=== PATIENT | female | born 1960 | race Caucasian/White ===

== ENCOUNTER 2021-06-17 14:05 | Emergency (ER) | payer MEDICARE, MEDICAID, SELFPAY ==
--- NOTE | ~2021-06-17 | XR_ITS ---
EXAMINATION: XR CHEST CLINICAL INFORMATION: Difficulty swallowing. Abdominal distention. COMPARISON: Chest x-ray 02/09/2017 TECHNIQUE: 2 views of the chest were obtained. FINDINGS: Central port catheter tip at caval atrial junction. No pneumothorax or pleural effusion. Lungs are normally aerated. Cardiac mediastinal contour are normal. Heart size is normal. No pulmonary vascular congestion. XR/XR chest 2V IMPRESSION: No acute abnormality of chest.
--- NOTE | ~2021-06-17 | CT_ITS ---
EXAMINATION: CT ABDOMEN AND PELVIS WITH CONTRAST CLINICAL INFORMATION: Abdominal distention. COMPARISON: CT abdomen with and without contrast 03/15/2017 TECHNIQUE: Multidetector volumetric images were obtained from the superior aspect of the liver through the pubic symphysis following administration 85 mL of Omnipaque 350 intravenous contrast. Sagittal and coronal reformatted images were obtained on the technologist's workstation. Oral contrast: No This CT examination was performed using dose optimization techniques as appropriate, variously including the following: *Automated exposure control *Adjustment of mA and/or kV according to patient size (this includes techniques or standardized protocols for targeted exams where dose is matched to indication/reason for exam; i.e. extremities or head) *Use of iterative reconstruction technique DLP: 559 mGy-cm FINDINGS: LUNG BASES: There is minimal atelectatic changes in the lingula. The heart size is normal. LIVER, GALLBLADDER, AND BILIARY TREE: The liver is normal in size, shape, and attenuation. No focal hepatic lesion or biliary ductal dilatation is present. The gallbladder is unremarkable with no evidence of radiopaque gallstones, gallbladder wall thickening, or obvious pericholecystic inflammatory changes. The CBD is mildly dilated measuring 1.6 cm in axial image 28/3. No obstructive etiology seen PANCREAS: Unremarkable. SPLEEN: The spleen is normal size with a 4 mm calcification. ADRENAL GLANDS: There is a left adrenal gland mass measuring 2.7 x 2.8 x 2.8 cm and 23 Hounsfield units. The right adrenal gland appears unremarkable. KIDNEYS AND URETERS: The kidneys are normal in size, shape, and attenuation. No hydronephrosis, hydroureter, or calculi seen. No perinephric stranding. BLADDER: Unremarkable. GASTROINTESTINAL TRACT: There is scattered stool and gas seen throughout the colon without any significant distention. The small bowel loops are normal caliber. Appendix is normal caliber. ABDOMINAL WALL: No significant hernia is appreciated. LYMPH NODES: Normal. VASCULAR: Unremarkable. PELVIC VISCERA: There is no free air or free fluid. OSSEOUS STRUCTURES: Unremarkable. CT/CT abdomen pelvis w con IMPRESSION: No acute intra-abdominal process seen. Prominent CBD is slightly increased in size since the last exam 2016. No obstructive etiology seen. No intrahepatic ductal dilatation. Left adrenal low-attenuation mass measuring 2.8 cm, similar in size. There is now enhancement seen in contrast exam compared to -8 Hounsfield units on the previous study 03/16/2017. 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 Fleischner guidelines were followed.
[2021-06-17 14:38] VITALS: BP 165/85; PULSE 96; RESP 18; TEMP 36.8; O2SAT 98; BMI 27.4
[2021-06-17 15:06] LABS: MANUAL DIFF FLAG NO
[2021-06-17 15:08] LABS: Appearance Urine CLEAR; Color Urine YELLOW; Glucose Urine UA NEG (NEG); Leukocyte Esterase Urine NEG (NEG); Nitrite Urine NEG (NEG); PH 5.5 (5.0-8.0); Specific Gravity - Urine 1.015 (1.005-1.025); Urine Blood NEG (NEG); Urine Ketones NEG (NEG); Urine Protein NEG (NEG-TRACE)
[2021-06-17 15:10] LABS: Basophils Percent Auto 0.6 % (0-2); Eosinophils Absolute Auto 0.1 X10*3/uL (0.0-0.4); Eosinophils Percent Auto 0.8 % (0-4); Hematocrit 42.4 % (37.0-47.0); Hemoglobin 13.9 g/dl (12.0-16.0); Imm Gran Abs Auto 0.09 X10*3/uL (0.00-0.03); Imm Gran Pct Auto 1.4 % (0.0-0.4); Lymphocytes Absolute Auto 1.4 X10*3/uL (1.2-4.9); Lymphocytes Percent Auto 21.9 % (20-40); Mean Corpuscular HGB Conc 32.8 g/dl (31.0-35.0); Mean Corpuscular Hemoglobin 34.4 pg (27.0-33.0); Monocytes Absolute Auto 0.4 X10*3/uL (0.1-1.2); Monocytes Percent Auto 6.5 % (2-11); Neutrophils Absolute Auto 4.5 x10*3/uL (2.0-8.3); Neutrophils Percent Auto 68.8 % (45-73); Platelet Count 251 X10*3/uL (160-400); Red Blood Count 4.04 X10*6/uL (4.20-5.50); Red Cell Distribution Width 14.1 % (11.0-16.0); White Blood Count 6.6 X10*3/uL (4.8-10.8)
[2021-06-17 15:23] LABS: Anion Gap 10 (12-20); Blood Urea Nitrogen 13 mg/dL (9-16); Calcium 9.2 mg/dL (8.4-10.2); Carbon Dioxide 34 mmol/L (22-29); Chloride 98 mmol/L (96-108); Creatinine Clr Calc Pharmacy 67.7; Estimated Glomerular Filt Rate > 60; Glucose Random 118 mg/dL (60-115); Lipase 74 U/L (8-78); Potassium 4.2 mmol/L (3.3-5.1); Sodium 138 mmol/L (135-145)
[2021-06-17 15:24] LABS: Alanine Aminotransferase 36 U/L (0-31); Alkaline Phosphatase 96 U/L (39-117); Aspartate Amino Transferase 39 U/L (5-31); Bilirubin Direct 0.2 mg/dL (0.0-0.5); Bilirubin Total 0.3 mg/dL (0.0-1.0); Total Protein 7.2 g/dL (6.5-8.0)
[2021-06-17 15:32] LABS: COVID-19 Test Negative (Negative)
[2021-06-17 16:00] VITALS: BP 172/88; PULSE 991; RESP 18; TEMP 36.8; O2SAT 98
[2021-06-17 18:26] LABS: B Type Natriuretic Peptide 31 pg/mL (<100)
[2021-06-17 18:43] VITALS: BP 144/81; PULSE 95; RESP 14; TEMP 37; O2SAT 94
--- NOTE | 2021-06-17 18:43 | ED_ITS ---
HPI - General Adult General Chief complaint: General Medical Stated complaint: DRY MOUTH Time Seen by Provider: 06/17/21 17:15 Source: patient Mode of arrival: ambulatory History of Present Illness HPI narrative: 60-year-old female with a past medical history of vocal cord polyp breast CA s/p chemo/radiation, presenting to the ED complaining of dry mouth, abdominal distension/discomfort, and nausea x months. Reports associated difficulty swallowing & dysuria. Denies fever, chills, cough, SOB/CP, vomiting/diarrhea, hematuria, inability to swallow Onset (ago): month(s) Related Data Allergies Allergy/AdvReac Type Severity Reaction Status Date / Time No Known Allergies Allergy Verified 06/17/21 14:37 [No Known Allergies*] Review of Systems Verdana 4l Review of Systems: Verdana 4d Verdana 4d Constitutional: No Fever, No Chills, No Fatigue, No Malaise ENT/Mouth: No Ear Pain, No Nasal Congestion, No Hoarseness, No sore throat, No Rhinorrhea, + Swallowing Difficulty, + dry mouth Eyes: No Eye Pain, No Swelling, No Redness, No DischargeDischarge Cardiovascular: No Chest Pain, No SOB, No Palpitations Respiratory: No Cough, No Sputum, No Dyspnea Gastrointestinal: + Nausea, No Vomiting, No Diarrhea, No Constipation, + Abdominal pain Genitourinary: + Dysuria, No Urinary Frequency, No Flank Pain, No Urinary Flow Changes, No Hesitancy Musculoskeletal: No joint pain, No Myalgias, No Joint Swelling Skin: No Skin Lesions, No rash Neuro: No Weakness, No Loss of Consciousness, No Dizziness, No Headache Yes all other systems are reviewed and are negative FORMERLY [facility], [facility]–1983 Past Medical History Attestation statement: The following information was validated with the patient. Medical History Vocal cord polyp Social History Social History Advance Directives: Yes Advance Directives Information Provided: Yes Advance Directives on File: No Physical Exam Verdana 4l Vital Signs: Verdana 4d Verdana 4d Vital Signs: Verdana 4d Verdana 4Bd Last Vital Signs Verdana 4d Steam Meter Reader New 4d Steam Meter Reader New 4d Temp 98.6 F 06/17/21 18:43 Steam Meter Reader New 4d Pulse 95 06/17/21 18:43 Steam Meter Reader New 4d Resp 14 06/17/21 18:43 BP 144/81 H 06/17/21 18:43 Pulse Ox 94 06/17/21 18:43 BMI result Body Mass Index 27.4 Const: General: cooperative, healthy appearing and no acute distress Orientation/consciousness: patient oriented x3 Limitations: no limitations HENMT: Head: Yes normal to inspection Ears: hearing grossly normal bilaterally General nose exam: Normal external nose present Face and sinus: Yes normal facial exam Mouth: Normal oral and palatal mucosa present Throat: Yes posterior oropharynx normal, Yes tonsils normal, Yes uvula midline, No peritonsillar mass, No uvula laterally displaced and No uvular edema Eyes: General: appearance normal, both eyes and all related structures EOM: EOMs intact bilaterally Neck: Neck: Yes normal visual inspection, Yes no lymphadenopathy, Yes no meningeal signs, Yes trachea midline, Yes supple and No anterior neck swelling Resp: Effort & Inspection: normal respiratory effort and no stridor Auscultation: clear to auscultation bilaterally, no rales, no rhonchi and no wheezes Cardio: Rate: regular rate Heart sounds: S1 normal heart sound present and S2 normal heart sound present GI: Inspection: Yes normal to inspection and Yes distended Palpation (GI): Soft to palpation, Firmness to palpation present (GI), Tenderness to palpation present (GI) (Mild diffusely), no guarding, not rigid and No Ascites present Skin: Rashes: no rashes Wounds: no wounds Neuro: General: patient oriented x3 and no meningeal signs Gait exam (Neuro): Normal gait present Extrem: Other: 1+ bilaterally LE pitting edema Course Course Course Narrative: -no leukocytosis. Acute on chronic retention. Mildly elevated AST/ALT. Labs otherwise unremarkable -UA unremarkable. COVID-19 negative XR chest 2V IMPRESSION: No acute abnormality of chest. CT abdomen pelvis w con IMPRESSION: No acute intra-abdominal process seen. ? Prominent CBD is slightly increased in size since the last exam 2016. No obstructive etiology seen. No intrahepatic ductal dilatation. ? Left adrenal low-attenuation mass measuring 2.8 cm, similar in size. There is now enhancement seen in contrast exam compared to -8 Hounsfield units on the previous study 03/16/2017. 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 ? Fleischner guidelines were followed. >> patient is tolerating p.o. in the ED without any difficulty. results discussed with patient including worrisome signs and symptoms and strict return precautions and need close follow-up with GI, Urology, and ENT. Patient verbalized understanding and feels safe for discharge home at this time Medical Decision Making MDM Narrative Medical decision making narrative: 60-year-old female with a past medical history of vocal cord polyp breast CA s/p chemo/radiation, presenting to the ED complaining of dry mouth, abdominal distension/discomfort, and nausea x months. On exam vital signs stable, NAD/nontoxic appearing, physical exam as above. Concern for intra-abdominal process vs ?mass, low concern for ascites vs viral syndrome. No evidence of [employer]. No evidence of airway compromise/intraoral swelling, airway patent, no stridor. Lower concern for diverticulitis/appendicitis Plan: labs, UA, CXR, CT abdomen/pelvis Medical Records Medical records reviewed: Yes I reviewed the patient's medical records. Lab Data Lab results reviewed: Yes I reviewed the patient's lab results. Result diagrams: 06/17/21 14:58 06/17/21 14:58 Labs: Lab Results 06/17/21 06/17/21 06/17/21 Range/Units 14:58 14:58 14:58 WBC 6.6 (4.8-10.8) X10*3/uL RBC 4.04 L (4.20-5.50) X10*6/uL Hgb 13.9 (12.0-16.0) g/dl Hct 42.4 (37.0-47.0) % MCV 105.0 H (80.0-98.0) fL MCH 34.4 H (27.0-33.0) pg MCHC 32.8 (31.0-35.0) g/dl RDW 14.1 (11.0-16.0) % Plt Count 251 (160-400) X10*3/uL MPV 9.0 L (9.4-12.3) fL Immature Gran % (Auto) 1.4 H (0.0-0.4) % Neut % (Auto) 68.8 (45-73) % Lymph % (Auto) 21.9 (20-40) % Custer % (Auto) 6.5 (2-11) % Eos % (Auto) 0.8 (0-4) % Baso % (Auto) 0.6 (0-2) % Lymph # (Auto) 1.4 (1.2-4.9) X10*3/uL Custer # (Auto) 0.4 (0.1-1.2) X10*3/uL Eos # (Auto) 0.1 (0.0-0.4) X10*3/uL Baso # (Auto) 0.0 (0.0-0.2) X10*3/uL Abs Immat Gran (auto) 0.09 H (0.00-0.03) X10*3/uL Absolute Neuts (auto) 4.5 (2.0-8.3) x10*3/uL Absolute Nucleated RBC 0.000 (0.0-0.012) X10*3/uL Nucleated RBC % (auto) 0.0 (0.0-0.2) /100WBC Sodium 138 (135-145) mmol/L Potassium 4.2 (3.3-5.1) mmol/L Chloride 98 (96-108) mmol/L Carbon Dioxide 34 H (22-29) mmol/L Anion Gap 10 L (12-20) BUN 13 (9-16) mg/dL Creatinine 0.82 (0.5-1.4) mg/dL Estim Creat Clear Calc 67.7 Estimated GFR > 60 Random Glucose 118 H (60-115) mg/dL Calcium 9.2 (8.4-10.2) mg/dL Magnesium (1.6-2.6) mg/dL Total Bilirubin (0.0-1.0) mg/dL Direct Bilirubin (0.0-0.5) mg/dL AST (5-31) U/L ALT (0-31) U/L Alkaline Phosphatase (39-117) U/L B-Natriuretic Peptide (<100) pg/mL Total Protein (6.5-8.0) g/dL Albumin (3.5-5.0) g/dL Lipase 74 (8-78) U/L Urine Color YELLOW Urine Appearance CLEAR Urine pH 5.5 (5.0-8.0) Ur Specific [place] 1.015 (1.005-1.025) Urine Protein NEG (NEG-TRACE) MG/DL Urine Glucose (UA) NEG (NEG) MG/DL Urine Ketones NEG (NEG) MG/DL Urine Blood NEG (NEG) Urine Nitrite NEG (NEG) Ur Leukocyte Esterase NEG (NEG) COVID-19 (FELIX) (Negative) COVID-19 Clin Com 06/17/21 06/17/21 06/17/21 Range/Units 14:58 14:58 14:59 WBC (4.8-10.8) X10*3/uL RBC (4.20-5.50) X10*6/uL Hgb (12.0-16.0) g/dl Hct (37.0-47.0) % MCV (80.0-98.0) fL MCH (27.0-33.0) pg MCHC (31.0-35.0) g/dl RDW (11.0-16.0) % Plt Count (160-400) X10*3/uL MPV (9.4-12.3) fL Immature Gran % (Auto) (0.0-0.4) % Neut % (Auto) (45-73) % Lymph % (Auto) (20-40) % Custer % (Auto) (2-11) % Eos % (Auto) (0-4) % Baso % (Auto) (0-2) % Lymph # (Auto) (1.2-4.9) X10*3/uL Custer # (Auto) (0.1-1.2) X10*3/uL Eos # (Auto) (0.0-0.4) X10*3/uL Baso # (Auto) (0.0-0.2) X10*3/uL Abs Immat Gran (auto) (0.00-0.03) X10*3/uL Absolute Neuts (auto) (2.0-8.3) x10*3/uL Absolute Nucleated RBC (0.0-0.012) X10*3/uL Nucleated RBC % (auto) (0.0-0.2) /100WBC Sodium (135-145) mmol/L Potassium (3.3-5.1) mmol/L Chloride (96-108) mmol/L Carbon Dioxide (22-29) mmol/L Anion Gap (12-20) BUN (9-16) mg/dL Creatinine (0.5-1.4) mg/dL Estim Creat Clear Calc Estimated GFR Random Glucose (60-115) mg/dL Calcium (8.4-10.2) mg/dL Magnesium 2.0 (1.6-2.6) mg/dL Total Bilirubin 0.3 (0.0-1.0) mg/dL Direct Bilirubin 0.2 (0.0-0.5) mg/dL AST 39 H (5-31) U/L ALT 36 H (0-31) U/L Alkaline Phosphatase 96 (39-117) U/L B-Natriuretic Peptide 31 (<100) pg/mL Total Protein 7.2 (6.5-8.0) g/dL Albumin 4.0 (3.5-5.0) g/dL Lipase (8-78) U/L Urine Color Urine Appearance Urine pH (5.0-8.0) Ur Specific [place] (1.005-1.025) Urine Protein (NEG-TRACE) MG/DL Urine Glucose (UA) (NEG) MG/DL Urine Ketones (NEG) MG/DL Urine Blood (NEG) Urine Nitrite (NEG) Ur Leukocyte Esterase (NEG) COVID-19 (FELIX) Negative (Negative) COVID-19 Clin Com See Note Discharge Plan Discharge Clinical Impression: Mass of adrenal gland, Dry mouth, Abdominal bloating Patient Disposition: Home, Self-Care Instructions: Abdominal Pain (ED), Dry Mouth (ED), Adrenal Gland Biopsy (DC) Additional Instructions: Your CT scan shows a mass in her left adrenal gland as well as a prominent common bile duct. You need to follow-up with GI and Urology You also need to follow-up with ENT you for your dry mouth as well as her dentist. If her symptoms persist or worsen, your abdominal pain becomes unbearable, you are unable to eat or drink, have difficulty or inability to swallow, or developed fever please return to the emergency department Referrals: Ace Nieto MD [Physician] - 2 days Farrukh Acosta MD [Physician] - 2 days Sinan Valdez [Physician] - 2 days
--- NOTE | 2021-06-17 19:41 | PC.NURSE ---
IV inserted in PT right AC in order to receive IV contrast dye for CT scan.
[2021-06-17] MEDS: iohexoL 350 MG/ML 100 ML INFUS..BTL IV (19:57)
[2021-06-17 22:00] VITALS: BP 158/83; PULSE 78; RESP 18; O2SAT 95
[2021-06-17] MEDS: Heparin Sodium,Porcine Flush 50 UNITS, 0.9 % Sodium Chloride Flush 5 ML IVFLUSH (22:05)
== END 2021-06-17 22:16 | disposition home or self-care (01) ==
PROVIDERS: Physician Assistant; Emergency Provider Internal Medicine; PCP Internal Medicine
DX: R68.2 Dry mouth, unspecified (principal); D44.12 Neoplasm of uncertain behavior of left adrenal gland; R14.0 Abdominal distension (gaseous); Z20.822 Contact with and (suspected) exposure to COVID-19; R11.0 Nausea; R60.0 Localized edema; R33.9 Retention of urine, unspecified; Z85.3 Personal history of malignant neoplasm of breast; D35.02 Benign neoplasm of left adrenal gland
CPT/HCPCS: 36415; 71046; 74177; 80048; 80076; 81003; 83690; 83735; 83880; 85025; 87635; 99284; J1642; Q9967

== ENCOUNTER 2021-07-29 11:30 | Emergency (ER) | payer MEDICARE, MEDICAID, SELFPAY ==
--- NOTE | 2021-07-29 | ECG_ITS ---
Test Reason : sob Blood Pressure : / mmHG Vent. Rate : 089 BPM Atrial Rate : 089 BPM P-R Int : 152 ms QRS Dur : 094 ms QT Int : 388 ms P-R-T Axes : 064 -05 031 degrees QTc Int : 472 ms Normal sinus rhythm Normal ECG No previous ECGs available Referred By: Mao Ghotra Electronically Signed By:YOEL CARRION
--- NOTE | ~2021-07-29 | XR_ITS ---
EXAMINATION: XR CHEST CLINICAL INFORMATION: Diffuse rhonchi COMPARISON: Previous chest x-ray June 2021 TECHNIQUE: 2 views of the chest were obtained. FINDINGS: The cardiac and mediastinal contours are stable. The lungs are clear. There is no pleural effusion or pneumothorax. There is a right subclavian port with tip projecting over the SVC. There are mild degenerative changes of the spine. XR/XR chest 2V IMPRESSION: No evidence for acute disease in the chest.
[2021-07-29 11:32] VITALS: BP 159/109; PULSE 95; RESP 18; TEMP 36.3; O2SAT 94; BMI 28.3
--- NOTE | 2021-07-29 12:28 | ED_ITS ---
HPI - SOB/Dyspnea General Chief Complaint: Dyspnea Stated Complaint: COPD Time Seen by Provider: 07/29/21 12:28 Source: patient Mode of arrival: ambulatory Limitations: no limitations History of Present Illness HPI Narrative: Patient with shortness of breath for the past week. she recently had dental surgery and since then she has had wheezing. In addition she has had some stress but now with increased SOB with exertion. Patient is normally on an albuterol. She is not on a daily inhailer. She has had epigastric pain. patient has been vaccinated and boostered. MD elicited complaint: shortness of breath Pertinent past history: COPD Onset (ago): week(s) Context: anxiety and other (surgery) Timing: intermittent Severity: mild Exacerbating factors: exertion Known history of: COPD Associated symptoms: denies other symptoms Related Data Previous Rx's Medication Instructions Recorded albuterol sulfate 90 mcg/actuation 2 puff INHALATION QID PRN #8.5 g 07/29/21 aerosol inhaler tiotropium bromide 18 mcg capsule 1 cap INHALATION DAILY #1 inh 07/29/21 with inhalation device (Spiriva with HandiHaler) Allergies Allergy/AdvReac Type Severity Reaction Status Date / Time No Known Allergies Allergy Verified 06/17/21 14:37 [No Known Allergies*] Review of Systems Constitutional: Comments: Weight gain and leg swelling Eyes: Eyes: Reports no additional eye complaints ENT: Denies dizziness Cardiovascular: Cardiovascular: Reports no additional cardiovascular complaints Respiratory: Respiratory: Reports as per HPI Gastrointestinal: Gastrointestinal: Reports no additional gastrointestinal complaints Genitourinary: Genitourinary: Reports no additional female genitourinary complaints Musculoskeletal: Musculoskeletal: Reports no additional musculoskeletal complaints Integumentary/Breasts: Skin/Breast: Denies rash Neurologic: Reports system reviewed and no additional complaints, except as documented, Denies dizziness and Denies Sensory deficit (Neuro) Psychiatric: Psychiatric: Denies anxiety [facility] Past Medical History Medical History Vocal cord polyp Social History Social History Advance Directives: No Advance Directives Information Provided: No Patient : No Physical Exam Vital Signs: Vital Signs: Last Vital Signs Temp 97.3 F 07/29/21 11:32 Pulse 74 07/29/21 13:48 Resp 16 07/29/21 13:48 BP 137/84 07/29/21 13:48 Pulse Ox 88 L 07/29/21 13:53 BMI result Body Mass Index 28.3 Const: Nutritional Appearance: average body habitus Orientation/consciousness: oriented to person and patient oriented x3 Limitations: no limitations HENMT: Head: Yes normal to inspection Ears: external ears normal General nose exam: Normal external nose present Mouth: Normal oral and palatal mucosa present and oropharynx normal Throat: Yes posterior oropharynx normal Eyes: General: appearance normal, both eyes and all related structures Neck: Other: supple Neck: Yes normal visual inspection Chest: Other: supraclavicular swelling with respiratory variation Chest palpation & inspection: normal inspection of the chest Resp: Other: diffuse expiratory wheezing most in the lower lobes Cardio: Jugular venous distension: no JVD Rate: regular rate Rhythm: regular rhythm Heart sounds: S1 normal heart sound present and S2 normal heart sound present GI: Inspection: Yes normal to inspection Palpation (GI): Soft to palpation, nontender and No hepatosplenomegaly present Auscultation: normal bowel sounds : General: Yes no CVA tenderness Back/Spine/Pelvis: Back: no CVA tenderness Skin: General skin exam: no rashes or lesions noted Neuro: General: oriented to person and patient oriented x3 Cranial nerves: Yes CN's II-XII intact bilaterally Motor exam (neuro): 5/5 motor strength present throughout Sensory Exam: No Sensory deficit (Neuro) Extrem: General: Yes normal to inspection Psych: Appearance: grossly normal Course Reevaluation(s) Reevaluation #1: Patient lungs are clear, no rhonchi. O2 sat 94% Time: 15:02 MDM - SOB/Dyspnea Lab Data Result diagrams: 07/29/21 12:31 07/29/21 12:31 Labs: Lab Results 07/29/21 07/29/21 07/29/21 Range/Units 12:31 12:31 12:31 WBC 9.1 (4.8-10.8) X10*3/uL RBC 3.91 L (4.20-5.50) X10*6/uL Hgb 13.6 (12.0-16.0) g/dl Hct 42.8 (37.0-47.0) % MCV 109.5 H (80.0-98.0) fL MCH 34.8 H (27.0-33.0) pg MCHC 31.8 (31.0-35.0) g/dl RDW 13.3 (11.0-16.0) % Plt Count 178 D (160-400) X10*3/uL MPV 9.0 L (9.4-12.3) fL Immature Gran % (Auto) 1.0 H (0.0-0.4) % Neut % (Auto) 79.4 H (45-73) % Lymph % (Auto) 11.3 L (20-40) % Fleming % (Auto) 6.6 (2-11) % Eos % (Auto) 1.3 (0-4) % Baso % (Auto) 0.4 (0-2) % Lymph # (Auto) 1.0 L (1.2-4.9) X10*3/uL Fleming # (Auto) 0.6 (0.1-1.2) X10*3/uL Eos # (Auto) 0.1 (0.0-0.4) X10*3/uL Baso # (Auto) 0.0 (0.0-0.2) X10*3/uL Abs Immat Gran (auto) 0.09 H (0.00-0.03) X10*3/uL Absolute Neuts (auto) 7.2 (2.0-8.3) x10*3/uL Absolute Nucleated RBC 0.000 (0.0-0.012) X10*3/uL Nucleated RBC % (auto) 0.0 (0.0-0.2) /100WBC Sodium 139 (135-145) mmol/L Potassium 4.1 (3.3-5.1) mmol/L Chloride 98 (96-108) mmol/L Carbon Dioxide 31 H (22-29) mmol/L Anion Gap 14 (12-20) BUN 11 (9-16) mg/dL Creatinine 0.75 (0.5-1.4) mg/dL Estim Creat Clear Calc 75.1 Estimated GFR > 60 Random Glucose 151 H (60-115) mg/dL Calcium 9.9 D (8.4-10.2) mg/dL Total Bilirubin 0.4 (0.0-1.0) mg/dL AST 21 D (5-31) U/L ALT 22 (0-31) U/L Alkaline Phosphatase 78 (39-117) U/L Troponin I High Sens < 3.5 (<3.5-17.0) ng/L B-Natriuretic Peptide 28 (<100) pg/mL Total Protein 6.9 (6.5-8.0) g/dL Albumin 4.2 (3.5-5.0) g/dL TSH 0.79 (0.32-4.0) uIU/mL COVID-19 (FELIX) (Negative) COVID-19 Clin Com 07/29/21 Range/Units 12:31 WBC (4.8-10.8) X10*3/uL RBC (4.20-5.50) X10*6/uL Hgb (12.0-16.0) g/dl Hct (37.0-47.0) % MCV (80.0-98.0) fL MCH (27.0-33.0) pg MCHC (31.0-35.0) g/dl RDW (11.0-16.0) % Plt Count (160-400) X10*3/uL MPV (9.4-12.3) fL Immature Gran % (Auto) (0.0-0.4) % Neut % (Auto) (45-73) % Lymph % (Auto) (20-40) % Fleming % (Auto) (2-11) % Eos % (Auto) (0-4) % Baso % (Auto) (0-2) % Lymph # (Auto) (1.2-4.9) X10*3/uL Fleming # (Auto) (0.1-1.2) X10*3/uL Eos # (Auto) (0.0-0.4) X10*3/uL Baso # (Auto) (0.0-0.2) X10*3/uL Abs Immat Gran (auto) (0.00-0.03) X10*3/uL Absolute Neuts (auto) (2.0-8.3) x10*3/uL Absolute Nucleated RBC (0.0-0.012) X10*3/uL Nucleated RBC % (auto) (0.0-0.2) /100WBC Sodium (135-145) mmol/L Potassium (3.3-5.1) mmol/L Chloride (96-108) mmol/L Carbon Dioxide (22-29) mmol/L Anion Gap (12-20) BUN (9-16) mg/dL Creatinine (0.5-1.4) mg/dL Estim Creat Clear Calc Estimated GFR Random Glucose (60-115) mg/dL Calcium (8.4-10.2) mg/dL Total Bilirubin (0.0-1.0) mg/dL AST (5-31) U/L ALT (0-31) U/L Alkaline Phosphatase (39-117) U/L Troponin I High Sens (<3.5-17.0) ng/L B-Natriuretic Peptide (<100) pg/mL Total Protein (6.5-8.0) g/dL Albumin (3.5-5.0) g/dL TSH (0.32-4.0) uIU/mL COVID-19 (FELIX) Negative (Negative) COVID-19 Clin Com See Note Imaging Data Chest x-ray: Radiologist's impression: IMPRESSION: No evidence for acute disease in the chest. Discharge Plan Discharge Clinical Impression: COPD (chronic obstructive pulmonary disease) Patient Disposition: Home, Self-Care Instructions: COPD (Chronic Obstructive Pulmonary Disease) (DC) Prescriptions: New albuterol sulfate 90 mcg/actuation HFA aerosol inhaler 2 puff inhalation QID PRN (Reason: shortness of breath or wheezing) Qty: 8.5 0RF Spiriva with HandiHaler 18 mcg capsule, w/inhalation device 1 cap inhalation DAILY Qty: 1 0RF Rx Instructions: puncture 1 cap using device; one dose = 2 inhalations Referrals: Melissa Mejia MD [Primary Care Provider] - 5 days
[2021-07-29 12:35] LABS: MANUAL DIFF FLAG NO
[2021-07-29 12:36] LABS: Basophils Percent Auto 0.4 % (0-2); Eosinophils Absolute Auto 0.1 X10*3/uL (0.0-0.4); Eosinophils Percent Auto 1.3 % (0-4); Hematocrit 42.8 % (37.0-47.0); Hemoglobin 13.6 g/dl (12.0-16.0); Imm Gran Abs Auto 0.09 X10*3/uL (0.00-0.03); Lymphocytes Percent Auto 11.3 % (20-40); Mean Corpuscular HGB Conc 31.8 g/dl (31.0-35.0); Mean Corpuscular Hemoglobin 34.8 pg (27.0-33.0); Mean Corpuscular Volume 109.5 fL (80.0-98.0); Monocytes Absolute Auto 0.6 X10*3/uL (0.1-1.2); Monocytes Percent Auto 6.6 % (2-11); Neutrophils Absolute Auto 7.2 x10*3/uL (2.0-8.3); Neutrophils Percent Auto 79.4 % (45-73); Platelet Count 178 X10*3/uL (160-400); Red Blood Count 3.91 X10*6/uL (4.20-5.50); Red Cell Distribution Width 13.3 % (11.0-16.0); White Blood Count 9.1 X10*3/uL (4.8-10.8)
[2021-07-29 12:52] LABS: Alanine Aminotransferase 22 U/L (0-31); Albumin Level 4.2 g/dL (3.5-5.0); Alkaline Phosphatase 78 U/L (39-117); Anion Gap 14 (12-20); Aspartate Amino Transferase 21 U/L (5-31); Bilirubin Total 0.4 mg/dL (0.0-1.0); Blood Urea Nitrogen 11 mg/dL (9-16); Calcium 9.9 mg/dL (8.4-10.2); Carbon Dioxide 31 mmol/L (22-29); Chloride 98 mmol/L (96-108); Creatinine Clr Calc Pharmacy 75.1; Estimated Glomerular Filt Rate > 60; Glucose Random 151 mg/dL (60-115); Potassium 4.1 mmol/L (3.3-5.1); Sodium 139 mmol/L (135-145); Total Protein 6.9 g/dL (6.5-8.0)
[2021-07-29 12:56] LABS: IDNOW Serial# 16C4AD1C
[2021-07-29 12:57] LABS: COVID-19 Test Negative (Negative)
[2021-07-29 12:58] LABS: B Type Natriuretic Peptide 28 pg/mL (<100); Troponin-I High Sensitivity < 3.5 ng/L (<3.5-17.0)
[2021-07-29 13:23] LABS: Thyroid Stimulating Hormone 0.79 uIU/mL (0.32-4.0)
[2021-07-29 13:48] VITALS: BP 137/84; PULSE 74; RESP 16
[2021-07-29 13:53] VITALS: O2SAT 88
[2021-07-29] MEDS: Albuterol Sulfate 90 MCG 8 GM INHALER 4 PUFF INHALE (14:45)
--- NOTE | 2021-07-29 15:02 | PC.NURSE ---
pt requested to have tylenol at this time as she reports having mouth surgery the other day and experiencing pain at this time. she also asked for her 1200 mg TID Gabapentin and reported that she had both medications on her at this time and if she could just take her own medication. t/w educated her on not taking her own medicaitons, that staff would give them from the hosptial if the provider wanted them ordered. Respiratory informed t/w that they walked into the room and pt was taking meds out of a bottle stating dont worry its just Tylenol! . MD Ghotra made aware
[2021-07-29 15:05] VITALS: BP 134/80; PULSE 85; RESP 16; O2SAT 94
== END 2021-07-29 15:26 | disposition home or self-care (01) ==
PROVIDERS: Emergency Provider Emergency Medicine; PCP Internal Medicine
DX: J44.9 Chronic obstructive pulmonary disease, unspecified (principal); R06.02 Shortness of breath; Z20.822 Contact with and (suspected) exposure to COVID-19
CPT/HCPCS: 71046; 80053; 83880; 84443; 84484; 85025; 87635; 93005; 99284

== ENCOUNTER 2021-08-21 17:45 | Inpatient (IN) | payer MEDICARE, MEDICAID, SELFPAY ==
--- NOTE | ~2021-08-21 | XR_ITS ---
EXAMINATION: XR CHEST CLINICAL INFORMATION: Dyspnea. COMPARISON: Chest radiograph dated from 07/29/2021. TECHNIQUE: PA view of the chest was obtained. FINDINGS: Stable cardiomediastinal silhouette and similar positioning of a right subclavian port terminating at the level of the cavoatrial junction. Tiny radiopacities superior to the left ventricular shadow are stable. No focal airspace opacities, pleural effusions or pneumothorax. No acute osseous abnormalities. XR/XR chest 1V IMPRESSION: No acute cardiopulmonary findings.
--- NOTE | 2021-08-21 18:36 | ECG_ITS ---
Test Reason : SOB Blood Pressure : / mmHG Vent. Rate : 081 BPM Atrial Rate : 081 BPM P-R Int : 158 ms QRS Dur : 096 ms QT Int : 404 ms P-R-T Axes : 069 004 032 degrees QTc Int : 469 ms Normal sinus rhythm Normal ECG When compared with ECG of 29-JUL-2021 12:14, No significant change was found Referred By: Generic ED Physician Electronically Signed By:RITA ARZATE MD
[2021-08-21 18:38] VITALS: BP 180/89; PULSE 89; RESP 22; TEMP 36.6; O2SAT 90; BMI 28.9
[2021-08-21 18:51] LABS: MANUAL DIFF FLAG NO
[2021-08-21 18:52] LABS: Basophils Percent Auto 0.5 % (0-2); Eosinophils Absolute Auto 0.1 X10*3/uL (0.0-0.4); Eosinophils Percent Auto 2.9 % (0-4); Hematocrit 43.5 % (37.0-47.0); Hemoglobin 13.8 g/dl (12.0-16.0); Imm Gran Abs Auto 0.02 X10*3/uL (0.00-0.03); Imm Gran Pct Auto 0.5 % (0.0-0.4); Lymphocytes Absolute Auto 1.2 X10*3/uL (1.2-4.9); Lymphocytes Percent Auto 27.8 % (20-40); Mean Corpuscular HGB Conc 31.7 g/dl (31.0-35.0); Mean Corpuscular Hemoglobin 34.2 pg (27.0-33.0); Mean Corpuscular Volume 107.7 fL (80.0-98.0); Monocytes Absolute Auto 0.6 X10*3/uL (0.1-1.2); Monocytes Percent Auto 13.3 % (2-11); Neutrophils Absolute Auto 2.3 x10*3/uL (2.0-8.3); Platelet Count 173 X10*3/uL (160-400); Red Blood Count 4.04 X10*6/uL (4.20-5.50); Red Cell Distribution Width 13.1 % (11.0-16.0); White Blood Count 4.1 X10*3/uL (4.8-10.8)
[2021-08-21 18:58] LABS: COVID-19 Test Positive (Negative)
[2021-08-21 19:04] LABS: Anion Gap 14 (12-20); Blood Urea Nitrogen 9 mg/dL (9-16); Calcium 9.7 mg/dL (8.4-10.2); Carbon Dioxide 35 mmol/L (22-29); Chloride 98 mmol/L (96-108); Creatinine Clr Calc Pharmacy 76.9; Estimated Glomerular Filt Rate > 60; Glucose Random 102 mg/dL (60-115); Potassium 3.9 mmol/L (3.3-5.1); Sodium 143 mmol/L (135-145)
[2021-08-21 19:17] LABS: B Type Natriuretic Peptide 20 pg/mL (<100)
[2021-08-21 19:47] VITALS: BP 145/63; PULSE 70; RESP 13; TEMP 36.6; O2SAT 95
[2021-08-21 20:00] VITALS: BP 173/89; PULSE 79; RESP 12; O2SAT 94
--- NOTE | 2021-08-21 20:12 | ED_ITS ---
HPI - SOB/Dyspnea General Chief Complaint: Dyspnea Stated Complaint: sob copd Time Seen by Provider: 08/21/21 20:12 Source: patient Mode of arrival: ambulatory Limitations: no limitations History of Present Illness HPI Narrative: Patient already vaccinated against COVID including a booster dose complaining of increased cough and shortness of breath for last 3 days was saturating 90% at room air her sister came from [place] and she was also sick patient tested negative for COVID at home patient denies any fever coughing a lot with shortness of breath patient was saturating 90% at room air on arrival she is not on oxygen at home Related Data Home Medications Medication Instructions Recorded Confirmed celecoxib 200 mg capsule 1 cap PO DAILY 08/21/21 08/21/21 cholecalciferol (vitamin D3) 125 1 tab PO DAILY 08/21/21 08/21/21 mcg (5,000 unit) tablet (Vitamin D3) gabapentin 600 mg tablet 2 tab PO TID 08/21/21 08/21/21 methadone 10 mg/mL oral concentrate 130 mg PO DAILY 08/21/21 omeprazole 20 mg capsule,delayed 1 cap PO DAILY 08/21/21 08/21/21 release Previous Rx's Medication Instructions Recorded albuterol sulfate 90 mcg/actuation 2 puff INHALATION QID PRN #8.5 g 07/29/21 aerosol inhaler tiotropium bromide 18 mcg capsule 1 cap INHALATION DAILY #1 inh 07/29/21 with inhalation device (Spiriva with HandiHaler) Allergies Allergy/AdvReac Type Severity Reaction Status Date / Time No Known Allergies Allergy Verified 06/17/21 14:37 [No Known Allergies*] Review of Systems Review of Systems: Yes all other systems are reviewed and are negative [facility] Past Medical History Medical History Breast cancer COPD (chronic obstructive pulmonary disease) Vocal cord polyp Social History Social History Alcohol intake: never Patient Tobacco Use Status: Current everyday Tobacco user Use of substances other than those prescribed or required for medical reasons: No Substance Use Frequency: Occasionally Advance Directives: No service: No Current occupational status: disabled Physical Exam Vital Signs: Vital Signs: Last Vital Signs Temp 97.8 F 08/21/21 19:47 Pulse 107 H 08/21/21 23:33 Resp 15 08/21/21 23:33 BP 127/68 08/21/21 23:33 Pulse Ox 94 08/21/21 23:33 BMI result Body Mass Index 28.9 Appearance: Alert. Oriented X3. Mild distress coughing frequently Eyes: PERRLA, No Nystagmus ENT: Pharynx normal. Oral Mucosa moist Neck: Normal inspection. Neck supple. CVS: Normal heart rate and rhythm. Pulses normal. Respiratory: Frequent dry cough prolonged expiration, Equal air entry bilateral, no wheezing/rales/rhonchi Abdomen: Soft and nontender. Bowel sounds are present, no mass palpable, no CVA tenderness Skin: Skin warm and dry. Normal skin color. Normal skin turgor. Extremities: No lower extremity edema. No calf tenderness Neuro: Oriented X 3. No motor deficit. MDM - SOB/Dyspnea MDM Narrative Medical decision making narrative: Patient COVID 19 infection with hypoxia on arrival 90% at room air does not have any oxygen at home wheezing coughing a lot will admit patient for COVID-19 hypoxia patient was given Decadron in the ER along with nebulizing treatment Lab Data Attestation: I reviewed the patient's lab results. Result diagrams: 08/21/21 18:45 08/21/21 18:45 Labs: Lab Results 08/21/21 08/21/21 08/21/21 Range/Units 18:45 18:45 18:45 WBC 4.1 L (4.8-10.8) X10*3/uL RBC 4.04 L (4.20-5.50) X10*6/uL Hgb 13.8 (12.0-16.0) g/dl Hct 43.5 (37.0-47.0) % MCV 107.7 H (80.0-98.0) fL MCH 34.2 H (27.0-33.0) pg MCHC 31.7 (31.0-35.0) g/dl RDW 13.1 (11.0-16.0) % Plt Count 173 (160-400) X10*3/uL MPV 9.0 L (9.4-12.3) fL Immature Gran % (Auto) 0.5 H (0.0-0.4) % Neut % (Auto) 55.0 (45-73) % Lymph % (Auto) 27.8 (20-40) % [place] % (Auto) 13.3 H (2-11) % Eos % (Auto) 2.9 (0-4) % Baso % (Auto) 0.5 (0-2) % Lymph # (Auto) 1.2 (1.2-4.9) X10*3/uL [place] # (Auto) 0.6 (0.1-1.2) X10*3/uL Eos # (Auto) 0.1 (0.0-0.4) X10*3/uL Baso # (Auto) 0.0 (0.0-0.2) X10*3/uL Abs Immat Gran (auto) 0.02 (0.00-0.03) X10*3/uL Absolute Neuts (auto) 2.3 (2.0-8.3) x10*3/uL Absolute Nucleated RBC 0.000 (0.0-0.012) X10*3/uL Nucleated RBC % (auto) 0.0 (0.0-0.2) /100WBC Sodium 143 (135-145) mmol/L Potassium 3.9 (3.3-5.1) mmol/L Chloride 98 (96-108) mmol/L Carbon Dioxide 35 H (22-29) mmol/L Anion Gap 14 (12-20) BUN 9 (9-16) mg/dL Creatinine 0.74 (0.5-1.4) mg/dL Estim Creat Clear Calc 76.9 Estimated GFR > 60 Random Glucose 102 (60-115) mg/dL Calcium 9.7 (8.4-10.2) mg/dL Troponin I High Sens 4.0 (<3.5-17.0) ng/L B-Natriuretic Peptide 20 (<100) pg/mL Urine Color Urine Appearance Urine pH (5.0-8.0) Ur Specific [place] (1.005-1.025) Urine Protein (NEG-TRACE) MG/DL Urine Glucose (UA) (NEG) MG/DL Urine Ketones (NEG) MG/DL Urine Blood (NEG) Urine Nitrite (NEG) Ur Leukocyte Esterase (NEG) COVID-19 (FELIX) (Negative) COVID-19 Clin Com 08/21/21 08/21/21 Range/Units 18:45 21:10 WBC (4.8-10.8) X10*3/uL RBC (4.20-5.50) X10*6/uL Hgb (12.0-16.0) g/dl Hct (37.0-47.0) % MCV (80.0-98.0) fL MCH (27.0-33.0) pg MCHC (31.0-35.0) g/dl RDW (11.0-16.0) % Plt Count (160-400) X10*3/uL MPV (9.4-12.3) fL Immature Gran % (Auto) (0.0-0.4) % Neut % (Auto) (45-73) % Lymph % (Auto) (20-40) % [place] % (Auto) (2-11) % Eos % (Auto) (0-4) % Baso % (Auto) (0-2) % Lymph # (Auto) (1.2-4.9) X10*3/uL [place] # (Auto) (0.1-1.2) X10*3/uL Eos # (Auto) (0.0-0.4) X10*3/uL Baso # (Auto) (0.0-0.2) X10*3/uL Abs Immat Gran (auto) (0.00-0.03) X10*3/uL Absolute Neuts (auto) (2.0-8.3) x10*3/uL Absolute Nucleated RBC (0.0-0.012) X10*3/uL Nucleated RBC % (auto) (0.0-0.2) /100WBC Sodium (135-145) mmol/L Potassium (3.3-5.1) mmol/L Chloride (96-108) mmol/L Carbon Dioxide (22-29) mmol/L Anion Gap (12-20) BUN (9-16) mg/dL Creatinine (0.5-1.4) mg/dL Estim Creat Clear Calc Estimated GFR Random Glucose (60-115) mg/dL Calcium (8.4-10.2) mg/dL Troponin I High Sens (<3.5-17.0) ng/L B-Natriuretic Peptide (<100) pg/mL Urine Color YELLOW Urine Appearance CLEAR Urine pH 6.5 (5.0-8.0) Ur Specific [place] 1.010 (1.005-1.025) Urine Protein NEG (NEG-TRACE) MG/DL Urine Glucose (UA) NEG (NEG) MG/DL Urine Ketones NEG (NEG) MG/DL Urine Blood NEG (NEG) Urine Nitrite NEG (NEG) Ur Leukocyte Esterase NEG (NEG) COVID-19 (FELIX) Positive A (Negative) COVID-19 Clin Com See Note Discharge Plan Discharge Clinical Impression: Acute hypoxemic respiratory failure due to COVID-19 Patient Disposition: Admitted As Inpatient
[2021-08-21] MEDS: dexAMETHasone sod phosphate 10 MG/ML VIAL IVPUSH (21:15)
[2021-08-21] MEDS: Albuterol/Iprat 2.5/0.5MG 3 ML AMPUL.NEB INHALE (21:16)
[2021-08-21] MEDS: Albuterol Sulfate (0.083%) 2.5 MG/3 ML VIAL.NEB 5 MG INHALE (21:16)
[2021-08-21 21:17] VITALS: PULSE 76; RESP 18; O2SAT 94
[2021-08-21 21:19] LABS: Appearance Urine CLEAR; Color Urine YELLOW; Glucose Urine UA NEG (NEG); Leukocyte Esterase Urine NEG (NEG); Nitrite Urine NEG (NEG); PH 6.5 (5.0-8.0); Urine Blood NEG (NEG); Urine Ketones NEG (NEG); Urine Protein NEG (NEG-TRACE)
--- NOTE | 2021-08-21 21:57 | PM.IMHP ---
History of Present Illness Date of Service: 08/21/21 Chief Complaint: SOB 60-year-old female with past medical history of COPD, breast cancer, cervical cancer, neuropathy, IBS who presents to the hospital with complaints of shortness of breath, cough, congestion, headache, nausea, chills that started yesterday. Patient reports that her sister tested positive yesterday and she has been with her sister throughout the week. She was tested for COVID at [facility] in the morning but had not had with the results yet, she decided to come to the ED as her symptoms of shortness of breath and calm worsened. She reports no chest pain, no abdominal pain, reports that she is vaccinated x3, in is usually very compliant with mask wearing. she denies having any urinary symptoms and no lower extremity edema. Reports chronic IBS with diarrhea. all other review of systems negative On arrival to the ED patient was found to haveO2 of 90% at rest, with tachypnea of 22, Labs are significant for WBC count 4 point wound, otherwise unremarkable. COVID-19 positive, chest x-ray negative for any pneumonia patient will be admitted for management of COPD exacerbation in the setting of COVID-19 infection Review of Systems Review of Systems: Yes all other systems are reviewed and are negative [facility] Medical History (Updated 08/22/21 @ 05:34 by Doc Kruse MD) Breast cancer Cervical cancer COPD (chronic obstructive pulmonary disease) IBS (irritable bowel syndrome) Vocal cord polyp Family History (Updated 08/22/21 @ 05:35 by Doc Kruse MD) Father Diabetes Mother CAD (coronary artery disease) CHF (congestive heart failure) Sister Breast cancer Surgical History (Updated 08/22/21 @ 05:34 by Doc Kruse MD) H/O total hysterectomy History of hemorrhoidectomy Social History (Updated 08/22/21 @ 05:35 by Doc Kruse MD) Alcohol intake: never Patient Tobacco Use Status: Former Tobacco user Use of substances other than those prescribed or required for medical reasons: No Substance Use Frequency: Occasionally Advance Directives: No service: No Current occupational status: disabled Meds Allergies Allergy/AdvReac Type Severity Reaction Status Date / Time No Known Allergies Allergy Verified 06/17/21 14:37 [No Known Allergies*] Active Medications: Current Medications Acetaminophen (Acetaminophen 325 Mg Tablet) 650 mg PO Q6H PRN PRN Reason: Pain, Mild (Pain Scale 1-3) Albuterol/Ipratropium (Albuterol/Iprat 2.5/0.5mg 3 Ml Ampul.Neb) 3 ml INHALE RQ4H PRN PRN Reason: Shortness of Breath/Wheezing Albuterol/Ipratropium (Albuterol/Iprat 2.5/0.5mg 3 Ml Ampul.Neb) 3 ml INHALE RQ4H WHILE AWAKE [facility] Dexamethasone Sodium Phosphate (Dexamethasone Sod Phosphate 4 Mg/Ml Vial) 6 mg IVPUSH DAILY [facility] Docusate Sodium (Docusate Sodium 100 Mg Capsule) 100 mg PO DAILY PRN PRN Reason: Constipation Enoxaparin Sodium (Enoxaparin Sodium 40 Mg/0.4 Ml Syringe) 40 mg SUBCUT Q24H [facility] Ondansetron HCl (Ondansetron Hcl 4 Mg/2 Ml Vial) 4 mg IVPUSH Q8H PRN PRN Reason: Nausea and Vomiting Sodium Chloride (0.9 % Sodium Chloride Flush 3 Ml Syringe) 3 ml IVFLUSH QSHIFT [facility] Home Medications Medication Instructions Recorded Confirmed Last Taken Type celecoxib 200 mg capsule 1 cap PO DAILY 08/21/21 08/21/21 08/21/21 History cholecalciferol (vitamin D3) 125 1 tab PO DAILY 08/21/21 08/21/21 08/21/21 History mcg (5,000 unit) tablet (Vitamin D3) gabapentin 600 mg tablet 2 tab PO TID 08/21/21 08/21/21 08/21/21 History methadone 10 mg/mL oral concentrate 130 mg PO DAILY 08/21/21 08/21/21 History omeprazole 20 mg capsule,delayed 1 cap PO DAILY 08/21/21 08/21/21 08/21/21 History release Physical Exam Vital Signs and Narrative: Vital Signs: Last Vital Signs Temp 97.8 F 08/21/21 19:47 Pulse 76 08/21/21 21:17 Resp 18 08/21/21 21:17 BP 173/89 H 08/21/21 20:00 Pulse Ox 94 08/21/21 20:00 BMI result Body Mass Index 28.9 Const: General: cooperative and no acute distress Orientation/consciousness: patient oriented x3 Eyes: General: appearance normal, both eyes and all related structures Pupils: Equal, round and reactive pupils present Resp: Other: decreased breath sound bilaterally Effort & Inspection: normal respiratory effort Cardio: Rate: regular rate Rhythm: regular rhythm GI: Palpation (GI): Soft to palpation Auscultation: normal bowel sounds Skin: General skin exam: no rashes or lesions noted Neuro: General: patient oriented x3 Cranial nerves: Yes Equal, round and reactive pupils present Cognition (Neuro): normal cognition Extrem: General: Yes normal to inspection and Yes no pedal edema Results Labs CBC and Chem 7: 08/21/21 18:45 08/21/21 18:45 Labs: Laboratory Results - last 24 hr 08/21/21 08/21/21 08/21/21 18:45 18:45 18:45 MCV 107.7 H MCH 34.2 H MCHC 31.7 RDW 13.1 Plt Count 173 MPV 9.0 L Immature Gran % (Auto) 0.5 H Neut % (Auto) 55.0 Lymph % (Auto) 27.8 [place] % (Auto) 13.3 H Eos % (Auto) 2.9 Baso % (Auto) 0.5 Lymph # (Auto) 1.2 [place] # (Auto) 0.6 Eos # (Auto) 0.1 Baso # (Auto) 0.0 Abs Immat Gran (auto) 0.02 Absolute Neuts (auto) 2.3 Absolute Nucleated RBC 0.000 Nucleated RBC % (auto) 0.0 Anion Gap 14 Estim Creat Clear Calc 76.9 Estimated GFR > 60 Random Glucose 102 Calcium 9.7 Troponin I High Sens 4.0 B-Natriuretic Peptide 20 Urine Color Urine Appearance Urine pH Ur Specific [place] Urine Protein Urine Glucose (UA) Urine Ketones Urine Blood Urine Nitrite Ur Leukocyte Esterase COVID-19 (FELIX) COVID-19 Clin Com 08/21/21 08/21/21 18:45 21:10 MCV MCH MCHC RDW Plt Count MPV Immature Gran % (Auto) Neut % (Auto) Lymph % (Auto) [place] % (Auto) Eos % (Auto) Baso % (Auto) Lymph # (Auto) [place] # (Auto) Eos # (Auto) Baso # (Auto) Abs Immat Gran (auto) Absolute Neuts (auto) Absolute Nucleated RBC Nucleated RBC % (auto) Anion Gap Estim Creat Clear Calc Estimated GFR Random Glucose Calcium Troponin I High Sens B-Natriuretic Peptide Urine Color YELLOW Urine Appearance CLEAR Urine pH 6.5 Ur Specific [place] 1.010 Urine Protein NEG Urine Glucose (UA) NEG Urine Ketones NEG Urine Blood NEG Urine Nitrite NEG Ur Leukocyte Esterase NEG COVID-19 (FELIX) Positive A COVID-19 Clin Com See Note Imaging Radiologist's Impressions: Impressions Chest X-Ray 08/21/21 19:04 IMPRESSION: No acute cardiopulmonary findings. Assessment and Plan (1) COPD exacerbation: Status: Acute (2) Acute hypoxemic respiratory failure due to COVID-19: Status: Acute Plan 60-year-old female with past medical history of COPD presents to the hospital with complaints of shortness of breath, cough, sputum production found to be COVID-19 positive # COPD exacerbation secondary to COVID-19 infection - no evidence of pneumonia on chest x-ray - patient vaccinated x3 - will treat with Solu-Medrol, DuoNeb p.r.n. as well as scheduled - follow respiratory status - O2 as required # history of opioid use disorder - on methadone - continue DVT prophylaxis: Lovenox given O2 requirement patient will require a medical admission for management of COPD as she will do very poorly in outpatient setting given infection with COVID-19 Quality Stroke Does the patient have a stroke diagnosis?: No VTE Prior VTE?: No VTE Risk Level:: Medical - moderate - high VTE Device Contraindication: Treatment Not Indicated VTE Drug Contraindication: N/A - Med Ordered
--- NOTE | 2021-08-21 22:08 | PHA.MEDREC ---
Pharmacy Consult ? Medication Reconciliation Pharmacy has completed the medication reconciliation. Patient is on methadone from [facility]: [phone]
--- NOTE | 2021-08-21 23:27 | MHC.CM.PN ---
IMM 08/21. PCP Dr. Mejia. Requested new HCP. Reviewed and completed. Copies given. Uploaded into [facility] and [facility]. HCP Jaylan Luna ([phone]).Vax/boosted Moderna. +COVID. Uses cane/walker. No home oxygen. Hx COPD. No services. D/C plan: Home without services. Pt will arrange transportation home.
[2021-08-21 23:33] VITALS: BP 127/68; PULSE 107; RESP 15; O2SAT 94
[2021-08-22] VITALS (10 sets, daily range): BP systolic 125–135; BP diastolic 59–71; PULSE 81–105; RESP 12–20; TEMP 36.4–36.9; O2SAT 93–97
[2021-08-22] MEDS: guaiFEN/Codeine SF 200/20/10ML 10 ML LIQUID PO (00:51)
[2021-08-22] MEDS: Acetaminophen 325 MG TABLET 650 MG PO ×2 (00:52→23:10)
--- NOTE | 2021-08-22 08:05 | HO.PM.IMPN ---
Subjective Subjective Date of Service: 08/22/21 Interval History: copd , covid Review of Systems Still short of breath with talking and minimal exertion, has cough. Denies any chest pain abdominal pain or nausea vomiting or fever or chills or diarrhea. Physical Exam Vital Signs: Vital Signs: Last Vital Signs Temp 98.1 F 08/22/21 07:53 Pulse 88 08/22/21 07:53 Resp 12 08/22/21 07:53 BP 125/59 L 08/22/21 07:53 Pulse Ox 96 08/22/21 07:53 BMI result Body Mass Index 28.9 Appearance: Alert.? Oriented X3.?sob.? Eyes: Pupils equal, round and reactive to light.? Sclera nonicteric.? ENT: Pharynx normal.? Moist mucous membranes. cvs: rrr, [id number] , no murmur res: Diminished breath sound, has wheezing bilaterally. abd: no rebound or guarding ,nt, bs present. ext pulses present , no cyanosis. neuro: axo3 , nonfocal. Objective Data Active Medications Acetaminophen (Acetaminophen 325 Mg Tablet) 650 mg PO Q6H PRN PRN Reason: Pain, Mild (Pain Scale 1-3) Last Admin: 08/22/21 00:52 Dose: 650 mg Documented by: PRAFUL Albuterol/Ipratropium (Albuterol/Iprat 2.5/0.5mg 3 Ml Ampul.Neb) 3 ml INHALE RQ4H PRN PRN Reason: Shortness of Breath/Wheezing Albuterol/Ipratropium (Albuterol/Iprat 2.5/0.5mg 3 Ml Ampul.Neb) 3 ml INHALE RQ4H WHILE AWAKE [facility] Celecoxib (Celecoxib 200 Mg Capsule) 200 mg PO DAILY [facility] Dexamethasone Sodium Phosphate (Dexamethasone Sod Phosphate 4 Mg/Ml Vial) 6 mg IVPUSH DAILY [facility] Docusate Sodium (Docusate Sodium 100 Mg Capsule) 100 mg PO DAILY PRN PRN Reason: Constipation Enoxaparin Sodium (Enoxaparin Sodium 40 Mg/0.4 Ml Syringe) 40 mg SUBCUT Q24H [facility] Last Admin: 08/22/21 00:40 Dose: Not Given Documented by: SHERICE Non-Admin Reason: Patient Refused Fluticasone Propionate (Fluticasone Propionate Nasal 16 Gm [place]) 1 spray NOSTRIL-B DAILY [facility] Gabapentin (Gabapentin 600 Mg Tablet) 1,200 mg PO TID [facility] Omeprazole (Omeprazole 20 Mg Capsule.Dr) 20 mg PO DAILY [facility] Ondansetron HCl (Ondansetron Hcl 4 Mg/2 Ml Vial) 4 mg IVPUSH Q8H PRN PRN Reason: Nausea and Vomiting Sodium Chloride (0.9 % Sodium Chloride Flush 3 Ml Syringe) 3 ml IVFLUSH QSHIFT [facility] Last Admin: 08/22/21 00:40 Dose: Not Given Documented by: SHERICE Non-Admin Reason: IV Running Tiotropium [place] (Tiotropium [place] 18 Mcg Cap.W.Dev) 1 puff INHALE DAILY [facility] Vitamin D (Cholecalciferol (Vitamin D3) 25 Mcg Tablet) 125 mcg PO DAILY [facility] Labs CBC & Chem 7: 08/22/21 09:45 08/22/21 09:45 Labs: Laboratory Results - last 24 hr 08/21/21 08/21/21 08/21/21 18:45 18:45 18:45 MCV 107.7 H MCH 34.2 H MCHC 31.7 RDW 13.1 Plt Count 173 MPV 9.0 L Immature Gran % (Auto) 0.5 H Neut % (Auto) 55.0 Lymph % (Auto) 27.8 [place] % (Auto) 13.3 H Eos % (Auto) 2.9 Baso % (Auto) 0.5 Lymph # (Auto) 1.2 [place] # (Auto) 0.6 Eos # (Auto) 0.1 Baso # (Auto) 0.0 Abs Immat Gran (auto) 0.02 Absolute Neuts (auto) 2.3 Absolute Nucleated RBC 0.000 Nucleated RBC % (auto) 0.0 Anion Gap 14 Estim Creat Clear Calc 76.9 Estimated GFR > 60 Random Glucose 102 Calcium 9.7 Troponin I High Sens 4.0 B-Natriuretic Peptide 20 Urine Color Urine Appearance Urine pH Ur Specific [place] Urine Protein Urine Glucose (UA) Urine Ketones Urine Blood Urine Nitrite Ur Leukocyte Esterase COVID-19 (FELIX) COVID-19 Clin Com 08/21/21 08/21/21 18:45 21:10 MCV MCH MCHC RDW Plt Count MPV Immature Gran % (Auto) Neut % (Auto) Lymph % (Auto) [place] % (Auto) Eos % (Auto) Baso % (Auto) Lymph # (Auto) [place] # (Auto) Eos # (Auto) Baso # (Auto) Abs Immat Gran (auto) Absolute Neuts (auto) Absolute Nucleated RBC Nucleated RBC % (auto) Anion Gap Estim Creat Clear Calc Estimated GFR Random Glucose Calcium Troponin I High Sens B-Natriuretic Peptide Urine Color YELLOW Urine Appearance CLEAR Urine pH 6.5 Ur Specific [place] 1.010 Urine Protein NEG Urine Glucose (UA) NEG Urine Ketones NEG Urine Blood NEG Urine Nitrite NEG Ur Leukocyte Esterase NEG COVID-19 (FELIX) Positive A COVID-19 Clin Com See Note Assessment and Plan (1) COPD exacerbation: Status: Acute (2) Acute hypoxemic respiratory failure due to COVID-19: Status: Acute Plan 60-year-old female with past medical history of COPD presents to the hospital with complaints of shortness of breath, cough, sputum production found to be COVID-19 positive 1. COPD exacerbation secondary to COVID-19 infection -? no evidence of pneumonia on chest x-ray -? patient vaccinated x3 -? will treat with Solu-Medrol, DuoNeb p.r.n. as well as scheduled -? follow respiratory status -? O2 as required 2.history of opioid use disorder -? on methadone -? continue ?DVT prophylaxis: Lovenox Need for inpatient: COPD exacerbation Quality Stroke Does the patient have a stroke diagnosis?: No VTE Prior VTE?: No VTE Risk Level:: Medical - moderate - high VTE Device Contraindication: Treatment Not Indicated VTE Drug Contraindication: N/A - Med Ordered
[2021-08-22] MEDS: Albuterol/Iprat 2.5/0.5MG 3 ML AMPUL.NEB INHALE ×4 (08:11→20:30)
[2021-08-22] MEDS: Omeprazole 20 MG CAPSULE.DR PO (09:10)
[2021-08-22] MEDS: Cholecalciferol (Vitamin D3) 25 MCG TABLET 125 MCG PO (09:10)
[2021-08-22] MEDS: dexAMETHasone sod phosphate 4 MG/ML VIAL 6 MG IVPUSH (09:11)
[2021-08-22] MEDS: Gabapentin 600 MG TABLET 1200 MG PO ×3 (09:11→23:00)
[2021-08-22] MEDS: 0.9 % Sodium Chloride Flush 3 ML SYRINGE IVFLUSH ×3 (09:12→23:01)
[2021-08-22 09:50] LABS: MANUAL DIFF FLAG NO
[2021-08-22 09:53] LABS: Hematocrit 39.7 % (37.0-47.0); Hemoglobin 12.6 g/dl (12.0-16.0); Imm Gran Abs Auto 0.01 X10*3/uL (0.00-0.03); Imm Gran Pct Auto 0.2 % (0.0-0.4); Lymphocytes Absolute Auto 0.3 X10*3/uL (1.2-4.9); Lymphocytes Percent Auto 6.8 % (20-40); Mean Corpuscular HGB Conc 31.7 g/dl (31.0-35.0); Mean Corpuscular Hemoglobin 33.7 pg (27.0-33.0); Mean Corpuscular Volume 106.1 fL (80.0-98.0); Mean Platelet Volume 9.1 fL (9.4-12.3); Monocytes Absolute Auto 0.2 X10*3/uL (0.1-1.2); Monocytes Percent Auto 3.3 % (2-11); Neutrophils Absolute Auto 4.1 x10*3/uL (2.0-8.3); Neutrophils Percent Auto 89.7 % (45-73); Platelet Count 173 X10*3/uL (160-400); Red Blood Count 3.74 X10*6/uL (4.20-5.50); White Blood Count 4.6 X10*3/uL (4.8-10.8)
[2021-08-22] MEDS: Celecoxib 200 MG CAPSULE PO (09:54)
[2021-08-22] MEDS: Fluticasone Propionate Nasal 16 GM SPRAY 1 SPRAY NOSTRIL-B (09:54)
[2021-08-22 10:25] LABS: Anion Gap 14 (12-20); Blood Urea Nitrogen 9 mg/dL (9-16); Calcium 9.2 mg/dL (8.4-10.2); Carbon Dioxide 30 mmol/L (22-29); Chloride 99 mmol/L (96-108); Creatinine Clr Calc Pharmacy 88.9; Estimated Glomerular Filt Rate > 60; Glucose Random 175 mg/dL (60-115); Potassium 4.2 mmol/L (3.3-5.1); Sodium 139 mmol/L (135-145)
--- NOTE | 2021-08-22 11:18 | MHC.CM.PN ---
PER MD ROUNDS, PT EXPECTED TO REMAIN INPATIENT ONE TO TWO MORE DAYS DC PLAN REMAINS HOME VIA FAMILY TRANSPORT
[2021-08-22] MEDS: methADONE HCl 20 MG/2 ML ORAL.CONC 130 MG PO (12:23)
--- NOTE | 2021-08-22 12:41 | PC.NURSE ---
RN TO RN GIVEN TO BRENT VIEIRA AWARE OF PLAN OF CARE FOR TRANSFER ROOM 475.
[2021-08-22] MEDS: Docusate Sodium 100 MG CAPSULE PO (23:00)
[2021-08-22] MEDS: Enoxaparin Sodium 40 MG/0.4 ML SYRINGE SUBCUT (23:00)
[2021-08-22] MEDS: polyethylene glycoL 3350 17 GM POWD.PACK PO (23:01)
[2021-08-23] VITALS: BP 139/71; PULSE 101; RESP 16; TEMP 36.4; O2SAT 94
[2021-08-23 04:00] VITALS: BP 122/59; PULSE 89; RESP 15; TEMP 36.2; O2SAT 96
[2021-08-23 08:00] VITALS: BP 130/69; PULSE 74; RESP 20; TEMP 36.7; O2SAT 97
[2021-08-23] MEDS: Cholecalciferol (Vitamin D3) 25 MCG TABLET 125 MCG PO (09:03)
[2021-08-23] MEDS: Omeprazole 20 MG CAPSULE.DR PO (09:03)
[2021-08-23] MEDS: Gabapentin 600 MG TABLET 1200 MG PO ×2 (09:03→14:45)
[2021-08-23] MEDS: Celecoxib 200 MG CAPSULE PO (09:03)
[2021-08-23] MEDS: dexAMETHasone sod phosphate 4 MG/ML VIAL 6 MG IVPUSH (09:04)
[2021-08-23] MEDS: polyethylene glycoL 3350 17 GM POWD.PACK PO (09:04)
[2021-08-23] MEDS: methADONE HCl 20 MG/2 ML ORAL.CONC 130 MG PO (09:05)
[2021-08-23] MEDS: 0.9 % Sodium Chloride Flush 3 ML SYRINGE IVFLUSH (09:11)
[2021-08-23] MEDS: Albuterol/Iprat 2.5/0.5MG 3 ML AMPUL.NEB INHALE (11:12)
--- NOTE | 2021-08-23 11:21 | PM.DS ---
DS: Providers Provider Date of Service: 08/23/21 Date of admission: 08/21/21 21:48 Primary care physician: Melissa Mejia MD DS: Diagnosis Discharge Diagnosis (1) COPD exacerbation: Status: Acute (2) Acute hypoxemic respiratory failure due to COVID-19: Status: Acute DS: Summary Hospital Course Hospital Course: 60-year-old female with past medical history of COPD, breast cancer, cervical cancer, neuropathy, IBS who presents to the hospital with complaints of shortness of breath, cough, congestion, headache, nausea, chills that started yesterday.? Patient reports that her sister tested positive yesterday and she has been with her sister throughout the week.? She? was tested for COVID at [facility] in the morning but had not had with the results yet, she decided to come to the ED as her symptoms of shortness of breath and calm worsened.? She reports no chest pain, no abdominal pain, reports that she is vaccinated x3, in is usually very compliant with mask wearing. ? she denies having any urinary symptoms and no lower extremity edema.? Reports chronic IBS with diarrhea. all other review of systems negative On arrival to the ED? patient was found to? haveO2 of 90%? at rest, with tachypnea of 22, Labs are significant for WBC count 4 point wound, otherwise unremarkable.? COVID-19 positive, chest x-ray negative for any pneumonia ?patient will be admitted for management of COPD exacerbation in the setting of COVID-19 infection. Hospital course: Patient came with COPD exacerbation possibly secondary to COVID: Started on nebs, steroids seems to be improved, oxygen demand also improving. Home oxygen evaluation done upon discharge . Patient will be going home with p.o. steroids and evaluated by respiratory from oxygen-patient qualified for home oxygen and going home with oxygen. Above management discussed with the patient in detail length she understand and in agreement with the above plan, time spent 50 minutes and 50% time spent on counseling. Significant findings: As above. Procedures performed: None. Treatment and response: As above. Complications: None. Time Spent with Patient Time attestation: Total time spent providing and/or coordinating discharge services: Discharge coordination time: Greater than 30 minutes Quality: Safe Use of Opioids Does Pt have an Active Cancer Diagnosis on the Problem List?: No Quality: Stroke Does the patient have a stroke diagnosis?: No Physical Exam Vital Signs: Vital Signs: Last Vital Signs Temp 98.0 F 08/23/21 08:00 Pulse 74 08/23/21 08:00 Resp 20 08/23/21 08:00 BP 130/69 08/23/21 08:00 Pulse Ox 97 08/23/21 08:00 BMI result Body Mass Index 28.9 Appearance: Alert.? Oriented X3.?sob.? Eyes: Pupils equal, round and reactive to light.? Sclera nonicteric.? ENT: Pharynx normal.? Moist mucous membranes. cvs: rrr, [id number] , no murmur res:? air enrty improved ,no rhonchii or wheezing abd: no rebound or guarding ,nt, bs present. ext pulses present , no cyanosis. neuro: axo3 , nonfocal. DS: Data Additional Comments Additional comments: 08/21/21 08/21/21 08/21/21 ? 18:45 18:45 18:45 MCV ?107.7 H ? ? MCH ?34.2 H ? ? MCHC ?31.7 ? ? RDW ?13.1 ? ? Plt Count ?173 ? ? MPV ?9.0 L ? ? Immature Gran % (Auto) ?0.5 H ? ? Neut % (Auto) ?55.0 ? ? Lymph % (Auto) ?27.8 ? ? Garrett % (Auto) ?13.3 H ? ? Eos % (Auto) ?2.9 ? ? Baso % (Auto) ?0.5 ? ? Lymph # (Auto) ?1.2 ? ? Garrett # (Auto) ?0.6 ? ? Eos # (Auto) ?0.1 ? ? Baso # (Auto) ?0.0 ? ? Abs Immat Gran (auto) ?0.02 ? ? Absolute Neuts (auto) ?2.3 ? ? Absolute Nucleated RBC ?0.000 ? ? Nucleated RBC % (auto) ?0.0 ? ? Anion Gap ? ?14 ? Estim Creat Clear Calc ? ?76.9 ? Estimated GFR ? ?> 60 ? Random Glucose ? ?102 ? Calcium ? ?9.7 ? Troponin I High Sens ? ? ?4.0 B-Natriuretic Peptide ? ? ?20 Urine Color ? ? ? Urine Appearance ? ? ? Urine pH ? ? ? Ur Specific [place] ? ? ? Urine Protein ? ? ? Urine Glucose (UA) ? ? ? Urine Ketones ? ? ? Urine Blood ? ? ? Urine Nitrite ? ? ? Ur Leukocyte Esterase ? ? ? COVID-19 (FELIX) ? ? ? COVID-19 Clin Com ? 08/21/21 08/21/21 ? 18:45 21:10 MCV ? ? MCH ? ? MCHC ? ? RDW ? ? Plt Count ? ? MPV ? ? Immature Gran % (Auto) ? ? Neut % (Auto) ? ? Lymph % (Auto) ? ? Garrett % (Auto) ? ? Eos % (Auto) ? ? Baso % (Auto) ? ? Lymph # (Auto) ? ? Garrett # (Auto) ? ? Eos # (Auto) ? ? Baso # (Auto) ? ? Abs Immat Gran (auto) ? ? Absolute Neuts (auto) ? ? Absolute Nucleated RBC ? ? Nucleated RBC % (auto) ? ? Anion Gap ? ? Estim Creat Clear Calc ? ? Estimated GFR ? ? Random Glucose ? ? Calcium ? ? Troponin I High Sens ? ? B-Natriuretic Peptide ? ? Urine Color ? ?YELLOW Urine Appearance ? ?CLEAR Urine pH ? ?6.5 Ur Specific [place] ? ?1.010 Urine Protein ? ?NEG Urine Glucose (UA) ? ?NEG Urine Ketones ? ?NEG Urine Blood ? ?NEG Urine Nitrite ? ?NEG Ur Leukocyte Esterase ? ?NEG COVID-19 (FELIX) ?Positive A ? COVID-19 Clin Com ?See Note ? Discharge Plan Discharge Patient Disposition: Home, Self-Care Discharge Diagnosis: COPD exacerbation sec to [facility]. Referrals: Melissa Mejia MD [Primary Care Provider] - 1 Week Discharge Medications: New dexamethasone 6 mg tablet 6 mg PO DAILY Qty: 7 0RF Continued celecoxib 200 mg capsule 1 cap PO DAILY 0RF gabapentin 600 mg tablet 2 tab PO TID 0RF omeprazole 20 mg capsule,delayed release(DR/EC) 1 cap PO DAILY 0RF cholecalciferol (vitamin D3) [Vitamin D3] 125 mcg (5,000 unit) tablet 1 tab PO DAILY 0RF methadone 10 mg/mL Concentrate 130 mg PO DAILY 0RF albuterol sulfate 90 mcg/actuation HFA aerosol inhaler 2 puff inhalation QID PRN (Reason: shortness of breath or wheezing) Qty: 8.5 0RF Spiriva with HandiHaler 18 mcg capsule, w/inhalation device 1 cap inhalation DAILY Qty: 1 0RF Rx Instructions: puncture 1 cap using device; one dose = 2 inhalations Discharge Orders: Discharge Order (Routine); Ordered 08/23/21 Ordered By: Donna Hung Diet: advance to usual diet Activity on Discharge: As tolerated Stand Alone Forms: Patient Portal Discharge page Care Plan Goals: Patient came with COPD exacerbation possibly secondary to COVID: Started on nebs, steroids seems to be improved, oxygen demand also improving. Home oxygen evaluation done upon discharge . Patient will be going home with p.o. steroids and oxygen if qualifies Health Concerns: As above. Plan of Treatment: As above. Assessment: As above.
[2021-08-23 11:46] VITALS: BP 130/71; PULSE 84; RESP 20; TEMP 36.2; O2SAT 90
--- NOTE | 2021-08-23 11:47 | MHC.CM.PN ---
Addendum entered by Rocio Mccarthy 08/23/21 12:08: The patient has arranged for transportation home. Original Note: IMM 08/23/21 FEMALE 60 DX COVID She is discharged home today. She qualifies for home oxygen. Respiratory has set her up with [facility] to provide O2. A last dose letter was given to the nurse to complete. Patient requires last dose letter for her Methadone @ [facility] [phone]. Hapco was called VM was left.
[2021-08-23 13:08] VITALS: PULSE 102; PULSE 92; PULSE 97; PULSE 98; O2SAT 82; O2SAT 89; O2SAT 90; O2SAT 94
[2021-08-23] MEDS: Fluticasone Propionate Nasal 16 GM SPRAY 1 SPRAY NOSTRIL-B (13:40)
[2021-08-23] MEDS: Acetaminophen 325 MG TABLET 650 MG PO (13:47)
[2021-08-23] MEDS: Heparin Sodium,Porcine Flush 50 UNITS, 0.9 % Sodium Chloride Flush 5 ML IVFLUSH (14:45)
== END 2021-08-23 17:53 | disposition home or self-care (01) | DRG 177 ==
LOC: HO.ED 21:24 → HO.EDOVER 22:07 → HO.IMC 08-22 12:31
PROVIDERS: Admitting Provider Internal Medicine; Emergency Provider Internal Medicine; PCP Internal Medicine; Visit Provider Internal Medicine
DX: U07.1 COVID-19 (principal); J96.01 Acute respiratory failure with hypoxia; J44.1 Chronic obstructive pulmonary disease with (acute) exacerbation; F11.20 Opioid dependence, uncomplicated; G62.9 Polyneuropathy, unspecified; K58.0 Irritable bowel syndrome with diarrhea; Z85.3 Personal history of malignant neoplasm of breast; Z85.41 Personal history of malignant neoplasm of cervix uteri; Z87.891 Personal history of nicotine dependence; Z79.899 Other long term (current) drug therapy
CPT/HCPCS: 36415; 71045; 80048; 81003; 83880; 84484; 85025; 87635; 93005; 94640; 96374; 99285; J1100; J1642; J1650

== ENCOUNTER 2022-04-02 | Outpatient (REF) | payer MEDICARE, MEDICAID, SELFPAY ==
--- NOTE | ~2022-04-02 | XR_ITS ---
EXAMINATION: KNEE X-RAY CLINICAL INFORMATION: Pain COMPARISON: Previous x-ray from 2019 TECHNIQUE: Standing AP view of both knees and lateral right view of the right knee FINDINGS: Right: Bone alignment is normal.. No fracture or dislocation. Joint space narrowing at the medial femoral tibial and patellofemoral joints with small osteophytes. Small joint effusion. Standing AP view of the left knee demonstrate increased sclerosis the distal metaphysis probably representing a enchondroma or bone infarct. XR/XR knee RT 2V IMPRESSION: Right knee: Arthritis at the medial femoral tibial and patellofemoral joints and small joint effusion.
--- NOTE | ~2022-04-02 | XR_ITS ---
EXAMINATION: KNEE X-RAY CLINICAL INFORMATION: Pain COMPARISON: Previous x-ray from 2019 TECHNIQUE: Standing AP view of both knees and lateral right view of the right knee FINDINGS: Right: Bone alignment is normal.. No fracture or dislocation. Joint space narrowing at the medial femoral tibial and patellofemoral joints with small osteophytes. Small joint effusion. Standing AP view of the left knee demonstrate increased sclerosis the distal metaphysis probably representing a enchondroma or bone infarct. XR/XR knee standing BI IMPRESSION: Right knee: Arthritis at the medial femoral tibial and patellofemoral joints and small joint effusion.
== END 2022-04-02 00:01 ==
LOC: HO.HOSX
PROVIDERS: Visit Provider Physician Assistant
DX: M17.11 Unilateral primary osteoarthritis, right knee (principal)
CPT/HCPCS: 73560; 73565; 99202

== ENCOUNTER → 2022-05-21 09:01 | Outpatient (BNVA) | payer MEDICARE, MEDICAID, SELFPAY | PROVIDERS: PCP Family Medicine; Visit Provider Dietitian, Registered | DX: E66.3 Overweight (principal); Z68.29 Body mass index [BMI] 29.0-29.9, adult; Z71.3 Dietary counseling and surveillance | CPT/HCPCS: 97802 ==

== ENCOUNTER → 2022-06-30 11:51 | Outpatient (BNVA) | payer MEDICARE, MEDICAID, SELFPAY | PROVIDERS: PCP Family Medicine; Visit Provider Orthopaedic Surgery | DX: Z13.89 Encounter for screening for other disorder (principal) ==

== ENCOUNTER 2022-07-28 08:00 | Outpatient (RCR) | payer MEDICARE, MEDICAID, SELFPAY ==
--- NOTE | 2022-07-15 09:02 | MHC.PT.EP ---
[facility] [place] Office [place] Office [place] Office [address] Srini Fong [address] [phone] F: [phone] F: [phone] F: [phone] F: [phone] Physical Therapy Plan of Care Date of Evaluation: Date of Surgery: 08/04/22 Diagnosis: unilateral primary OA. R knee PREHAB TKA 08/04/21 Assessment: 61 y/o female referred to PT with R knee OA, prehab for R TKA 08/04/22. She has had R knee pain for 2 years after a fall and has now opted to have elective TKA 08/04/22 following failed conservative management. Before this fall, she enjoyed hiking, walking, and was able to perform cmo/ADL's. She lives in a 2-story home with her with bathroom on first floor. She has a hospital bed on first floor and a cane. Currently she has pain and difficulty with walking, stairs, cmo, dressing and sleeping. Educated pt on prehab goals, what to expect following surgery, and practiced ambulating with cane and RW. Recommend PT 1x/week for 2 weeks to learn exercises and prepare for surgery to optimize outcomes and functional mobilty Frequency and Duration: The patient will be seen 1x/week for 2 weeks Short Term Goals: Compliant with HEP Civil Structural Engineer Goals: Demonstrate post-op exercising without cues Will be able to use an AD without cueing to be able to use following surgery Ascend/descend stairs with rail in step to pattern with proper sequencing Treatment Plan: Modalities to reduce pain, spasms and effusion. Manual therapy to restore motion and function. Therapeutic exercise to improve strength and flexibility. Neuromuscular re-education for posture and balance. Therapeutic activities to return to functional activities of daily living. Electronically signed by: Liz Bailey PT Please sign and return to therapist. Thank you for your referral.
--- NOTE | 2022-08-19 11:25 | MHC.PT.DC ---
[facility] [place] Office [place] Office [place] Office [address] Srini Fong [address] [phone] F: [phone] F: [phone] F: [phone] F: [phone] Physical Therapy Discharge Report Diagnosis: unilateral primary OA. R knee PREHAB TKA 08/04/21 Date of Surgery: 08/04/22 Date of Evaluation: 07/15/22 Date of Discharge: 08/19/22 Treatments to Date: 3 Cancellations to Date: 0 No Shows to Date: 0 Discharge Status: Improved Function Independent with HEP Discharge Summary: She demonstrates strong quad set and good sequencing with cane. She is d/c from prehab PT and surgery scheduled for 08/04/22. Electronically signed by: Liz Bailey PT Please sign and return to therapist. Thank you for your referral.
== END 2022-08-19 11:26 | disposition home or self-care (01) ==
LOC: HO.PT 08:00
PROVIDERS: PCP Family Medicine; Visit Provider Orthopaedic Surgery
DX: M17.11 Unilateral primary osteoarthritis, right knee (principal)
CPT/HCPCS: 97110; 97116; 97161

== ENCOUNTER → 2022-07-30 09:41 | Outpatient (BNVA) | payer MEDICARE, MEDICAID, SELFPAY | PROVIDERS: PCP Family Medicine; Visit Provider Physician Assistant | DX: M17.11 Unilateral primary osteoarthritis, right knee (principal) | CPT/HCPCS: 99212 ==

== ENCOUNTER → 2022-08-04 05:56 | Day surgery (SDC) | payer MEDICARE, MEDICAID, SELFPAY ==
[2022-07-21 12:16] VITALS: BP 126/77; PULSE 74; RESP 20; O2SAT 96; BMI 28.5
--- NOTE | 2022-07-21 12:48 | P.CONAN_ITS ---
HPI - Anesthesia Eval Consult details Narrative: Cx'd DOS for +Cocaine 61yo F for Right Knee Replacement Total Cardiac cleared PCP cleared. Chronic hepatomegaly, abdominal distention with nml LFTs. Methadone daily Severe peripheral neuropathy in feet post chemo PMFSH Active Problems Active Problems: All Active Problems (Updated 07/21/22 @ 12:12 by Kae Barahona RN) Acute hypoxemic respiratory failure due to COVID-19 (Acute) COPD exacerbation (Acute) Osteoarthritis of right knee (Acute) Overweight (BMI 25.0-29.9) (Acute) Past Medical History Medical History Anxiety Arthritis Breast cancer Cervical cancer COPD (chronic obstructive pulmonary disease) DDD (degenerative disc disease), lumbar Dysphagia History of ascites IBS (irritable bowel syndrome) Methadone maintenance therapy patient Opioid use disorder Peripheral neuropathy Pulmonary nodules Vocal cord polyp Family History Family History Father Diabetes Mother CAD (coronary artery disease) CHF (congestive heart failure) Sister Breast cancer Family history of problems with anesthesia: No Surgical History Surgical History H/O total hysterectomy History of hemorrhoidectomy History of lumpectomy of left breast Hx of laparoscopy History of Problems with Anesthesia: No Social History Social History Household Members: Family Housing: House Are you a primary health care sanitary technician to a significant other at home: No Do you presently have visiting nurse or other home services: No Alcohol intake: never Patient Tobacco Use Status: Former Tobacco user Quit Date: 2018 Tobacco use type: Cigarette Years Smoked: 40 Second Hand Smoke Exposure: Yes () Use of substances other than those prescribed or required for medical reasons: No Have you been hit, kicked, punched, or otherwise hurt by someone within the past year? If so, by whom?: No Are you DNR?: No Advance Directives: No Advance Directives Information Provided: Yes () Advance Directives on File: No Recently lost weight without trying: No Eating poorly because of decreased appetite: No Nutrition Risks: No Nutritional Risk Patient : No : No service: No Current occupational status: disabled Narrative Narrative: No recent illness No CP. TOMAS at baseline related to EKG Meds Allergies Allergy/AdvReac Type Severity Reaction Status Date / Time No Known Allergies Allergy Verified 07/30/22 09:57 [No Known Allergies*] Home Medications Medication Instructions Recorded Confirmed Last Taken Type celecoxib 200 mg capsule 1 cap PO DAILY 08/21/21 07/20/22 08/21/21 History cholecalciferol (vitamin D3) 125 1 tab PO DAILY 08/21/21 08/01/22 08/21/21 History mcg (5,000 unit) tablet (Vitamin D3) gabapentin 600 mg tablet 2 tab PO TID 08/21/21 08/01/22 08/04/22 05:30 History methadone 10 mg/mL oral concentrate 130 mg PO DAILY 08/21/21 08/01/22 08/04/22 05:30 History omeprazole 20 mg capsule,delayed 1 cap PO DAILY 08/21/21 08/01/22 08/04/22 05:30 History release cyanocobalamin (vitamin B-12) 500 500 mcg PO DAILY 07/21/22 08/01/22 Unknown Hi story mcg tablet (Vitamin B-12) fluticasone fur. 100 mcg-umeclid 1 puff inhalation DAILY 07/21/22 08/01/22 08/04/22 05:30 History 62.5 mcg-vilant 25 mcg inhalat.powder (Trelegy Ellipta) linaclotide 145 mcg capsule 1 cap PO QAM 07/21/22 08/01/22 Unknown History (Linzess) multivitamin with minerals 1 tab PO DAILY 07/21/22 08/01/22 Unknown History polyethylene glycol 3350 17 17 g PO DAILY 07/21/22 08/01/22 Unknown History gram/dose oral powder (Gavilax) psyllium husk (aspartame) 3.4 gram 1 packet PO DAILY 07/21/22 08/01/22 Unknown History oral powder packet (Metamucil Fiber Singles) Exam Exam Date and Time: July 21, 2022 1248 Height,Weight and Vital Signs: Height 5 ft 3 in Weight 73.028 kg Last Vital Signs Pulse 74 07/21/22 12:16 Resp 20 07/21/22 12:16 BP 126/77 07/21/22 12:16 Pulse Ox 96 07/21/22 12:16 O2 Del Method 07/21/22 12:16 Pertinent Lab Results Pertinent Lab Results: Labs from outside facility 07/21/22 CBC WNL BMP WNL Laboratory Last Values Nasal Screen MRSA (PCR) NEGATIVE (Negative) 07/21/22 Unknown Nasal S. aureus Screen NEGATIVE (Negative) 07/21/22 Unknown Nasal MRSA/S.aureus Interp SEE NOTE 07/21/22 Unknown Blood Type O Positive 07/21/22 13:35 Antibody Screen NEGATIVE 07/21/22 13:35 Airway Mallampati Class: I TM Dist: >3cm Neck ROM: Full Denture: Upper and Lower (Doesnt wear) Assessment and Plan Assessment Anesthesia Assessment: Anesthesia Plan Discussed and PAT Visit Final Anesthetic Review Family History of Problems with Anesthesia: No History of Problems with Anesthesia: No
[2022-07-21 16:24] LABS: MRSA Nasal PCR NEGATIVE (Negative); SA Nasal PCR NEGATIVE (Negative)
[2022-08-04 06:34] LABS: COVID-19 Test Negative (Negative); IDNOW Serial# 6674DD1D
[2022-08-04 06:39] LABS: Amphetamine Screen Urine Not Detected (Not Detect); Barbiturates, Urine Not Detected (Not Detect); Benzodiazepines Screen Urine Not Detected (Not Detect); Cannabinoid Screen Urine Not Detected (Not Detect); Cocaine Screen Urine POSITIVE (Not Detect); Fentanyl, urine Not Detected (Not Detect); Opiate Screen Urine Not Detected (Not Detect); Phencyclidine Screen Urine Not Detected (Not Detect)
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
[2022-08-04 06:53] LABS: Hemoglobin 13.4 g/dl (12.0-16.0)
[2022-08-04 06:58] VITALS: BP 109/63; PULSE 72; RESP 16; TEMP 36.2; O2SAT 85
[2022-08-04 07:02] VITALS: O2SAT 95
--- NOTE | 2022-08-04 07:41 | PC.NURSE ---
md kang by bedside cancelling patient due to positive of cocaine
--- NOTE | 2022-08-04 07:46 | PC.NURSE ---
patient calling for her own ride home. no iv was ever started.
== END ==
PROVIDERS: Nurse Practitioner; Physician Assistant; PCP Family Medicine; Visit Provider Orthopaedic Surgery
DX: M25.561 Pain in right knee (principal); M17.11 Unilateral primary osteoarthritis, right knee; F11.90 Opioid use, unspecified, uncomplicated; Z86.16 Personal history of COVID-19; J44.9 Chronic obstructive pulmonary disease, unspecified; R91.8 Other nonspecific abnormal finding of lung field; Z85.3 Personal history of malignant neoplasm of breast; Z85.41 Personal history of malignant neoplasm of cervix uteri; Z99.89 Dependence on other enabling machines and devices; Z79.899 Other long term (current) drug therapy; Z87.891 Personal history of nicotine dependence
CPT/HCPCS: 36415; 80307; 85014; 85018; 86850; 86900; 86901; 87635; 87640; 87641; J0690

== ENCOUNTER → 2022-10-23 10:29 | Outpatient (BNVA) | payer MEDICARE, MEDICAID, SELFPAY | PROVIDERS: PCP Family Medicine; Visit Provider Orthopaedic Surgery | DX: M17.0 Bilateral primary osteoarthritis of knee (principal) | CPT/HCPCS: 20610; 99212 ==

== ENCOUNTER 2023-01-28 12:54 | Outpatient (AMB) | payer MEDICARE, MEDICAID, SELFPAY ==
--- NOTE | 2023-01-28 13:01 | A.OFFVIS_ITS ---
Intake Vital Signs 01/28/23 13:06 Height 5 ft 3 in Weight 165 lb BMI 29.2 Intake Visit Reasons: Preop-RT TKA 02/02/23 NE Intake Note: Do a 62 year old female who presents today for a preoperative right TKA on 02/02/23 NE. Pain management agreement reviewed and signed. Allergies No Known Allergies [No Known Allergies*] Allergy (Verified 01/28/23 13:06) HPI HPI Comments History of Present Illness Details Ms Luna presents to the office today for preop visit. She is scheduled for right total knee arthroplasty with Dr. Chacon. She continues to have ongoing pain and difficulty with ambulation in the right knee, which is affecting her quality of life; therefore, she has elected to move forward with surgery. [facility] Medical History (Updated 01/28/23 @ 13:11 by Aidan Barrios PA-C) Osteoarthritis of right knee DDD (degenerative disc disease), lumbar Anxiety Dysphagia Pulmonary nodules History of ascites Peripheral neuropathy Opioid use disorder Methadone maintenance therapy patient Arthritis IBS (irritable bowel syndrome) Cervical cancer Breast cancer COPD (chronic obstructive pulmonary disease) Vocal cord polyp Surgical History History of vocal cord polypectomy Hx of colonoscopy History of lumpectomy of left breast Hx of laparoscopy History of hemorrhoidectomy H/O total hysterectomy Family History Father Diabetes Mother CAD (coronary artery disease) CHF (congestive heart failure) Sister Breast cancer Social History Household Members: Family Housing: House Are you a primary care services manager to a significant other at home: No Do you presently have visiting nurse or other home services: No Alcohol intake: never Patient Tobacco Use Status: Current someday Tobacco user Tobacco use type: Cigarette Years Smoked: 50 Second Hand Smoke Exposure: Yes service: No Current occupational status: disabled Review of Systems Const All systems reviewed & are unremarkable except as noted in HPI and below Physical Exam Vital Signs: BMI result Body Mass Index 29.2 Const General: cooperative and no acute distress Orientation/consciousness: patient oriented x3 Neck Neck: Yes normal visual inspection and Yes no lymphadenopathy Resp Effort & Inspection: normal respiratory effort and able to speak in complete sentences Cardio Peripheral pulses: Peripheral pulses 2+ throughout GI Inspection: Yes normal to inspection Palpation (GI): Soft to palpation Skin General skin exam: no rashes or lesions noted Neuro General: patient oriented x3 Extrem Other: Right knee: Normal to inspection. No open wound or abrasion. ROM is 0-90 degrees. Calf supple, nontender. NVI. Assessment & Plan Assessment & Plan (1) Osteoarthritis of right knee: Code(s): M17.11 - Unilateral primary osteoarthritis, right knee Qualifiers: Osteoarthritis type: primary Qualified Code(s): M17.11 - Unilateral primary osteoarthritis, right knee Plan: I discussed in detail the procedure and what to expect pre and post operatively. We discussed the risks, benefits and alternatives to the surgery as well as the rehabilitation course. The risks; which include, but are not limited to infection, bleeding, nerve injury, ongoing pain, swelling, and stiffness, perioperative risk of injury to bones and soft tissues, and blood clots. I?ve answered all questions and with their understanding they have consented to move forward with Right total knee arthroplasty with Dr. Chacon Methadone 160mg daily Patient Instructions: Scribed for Aidan Barrios PA-C, by Drake Murray medical scientific officer, on 01/28/2023 at 12:45 PM EST. I, Aidan Barrios PA-C, have personally reviewed and agree with the information entered by the scribe. Coding Level of Care Code Est Pt Level 3 (54850) Diagnoses Primary osteoarthritis of right knee M17.11 Osteoarthritis type: primary
[2023-01-28 13:06] VITALS: BMI 29.2
== END 2023-01-28 14:17 | disposition home or self-care (01) ==
PROVIDERS: PCP Family Medicine; Visit Provider Physician Assistant
DX: M17.11 Unilateral primary osteoarthritis, right knee (principal)
CPT/HCPCS: 99024

== ENCOUNTER → 2023-01-28 12:54 | Outpatient (BNVA) | payer MEDICARE, MEDICAID, SELFPAY | PROVIDERS: PCP Family Medicine; Visit Provider Physician Assistant ==

== ENCOUNTER 2023-02-02 07:32 | Day surgery (SDC) | payer MEDICARE, MEDICAID, SELFPAY ==
[2023-01-19 12:20] VITALS: BP 125/66; PULSE 73; RESP 16; O2SAT 93; BMI 30.1
--- NOTE | 2023-01-19 12:59 | HO.ANESPROP2 ---
Documented by User: Genia Price NP 02/01/23 12:59 HPI - Anesthesia Eval Consult details Narrative: 62yo F for Right Knee Replacement Total, 02/02/23 Cardiology cleared Pulmo cleared (6 minute walk test with desats, but pt declined home O2) No recent illness No CP. Chronic TOMAS. Likely BAM based on family witness. Vocal cord polyp. Removed 2-3 years ago. Hx OUD. Methadone daily PMFSH Active Problems Active Problems: All Active Problems (Updated 10/23/22 @ 10:49 by Kenny Garcia) Acute hypoxemic respiratory failure due to COVID-19 (Acute) COPD exacerbation (Acute) Osteoarthritis of right knee (Acute) Overweight (BMI 25.0-29.9) (Acute) Osteoarthritis of left knee (Acute) Past Medical History Medical History Osteoarthritis of right knee DDD (degenerative disc disease), lumbar Anxiety Dysphagia Pulmonary nodules History of ascites Peripheral neuropathy Opioid use disorder Methadone maintenance therapy patient Arthritis IBS (irritable bowel syndrome) Cervical cancer Breast cancer COPD (chronic obstructive pulmonary disease) Vocal cord polyp Family History Family History Father Diabetes Mother CAD (coronary artery disease) CHF (congestive heart failure) Sister Breast cancer Family history of problems with anesthesia: No Surgical History Surgical History History of vocal cord polypectomy Hx of colonoscopy History of lumpectomy of left breast Hx of laparoscopy History of hemorrhoidectomy H/O total hysterectomy History of Problems with Anesthesia: No Social History Social History Household Members: Family Housing: House Are you a primary managed care director to a significant other at home: No Do you presently have visiting nurse or other home services: No Alcohol intake: never Patient Tobacco Use Status: Current someday Tobacco user Tobacco use type: Cigarette Years Smoked: 50 Second Hand Smoke Exposure: Yes Have you been hit, kicked, punched, or otherwise hurt by someone within the past year? If so, by whom?: No Spiritual Healthcare Practices: none Yazdanism Healthcare Practices: none Cultural Healthcare Practices: none Are you DNR?: No Advance Directives: No Advance Directives Information Provided: Yes Advance Directives on File: No Recently lost weight without trying: No Nutrition Risks: Dental problems Patient : No : No service: No Current occupational status: disabled Meds Allergies Allergy/AdvReac Type Severity Reaction Status Date / Time No Known Allergies Allergy Verified 02/02/23 07:53 [No Known Allergies*] Home Medications Medication Instructions Recorded Confirmed Last Taken Type cholecalciferol (vitamin D3) 125 1 tab PO DAILY 08/21/21 02/02/23 01/28/23 History mcg (5,000 unit) tablet (Vitamin D3) gabapentin 600 mg tablet 2 tab PO TID 08/21/21 02/02/23 02/02/23 History methadone 10 mg/mL oral concentrate 106 mg PO DAILY 08/21/21 02/02/23 02/02/23 History cyanocobalamin (vitamin B-12) 500 500 mcg PO DAILY 07/21/22 02/02/23 01/28/23 History mcg tablet (Vitamin B-12) fluticasone fur. 100 mcg-umeclid 1 puff inhalation DAILY 07/21/22 02/02/23 02/02/23 History 62.5 mcg-vilant 25 mcg inhalat.powder (Trelegy Ellipta) linaclotide 145 mcg capsule 1 cap PO QAM 07/21/22 02/02/23 01/31/23 History (Linzess) multivitamin with minerals 1 tab PO DAILY 07/21/22 02/02/23 01/28/23 History duloxetine 30 mg capsule,delayed 30 mg PO BID 01/19/23 02/02/23 02/01/23 History release (Cymbalta) pantoprazole 20 mg tablet,delayed 20 mg PO BID 01/28/23 02/02/23 02/02/23 History release Exam Exam Date and Time: January 19, 2023 125 Height,Weight and Vital Signs: Height 5 ft 3 in Weight 77.111 kg Last Vital Signs Pulse 73 01/19/23 12:20 Resp 16 01/19/23 12:20 BP 125/66 01/19/23 12:20 Pulse Ox 93 01/19/23 12:20 O2 Del Method Room Air 01/19/23 12:20 Pertinent Lab Results Pertinent Lab Results: CBC and BMP wnl from PCP Narrative Narrative: Per PCP EKG 12/2022 SR, new flat/depressed T waves in leads III and AVF Per cardiology 12/2022 Nml EKG Hx abnormal ECHO with subsequent nml Airway Mallampati Class: I TM Dist: >3cm Neck ROM: Full Denture: Upper and Lower (Doesnt wear) Assessment and Plan Assessment Anesthesia Assessment: Anesthesia Plan Discussed, Smoking Cess. Discussed and PAT Visit Final Anesthetic Review Family History of Problems with Anesthesia: No History of Problems with Anesthesia: No Documented by User: Natalee Moses MD 02/02/23 08:11 PMFSH Past Medical History Medical History Osteoarthritis of right knee DDD (degenerative disc disease), lumbar Anxiety Dysphagia Pulmonary nodules History of ascites Peripheral neuropathy Opioid use disorder Methadone maintenance therapy patient Arthritis IBS (irritable bowel syndrome) Cervical cancer Breast cancer COPD (chronic obstructive pulmonary disease) Vocal cord polyp Family History Family History Father Diabetes Mother CAD (coronary artery disease) CHF (congestive heart failure) Sister Breast cancer Surgical History Surgical History History of vocal cord polypectomy Hx of colonoscopy History of lumpectomy of left breast Hx of laparoscopy History of hemorrhoidectomy H/O total hysterectomy Social History Social History Household Members: Family Housing: House Are you a primary managed care director to a significant other at home: No Do you presently have visiting nurse or other home services: No Alcohol intake: never Patient Tobacco Use Status: Current someday Tobacco user Tobacco use type: Cigarette Years Smoked: 50 Second Hand Smoke Exposure: Yes Have you been hit, kicked, punched, or otherwise hurt by someone within the past year? If so, by whom?: No Spiritual Healthcare Practices: none Yazdanism Healthcare Practices: none Cultural Healthcare Practices: none Are you DNR?: No Advance Directives: No Advance Directives Information Provided: Yes Advance Directives on File: No Recently lost weight without trying: No Nutrition Risks: Dental problems Patient : No : No service: No Current occupational status: disabled Meds Allergies Allergy/AdvReac Type Severity Reaction Status Date / Time No Known Allergies Allergy Verified 02/02/23 07:53 [No Known Allergies*] Home Medications Medication Instructions Recorded Confirmed Last Taken Type cholecalciferol (vitamin D3) 125 1 tab PO DAILY 08/21/21 02/02/23 01/28/23 History mcg (5,000 unit) tablet (Vitamin D3) gabapentin 600 mg tablet 2 tab PO TID 08/21/21 02/02/23 02/02/23 History methadone 10 mg/mL oral concentrate 106 mg PO DAILY 08/21/21 02/02/23 02/02/23 History cyanocobalamin (vitamin B-12) 500 500 mcg PO DAILY 07/21/22 02/02/23 01/28/23 History mcg tablet (Vitamin B-12) fluticasone fur. 100 mcg-umeclid 1 puff inhalation DAILY 07/21/22 02/02/23 02/02/23 History 62.5 mcg-vilant 25 mcg inhalat.powder (Trelegy Ellipta) linaclotide 145 mcg capsule 1 cap PO QAM 07/21/22 02/02/23 01/31/23 History (Linzess) multivitamin with minerals 1 tab PO DAILY 07/21/22 02/02/23 01/28/23 History duloxetine 30 mg capsule,delayed 30 mg PO BID 01/19/23 02/02/23 02/01/23 History release (Cymbalta) pantoprazole 20 mg tablet,delayed 20 mg PO BID 01/28/23 02/02/23 02/02/23 History release Exam Airway Heart: rrr Lungs: cta Assessment and Plan Assessment Anesthesia Assessment: Chart Reviewed Final Anesthetic Review NPO: Yes ASA Class: III Final Preanesthetic Review: No Changes in Pt Med Stat, Meds/Allgs Chart Reviewed, Consent Obtained/Reviewed and Anes Risks/Benef Reviewed Patient Risk: Intermediate Procedure Risk: Intermediate Anesthetic Plan Anesthetic Plan: Spinal and Regional Block Disposition: Standard PACU
[2023-01-19 14:47] LABS: MRSA Nasal PCR NEGATIVE (Negative); SA Nasal PCR NEGATIVE (Negative)
--- NOTE | 2023-01-19 18:55 | HE.PHANOTE ---
re: methadone verification received methadone verification form on 01/19/23. pt was given take home doses of 106 mg each to take from 01/16/23 through 01/21/23.
[2023-02-02] VITALS (21 sets, daily range): BP systolic 85–144; BP diastolic 41–72; PULSE 65–124; RESP 16–17; TEMP 36.2–37.1; O2SAT 91–98; BMI 29.3
--- NOTE | ~2023-02-02 | XR_ITS ---
EXAMINATION: XR KNEE, RIGHT CLINICAL INFORMATION: Right TKA COMPARISON: None available. TECHNIQUE: 2 views of the right knee. FINDINGS: Lateral right knee prosthesis with prosthetic components in size satisfactory alignment. There are postsurgical changes with sherry along the anterior skin and gas within adjacent soft tissues and suprapatellar bursa. XR/XR knee RT 2V IMPRESSION: Lateral right knee prosthesis with prosthetic components in satisfactory alignment. There are postsurgical changes as described above.
--- NOTE | 2023-02-02 08:16 | PC.NURSE ---
Patient in preop, states her oxygen is usually 88-90% at home . When asked if she uses oxygen she stated only once at home . Currently SaO2 95% on room air at rest. SaO2 drops to around 88% with minimal activity. Anesthesia made aware. Per patient, this is her usual. Lung sounds clear throughout.
[2023-02-02 08:24] LABS: Hematocrit 45.3 % (37.0-47.0); Hemoglobin 14.7 g/dl (12.0-16.0)
[2023-02-02] MEDS: Lactated Ringers 1,000 ML 100 ML IVCONT ×2 (08:34→15:05)
[2023-02-02] MEDS: Albuterol Sulfate (0.083%) 2.5 MG/3 ML VIAL.NEB INHALE (08:39)
--- NOTE | 2023-02-02 09:27 | MHC.SHP ---
Pre-Procedural Eval Section A Date of Service: 02/02/23 The patient is an INPATIENT: No Changes since office visit: No Cold of Flu in the past 2 weeks, No New Medical Problems, No Changes in Medication and No Patient answered all questions The History & Physical has been completed within 30 days and I have reviewed it.: Yes Section B Chief Complaint: Unilateral primary osteoarthritis, right knee Allergies: Allergies Allergy/AdvReac Type Severity Reaction Status Date / Time No Known Allergies Allergy Verified 02/02/23 07:53 [No Known Allergies*] Plan I have reviewed the history and physical and performed a pertinent physical examination on my patient. No changes have occurred unless specified. Time Spent With Patient Time: Total time managing care of this patient today ____ minutes.
--- NOTE | 2023-02-02 12:00 | PHA.MEDREC ---
Pharmacy Consult ? Medication Reconciliation Pharmacy has completed the medication reconciliation. Reviewed med rec done by nursing
--- NOTE | 2023-02-02 13:23 | PHA.MEDREC ---
Pharmacy Consult ? Medication Reconciliation MED LIST AQUISITION COMPLETED BY RN, REVIEWED BY PHARMACY. WILL NEED METHADONE FORM KATHY
[2023-02-02] MEDS: Acetaminophen 1,000 MG/100 ML PIGGYBACK 400 MG IV ×2 (15:39→22:13)
[2023-02-02] MEDS: Gabapentin 600 MG TABLET 1200 MG PO ×2 (15:40→20:45)
[2023-02-02] MEDS: Omeprazole 20 MG CAPSULE.DR PO (15:40)
[2023-02-02] MEDS: ceFAZolin Sodium/Dextrose,Iso 2 GM/50 ML PIGGYBACK IV (16:18)
[2023-02-02] MEDS: HYDROmorphone HCl 0.5 MG/0.5 ML SYRINGE IV (16:19)
[2023-02-02] MEDS: oxyCODONE HCl Immed Release 5 MG TABLET 10 MG PO ×2 (16:47→20:45)
--- NOTE | 2023-02-02 18:43 | HO.PM.IMCN ---
History of Present Illness Data of Consult Service Date: 02/02/23 Requesting physician: Reece Chacon Primary Care Provider: Stacy Yen MD HPI 62-year-old female status post right TKA are; consult in for medical management postoperatively Review of Systems Review of Systems: Denies chest pain Denies shortness of breath Denies nausea vomiting diarrhea Complains of pain right knee PMFSH Medical History (Updated 02/02/23 @ 18:45 by Breezy Connell DO) Osteoarthritis of right knee DDD (degenerative disc disease), lumbar Anxiety Dysphagia Pulmonary nodules History of ascites Peripheral neuropathy Opioid use disorder Methadone maintenance therapy patient Arthritis IBS (irritable bowel syndrome) Cervical cancer Breast cancer COPD (chronic obstructive pulmonary disease) Vocal cord polyp Family History Father Diabetes Mother CAD (coronary artery disease) CHF (congestive heart failure) Sister Breast cancer Surgical History History of vocal cord polypectomy Hx of colonoscopy History of lumpectomy of left breast Hx of laparoscopy History of hemorrhoidectomy H/O total hysterectomy Social History Household Members: Spouse Housing: House Are you a primary career development facilitator to a significant other at home: No Do you presently have visiting nurse or other home services: No Alcohol intake: never Patient Tobacco Use Status: Former Tobacco user Tobacco use type: Cigarette Years Smoked: 50 Second Hand Smoke Exposure: Yes service: No Current occupational status: disabled Meds Allergies Allergy/AdvReac Type Severity Reaction Status Date / Time No Known Allergies Allergy Verified 02/02/23 07:53 [No Known Allergies*] Active Medications: Current Medications Albuterol Sulfate (Albuterol Sulfate 90 Mcg 8 Gm Inhaler) 2 puff INHALE QID PRN PRN Reason: shortness of breath or wheezing Celecoxib (Celecoxib 200 Mg Capsule) 200 mg PO BID ABHI Duloxetine HCl (Duloxetine Hcl 30 Mg Capsule.Dr) 30 mg PO BID ABHI Enoxaparin Sodium (Enoxaparin Sodium 40 Mg/0.4 Ml Syringe) 40 mg SUBCUT Q24H ABHI Fluticasone/Umeclidinium/Vilanterol (Fluticasone/Umeclidinium/Vilanterol 100/62.5/25 Blst.W.Dev) 1 puff INHALE RDAILY [facility] Gabapentin (Gabapentin 600 Mg Tablet) 1,200 mg PO TID [facility] Last Admin: 02/02/23 15:40 Dose: 1,200 mg Hydromorphone HCl (Hydromorphone Hcl 0.5 Mg/0.5 Ml Syringe) 0.5 mg IV Q4H PRN; Protocol PRN Reason: Pain, Severe (Pain Scale 7-10) Last Admin: 02/02/23 16:19 Dose: 0.5 mg Lactated Ringer's (Lr) 1,000 mls @ 100 mls/hr IVCONT .Q10H [facility] Stop: 02/03/23 11:34 Last Admin: 02/02/23 15:05 Dose: 100 mls/hr Acetaminophen (Ofirmev) 1,000 mg in 100 mls @ 400 mls/hr IV Q6H [facility] Stop: 02/03/23 10:14 Methadone HCl (Methadone Hcl 20 Mg/2 Ml Oral.Conc) 106 mg PO DAILY [facility] Non-Formulary Medication (Linaclotide [Linzess]) 1 cap PO DAILY [facility] Omeprazole (Omeprazole 20 Mg Capsule.Dr) 20 mg PO BID@0630,1630 [facility] Last Admin: 02/02/23 15:40 Dose: 20 mg Ondansetron HCl (Ondansetron Hcl 4 Mg/2 Ml Vial) 4 mg IVPUSH Q8H PRN PRN Reason: Nausea and Vomiting Oxycodone HCl (Oxycodone Hcl Immed Release 5 Mg Tablet) 10 mg PO Q4H PRN PRN Reason: Pain, Moderate(Pain Scale 4-6) Last Admin: 02/02/23 16:47 Dose: 10 mg Oxycodone HCl (Oxycodone Hcl Er 10 Mg Tab.Er.12h) 10 mg PO BID [facility] Senna (Sennosides 8.6 Mg Tablet) 17.2 mg PO BEDTIME PRN PRN Reason: Constipation Sodium Chloride (0.9 % Sodium Chloride Flush 3 Ml Syringe) 3 ml IVFLUSH QSHIFT [facility] Last Admin: 02/02/23 16:18 Dose: Not Given Home Medications Medication Instructions Recorded Confirmed Last Taken Type cholecalciferol (vitamin D3) 125 1 tab PO DAILY 08/21/21 02/02/23 01/28/23 History mcg (5,000 unit) tablet (Vitamin D3) gabapentin 600 mg tablet 2 tab PO TID 08/21/21 02/02/23 02/02/23 History methadone 10 mg/mL oral concentrate 106 mg PO DAILY 08/21/21 08/01/22 02/02/23 History cyanocobalamin (vitamin B-12) 500 500 mcg PO DAILY 07/21/22 02/02/23 01/28/23 History mcg tablet (Vitamin B-12) fluticasone fur. 100 mcg-umeclid 1 puff inhalation DAILY 07/21/22 02/02/23 02/02/23 History 62.5 mcg-vilant 25 mcg inhalat.powder (Trelegy Ellipta) linaclotide 145 mcg capsule 1 cap PO QAM 07/21/22 02/02/23 01/31/23 History (Linzess) multivitamin with minerals 1 tab PO DAILY 07/21/22 02/02/23 01/28/23 History duloxetine 30 mg capsule,delayed 30 mg PO BID 01/19/23 02/02/23 02/01/23 History release (Cymbalta) pantoprazole 20 mg tablet,delayed 20 mg PO BID 01/28/23 02/02/23 02/02/23 History release furosemide 40 mg tablet 40 mg PO DAILY 02/02/23 02/02/23 Unknown History Physical Exam Vital Signs and Narrative: Vital Signs: Last Vital Signs Temp 98.8 F 02/02/23 15:11 Pulse 81 02/02/23 15:11 Resp 16 02/02/23 15:11 BP 142/67 H 02/02/23 15:11 Pulse Ox 94 02/02/23 17:54 O2 Del Method Room Air 02/02/23 15:11 O2 Flow Rate 3 02/02/23 17:54 BMI result Body Mass Index 29.3 Const: Other: Awake alert uncomfortable in bed no acute issues Resp: Other: Clear to auscultation bilaterally no rales rhonchi or wheezes Cardio: Other: No S4; positive S1-S2; no S3 murmurs rubs or gallops GI: Other: Soft nontender nondistended normoactive bowel sounds Extrem: Other: No edema bilaterally. Right knee dressing consisting base wrap clean dry and intact Results Labs 02/02/23 08:16 Imaging Radiologist's Impressions: Impressions Knee X-Ray 02/02/23 13:25 IMPRESSION: Lateral right knee prosthesis with prosthetic components in satisfactory alignment. There are postsurgical changes as described above. Assessment and Plan (1) Osteoarthritis of right knee: Qualifiers: Osteoarthritis type: primary Qualified Code(s): M17.11 - Unilateral primary osteoarthritis, right knee Status: Acute (2) Opioid use disorder: Status: Acute Plan 62-year-old female status post right total knee replacement seen in consultation for medical management. Review of the charge patient did have some desaturation during surgery however has tolerated Dilaudid and oxycodone without respiratory issues. She does recount a history of methadone use; states she takes 106 mg per day and took it this morning 1. S/P right total knee replacement -as per Ortho -will increase Dilaudid to 1 mg and continue other pain management 2. COPD -on trilogy at home will order hospital equivalent -titrate O2 as indicated 3. GERD -continue PPI Will follow Time Spent With Patient Time: Total time managing care of this patient today ____ minutes.
[2023-02-02] MEDS: HYDROmorphone HCl 1 MG/ML SYRINGE IVPUSH (19:46)
[2023-02-02] MEDS: 0.9 % Sodium Chloride Flush 3 ML SYRINGE IVFLUSH (19:47)
[2023-02-02] MEDS: oxyCODONE HCl ER 10 MG TAB.ER.12H PO (20:45)
[2023-02-02] MEDS: DULoxetine HCl 30 MG CAPSULE.DR PO (20:45)
[2023-02-02] MEDS: Celecoxib 200 MG CAPSULE PO (20:52)
[2023-02-03] VITALS (7 sets, daily range): BP systolic 142–158; BP diastolic 70–90; PULSE 66–96; RESP 17–18; TEMP 35.5–36.3; O2SAT 91–95
[2023-02-03] MEDS: Lactated Ringers 1,000 ML 100 ML IVCONT ×2 (01:23→11:41)
[2023-02-03] MEDS: Morphine Sulfate 4 MG/ML CARTRIDGE 5 MG IVPUSH (01:35)
[2023-02-03] MEDS: Acetaminophen 1,000 MG/100 ML PIGGYBACK 400 MG IV ×2 (03:37→11:16)
[2023-02-03] MEDS: HYDROmorphone HCl 1 MG/ML SYRINGE IVPUSH ×3 (04:25→16:49)
[2023-02-03] MEDS: Omeprazole 20 MG CAPSULE.DR PO ×2 (05:23→16:49)
[2023-02-03 06:29] LABS: MANUAL DIFF FLAG NO
[2023-02-03 06:33] LABS: Basophils Percent Auto 0.2 % (0-2); Hemoglobin 13.1 g/dl (12.0-16.0); Imm Gran Abs Auto 0.08 X10*3/uL (0.00-0.03); Imm Gran Pct Auto 0.6 % (0.0-0.4); Lymphocytes Absolute Auto 0.8 X10*3/uL (1.2-4.9); Lymphocytes Percent Auto 6.1 % (20-40); Mean Corpuscular Hemoglobin 32.5 pg (27.0-33.0); Mean Corpuscular Volume 101.7 fL (80.0-98.0); Mean Platelet Volume 9.4 fL (9.4-12.3); Monocytes Percent Auto 7.4 % (2-11); Neutrophils Percent Auto 85.7 % (45-73); Platelet Count 177 X10*3/uL (160-400); Red Blood Count 4.03 X10*6/uL (4.20-5.50); Red Cell Distribution Width 13.4 % (11.0-16.0); White Blood Count 12.8 X10*3/uL (4.8-10.8)
[2023-02-03 06:51] LABS: Anion Gap 13 (12-20); Blood Urea Nitrogen 11 mg/dL (9-16); Calcium 9.4 mg/dL (8.4-10.2); Carbon Dioxide 32 mmol/L (22-29); Chloride 101 mmol/L (96-108); Creatinine Clr Calc Pharmacy 76.5; Estimated Glomerular Filt Rate > 60; Glucose Fasting 137 mg/dL (60-99); Potassium 4.1 mmol/L (3.3-5.1); Sodium 142 mmol/L (135-145)
--- NOTE | 2023-02-03 07:41 | PM.PNORT ---
Subjective Subjective Date of Service: 02/03/23 Principal diagnosis: s/p right TKA Interval history: Complains of pain No overnight events AFVSS Physical Exam Vital Signs: Vital Signs: Last Vital Signs Temp 96 F L 02/03/23 07:05 Pulse 69 02/03/23 07:05 Resp 18 02/03/23 07:05 BP 152/90 H 02/03/23 07:05 Pulse Ox 95 02/03/23 07:05 O2 Del Method Nasal Cannula 02/03/23 07:05 O2 Flow Rate 3 02/03/23 07:05 BMI result Body Mass Index 29.3 Extrem: Other: Dressing c/d/i Firing ehl/ta/gc SILT Procedures Date of Service Date of Service: 02/03/23 Progress Note: A&P Assessment and plan (1) Osteoarthritis of right knee: Status: Acute (2) Status post right knee replacement: Status: Acute Time Spent With Patient Time: Total time managing care of this patient today ____ minutes. Quality Stroke Does the patient have a stroke diagnosis?: No VTE Prior VTE?: No VTE Risk Level:: Surgical - high VTE Device Contraindication: N/A - Device Ordered VTE Drug Contraindication: N/A - Med Ordered
[2023-02-03] MEDS: Fluticasone/Umeclidinium/Vilanterol 100/62.5/25 BLST.W.DEV 1 PUFF INHALE (07:58)
[2023-02-03] MEDS: DULoxetine HCl 30 MG CAPSULE.DR PO ×2 (08:32→21:17)
[2023-02-03] MEDS: Gabapentin 600 MG TABLET 1200 MG PO ×3 (08:32→21:16)
[2023-02-03] MEDS: Celecoxib 200 MG CAPSULE PO ×2 (08:32→21:17)
[2023-02-03] MEDS: oxyCODONE HCl ER 10 MG TAB.ER.12H PO ×2 (08:32→21:17)
[2023-02-03] MEDS: 0.9 % Sodium Chloride Flush 3 ML SYRINGE IVFLUSH ×2 (08:34→21:17)
[2023-02-03] MEDS: oxyCODONE HCl Immed Release 5 MG TABLET 10 MG PO ×3 (10:14→21:16)
--- NOTE | 2023-02-03 10:48 | HO.POSTANES ---
Post Anesthesia Evaluation Post Anesthesia Evaluation Date of Service: 02/03/23 Vital Signs: Vital Signs Temp Pulse Resp BP Pulse Ox O2 Del Method O2 Flow Rate 02/03/23 10:18 96 94 02/03/23 07:58 70 18 02/03/23 07:05 96 F L 69 18 152/90 H 95 Nasal Cannula 3 02/03/23 04:00 97.3 F 66 18 157/70 H 92 Nasal Cannula 3 Anesthesia: Spinal and Nerve Block Mental Status: Awake Pain Control: Satisfactory (complaining of pain) Nausea/Vomiting: None Hydration: Adequate Anesthesia-Related Issues: No Anes. Related Issues
--- NOTE | 2023-02-03 11:13 | HE.PHANOTE ---
RE METHADONE PT GETS 106MG TAKE HOME BOTTLES FROM [facility]. LAST DOSED 02/01 KATHY
[2023-02-03] MEDS: Enoxaparin Sodium 40 MG/0.4 ML SYRINGE SUBCUT (11:18)
[2023-02-03] MEDS: methADONE HCl 20 MG/2 ML ORAL.CONC 106 MG PO (11:31)
--- NOTE | 2023-02-03 12:25 | MHC.CM.PN ---
pt lives with has own ride home had no previous servcies will be goig home with dc
--- NOTE | 2023-02-03 15:02 | HO.PM.IMPN ---
Subjective Subjective Date of Service: 02/03/23 Interval History: Pain control appears adequate. No acute issues overnight Review of Systems Denies chest pain Denies shortness of breath Denies nausea vomiting diarrhea Complains of pain right knee Physical Exam Vital Signs: Vital Signs: Last Vital Signs Temp 96 F L 02/03/23 07:05 Pulse 96 02/03/23 10:18 Resp 18 02/03/23 07:58 BP 152/90 H 02/03/23 07:05 Pulse Ox 94 02/03/23 10:18 O2 Del Method Nasal Cannula 02/03/23 07:05 O2 Flow Rate 3 02/03/23 07:05 BMI result Body Mass Index 29.3 Const: Other: Awake alert uncomfortable in bed no acute issues Resp: Other: Clear to auscultation bilaterally no rales rhonchi or wheezes Cardio: Other: No S4; positive S1-S2; no S3 murmurs rubs or gallops GI: Other: Soft nontender nondistended normoactive bowel sounds Extrem: Other: No edema bilaterally. Right knee dressing consisting base wrap clean dry and intact Objective Data Active Medications Albuterol Sulfate (Albuterol Sulfate 90 Mcg 8 Gm Inhaler) 2 puff INHALE QID PRN PRN Reason: shortness of breath or wheezing Celecoxib (Celecoxib 200 Mg Capsule) 200 mg PO BID [facility] Last Admin: 02/03/23 08:32 Dose: 200 mg Documented By: LILLIE Duloxetine HCl (Duloxetine Hcl 30 Mg Capsule.Dr) 30 mg PO BID [facility] Last Admin: 02/03/23 08:32 Dose: 30 mg Documented By: LILLIE Enoxaparin Sodium (Enoxaparin Sodium 40 Mg/0.4 Ml Syringe) 40 mg SUBCUT Q24H [facility] Last Admin: 02/03/23 11:18 Dose: 40 mg Documented By: LILLIE Fluticasone/Umeclidinium/Vilanterol (Fluticasone/Umeclidinium/Vilanterol 100/62.5/25 Blst.W.Dev) 1 puff INHALE RDAILY [facility] Last Admin: 02/03/23 07:58 Dose: 1 puff Documented By: LOWELL Gabapentin (Gabapentin 600 Mg Tablet) 1,200 mg PO TID [facility] Last Admin: 02/03/23 14:27 Dose: 1,200 mg Documented By: TJ Hydromorphone HCl (Hydromorphone Hcl 1 Mg/Ml Syringe) 1 mg IVPUSH Q4H PRN; Protocol PRN Reason: Pain, Severe (Pain Scale 7-10) Last Admin: 02/03/23 08:33 Dose: 1 mg Documented By: LILLIE Methadone HCl (Methadone Hcl 20 Mg/2 Ml Oral.Conc) 106 mg PO DAILY [facility] Last Admin: 02/03/23 11:31 Dose: 106 mg Documented By: LILLIE Non-Formulary Medication (Linaclotide [Linzess]) 1 cap PO DAILY [facility] Omeprazole (Omeprazole 20 Mg Capsule.Dr) 20 mg PO BID@0630,1630 [facility] Last Admin: 02/03/23 05:23 Dose: 20 mg Documented By: LARISSA Ondansetron HCl (Ondansetron Hcl 4 Mg/2 Ml Vial) 4 mg IVPUSH Q8H PRN PRN Reason: Nausea and Vomiting Oxycodone HCl (Oxycodone Hcl Immed Release 5 Mg Tablet) 10 mg PO Q4H PRN PRN Reason: Pain, Moderate(Pain Scale 4-6) Last Admin: 02/03/23 14:27 Dose: 10 mg Documented By: TJ Oxycodone HCl (Oxycodone Hcl Er 10 Mg Tab.Er.12h) 10 mg PO BID [facility] Last Admin: 02/03/23 08:32 Dose: 10 mg Documented By: LILLIE Senna (Sennosides 8.6 Mg Tablet) 17.2 mg PO BEDTIME PRN PRN Reason: Constipation Sodium Chloride (0.9 % Sodium Chloride Flush 3 Ml Syringe) 3 ml IVFLUSH QSHIFT [facility] Last Admin: 02/03/23 14:28 Dose: Not Given Documented By: TJ Non-Admin Reason: IV Running Labs 02/03/23 06:00 02/03/23 06:00 Labs: Laboratory Results - last 24 hr 02/03/23 06:00 MCV 101.7 H MCH 32.5 MCHC 32.0 RDW 13.4 Plt Count 177 MPV 9.4 Immature Gran % (Auto) 0.6 H Neut % (Auto) 85.7 H Lymph % (Auto) 6.1 L Grimes % (Auto) 7.4 Eos % (Auto) 0.0 Baso % (Auto) 0.2 Lymph # (Auto) 0.8 L Grimes # (Auto) 1.0 Eos # (Auto) 0.0 Baso # (Auto) 0.0 Abs Immat Gran (auto) 0.08 H Absolute Neuts (auto) 11.0 H Absolute Nucleated RBC 0.000 Nucleated RBC % (auto) 0.0 Anion Gap 13 Estim Creat Clear Calc 76.5 Estimated GFR > 60 Fasting Glucose 137 H Calcium 9.4 Assessment and Plan (1) Status post right knee replacement: Status: Acute (2) COPD (chronic obstructive pulmonary disease): Status: Acute Plan 62-year-old female status post right total knee replacement seen in consultation for medical management. Review of the charge patient did have some desaturation during surgery however has tolerated Dilaudid and oxycodone without respiratory issues. She does recount a history of methadone use; states she takes 106 mg per day and took it this morning 1. S/P right total knee replacement -as per Ortho -pain control adequate 2. COPD -on trilogy at home will order hospital equivalent -titrate O2 as indicated 3. GERD -continue PPI Will follow Time Spent With Patient Time: Total time managing care of this patient today ____ minutes. Quality Stroke Does the patient have a stroke diagnosis?: No VTE Prior VTE?: No VTE Risk Level:: Surgical - high VTE Device Contraindication: N/A - Device Ordered VTE Drug Contraindication: N/A - Med Ordered
[2023-02-04] VITALS (9 sets, daily range): BP systolic 119–142; BP diastolic 62–83; PULSE 78–110; RESP 16–29; TEMP 36.1–36.6; O2SAT 86–95
[2023-02-04] MEDS: HYDROmorphone HCl 1 MG/ML SYRINGE IVPUSH ×4 (00:28→22:57)
[2023-02-04] MEDS: oxyCODONE HCl Immed Release 5 MG TABLET 10 MG PO ×3 (06:24→21:25)
[2023-02-04] MEDS: Omeprazole 20 MG CAPSULE.DR PO ×2 (06:24→17:01)
[2023-02-04 06:30] LABS: MANUAL DIFF FLAG NO
[2023-02-04 06:36] LABS: Basophils Percent Auto 0.3 % (0-2); Eosinophils Absolute Auto 0.1 X10*3/uL (0.0-0.4); Eosinophils Percent Auto 0.7 % (0-4); Hemoglobin 13.4 g/dl (12.0-16.0); Imm Gran Abs Auto 0.05 X10*3/uL (0.00-0.03); Imm Gran Pct Auto 0.5 % (0.0-0.4); Lymphocytes Absolute Auto 0.8 X10*3/uL (1.2-4.9); Lymphocytes Percent Auto 8.8 % (20-40); Mean Corpuscular HGB Conc 31.9 g/dl (31.0-35.0); Mean Corpuscular Hemoglobin 32.3 pg (27.0-33.0); Mean Corpuscular Volume 101.2 fL (80.0-98.0); Mean Platelet Volume 9.3 fL (9.4-12.3); Monocytes Absolute Auto 0.6 X10*3/uL (0.1-1.2); Monocytes Percent Auto 6.5 % (2-11); Neutrophils Percent Auto 83.2 % (45-73); Platelet Count 178 X10*3/uL (160-400); Red Blood Count 4.15 X10*6/uL (4.20-5.50); Red Cell Distribution Width 13.9 % (11.0-16.0); White Blood Count 9.6 X10*3/uL (4.8-10.8)
[2023-02-04 06:54] LABS: Anion Gap 13 (12-20); Blood Urea Nitrogen 6 mg/dL (9-16); Calcium 9.7 mg/dL (8.4-10.2); Carbon Dioxide 32 mmol/L (22-29); Chloride 97 mmol/L (96-108); Creatinine Clr Calc Pharmacy 82.1; Estimated Glomerular Filt Rate > 60; Glucose Fasting 99 mg/dL (60-99); Sodium 138 mmol/L (135-145)
[2023-02-04] MEDS: Fluticasone/Umeclidinium/Vilanterol 100/62.5/25 BLST.W.DEV 1 PUFF INHALE (07:45)
[2023-02-04] MEDS: methADONE HCl 20 MG/2 ML ORAL.CONC 106 MG PO (08:20)
[2023-02-04] MEDS: oxyCODONE HCl ER 10 MG TAB.ER.12H PO ×2 (08:20→21:26)
[2023-02-04] MEDS: Gabapentin 600 MG TABLET 1200 MG PO ×3 (08:20→21:26)
[2023-02-04] MEDS: Celecoxib 200 MG CAPSULE PO ×2 (08:20→21:26)
[2023-02-04] MEDS: 0.9 % Sodium Chloride Flush 3 ML SYRINGE IVFLUSH ×3 (08:22→23:47)
[2023-02-04] MEDS: Enoxaparin Sodium 40 MG/0.4 ML SYRINGE SUBCUT (08:27)
[2023-02-04] MEDS: DULoxetine HCl 30 MG CAPSULE.DR PO ×2 (08:27→21:25)
--- NOTE | 2023-02-04 09:43 | P.PNOP_ITS ---
Subjective Subjective Date of Service: 02/04/23 Principal diagnosis: s/p right TKA Interval history: POD 2 s/p RT TKA Complains of pain No overnight events Physical Exam Vital Signs: Vital Signs: Last Vital Signs Temp 97.9 F 02/04/23 07:29 Pulse 90 02/04/23 07:48 Resp 20 02/04/23 07:48 BP 142/71 H 02/04/23 07:29 Pulse Ox 95 02/04/23 07:29 O2 Del Method Nasal Cannula 02/04/23 07:29 O2 Flow Rate 3 02/04/23 07:29 BMI result Body Mass Index 29.3 Extrem: Other: Dressing c/d/i Firing ehl/ta/gc SILT Procedures Date of Service Date of Service: 02/04/23 Progress Note: A&P Assessment and plan (1) Osteoarthritis of right knee: Status: Acute (2) Status post right knee replacement: Status: Acute Plan * Continue pain mgmnt * Lovenox for dvt ppx PT for RT TKA * Dispo planning-Pending PT eval, pain mgmnt Time Spent With Patient Time: Total time managing care of this patient today ____ minutes. Quality Stroke Does the patient have a stroke diagnosis?: No VTE Prior VTE?: No VTE Risk Level:: Surgical - high VTE Device Contraindication: N/A - Device Ordered VTE Drug Contraindication: N/A - Med Ordered
--- NOTE | 2023-02-04 13:06 | P.PNIM_ITS ---
Subjective Subjective Date of Service: 02/04/23 Interval History: No acute medical issues. Pain control adequate Review of Systems Denies chest pain Denies shortness of breath Denies nausea vomiting diarrhea Complains of pain right knee Physical Exam 2 Vital Signs: Vital Signs: Last Vital Signs Temp 97.9 F 02/04/23 07:29 Pulse 110 H 02/04/23 11:36 Resp 20 02/04/23 07:48 BP 142/71 H 02/04/23 07:29 Pulse Ox 86 L 02/04/23 11:36 O2 Del Method Nasal Cannula 02/04/23 07:29 O2 Flow Rate 3 02/04/23 07:29 BMI result Body Mass Index 29.3 Const: Other: Awake alert uncomfortable in bed no acute issues Resp: Other: Clear to auscultation bilaterally no rales rhonchi or wheezes Cardio: Other: No S4; positive S1-S2; no S3 murmurs rubs or gallops GI: Other: Soft nontender nondistended normoactive bowel sounds Extrem: Other: No edema bilaterally. Right knee dressing consisting base wrap clean dry and intact Objective Data Active Medications Albuterol Sulfate (Albuterol Sulfate 90 Mcg 8 Gm Inhaler) 2 puff INHALE QID PRN PRN Reason: shortness of breath or wheezing Celecoxib (Celecoxib 200 Mg Capsule) 200 mg PO BID [facility] Last Admin: 02/04/23 08:20 Dose: 200 mg Documented By: LILLIE Duloxetine HCl (Duloxetine Hcl 30 Mg Capsule.Dr) 30 mg PO BID [facility] Last Admin: 02/04/23 08:27 Dose: 30 mg Documented By: LILLIE Enoxaparin Sodium (Enoxaparin Sodium 40 Mg/0.4 Ml Syringe) 40 mg SUBCUT Q24H [facility] Last Admin: 02/04/23 08:27 Dose: 40 mg Documented By: LILLIE Fluticasone/Umeclidinium/Vilanterol (Fluticasone/Umeclidinium/Vilanterol 100/62.5/25 Blst.W.Dev) 1 puff INHALE RDAILY [facility] Last Admin: 02/04/23 07:45 Dose: 1 puff Documented By: KIM Gabapentin (Gabapentin 600 Mg Tablet) 1,200 mg PO TID [facility] Last Admin: 02/04/23 08:20 Dose: 1,200 mg Documented By: LILLIE Hydromorphone HCl (Hydromorphone Hcl 1 Mg/Ml Syringe) 1 mg IVPUSH Q4H PRN; Protocol PRN Reason: Pain, Severe (Pain Scale 7-10) Last Admin: 02/04/23 00:28 Dose: 1 mg Documented By: LARISSA Promethazine HCl 12.5 mg/ (Sodium Chloride) 50.5 mls @ 202 mls/hr IV Q4H PRN PRN Reason: Nausea Methadone HCl (Methadone Hcl 20 Mg/2 Ml Oral.Conc) 106 mg PO DAILY [facility] Last Admin: 02/04/23 08:20 Dose: 106 mg Documented By: LILLIE Non-Formulary Medication (Linaclotide [Linzess]) 1 cap PO DAILY [facility] Omeprazole (Omeprazole 20 Mg Capsule.Dr) 20 mg PO BID@0630,1630 [facility] Last Admin: 02/04/23 06:24 Dose: 20 mg Documented By: LARISSA Ondansetron HCl (Ondansetron Hcl 4 Mg/2 Ml Vial) 4 mg IVPUSH Q8H PRN PRN Reason: Nausea and Vomiting Oxycodone HCl (Oxycodone Hcl Immed Release 5 Mg Tablet) 10 mg PO Q4H PRN PRN Reason: Pain, Moderate(Pain Scale 4-6) Last Admin: 02/04/23 06:24 Dose: 10 mg Documented By: LARISSA Oxycodone HCl (Oxycodone Hcl Er 10 Mg Tab.Er.12h) 10 mg PO BID [facility] Last Admin: 02/04/23 08:20 Dose: 10 mg Documented By: LILLIE Senna (Sennosides 8.6 Mg Tablet) 17.2 mg PO BEDTIME PRN PRN Reason: Constipation Sodium Chloride (0.9 % Sodium Chloride Flush 3 Ml Syringe) 3 ml IVFLUSH QSHIFT [facility] Last Admin: 02/04/23 08:22 Dose: 3 ml Documented By: LILLIE Labs 02/04/23 06:09 02/04/23 06:09 Labs: Laboratory Results - last 24 hr 02/04/23 06:09 MCV 101.2 H MCH 32.3 MCHC 31.9 RDW 13.9 Plt Count 178 MPV 9.3 L Immature Gran % (Auto) 0.5 H Neut % (Auto) 83.2 H Lymph % (Auto) 8.8 L [place] % (Auto) 6.5 Eos % (Auto) 0.7 Baso % (Auto) 0.3 Lymph # (Auto) 0.8 L [place] # (Auto) 0.6 Eos # (Auto) 0.1 Baso # (Auto) 0.0 Abs Immat Gran (auto) 0.05 H Absolute Neuts (auto) 8.0 Absolute Nucleated RBC 0.000 Nucleated RBC % (auto) 0.0 Anion Gap 13 Estim Creat Clear Calc 82.1 Estimated GFR > 60 Fasting Glucose 99 Calcium 9.7 Assessment and Plan (1) Status post right knee replacement: Status: Acute Plan 62-year-old female status post right total knee replacement seen in consultation for medical management. Review of the charge patient did have some desaturation during surgery however has tolerated Dilaudid and oxycodone without respiratory issues. She does recount a history of methadone use; states she takes 106 mg per day and took it this morning 1. S/P right total knee replacement -as per Ortho -pain control adequate 2. COPD -on trilogy at home will order hospital equivalent -titrate O2 as indicated 3. GERD -continue PPI No active medical issues. Will sign off at this time. Please call if any issues arise Time Spent With Patient Time: Total time managing care of this patient today ____ minutes. Quality Stroke Does the patient have a stroke diagnosis?: No VTE Prior VTE?: No VTE Risk Level:: Surgical - high VTE Device Contraindication: N/A - Device Ordered VTE Drug Contraindication: N/A - Med Ordered
[2023-02-05] VITALS (8 sets, daily range): BP systolic 125–141; BP diastolic 63–84; PULSE 84–111; RESP 18–22; TEMP 36.3–36.6; O2SAT 83–93
[2023-02-05] MEDS: oxyCODONE HCl Immed Release 5 MG TABLET 10 MG PO ×3 (01:10→15:47)
[2023-02-05] MEDS: HYDROmorphone HCl 1 MG/ML SYRINGE IVPUSH ×5 (04:10→22:15)
[2023-02-05] MEDS: Omeprazole 20 MG CAPSULE.DR PO ×2 (05:42→15:47)
[2023-02-05 07:40] LABS: MANUAL DIFF FLAG NO
[2023-02-05 07:42] LABS: Basophils Percent Auto 0.3 % (0-2); Eosinophils Absolute Auto 0.1 X10*3/uL (0.0-0.4); Eosinophils Percent Auto 1.5 % (0-4); Hematocrit 37.7 % (37.0-47.0); Hemoglobin 12.3 g/dl (12.0-16.0); Imm Gran Abs Auto 0.07 X10*3/uL (0.00-0.03); Imm Gran Pct Auto 0.8 % (0.0-0.4); Lymphocytes Absolute Auto 0.6 X10*3/uL (1.2-4.9); Lymphocytes Percent Auto 6.8 % (20-40); Mean Corpuscular HGB Conc 32.6 g/dl (31.0-35.0); Mean Corpuscular Volume 101.1 fL (80.0-98.0); Mean Platelet Volume 9.5 fL (9.4-12.3); Monocytes Absolute Auto 0.6 X10*3/uL (0.1-1.2); Monocytes Percent Auto 6.7 % (2-11); Neutrophils Absolute Auto 7.3 x10*3/uL (2.0-8.3); Neutrophils Percent Auto 83.9 % (45-73); Platelet Count 156 X10*3/uL (160-400); Red Blood Count 3.73 X10*6/uL (4.20-5.50); Red Cell Distribution Width 13.9 % (11.0-16.0); White Blood Count 8.7 X10*3/uL (4.8-10.8)
[2023-02-05] MEDS: Fluticasone/Umeclidinium/Vilanterol 100/62.5/25 BLST.W.DEV 1 PUFF INHALE (07:46)
[2023-02-05 07:56] LABS: Anion Gap 12 (12-20); Blood Urea Nitrogen 10 mg/dL (9-16); Calcium 9.2 mg/dL (8.4-10.2); Carbon Dioxide 33 mmol/L (22-29); Chloride 97 mmol/L (96-108); Creatinine Clr Calc Pharmacy 82.1; Estimated Glomerular Filt Rate > 60; Glucose Fasting 106 mg/dL (60-99); Potassium 3.5 mmol/L (3.3-5.1); Sodium 138 mmol/L (135-145)
[2023-02-05] MEDS: Gabapentin 600 MG TABLET 1200 MG PO ×3 (08:34→22:06)
[2023-02-05] MEDS: 0.9 % Sodium Chloride Flush 3 ML SYRINGE IVFLUSH ×3 (08:35→22:07)
[2023-02-05] MEDS: DULoxetine HCl 30 MG CAPSULE.DR PO ×2 (08:35→22:06)
[2023-02-05] MEDS: methADONE HCl 20 MG/2 ML ORAL.CONC 106 MG PO (08:35)
[2023-02-05] MEDS: Celecoxib 200 MG CAPSULE PO ×2 (08:35→22:06)
[2023-02-05] MEDS: oxyCODONE HCl ER 10 MG TAB.ER.12H PO ×2 (08:35→22:06)
[2023-02-05] MEDS: Enoxaparin Sodium 40 MG/0.4 ML SYRINGE SUBCUT (08:35)
--- NOTE | 2023-02-05 12:45 | MHC.CM.PN ---
PT alicia recommends [facility]. [facility] because the patient takes [facility]adone. Met with patient for discharge planning. She was notified of pt recommendation is STR. The Methadone guest dose process was explained. The BRAYN was given to the patient. She was not comfortable signing the form without her spouse. [facility] has offered a bed. Guest dosing will be set up Wednesday. Patient will transport via BLS.
[2023-02-06] MEDS: oxyCODONE HCl Immed Release 5 MG TABLET 10 MG PO ×5 (00:25→23:33)
[2023-02-06 03:00] VITALS: BP 132/66; PULSE 80; RESP 16; TEMP 36.5; O2SAT 93
[2023-02-06] MEDS: HYDROmorphone HCl 1 MG/ML SYRINGE IVPUSH ×2 (03:12→22:06)
[2023-02-06] MEDS: Omeprazole 20 MG CAPSULE.DR PO ×2 (05:51→15:56)
[2023-02-06 07:28] VITALS: BP 137/63; PULSE 85; RESP 18; TEMP 36.4; O2SAT 92
[2023-02-06] MEDS: Fluticasone/Umeclidinium/Vilanterol 100/62.5/25 BLST.W.DEV 1 PUFF INHALE (07:45)
[2023-02-06] MEDS: Gabapentin 600 MG TABLET 1200 MG PO ×3 (08:57→22:09)
[2023-02-06] MEDS: DULoxetine HCl 30 MG CAPSULE.DR PO ×2 (08:58→22:09)
[2023-02-06] MEDS: Celecoxib 200 MG CAPSULE PO ×2 (08:58→22:09)
[2023-02-06] MEDS: oxyCODONE HCl ER 10 MG TAB.ER.12H PO ×2 (08:58→22:09)
[2023-02-06] MEDS: Enoxaparin Sodium 40 MG/0.4 ML SYRINGE SUBCUT (08:59)
[2023-02-06] MEDS: methADONE HCl 20 MG/2 ML ORAL.CONC 106 MG PO (09:00)
[2023-02-06] MEDS: 0.9 % Sodium Chloride Flush 3 ML SYRINGE IVFLUSH ×3 (09:07→22:09)
[2023-02-06] MEDS: Sennosides 8.6 MG TABLET 17.2 MG PO (09:11)
[2023-02-06 14:52] VITALS: BP 137/63; PULSE 85; O2SAT 92
[2023-02-06 15:17] VITALS: BP 140/67; PULSE 80; RESP 16; TEMP 35.9; O2SAT 95
[2023-02-06 19:17] VITALS: BP 120/66; PULSE 85; RESP 18; TEMP 36.7; O2SAT 92
[2023-02-06] MEDS: Albuterol Sulfate 90 MCG 8 GM INHALER 2 PUFF INHALE (23:41)
[2023-02-07 02:56] VITALS: BP 128/59; PULSE 76; RESP 14; TEMP 36.1; O2SAT 94
[2023-02-07] MEDS: HYDROmorphone HCl 1 MG/ML SYRINGE IVPUSH ×3 (04:45→23:27)
[2023-02-07] MEDS: Omeprazole 20 MG CAPSULE.DR PO ×2 (04:45→15:35)
[2023-02-07] MEDS: DULoxetine HCl 30 MG CAPSULE.DR PO ×2 (07:22→19:32)
[2023-02-07] MEDS: Gabapentin 600 MG TABLET 1200 MG PO ×3 (07:22→19:32)
[2023-02-07] MEDS: oxyCODONE HCl ER 10 MG TAB.ER.12H PO ×2 (07:22→19:32)
[2023-02-07] MEDS: Celecoxib 200 MG CAPSULE PO ×2 (07:22→19:32)
[2023-02-07] MEDS: methADONE HCl 20 MG/2 ML ORAL.CONC 106 MG PO (07:23)
[2023-02-07] MEDS: 0.9 % Sodium Chloride Flush 3 ML SYRINGE IVFLUSH ×3 (07:26→23:27)
[2023-02-07] MEDS: oxyCODONE HCl Immed Release 5 MG TABLET 10 MG PO ×3 (07:30→19:32)
[2023-02-07 07:40] VITALS: BP 125/64; PULSE 86; RESP 18; TEMP 36.5; O2SAT 94
[2023-02-07] MEDS: Fluticasone/Umeclidinium/Vilanterol 100/62.5/25 BLST.W.DEV 1 PUFF INHALE (07:54)
[2023-02-07 07:55] VITALS: PULSE 74; RESP 18; O2SAT 93
[2023-02-07] MEDS: Enoxaparin Sodium 40 MG/0.4 ML SYRINGE SUBCUT (09:32)
[2023-02-07] MEDS: Sennosides 8.6 MG TABLET 17.2 MG PO ×2 (09:49→23:27)
[2023-02-07 15:33] VITALS: BP 143/67; PULSE 87; RESP 18; TEMP 36; O2SAT 93
[2023-02-07 19:20] VITALS: BP 120/65; PULSE 78; RESP 16; TEMP 36.3; O2SAT 98
[2023-02-08] VITALS (7 sets, daily range): BP systolic 115–127; BP diastolic 58–70; PULSE 75–92; RESP 16–20; TEMP 35.8–36.3; O2SAT 84–94
[2023-02-08] MEDS: 0.9 % Sodium Chloride Flush 3 ML SYRINGE IVFLUSH ×3 (06:13→23:40)
[2023-02-08] MEDS: Omeprazole 20 MG CAPSULE.DR PO ×2 (06:13→14:54)
[2023-02-08] MEDS: HYDROmorphone HCl 1 MG/ML SYRINGE IVPUSH (06:13)
--- NOTE | 2023-02-08 07:29 | P.PNOP_ITS ---
Subjective Subjective Date of Service: 02/08/23 Principal diagnosis: s/p right TKA Interval history: POD6 s/p RTKA. Patient is resting in bed comfortably No overnight events Pain is managed No additional complaints Physical Exam Vital Signs: Vital Signs: Last Vital Signs Temp 96.5 F L 02/08/23 03:54 Pulse 78 02/08/23 03:54 Resp 18 02/08/23 03:54 BP 127/70 02/08/23 03:54 Pulse Ox 91 L 02/08/23 03:54 O2 Del Method Nasal Cannula 02/08/23 03:54 O2 Flow Rate 2 02/08/23 03:54 BMI result Body Mass Index 29.3 Extrem: Other: Dressing c/d/i Able to flexion 45 degrees full extension Engaging quad Able to dorsi/plantar flex NVI Procedures Date of Service Date of Service: 02/08/23 Progress Note: A&P Assessment and plan (1) Status post right knee replacement: Status: Acute (2) COPD (chronic obstructive pulmonary disease): Status: Acute (3) Overweight (BMI 25.0-29.9): Status: Acute (4) Osteoarthritis of right knee: Status: Inactive Plan * Continue pain mgmnt * Lovenox for dvt ppx PT for RT TKA * Dispo planning- Rehab placement Time Spent With Patient Time: Total time managing care of this patient today ____ minutes. Quality Stroke Does the patient have a stroke diagnosis?: No VTE Prior VTE?: No VTE Risk Level:: Surgical - high VTE Device Contraindication: N/A - Device Ordered VTE Drug Contraindication: N/A - Med Ordered
[2023-02-08] MEDS: Fluticasone/Umeclidinium/Vilanterol 100/62.5/25 BLST.W.DEV 1 PUFF INHALE (07:57)
[2023-02-08] MEDS: Gabapentin 600 MG TABLET 1200 MG PO ×3 (08:14→18:45)
[2023-02-08] MEDS: Celecoxib 200 MG CAPSULE PO ×2 (08:14→18:44)
[2023-02-08] MEDS: DULoxetine HCl 30 MG CAPSULE.DR PO ×2 (08:14→18:45)
[2023-02-08] MEDS: oxyCODONE HCl ER 10 MG TAB.ER.12H PO ×2 (08:14→18:44)
[2023-02-08] MEDS: methADONE HCl 20 MG/2 ML ORAL.CONC 106 MG PO (08:15)
--- NOTE | 2023-02-08 08:50 | PM.OP ---
Brief Operative Note Date of Service: 02/02/23 Pre-op diagnosis: Right knee OA Post-op diagnosis: same Procedure: Right TKA Implants: [employer] Triathalon press fir cruciate retaining Surgeon: Reece Chacon MD Anesthesia: regional and spinal Was an Garment Manufacturing Supervisor used for this Procedure?: Yes Garment Manufacturing Supervisor: Aidan Barrios Estimated blood loss (mL): 10 Tourniquet time (min): 49 IV fluids (mL): 1,000 Pathology: other Condition: stable Disposition: PACU
--- NOTE | 2023-02-08 11:06 | PM.DS ---
DS: Providers Provider Date of Service: 02/08/23 <Aidan Barrios PA-C - Last Filed: 02/08/23 12:38> Primary care physician: Stacy Yen MD <Maddie Vera PA-C - Last Filed: 02/08/23 11:14> Consults: 02/02/23 14:41 Consult to Hospitalist Routine Comment: Consulting Provider: Hospitalist Reason For Exam: BAM/COPD/ desat intraop into 70's <Maddie Vera PA-C - Last Filed: 02/08/23 11:14> DS: Diagnosis Discharge Diagnosis (1) Status post right knee replacement: Status: Acute <Maddie Vera PA-C - Last Filed: 02/08/23 11:14> (2) COPD (chronic obstructive pulmonary disease): Status: Acute <Maddie Vera PA-C - Last Filed: 02/08/23 11:14> (3) Overweight (BMI 25.0-29.9): Status: Acute <Maddie Vera PA-C - Last Filed: 02/08/23 11:14> (4) Osteoarthritis of right knee: Status: Inactive <Maddie Vera PA-C - Last Filed: 02/08/23 11:14> DS: Summary Hospital Course Hospital Course: The patient underwent a successful right total knee arthroplasty, they were transferred to PACU and then to the floor to recover. During their stay, their vitals were stable, afebrile at 97.0. Labs were unremarkable, H/H 12.3/37.7. POD 1 they were started on Lovenox for DVT ppx, they also received Physical Therapy services twice a day. Patient was desaturating intra and post operatively. Therefore, a respiaratory consult was placed for home O2. Patient has been placed on 2L via nasal canula and has been unable to wean prior to discharge. Prior to discharge, their dressing was changed, incision clean dry and intact, new Aquacel dressing applied and the plan was to be discharged home with VNA services. <Maddie Vera PA-C - Last Filed: 02/08/23 11:14> Time Spent with Patient Time attestation: Total time managing care of this patient today ____ minutes. <Maddie Vera PA-C - Last Filed: 02/08/23 11:14> Discharge coordination time: Less than 30 minutes <Aidan Barrios PA-C - Last Filed: 02/08/23 12:38> Quality: Safe Use of Opioids Does Pt have an Active Cancer Diagnosis on the Problem List?: No <Aidan Barrios PA-C - Last Filed: 02/08/23 12:38> Quality: Stroke Does the patient have a stroke diagnosis?: No <Aidan Barrios PA-C - Last Filed: 02/08/23 12:38> Physical Exam Vital Signs: Vital Signs: Last Vital Signs Temp 97.0 F 02/08/23 08:00 Pulse 85 02/08/23 08:28 Resp 18 02/08/23 08:00 BP 119/58 L 02/08/23 08:00 Pulse Ox 94 02/08/23 08:28 O2 Del Method Nasal Cannula 02/08/23 08:28 O2 Flow Rate 2 02/08/23 08:28 BMI result Body Mass Index 29.3 <Maddie Vera PA-C - Last Filed: 02/08/23 11:14> Extrem: Other: Dressing c/d/i Able to flexion 45 degrees full extension Engaging quad Able to dorsi/plantar flex NVI <Maddie Vera PA-C - Last Filed: 02/08/23 11:14> DS: Data Data Completed and Pending Completed studies during hospitalization [Text1]: Pending at discharge 02/02/23 11:02 Surgical [PTH] Routine <Maddie Vera PA-C - Last Filed: 02/08/23 11:14> Discharge Plan Discharge Patient Disposition: Home, Self-Care <Maddie Vera PA-C - Last Filed: 02/08/23 11:14> Referrals: Aidan Barrios PA-C [Physician Director Of Materials] - 02/18/23 12:30 pm <Maddie Vera PA-C - Last Filed: 02/08/23 11:14> Discharge Medications: New celecoxib 200 mg Capsule 200 mg PO BID 30 Days Qty: 60 0RF enoxaparin 40 mg/0.4 mL Syringe 40 mg subcut Q24H 42 Days Qty: 16.8 0RF sennosides [Senna Lax] 8.6 mg Tablet 17.2 mg PO BEDTIME PRN (Reason: Constipation) 30 Days Qty: 60 0RF Continued (DME) walker Misc See Rx Instructions .MEDSUPPLY Qty: 1 0RF Rx Instructions: Folding Front wheeled walker diclofenac sodium 50 mg tablet,delayed release (DR/EC) 50 mg PO BID Qty: 60 0RF gabapentin 600 mg tablet 2 tab PO TID cholecalciferol (vitamin D3) [Vitamin D3] 125 mcg (5,000 unit) tablet 1 tab PO DAILY methadone 10 mg/mL Concentrate 106 mg PO DAILY Linzess 145 mcg capsule 1 cap PO QAM Trelegy Ellipta 100-62.5-25 mcg blister with device 1 puff INHALATION DAILY multivitamin with minerals Tablet 1 tab PO DAILY cyanocobalamin (vitamin B-12) [Vitamin B-12] 500 mcg Tablet 500 mcg PO DAILY albuterol sulfate 90 mcg/actuation HFA aerosol inhaler 2 puff inhalation QID PRN (Reason: shortness of breath or wheezing) Qty: 8.5 0RF duloxetine [Cymbalta] 30 mg Capsule,Delayed Release(Dr/Ec) 30 mg PO BID furosemide 40 mg tablet 40 mg PO DAILY (DME) Raised toilet seat See Rx Instructions .ROUTE .MEDSUPPLY Qty: 1 0RF Rx Instructions: As directed pantoprazole 20 mg tablet,delayed release (DR/EC) 20 mg PO BID <Maddie Vera PA-C - Last Filed: 02/08/23 11:14> Diet: Advance to usual diet <Maddie Vera PA-C - Last Filed: 02/08/23 11:14> Advance to usual diet <Aidan Barrios PA-C - Last Filed: 02/08/23 12:38> Activity on Discharge: Use cane or walker <Maddie Vera PA-C - Last Filed: 02/08/23 11:14> Use cane or walker <Aidan Barrios PA-C - Last Filed: 02/08/23 12:38> Activity Restrictions/Additional Instructions: Physical Therapy for ROM 0-120, quad strength, gait training. Use walker for ambulation Limit stair climbing, No shower, No tub bath, No driving Continue anticoagulant Lovenox x 6 weeks Keep Aquacel dressing clean, dry and intact. Follow up with orthopedics in 2 weeks <Maddie Vera PA-C - Last Filed: 02/08/23 11:14>
[2023-02-08] MEDS: oxyCODONE HCl Immed Release 5 MG TABLET 10 MG PO ×4 (11:07→23:48)
[2023-02-08] MEDS: Enoxaparin Sodium 40 MG/0.4 ML SYRINGE SUBCUT (11:07)
--- NOTE | 2023-02-08 11:14 | W.MHC.F2F ---
Service Date Service Date: 02/08/23 Encounter Date of encounter: 02/08/23 Reasons for Services Signs and symptoms assessed: Pt. is considered homebound due to recent surgery. Unable to drive, poor balance, poor gait mechanics. S/p RTKA. Reason for correction: postoperative assessment and/or care (O2 monitoring) Reason for physical therapy: home safety and mobility, therapeutic exercises, restore joint function, gait/transfer training, assess need for DME and ADL training Homebound: Leaving the home is medically contraindicated at this time without the asist of a device and/or another person due th the listed conditions above and below. Reason homebound: unsteady gait / fall risk, leg weakness, pain with ambulation, pain with transfers, poor balance / fall risk and unable to drive Certification: Based on the above findings, I certify that this patient is confined to the home and needs intermittent correction care, physical therapy and/or speech therapy, or continues to need occupational therapy. The patient is under my care, and I have initiated the establishment of the plan of care. The patient will be followed by a physician who will periodically review the plan of care. Time Spent With Patient Time: Total time managing care of this patient today ____ minutes.
--- NOTE | 2023-02-08 16:07 | MHC.CM.PN ---
EMR reviewed. PT eval and RT O2 eval completed today. Per MD patient to dc tomorrow. Plan to return home and resume VNA services for PT and nursing. [facility] has been updated. to transport home. CM will continue to follow.
[2023-02-09 04:00] VITALS: BP 125/63; PULSE 88; RESP 20; TEMP 37.1; O2SAT 94
[2023-02-09] MEDS: Omeprazole 20 MG CAPSULE.DR PO (05:53)
[2023-02-09] MEDS: oxyCODONE HCl Immed Release 5 MG TABLET 10 MG PO (05:57)
[2023-02-09 07:34] VITALS: BP 123/58; PULSE 75; RESP 20; TEMP 36.1; O2SAT 93
[2023-02-09] MEDS: Fluticasone/Umeclidinium/Vilanterol 100/62.5/25 BLST.W.DEV 1 PUFF INHALE (07:57)
[2023-02-09 07:59] VITALS: PULSE 71; RESP 18; O2SAT 94
[2023-02-09] MEDS: Celecoxib 200 MG CAPSULE PO (08:01)
[2023-02-09] MEDS: DULoxetine HCl 30 MG CAPSULE.DR PO (08:01)
[2023-02-09] MEDS: oxyCODONE HCl ER 10 MG TAB.ER.12H PO (08:01)
[2023-02-09] MEDS: methADONE HCl 20 MG/2 ML ORAL.CONC 106 MG PO (08:02)
[2023-02-09] MEDS: Gabapentin 600 MG TABLET 1200 MG PO (08:02)
[2023-02-09] MEDS: 0.9 % Sodium Chloride Flush 3 ML SYRINGE IVFLUSH (08:03)
[2023-02-09] MEDS: Enoxaparin Sodium 40 MG/0.4 ML SYRINGE SUBCUT (10:44)
--- NOTE | 2023-02-09 11:14 | MHC.CM.PN ---
DP: IMM DELIVERED. PT HAS BEEN MEDICALLY CLEARED FOR DISCHARGE HOME WITH NEW [facility] FOR NURSING AND PT SERVICES. RN AWARE. [facility] WILL TRANSPORT HOME. [facility] NOTIFIED OF TODAY'S DC.
--- NOTE | 2023-02-11 11:19 | W.PM.OPN ---
Operative Note Operative Note Date of Service: 02/02/23 Narrative: Date of Service: 02/02/23 Pre-op diagnosis: Right knee OA Post-op diagnosis: same Procedure: Right TKA Implants: [place] Triathalon press fir cruciate retaining Surgeon: Reece Chacon MD Anesthesia: regional and spinal Was an Avionics Repair Technician used for this Procedure?: Yes Avionics Repair Technician: Aidan Barrios Estimated blood loss (mL): 10 Tourniquet time (min): 49 IV fluids (mL): 1,000 Pathology: other Condition: stable Disposition: PACU Procedure in detail: The patient was brought to the operating room and prepped and draped in standard sterile fashion. A time-out was called to identify proper site proper procedure proper surgeon and IV antibiotics were administered. 1 g of IV tranexamic acid was administered. I began by making a midline incision to the retinaculum and performed a medial parapatellar arthrotomy. The patella was translated laterally and the knee was flexed up. There was tricompartmental eburnation . I performed a small medial peel and resected the infrapatellar fat pad. Howard's line was then used to drill my intramedullary femoral guide and my distal femur cut of ___ mm was made in 5 degrees of valgus while protecting the soft tissues. I then measured a # 3 femur and placed my cutting guide and made my anterior posterior and chamfer cuts protecting the soft tissues at all times. Once I was satisfied with my cuts I turned my attention to the tibia. I removed the meniscus medially and laterally and , using an external cutting guide, in line with the tibial crest and the third ray, I made my distal tibial cut in 3 deg slope of while protecting the PCL the posterior soft tissues at all times. An extension block was used to confirm appropriate amount of bony resection. I then sized a #3 tibia and once I was satisfied that there was complete tibial coverage I placed my trial and with the trial femur in place took the knee through range of motion. I was satisfied with the extension and flexion as well as the stability and balance at 0, 30 and 90 degrees. I then turned my attention to the patella where I removed 1 cm from the undersurface of the patella and then trialed a 29a patellar button. Again the knee was taken through range of motion I was satisfied with the tracking. I then returned to the femur and drilled my femoral lug holes and prepared the tibia. A femoral bone plug was placed and the knee was irrigated copiously. I then press fit the patella, tibia and femur in standard fashion. I trialed different inserts until I selected a #9mm insert. The final insert was placed and a 3 minutes iodine soak with local TXA was performed. A Werewolf cautery wand was used to maintain hemostasis over the capsule and meniscal beds, the gutters and peripatellar soft tissues. The knee was then closed with a running Quill suture, a 3 0 Vicryl and sherry on the skin. Patient was then placed in sterile dressing and brought to recovery room in stable condition there were no known complications.
== END 2023-02-09 12:32 | disposition home health service (06) ==
LOC: HO.SSS 07:33 → HO.S3 13:33
PROVIDERS: Physician Assistant; PCP Family Medicine; Visit Provider Orthopaedic Surgery
PROC: (CPT 27447; principal; 2023-02-02 09:40)
DX: M17.11 Unilateral primary osteoarthritis, right knee (principal); M25.561 Pain in right knee; M17.12 Unilateral primary osteoarthritis, left knee; F11.90 Opioid use, unspecified, uncomplicated; J44.9 Chronic obstructive pulmonary disease, unspecified; R91.8 Other nonspecific abnormal finding of lung field; G62.9 Polyneuropathy, unspecified; E66.3 Overweight; K21.9 Gastro-esophageal reflux disease without esophagitis; F41.1 Generalized anxiety disorder; J38.1 Polyp of vocal cord and larynx; Z85.3 Personal history of malignant neoplasm of breast; Z85.41 Personal history of malignant neoplasm of cervix uteri; Z92.21 Personal history of antineoplastic chemotherapy; Z79.51 Long term (current) use of inhaled steroids; Z79.899 Other long term (current) drug therapy; Z99.89 Dependence on other enabling machines and devices; Z87.891 Personal history of nicotine dependence
CPT/HCPCS: 27447; 36415; 73560; 80048; 85014; 85018; 85025; 86850; 86900; 86901; 87640; 87641; 88305; 88311; 94640; 97110; 97116; 97162; 97530; C1776; J0131; J0690; J1100; J1170; J1650; J2250; J2270; J2795

== ENCOUNTER → 2023-02-02 07:32 | Outpatient (BNV) | payer MEDICARE, MEDICAID, SELFPAY | PROVIDERS: PCP Family Medicine; Visit Provider Orthopaedic Surgery | DX: M17.11 Unilateral primary osteoarthritis, right knee (principal); Z47.1 Aftercare following joint replacement surgery; Z96.651 Presence of right artificial knee joint | CPT/HCPCS: 27447; 99024; 99231 ==

== ENCOUNTER → 2023-02-02 07:32 | Outpatient (BNV) | payer MEDICARE, MEDICAID, SELFPAY | PROVIDERS: PCP Family Medicine; Visit Provider Hospitalist | DX: Z96.651 Presence of right artificial knee joint (principal) | CPT/HCPCS: 99223; 99233 ==

== ENCOUNTER 2023-02-18 12:36 | Outpatient (AMB) | payer MEDICARE, MEDICAID, SELFPAY ==
--- NOTE | 2023-02-18 12:44 | MHC.OFFVIS ---
Intake Intake Visit Reasons: PO-RT TKA 02/02/23 NE Intake Note: Do a 62 year old female who presents today for a post operative right TKA, DOS 02/02/23. Patient reports constant pain, with a pain level 6-7 out of 10. Concerns of swelling in knee and foot. She is requesting a refill on oxycodone 10 mg. Allergies No Known Allergies [No Known Allergies*] Allergy (Verified 02/18/23 12:46) HPI PO-RT TKA 02/02/23 NE HPI Details 62-year-old female who returns to the office today for post-op right TKA, 02/02/[address] Chacon. She states she has constant pain and rates the pain as 6 on the scale of 0-10. She also c/o swelling and stiffness in her knee which makes her unable to sleep at night. She is requesting to have a refill on oxycodone 10 mg. She is doing well otherwise and has no other concerns. [facility] Medical History (Updated 02/17/23 @ 00:01 by Cristina Nelson) Osteoarthritis of right knee DDD (degenerative disc disease), lumbar Anxiety Dysphagia Pulmonary nodules History of ascites Peripheral neuropathy Opioid use disorder Methadone maintenance therapy patient Arthritis IBS (irritable bowel syndrome) Cervical cancer Breast cancer COPD (chronic obstructive pulmonary disease) Vocal cord polyp Surgical History History of vocal cord polypectomy Hx of colonoscopy History of lumpectomy of left breast Hx of laparoscopy History of hemorrhoidectomy H/O total hysterectomy Family History Father Diabetes Mother CAD (coronary artery disease) CHF (congestive heart failure) Sister Breast cancer Social History Household Members: Spouse Housing: House Are you a primary career development manager to a significant other at home: No Do you presently have visiting nurse or other home services: No Alcohol intake: never Patient Tobacco Use Status: Former Tobacco user Tobacco use type: Cigarette Years Smoked: 50 Second Hand Smoke Exposure: Yes service: No Current occupational status: disabled Review of Systems Const All systems reviewed & are unremarkable except as noted in HPI and below Physical Exam Extrem Other: Right knee: Incision clean, dry and intact. no erythema swelling along the knee. ROM is 0-95 degrees. Calf supple, nontender. NVI. Assessment & Plan Assessment & Plan (1) Status post right knee replacement: Code(s): Z96.651 - Presence of right artificial knee joint Plan Betsy removed, steri strips applied. She will begin to transition to Outpatient PT to continue working on Gait training, ROM and quad strength. No driving for another 4 weeks. She will require ppx abx for dental procedures. She will f/u in 4 weeks, sooner if needed. Medications: Changed From oxycodone Partial Fill upon patient request. 10 mg PO Q4H 7 days PRN 42 tabs 0RF Pain, Moderate(Pain Scale 4-6) To oxycodone Partial Fill upon patient request. 10 mg PO Q4-6H PRN 42 tabs 0RF Pain, Moderate(Pain Scale 4-6) 7 days Patient Instructions: Scribed for Aidan Barrios PA-C, by Drake Murray medical esthetician, on 02/18/2023 at 12:30 PM EST. I, Aidan Barrios PA-C, have personally reviewed and agree with the information entered by the scribe. Coding Level of Care Code Global (52766) Diagnoses Status post right knee replacement Z96.651
== END 2023-02-18 13:26 | disposition home or self-care (01) ==
PROVIDERS: PCP Family Medicine; Visit Provider Physician Assistant
DX: Z96.651 Presence of right artificial knee joint (principal)
CPT/HCPCS: 99024

== ENCOUNTER → 2023-02-18 12:36 | Outpatient (BNVA) | payer MEDICARE, MEDICAID, SELFPAY | PROVIDERS: PCP Family Medicine; Visit Provider Physician Assistant ==

== ENCOUNTER 2023-03-18 14:33 | Outpatient (AMB) | payer MEDICARE, MEDICAID, SELFPAY ==
--- NOTE | 2023-03-18 14:36 | A.OFFVIS_ITS ---
Intake Intake Visit Reasons: PO-RT TKA 02/02/23 NE Intake Note: Do a 62 year old female presents today for a post operative right TKA, 02/02/23 NE. Patient reports feeling numbness and tingling at the lateral aspect of knee that travels down her leg. States her pain is tolerable. She continues to work with PT. Allergies No Known Allergies [No Known Allergies*] Allergy (Verified 03/18/23 14:36) HPI PO-RT TKA 02/02/23 NE HPI Details 62-year-old female who returns to the [facility] today for post-op right TKA, 02/02/[address] Chacon. She continues to have pain, numbness and tingling at the lateral aspect of her knee which radiates down to her leg. She states her pain is tolerable. She is working with physical therapy as instructed. [facility] Medical History (Updated 02/17/23 @ 00:01 by Cristina Nelson) Osteoarthritis of right knee DDD (degenerative disc disease), lumbar Anxiety Dysphagia Pulmonary nodules History of ascites Peripheral neuropathy Opioid use disorder Methadone maintenance therapy patient Arthritis IBS (irritable bowel syndrome) Cervical cancer Breast cancer COPD (chronic obstructive pulmonary disease) Vocal cord polyp Surgical History History of vocal cord polypectomy Hx of colonoscopy History of lumpectomy of left breast Hx of laparoscopy History of hemorrhoidectomy H/O total hysterectomy Family History Father Diabetes Mother CAD (coronary artery disease) CHF (congestive heart failure) Sister Breast cancer Social History Household Members: Spouse Housing: House Are you a primary caregiver services home to a significant other at home: No Do you presently have visiting nurse or other home services: No Alcohol intake: never Patient Tobacco Use Status: Former Tobacco user Tobacco use type: Cigarette Years Smoked: 50 Second Hand Smoke Exposure: Yes service: No Current occupational status: disabled Review of Systems Const All systems reviewed & are unremarkable except as noted in HPI and below Physical Exam Extrem Other: Right knee: Incision well healed. no erythema or swelling along the knee. ROM is 0-95 degrees. Calf supple, nontender. NVI. Assessment & Plan Assessment & Plan (1) Status post right knee replacement: Code(s): Z96.651 - Presence of right artificial knee joint Plan She is going to continue working with therapy to maintain her ROM and improve her quad strength. She will increase activity as tolerated. She will see us back in [address] Chacon. sooner if needed. Patient Instructions: Scribed for Aidan Barrios PA-C, by Drake Murray medical office secretary, on 03/18/2023 at 2:15 PM EST. I, Aidan Barrios PA-C, have personally reviewed and agree with the information entered by the scribe. Coding Level of Care Code Global (81598) Diagnoses Status post right knee replacement Z96.651
== END 2023-03-18 14:55 | disposition home or self-care (01) ==
PROVIDERS: PCP Family Medicine; Visit Provider Physician Assistant
DX: Z96.651 Presence of right artificial knee joint (principal)
CPT/HCPCS: 99024

== ENCOUNTER → 2023-03-18 14:33 | Outpatient (BNVA) | payer MEDICARE, MEDICAID, SELFPAY | PROVIDERS: PCP Family Medicine; Visit Provider Physician Assistant ==

== ENCOUNTER 2023-04-06 13:00 | Outpatient (RCR) | payer MEDICARE, MEDICAID, SELFPAY ==
--- NOTE | 2023-02-24 13:59 | MHC.PT.EP ---
[facility] [place] Office [place] [facility] [place] Office [address] Srini Fong [address] [phone] F: [phone] F: [phone] F: [phone] F: [phone] Physical Therapy Plan of Care Date of Evaluation: 02/24/23 Date of Surgery: 02/02/2023 Diagnosis: R TKA Assessment: Patient is a 62 year old female presenting to PT s/p R TKA on 02/02/2023. She presents today with impairments in pain, ROM, strength, gait mechanics. Pt's current occupation is none, with baseline physical activities including ambulating, ADLs, stair negotiation. Pt expresses custodial goal of returning to PLOF, and is motivated to work towards this in PT. Clinical presentation today is most consistent with signs and sx associated with s/p R TKA 02/02/2023 and pt will benefit from skilled PT 2 week x 4 weeks to address the following problems and impairments noted upon evaluation: ambulating, ADLs, stair negotiation. These problems limit the patient with the following functional activities: ambulating, stair negotiation, ADLs. The prescribed treatment plan of care is medically necessary. Co-morbidities of hx breast cancer, hx cervical cancer, hx opioid use disorder on methadone, COPD on oxygen, is on blood thinners, osteoporosis were identified and taken into considerations of plan of care. Pt was educated on HEP, role of PT, prognosis, POC, use walker for safety. Frequency and Duration: The patient will be seen 2 x week x 4 weeks Short Term Goals: Pt will demonstrate improved knee ROM to equal B in 2 weeks. Pt will demonstrate improved knee MMT strength by at least 1/3 grade in 2 weeks. Pt will demonstrate hip MMT strength at least 4/5 in 2 weeks. Intermediate Goals: Pt will demonstrate improved LEFI score by 9 points in 4 weeks for improved functional mobility. Pt will demonstrate improved knee MMT strength to 5/5 in 4 weeks for improved ability to negotiate stairs. Pt will demonstrate ability to ambulate with LRD in 4 weeks for improved ability to navigate the community. Treatment Plan: Modalities to reduce pain, spasms and effusion. Manual therapy to restore motion and function. Therapeutic exercise to improve strength and flexibility. Neuromuscular re-education for posture and balance. Therapeutic activities to return to functional activities of daily living. Electronically signed by: Bobbi Nobles PT, DPT, ATC Please sign and return to therapist. Thank you for your referral.
--- NOTE | 2023-05-05 13:48 | MHC.PT.DC ---
[facility] [place] Office [place] Office [place] Office [address] [phone] F: [phone] F: [phone] F: [phone] F: [phone] Physical Therapy Discharge Report Diagnosis: R TKA Date of Surgery: 02/02/2023 Date of Evaluation: 02/24/23 Date of Discharge: 05/05/23 Treatments to Date: 12 Cancellations to Date: 4 No Shows to Date: 0 Discharge Status: Patient Elected to Stop Discharge Summary: Pt has not returned to skilled PT in >30 days and therefore to be d/c at this time. At last visit pt was doing well with ROM and strength but limited due to pain. Electronically signed by: Bobbi Nobles, PT, DPT, ATC Please sign and return to therapist. Thank you for your referral.
== END 2023-05-05 13:48 | disposition home or self-care (01) ==
LOC: HO.PTCHIC 13:00
PROVIDERS: PCP Family Medicine; Visit Provider Physician Assistant
DX: Z96.651 Presence of right artificial knee joint (principal)
CPT/HCPCS: 97110; 97112; 97116; 97140; 97162; 97530

== ENCOUNTER 2023-04-29 10:33 | Outpatient (AMB) | payer MEDICARE, MEDICAID, SELFPAY ==
--- NOTE | 2023-04-29 10:55 | A.OFFVIS_ITS ---
Intake Intake Visit Reasons: PO-RT TKA 02/02/23 NE Intake Note: Do is a 62 year old female who presents today for a post operative appointment s/p right TKA, 02/02/23 NE. Patient reports that she is having continued pain. Pain is worse at night and with gait initiation. She is no longer working with PT and has not been doing exercises as directed. She is having pain of both knees and is requesting xrays. Allergies No Known Allergies [No Known Allergies*] Allergy (Verified 04/29/23 10:55) HPI PO-RT TKA 02/02/23 NE HPI Details Do is a 62 year old woman who presents ~3 months S/P right TKA. She says she is not doing well, continues to have pain in her knee primarily with walking or at night. She says she has finished with PT and has not been doing any at-home exercises. She complains of left knee pain as well as bilateral thumb pain. [facility] Medical History (Updated 05/03/23 @ 07:38 by Reece Chacon MD) Osteoarthritis of right knee DDD (degenerative disc disease), lumbar Anxiety Dysphagia Pulmonary nodules History of ascites Peripheral neuropathy Opioid use disorder Methadone maintenance therapy patient Arthritis IBS (irritable bowel syndrome) Cervical cancer Breast cancer COPD (chronic obstructive pulmonary disease) Vocal cord polyp Surgical History History of vocal cord polypectomy Hx of colonoscopy History of lumpectomy of left breast Hx of laparoscopy History of hemorrhoidectomy H/O total hysterectomy Family History Father Diabetes Mother CAD (coronary artery disease) CHF (congestive heart failure) Sister Breast cancer Social History Household Members: Spouse Housing: House Are you a primary patient care coordinator to a significant other at home: No Do you presently have visiting nurse or other home services: No Alcohol intake: never Comment: aware of trip hazard Patient Tobacco Use Status: Former Tobacco user Tobacco use type: Cigarette Years Smoked: 50 Second Hand Smoke Exposure: Yes service: No Current occupational status: disabled Review of Systems Const All systems reviewed & are unremarkable except as noted in HPI and below Physical Exam Const General: no acute distress, alert and awake Orientation/consciousness: patient oriented x3 HEENT Head: Yes normocephalic and Yes atraumatic Eyes EOM: EOMs intact bilaterally Resp Effort & Inspection: normal respiratory effort and able to speak in complete sentences Cardio Jugular venous distension: no JVD Skin General skin exam: turgor normal Rashes: no rashes Neuro General: patient oriented x3 Extrem Other: right knee with no effusion well healed inc 0-125 ttp bilateral basal thumb joint with + CMC grind Psych Appearance: grossly normal Affect: normal affect Attitude: cooperative Office Procedures Joint Injection/Drain Joint Injection/Drain Details: Injected 1 mL of Decadron and 1 mL 1% lidocaine and 1 mL of 0.25% Marcaine. Site was prepped using aseptic technique. Patient tolerated the procedure well. Primary Site: right thumb Secondary Site: left thumb Approach Used: other (dorsal) Coding - Small Joint - Sternoclavicular Procedure code (CPT) selection complete Results Reviewed Results Reviewed: I personally reviewed relevant radiographs Right total knee arthroplasty in expected post operative position with no hardware complications or evidence of loosening Assessment & Plan Assessment & Plan (1) Status post right knee replacement: Code(s): Z96.651 - Presence of right artificial knee joint Plan: Right knee is doing well although she has some anxiety about it and thinks it is not doing well. She has no swelling and good motion (2) CMC arthritis, thumb, degenerative: Code(s): M18.9 - Osteoarthritis of first carpometacarpal joint, unspecified Plan: I injected both basal thumb joints. Plan Scribed for Reece Chacon MD by Kenny Garcia, medical facilities section director, on 04/29/23 at 11:05 AM, EST. Coding Level of Care Code Global (62415) Diagnoses Status post right knee replacement Z96.651 CMC arthritis, thumb, degenerative M18.9 CPT Codes Coding - - Small joint: - Small Joint ([id number]) Coding - Joint 4: - Sternoclavicular ([id number])
== END 2023-04-29 11:59 | disposition home or self-care (01) ==
PROVIDERS: PCP Family Medicine; Visit Provider Orthopaedic Surgery
DX: M18.0 Bilateral primary osteoarthritis of first carpometacarpal joints (principal); Z96.651 Presence of right artificial knee joint
CPT/HCPCS: 20600; 99024

== ENCOUNTER → 2023-04-29 10:33 | Outpatient (BNVA) | payer MEDICARE, MEDICAID, SELFPAY | PROVIDERS: PCP Family Medicine; Visit Provider Orthopaedic Surgery | DX: M18.0 Bilateral primary osteoarthritis of first carpometacarpal joints (principal); Z96.651 Presence of right artificial knee joint | CPT/HCPCS: 20600; 99212; J0665; J1100 ==

== ENCOUNTER 2023-06-23 10:17 | Outpatient (AMB) | payer OTHER, MEDICAID, SELFPAY ==
--- NOTE | 2023-06-23 10:20 | A.OFFVIS_ITS ---
Intake Intake Visit Reasons: Newprob-B/L hands arthritis, Bumps on both thumbs Intake Note: Do 62 year old female who is right hand dominant, presents today for a new problem visit for bilateral hands arthritis S/P basal joint injection with Dr. Chacon on 04/29/23, also was given braces. States injections did not help. States her left is worse, she has pain with pinching, gripping and chopping motion. At times pain radiates to her arm.Hx of neuropathy. Allergies No Known Allergies [No Known Allergies*] Allergy (Verified 06/23/23 10:32) HPI Newprob-B/L hands arthritis, Bumps on both thumbs HPI Details Do is a 62 year old right hand dominant woman who presents with complaints of multiple pain generators. She was seen by Dr. Chacon on 04/29/23 for her right TKA, and received bilateral basal joint injections & comfort cool braces. She says she found no relief from these injections. She complains of pain in her bilateral hands, wrists, and arms, along with what she calls lumps but may be swelling that occurs at the base of her thumbs. She says these masses swell with use of her hands, but these shrink over time She complains of pain at the base of her thumbs, worse with pinching, gripping, and chopping activities. She says her pain is worse in her left thumb, and at times radiates into her forearms. She has a hx of neuropathy affecting her hands & feet. She says she has weakness in her hands and is unable to perform basic activities at times. She says she struggles to open the sliding back door to let her dog out at times. She reports pain in her back, along with weakness. She says she had a NCS done at [facility] sometime in March or April,. She says she was told the machine wasn't working right and she did not trust the results of the test because of this. She takes Oxycodone and Methadone daily, along with Gabapentin. [facility] Medical History (Updated 06/23/23 @ 11:01 by Kenny Garcia) Osteoarthritis of right knee DDD (degenerative disc disease), lumbar Anxiety Dysphagia Pulmonary nodules History of ascites Peripheral neuropathy Opioid use disorder Methadone maintenance therapy patient Arthritis IBS (irritable bowel syndrome) Cervical cancer Breast cancer COPD (chronic obstructive pulmonary disease) Vocal cord polyp Surgical History History of vocal cord polypectomy Hx of colonoscopy History of lumpectomy of left breast Hx of laparoscopy History of hemorrhoidectomy H/O total hysterectomy Family History Father Diabetes Mother CAD (coronary artery disease) CHF (congestive heart failure) Sister Breast cancer Social History Household Members: Spouse Housing: House Are you a primary care transitions nurse to a significant other at home: No Do you presently have visiting nurse or other home services: No Alcohol intake: never Comment: aware of trip hazard Patient Tobacco Use Status: Former Tobacco user Tobacco use type: Cigarette Years Smoked: 50 Second Hand Smoke Exposure: Yes service: No Current occupational status: disabled Review of Systems Const All systems reviewed & are unremarkable except as noted in HPI and below Physical Exam Const General: cooperative, healthy appearing and no acute distress Orientation/consciousness: patient oriented x3 HEENT Head: Yes normocephalic and Yes atraumatic Eyes EOM: EOMs intact bilaterally Resp Effort & Inspection: normal respiratory effort and able to speak in complete sentences Cardio Jugular venous distension: no JVD Skin General skin exam: turgor normal Rashes: no rashes Neuro General: patient oriented x3 Extrem Other: Evaluation of Bilateral Upper Extremity: The patient is alert, oriented, and in no acute distress Rather animated today. Neuro: Median, Ulnar, Radial nerves motor and sensory grossly intact. Vascular: Cap refill brisk General: Generalized osteoarthritis in all of her D IP joints and also affecting some of the PIP joints bilaterally. She can make a good fist and extend all her digits No locking or catching Positive shoulder signs bilaterally. Evaluating the left side she has a positive CMC grind and some tenderness about the basal joint of the thumb. No 1st dorsal compartment tenderness. No tenderness over the left thumb A1 madeleine. Interestingly, she does have 2 or 3 small cyst-like mass is on the volar central aspect of the left wrist. They do not appear to move with finger range of motion. Skin: No lacerations or abrasions. General: No swelling or Ecchymosis. No Erythema or evidence of infection. Radiographs: 3 views of the left hand, with attention to the thumb, were taken and viewed by me today in clinic. They show no fractures or dislocations. She has some early arthritic changes in multiple DIP joints, some basal joint OA with joint space narrowing, subchondral sclerosis, and early osteophyte formation. MCP joints appear to be relatively spared. 3 views of the right hand, with attention to the thumb, were taken and viewed by me today in clinic. They show no fractures or dislocations. She has some arthritic changes primarily in the DIP joints, as well as some basal joint OA with joint space narrowing, subchondral sclerosis, and early osteophyte formati on. MCP joints appear to be relatively spared. Psych Appearance: grossly normal Affect: normal affect Attitude: cooperative Assessment & Plan Assessment & Plan (1) CMC arthritis, thumb, degenerative: Code(s): M18.9 - Osteoarthritis of first carpometacarpal joint, unspecified (2) Osteoarthritis of hands, bilateral: Code(s): M19.041 - Primary osteoarthritis, right hand; M19.042 - Primary osteoarthritis, left hand (3) Bilateral hand numbness: Code(s): R20.0 - Anesthesia of skin Plan Assessment & Plan: 1. Left basal joint arthritis, S/P injection Done by Dr. Chacon on 04/29/23 This is her chief complaint today 2. Right basal joint arthritis, S/P injection Done by Dr. Chacon on 04/29/23 3. Generalized arthritis in multiple DIP & PIP joints Able to make a good fist and extend digits I educated her about these conditions I discussed operative and non-operative treatment options I discussed activity modification, she should limit or avoid any heavy or repetitive pinching or gripping activities I discussed the importance of maintaining her ROM with at-home exercises I explained that we can repeat any basal joint injections no sooner than August 2023 She would like to follow up with me sometime in August for her basal joint arthritis, and possible repeat injections depending on how she is feeling. 4. Bilateral hand numbness With volar wrist pain at night Patient reports a Hx of long-standing neuropathy in both upper & lower extremities Patient reports having a NCS done at [facility] sometime in ~03/2023. We do not have a copy of the report, and the patients reports being told there was a problem with the machine during her test and she does not believe the report. She was told her study was negative for any carpal tunnel syndrome bilaterally If continues to be symptomatic, consider repeat NCS after 6 months, no sooner than August 2023 Scribed for Brianda Adame MD by Kenny Garcia, medical secretary, on 06/23/23 at 11:05 AM, EST. Orders: Orders XR hand RT min 3V Today M79.641 - Pain in right hand XR hand LT min 3V Today M79.642 - Pain in left hand Coding Level of Care Code Est Pt Level 4 (99850) Diagnoses CMC arthritis, thumb, degenerative M18.9 Osteoarthritis of hands, bilateral M19.041; M19.042 Bilateral hand numbness R20.0
== END 2023-06-23 11:15 | disposition home or self-care (01) ==
PROVIDERS: PCP Family Medicine; Visit Provider Orthopaedic Surgery
DX: M18.0 Bilateral primary osteoarthritis of first carpometacarpal joints (principal); M19.041 Primary osteoarthritis, right hand; M19.042 Primary osteoarthritis, left hand; R20.0 Anesthesia of skin
CPT/HCPCS: 99213

== ENCOUNTER 2023-06-23 10:17 | Outpatient (REF) | payer OTHER, MEDICAID, SELFPAY ==
--- NOTE | ~2023-06-23 | XR_ITS ---
EXAMINATION: XR HAND, RIGHT CLINICAL INFORMATION: Pain. COMPARISON: Right wrist radiographs dated 07/14/2016. TECHNIQUE: PA, lateral, and oblique views of the right hand. FINDINGS: Bony alignment and mineralization are normal. There is mild osteoarthritic change of the interphalangeal joint of the thumb, the second through fifth distal interphalangeal joints and the fifth proximal interphalangeal joint. There is moderate osteoarthritic change of the first carpometacarpal joint. No fracture or dislocation is seen. The proximal and distal carpal rows are intact. There is no abnormal bone erosion. No focal soft tissue swelling, gas or foreign body is seen. XR/XR hand RT min 3V IMPRESSION: There are multi-focal osteoarthritic changes of the right hand and wrist. No fracture or dislocation is seen. There is no abnormal bone erosion. EXAMINATION: XR HAND, LEFT CLINICAL INFORMATION: Pain. COMPARISON: None available. TECHNIQUE: PA, lateral, and oblique views of the left hand. FINDINGS: Bony alignment and mineralization are normal. There is a neutral ulnar variance. There is mild osteoarthritic change of the interphalangeal joint of thumb and of the second distal interphalangeal joint. There is moderate osteoarthritic change of the first carpometacarpal joint. No fracture or dislocation is seen. The proximal and distal carpal rows are intact. There is no abnormal bone erosion. No focal soft tissue swelling, gas or foreign body is seen. IMPRESSION: There are multi-focal osteoarthritic changes of the left hand and wrist. No fracture or dislocation is seen. There is no abnormal bone erosion.
--- NOTE | ~2023-06-23 | XR_ITS ---
EXAMINATION: XR HAND, RIGHT CLINICAL INFORMATION: Pain. COMPARISON: Right wrist radiographs dated 07/14/2016. TECHNIQUE: PA, lateral, and oblique views of the right hand. FINDINGS: Bony alignment and mineralization are normal. There is mild osteoarthritic change of the interphalangeal joint of the thumb, the second through fifth distal interphalangeal joints and the fifth proximal interphalangeal joint. There is moderate osteoarthritic change of the first carpometacarpal joint. No fracture or dislocation is seen. The proximal and distal carpal rows are intact. There is no abnormal bone erosion. No focal soft tissue swelling, gas or foreign body is seen. XR/XR hand LT min 3V IMPRESSION: There are multi-focal osteoarthritic changes of the right hand and wrist. No fracture or dislocation is seen. There is no abnormal bone erosion. EXAMINATION: XR HAND, LEFT CLINICAL INFORMATION: Pain. COMPARISON: None available. TECHNIQUE: PA, lateral, and oblique views of the left hand. FINDINGS: Bony alignment and mineralization are normal. There is a neutral ulnar variance. There is mild osteoarthritic change of the interphalangeal joint of thumb and of the second distal interphalangeal joint. There is moderate osteoarthritic change of the first carpometacarpal joint. No fracture or dislocation is seen. The proximal and distal carpal rows are intact. There is no abnormal bone erosion. No focal soft tissue swelling, gas or foreign body is seen. IMPRESSION: There are multi-focal osteoarthritic changes of the left hand and wrist. No fracture or dislocation is seen. There is no abnormal bone erosion.
== END 2023-06-23 10:18 | disposition home or self-care (01) ==
LOC: HO.HOSX 10:17
PROVIDERS: PCP Family Medicine; Visit Provider Orthopaedic Surgery
DX: M18.9 Osteoarthritis of first carpometacarpal joint, unspecified (principal); M19.041 Primary osteoarthritis, right hand; M19.042 Primary osteoarthritis, left hand; R20.0 Anesthesia of skin
CPT/HCPCS: 73130; 99212

== ENCOUNTER 2023-08-31 09:30 | Outpatient (AMB) | payer OTHER, MEDICAID, MEDICARE, SELFPAY ==
--- NOTE | 2023-08-31 09:37 | MHC.OFFVIS ---
Intake Intake Visit Reasons: OV - Bilateral Basal Joint Injections Intake Note: Do 62 yr old female presents today for her follow up visit for her bilateral hand Basal Joint Injections done with Dr Chacon on 06/30/22. States injections helped and would like to repeat today. Allergies No Known Allergies [No Known Allergies*] Allergy (Verified 08/31/23 09:38) HPI OV - Bilateral Basal Joint Injections HPI Details Do is a 63 year old right hand dominant woman who returns to discuss her bilateral basal joint injections. She was seen by Dr. Chacon on 04/29/23 for her right TKA, and received bilateral basal joint injections & comfort cool braces. She says these injections were not particularly helpful, but she would like to repeat She complains of pain at the base of her thumbs, worse with pinching, gripping, and chopping activities. She says her pain is worse in her left thumb, and at times radiates into her forearms. She reports finding no relief from her braces. She complains of pain in her bilateral hands, wrists, and arms, along with what she calls lumps but may be swelling that occurs at the base of her thumbs. She says these masses swell with use of her hands, but these shrink over time. she says she used to follow with Rheumatology at [place] for this but says she does not know who her doctor currently is. She has a hx of neuropathy affecting her hands & feet, which she says was from her chemotherapy to treat her breast cancer, which is in remission. She says she has weakness in her hands and is unable to perform basic activities at times. She reports pain in her back, along with weakness. She says she had a NCS done at [facility] sometime in March or April,. She says she was told the machine wasn't working right and she did not trust the results of the test because of this. She takes Oxycodone and Methadone daily, along with Gabapentin [facility] Medical History (Updated 08/31/23 @ 10:23 by Brianda Adame MD) Osteoarthritis of right knee DDD (degenerative disc disease), lumbar Anxiety Dysphagia Pulmonary nodules History of ascites Peripheral neuropathy Opioid use disorder Methadone maintenance therapy patient Arthritis IBS (irritable bowel syndrome) Cervical cancer Breast cancer COPD (chronic obstructive pulmonary disease) Vocal cord polyp Surgical History History of vocal cord polypectomy Hx of colonoscopy History of lumpectomy of left breast Hx of laparoscopy History of hemorrhoidectomy H/O total hysterectomy Family History Father Diabetes Mother CAD (coronary artery disease) CHF (congestive heart failure) Sister Breast cancer Social History Household Members: Spouse Housing: House Are you a primary adult care provider to a significant other at home: No Do you presently have visiting nurse or other home services: No Alcohol intake: never Comment: aware of trip hazard Patient Tobacco Use Status: Former Tobacco user Tobacco use type: Cigarette Years Smoked: 50 Second Hand Smoke Exposure: Yes service: No Current occupational status: disabled Physical Exam Extrem Other: Evaluation of Bilateral Upper Extremity: The patient is alert, oriented, and in no acute distress Neuro: Median, Ulnar, Radial nerves motor and sensory grossly intact. Vascular: Cap refill brisk General: Generalized osteoarthritis in all of her DIP joints and also affecting some of the PIP joints bilaterally. She can make a good fist and extend all her digits No locking or catching Positive shoulder signs bilaterally. Positive CMC grinds bilaterally Tenderness about the basal joint of the thumbs. No 1st dorsal compartment tenderness. No tenderness over the left thumb A1 madeleine. Interestingly, she does have 2 or 3 small cyst-like mass is on the volar central aspect of the left wrist. They do not appear to move with finger range of motion. Skin: No lacerations or abrasions. General: No swelling or Ecchymosis. No Erythema or evidence of infection. Radiographs: 3 views of the left hand, with attention to the thumb from 06/23/23 were reviewed by me today in clinic. They show no fractures or dislocations. She has some early arthritic changes in multiple DIP joints, some basal joint OA with joint space narrowing, subchondral sclerosis, and early osteophyte formation. MCP joints appear to be relatively spared. 3 views of the right hand, with attention to the thumb from 06/23/23 were reviewed by me today in clinic. They show no fractures or dislocations. She has some arthritic changes primarily in the DIP joints, as well as some basal joint OA with joint space narrowing, subchondral sclerosis, and early osteophyte formation. MCP joints appear to be relatively spared. Office Procedures Fracture Care Details: No fracture, injection x 2 Fracture Billing Code: Fracture Billing Code Assessment & Plan Assessment & Plan (1) CMC arthritis, thumb, degenerative: Comment: Bilateral Code(s): M18.9 - Osteoarthritis of first carpometacarpal joint, unspecified (2) Osteoarthritis of hands, bilateral: Code(s): M19.041 - Primary osteoarthritis, right hand; M19.042 - Primary osteoarthritis, left hand (3) Bilateral hand numbness: Code(s): R20.0 - Anesthesia of skin (4) Generalized joint pain: Code(s): M25.50 - Pain in unspecified joint Plan Assessment & Plan: 1. Left basal joint arthritis, S/P injection Date of injections: 08/31/23, 04/29/23 (N.E) 2. Right basal joint arthritis, S/P injection Date if injections: 08/31/23 04/29/23 (N.E) 3. Generalized arthritis in multiple DIP & PIP joints Able to make a good fist and extend digits 4. Generalized joint pain Throughout her entire body I educated her about these conditions I discussed activity modification, she should limit or avoid any heavy or repetitive pinching or gripping activities I discussed the importance of maintaining her ROM with at-home exercises She should continue to wear her Comfort Cool braces with daily activity, and remove then when at rest. I also referred her to Rheumatology for assessment due to her complaints of generalized joint pain Injection #1 : The risks and benefits of a steroid injection including but not limited to risk of damage to blood vessels, nerve, tendon, infection, skin bleaching, persistent or worsening pain, and failure to improve symptoms were discussed with the patient and they wish to proceed with the steroid injection. Once consent was obtained the skin over the dorsum of the Right basal joint was sterilely prepped. The joint was then injected with a combination of 1 mL of (40 mg/ml} Depo-Medrol and 1% plain Lidocaine. The patient appears to have tolerated the procedure well and with no complications. She had good early relief before leaving clinic today. She knows that they may not have another steroid injection into this joint for least 4 months. Injection #2 : The risks and benefits of a steroid injection including but not limited to risk of damage to blood vessels, nerve, tendon, infection, skin bleaching, persistent or worsening pain, and failure to improve symptoms were discussed with the patient and they wish to proceed with the steroid injection. Once consent was obtained the skin over the dorsum of the Left basal joint was sterilely prepped. The joint was then injected with a combination of 1 mL of (40 mg/ml} Depo-Medrol and 1% plain Lidocaine. The patient appears to have tolerated the procedure well and with no complications. She had good early relief before leaving clinic today. She knows that they may not have another steroid injection into this joint for least 4 months. She can follow up prn 5. Bilateral hand numbness With volar wrist pain at night Patient reports a Hx of long-standing neuropathy in both upper & lower extremities Patient reports having a NCS done at [facility] sometime in ~03/2023. We do not have a copy of the report, and the patients reports being told there was a problem with the machine during her test and she does not believe the report. She was told her study was negative for any carpal tunnel syndrome bilaterally If continues to be symptomatic, consider repeat NCS after 6 months, no sooner than August 2023 She did not report any problems with numbness in her hands today. Scribed for Brianda Adame MD by Kenny Garcia, medical aides teacher, on 08/31/23 at 10:05 AM, EST. Orders: Referrals Rheumatology Referral M18.9 - Osteoarthritis of first carpometacarpal joint, unspecified, M19.041 - Primary osteoarthritis, right hand, M19.042 - Primary osteoarthritis, left hand, M25.50 - Pain in unspecified joint Coding Level of Care Code Est Pt Level 3 (26716) Diagnoses CMC arthritis, thumb, degenerative M18.9 Osteoarthritis of hands, bilateral M19.041; M19.042 Bilateral hand numbness R20.0 Generalized joint pain M25.50 CPT Codes Fracture Care - Fracture Billing Code: Fracture Billing Code ([id number])
== END 2023-08-31 10:29 | disposition home or self-care (01) ==
PROVIDERS: PCP Family Medicine; Visit Provider Orthopaedic Surgery
DX: M18.0 Bilateral primary osteoarthritis of first carpometacarpal joints (principal); M19.041 Primary osteoarthritis, right hand; M19.042 Primary osteoarthritis, left hand; R20.0 Anesthesia of skin; M25.50 Pain in unspecified joint
CPT/HCPCS: 20600; 99213

== ENCOUNTER → 2023-08-31 09:30 | Outpatient (BNVA) | payer OTHER, MEDICAID, SELFPAY | PROVIDERS: PCP Family Medicine; Visit Provider Orthopaedic Surgery | DX: M18.0 Bilateral primary osteoarthritis of first carpometacarpal joints (principal); M19.041 Primary osteoarthritis, right hand; M19.042 Primary osteoarthritis, left hand; M25.50 Pain in unspecified joint; R20.0 Anesthesia of skin | CPT/HCPCS: 20600; 99212; J1010; J1020 ==

== ENCOUNTER 2023-09-09 09:51 | Outpatient (REF) | payer OTHER, MEDICAID, SELFPAY ==
--- NOTE | ~2023-09-09 | XR_ITS ---
EXAMINATION: XR KNEE, RIGHT CLINICAL INFORMATION: Pain COMPARISON: 02/02/2023 TECHNIQUE: AP standing view of both knees. Also, lateral and sunrise views of the right knee are obtained. of the right knee. FINDINGS: AP standing view shows normal alignment at the right knee, status post total knee arthroplasty. No osteolysis around the hardware. No periprosthetic fracture. Incidentally noted is nonaggressive chondroid calcification in the distal left femoral metaphysis, consistent with enchondroma. The sunrise and lateral views of the right knee show normal patellofemoral alignment. No knee joint effusion. XR/XR knee RT 3V IMPRESSION: There is intact appearance of the right total knee arthroplasty. Alignment is normal at the patellofemoral and tibiofemoral compartments. No periprosthetic fracture or hardware loosening.
--- NOTE | ~2023-09-09 | XR_ITS ---
EXAMINATION: XR PELVIS CLINICAL INFORMATION: Pain COMPARISON: CT images of the pelvis from 06/17/2021. TECHNIQUE: AP view of the pelvis. FINDINGS: There is facet arthropathy at L4-L5 and L5-S1. No acute abnormalities in the visualized lower lumbar spine. Pelvic bones have normal alignment. No evidence of sacroiliitis. There appears to be minimal degenerative subarticular sclerosis at the right sacroiliac joint. The joint space of each hip is maintained. There is mild osteophyte formation at the right hip. Small clips are seen in the adnexal regions. XR/XR pelvis 1-2V IMPRESSION: * Mild osteoarthritis of the right hip. * No acute abnormality; no evidence of pelvic or proximal femoral fracture.
== END 2023-09-09 09:52 | disposition home or self-care (01) ==
LOC: HO.HOSX 09:51
PROVIDERS: Visit Provider Orthopaedic Surgery
DX: M25.551 Pain in right hip (principal); M25.561 Pain in right knee; Z96.651 Presence of right artificial knee joint
CPT/HCPCS: 72170; 73562; 99212

== ENCOUNTER 2023-09-09 10:33 | Outpatient (AMB) | payer OTHER, SELFPAY ==
--- NOTE | 2023-09-09 10:39 | MHC.OFFVIS ---
Vital Signs 09/09/23 10:48 Height 5 ft 3 in Weight 164 lb BMI 29.0 Intake Visit Reasons: Newprob-right hip/knee pain-DOI Last week Allergies No Known Allergies [No Known Allergies*] Allergy (Verified 08/31/23 09:38) HPI HPI Newprob-right hip/knee pain-DOI Last week: Details: Do is a 63 year old female who presents today for a new problem visit with complaints of right hip and knee pain. Right TKA, 02/02/23 NE Patient reports that she took a fall landing her right knee on cement months ago, since this fall she has had an increased of pain in the right knee. She does admit that she should have been seen after the injury but she had too much going on in her personal life. Her pain is felt on the lateral aspect of the knee and radiates up to the hip. [facility] Medical History (Updated 08/31/23 @ 10:23 by Brianda Adame MD) Osteoarthritis of right knee DDD (degenerative disc disease), lumbar Anxiety Dysphagia Pulmonary nodules History of ascites Peripheral neuropathy Opioid use disorder Methadone maintenance therapy patient Arthritis IBS (irritable bowel syndrome) Cervical cancer Breast cancer COPD (chronic obstructive pulmonary disease) Vocal cord polyp Surgical History History of vocal cord polypectomy Hx of colonoscopy History of lumpectomy of left breast Hx of laparoscopy History of hemorrhoidectomy H/O total hysterectomy Family History Father Diabetes Mother CAD (coronary artery disease) CHF (congestive heart failure) Sister Breast cancer Social History Household Members: Spouse Housing: House Are you a primary direct care counselor to a significant other at home: No Do you presently have visiting nurse or other home services: No Alcohol intake: never Comment: aware of trip hazard Patient Tobacco Use Status: Former Tobacco user Tobacco use type: Cigarette Years Smoked: 50 Second Hand Smoke Exposure: Yes service: No Current occupational status: disabled Physical Exam Vital Signs: BMI result Body Mass Index 29.0 Extrem Other: Right knee inc c/d/i 0-130 deg motion no effusion stable arc of motion nl TKA exam Results Reviewed Results Reviewed: I personally reviewed relevant radiographs. Right total knee arthroplasty in expected post operative position with no hardware complications or evidence of loosening Assessment & Plan Assessment & Plan (1) Status post right knee replacement: Code(s): Z96.651 - Presence of right artificial knee joint Category: Surgical Plan: No obvious injury, derangement or abnormality s/p right TKA. Orders: Orders XR pelvis 1-2V 09/09/23 M25.559 - Pain in unspecified hip XR knee standing BI 09/09/23 M25.569 - Pain in unspecified knee Coding Level of Care Code Est Pt Level 3 (32848) Diagnoses Status post right knee replacement Z96.651
[2023-09-09 10:48] VITALS: BMI 29.0
== END 2023-09-09 11:11 | disposition home or self-care (01) ==
PROVIDERS: PCP Family Medicine; Visit Provider Orthopaedic Surgery
DX: M25.561 Pain in right knee (principal); M25.551 Pain in right hip; Z96.651 Presence of right artificial knee joint
CPT/HCPCS: 99213

== ENCOUNTER 2023-11-03 08:41 | Outpatient (AMB) | payer OTHER, MEDICAID, SELFPAY ==
[2023-11-03 08:43] VITALS: BP 112/68; PULSE 94; O2SAT 92; BMI 28.4
--- NOTE | 2023-11-03 08:43 | A.OFFVIS_ITS ---
Vital Signs 11/03/23 08:43 Height 5 ft 3 in Weight 160 lb 7.944 oz BMI 28.4 BP 112/68 Blood Pressure Location Rt brachial Position Sitting Pulse 94 Pulse Source Pulse Oximeter Pulse Oximetry (%) 92 Oxygen Delivery Method Room Air Intake Visit Reasons: BL hand OA/cm Intake Note: New patient, internally referred, presents to office today for Gene hand OA. Formerly seen by [place] [facility]. Joints affected: pain everywhere Pain began approx: Has tried: Director Business Development Required: No Accompanied by: Self / Same As Patient Allergies No Known Allergies [No Known Allergies*] Allergy (Verified 11/03/23 08:51) HPI Comments Details: Mrs. Luna 63 yoF presents for evaluation of generalized joint pain, more felt in her lower back, She is interested in getting injections and seeing pain management. --stiffness for about 1/2 hours but the more she moves the better she feels; --bilateral thumbs hurt - cortisone injections - Q 4mths - last about 4 mths ago. It does help the pain --left great toe swells very big sometimes and hurt. It is very tender to touch presently --[facility] - told her she was a candidate for lower back injections --claustrophobic in MRI; needed medicating --on methadone program --takes gabapentin, cymbalta, Celebrex, diclofenac --right knee replacement 01/2023; fell about Jun 2023- may need revision; still painful --Uses a cane occasionally; does not use the walker or raised toilet though prescribed. The raised toilet seat is a nuisance for her -- mod to severe neuropathy in feet - gabapentin 600 mg 2 pills t.i.d. --Left Breast Ca 2018 - Chemo - toe nails fell off during therapy --dry mouth for years and was told to take biotin lozenges --saw a counselor camp years ago at [place] after a fall 4 years ago. This was for her right knee - it was very swollen; many tests and Xrays; cortisone injections, draining, prednisone and then was sent to [facility]. Also got HLA injections. --COPD, uses O2 daily; CPAP. Ortho visit: 01/28/2023: Ms Luna presents to the office today for preop visit. She is scheduled for right total knee arthroplasty with Dr. Chacon. She continues to have ongoing pain and difficulty with ambulation in the right knee, which is affecting her quality of life; therefore, she has elected to move forward with surgery. [facility] Medical History (Updated 11/04/23 @ 20:17 by Carie Lujan [facility]) Great toe pain Low back pain radiating down leg Screening examination for infectious disease Osteoarthritis of right knee DDD (degenerative disc disease), lumbar Anxiety Dysphagia Pulmonary nodules History of ascites Peripheral neuropathy Opioid use disorder Methadone maintenance therapy patient Arthritis IBS (irritable bowel syndrome) Cervical cancer Breast cancer COPD (chronic obstructive pulmonary disease) Vocal cord polyp Surgical History History of vocal cord polypectomy Hx of colonoscopy History of lumpectomy of left breast Hx of laparoscopy History of hemorrhoidectomy H/O total hysterectomy Family History Father Diabetes Mother CAD (coronary artery disease) CHF (congestive heart failure) Sister Breast cancer Social History (Updated 11/03/23 @ 08:52 by FRANCIA Nelson) Household Members: Spouse Housing: House Are you a primary patient care representative to a significant other at home: No Do you presently have visiting nurse or other home services: No Alcohol intake: current Alcohol intake frequency: 0-2 drinks per day Comment: aware of trip hazard Patient Tobacco Use Status: Former Tobacco user Tobacco use type: Cigarette Years Smoked: 50 Second Hand Smoke Exposure: Yes service: No Current occupational status: disabled Review of Systems Const All systems reviewed & are unremarkable except as noted in HPI and below Physical Exam Vital Signs: Last Vital Signs Pulse 94 11/03/23 08:43 BP 112/68 11/03/23 08:43 Pulse Ox 92 11/03/23 08:43 Oxygen Delivery Method Room Air 11/03/23 08:43 BMI result Body Mass Index 28.4 APPEARANCE: Patient in no acute distress EYES no redness, normal EARS:? External ear normal. NOSE/SINUS:? Airflow through both nares, no nasal discharge, no bleeding THROAT:? Oral mucosa moist, no ulcerations NECK:? No thyromegaly or masses, no adenopathy, trachea midline. HEART:? Regular rhythm, S1-S2 heard, no murmurs, rubs or gallops. LUNG:? Clear to percussion and auscultation EXTREMITIES:? No edema, no calf tenderness, normal peripheral pulses. NEURO:? Oriented and alert x3.? No focal weakness.? Reflexes symmetric.? Gait normal. SKIN:? There are no skin lesions evident. No objective signs of Raynaud's phenomenon. JOINT EXAM: Cervical Spine:.? Full range of motion without pain; no tenderness. Thoracic Spine:.? No scoliosis.? No tenderness on palpation. Lumbar Spine:.? Alignment normal.? Full range of motion without pain, mild tenderness.to paraspinal muscle Chest Wall:.? No tenderness, swelling, increased warmth or erythema. Hands:.? Normal pain-free range of motion without tenderness, swelling, increased warmth or erythema. Able to make a full fist and has a good regulatory affairs manager strength. Wrists:.? Normal pain-free range of motion without tenderness, swelling, increased warmth or erythema. Elbows:. Normal pain-free range of motion without tenderness, swelling, increased warmth or erythema. Shoulders:.?? Full range of motion without pain. No tenderness, weakness, swelling, increased warmth or erythema. Hips:.? Full range of motion without pain. Hip bursa:.? No tenderness. Knees:.?? Left Normal range of motion with tenderness but no swelling, increased warmth or erythema.? There is no effusion or crepitation; Right decreased ROM with tenderness and pain and trace swelling but no increased warmth or erythema Ankles:.? Normal pain-free range of motion without tenderness, swelling, increased warmth or erythema. Feet:.? Normal pain-free range of motion with moderate to severe tenderness at left great toe medial, swelling, mild increased warmth and erythema. Tender points:? No tenderness to digital palpation at the occiput, trapezius, second rib, lateral epicondyle, knees, greater trochanter and gluteal area b ilaterally. ? Results Reviewed Results Reviewed: EXAMINATION: XR HAND, RIGHT CLINICAL INFORMATION: Pain. COMPARISON: Right wrist radiographs dated 07/14/2016. TECHNIQUE: PA, lateral, and oblique views of the right hand. FINDINGS: Bony alignment and mineralization are normal. There is mild osteoarthritic change of the interphalangeal joint of the thumb, the second through fifth distal interphalangeal joints and the fifth proximal interphalangeal joint. There is moderate osteoarthritic change of the first carpometacarpal joint. No fracture or dislocation is seen. The proximal and distal carpal rows are intact. There is no abnormal bone erosion. No focal soft tissue swelling, gas or foreign body is seen. XR/XR hand LT min 3V IMPRESSION: There are multi-focal osteoarthritic changes of the right hand and wrist. No fracture or dislocation is seen. There is no abnormal bone erosion. EXAMINATION: XR HAND, LEFT CLINICAL INFORMATION: Pain. COMPARISON: None available. TECHNIQUE: PA, lateral, and oblique views of the left hand. FINDINGS: Bony alignment and mineralization are normal. There is a neutral ulnar variance. There is mild osteoarthritic change of the interphalangeal joint of thumb and of the second distal interphalangeal joint. There is moderate osteoarthritic change of the first carpometacarpal joint. No fracture or dislocation is seen. The proximal and distal carpal rows are intact. There is no abnormal bone erosion. No focal soft tissue swelling, gas or foreign body is seen. IMPRESSION: There are multi-focal osteoarthritic changes of the left hand and wrist. No fracture or dislocation is seen. There is no abnormal bone erosion. Assessment & Plan Assessment & Plan (1) Osteoarthritis of hands, bilateral: Code(s): M19.041 - Primary osteoarthritis, right hand; M19.042 - Primary osteoarthritis, left hand Category: Medical Qualifiers: Osteoarthritis type: primary Qualified Code(s): M19.041 - Primary osteoarthritis, right hand; M19.042 - Primary osteoarthritis, left hand (2) Generalized joint pain: Code(s): M25.50 - Pain in unspecified joint Category: Medical (3) Low back pain radiating down leg: Code(s): M54.50 - Low back pain, unspecified; M79.606 - Pain in leg, unspecified Category: Medical (4) Great toe pain: Code(s): M79.676 - Pain in unspecified toe(s) Category: Medical Qualifiers: Laterality: unspecified laterality Qualified Code(s): M79.676 - Pain in unspecified toe(s) Plan #OA: The patient has chronic OA to multiple joints, even making it necessary for right knee replacement and left knee under consideration. The description of her chronic toe pain and the symptoms of PE suggest gout to the left great toe medially. However, she disputes that possibility because she says her has gout and his presentation is bright, red, swelling and hers does not get like that. Nonetheless we will do additional workup with labs and x-rays #Low Back pain: Will give referral to pain management. Spent 40 minute reviewing history, evaluating patient and documenting follow up with 8 weeks to review labs and assess if gout present Orders: Orders Erythrocyte Sedimentation Rate 11/03/23 M19.041 - Primary osteoarthritis, right hand, M19.042 - Primary osteoarthritis, left hand, M25.50 - Pain in unspecified joint Comprehensive Met. Panel 11/03/23 M19.041 - Primary osteoarthritis, right hand, M19.042 - Primary osteoarthritis, left hand, M25.50 - Pain in unspecified joint Complete Blood Count Auto Diff 11/03/23 M19.041 - Primary osteoarthritis, right hand, M19.042 - Primary osteoarthritis, left hand, M25.50 - Pain in unspecified joint Complement C3 11/03/23 M19.041 - Primary osteoarthritis, right hand, M19.042 - Primary osteoarthritis, left hand, M25.50 - Pain in unspecified joint Complement C4 11/03/23 M19.041 - Primary osteoarthritis, right hand, M19.042 - Primary osteoarthritis, left hand, M25.50 - Pain in unspecified joint Creatine Kinase Total 11/03/23 M19.041 - Primary osteoarthritis, right hand, M19.042 - Primary osteoarthritis, left hand, M25.50 - Pain in unspecified joint Hepatitis A,B,C Profile 11/03/23 M19.041 - Primary osteoarthritis, right hand, M19.042 - Primary osteoarthritis, left hand, M25.50 - Pain in unspecified joint, Z11.9 - Encounter for screening for infectious and parasitic diseases, unspecified Cyclic Citrullinated Peptide 11/03/23 M19.041 - Primary osteoarthritis, right hand, M19.042 - Primary osteoarthritis, left hand, M25.50 - Pain in unspecified joint Uric Acid 11/03/23 M79.676 - Pain in unspecified toe(s) XR foot LT min 3V 11/03/23 M79.676 - Pain in unspecified toe(s) C Reactive Protein 11/03/23 M19.041 - Primary osteoarthritis, right hand, M19.042 - Primary osteoarthritis, left hand, M25.50 - Pain in unspecified joint Immunoglobulins,IgG IgA IgM 11/03/23 M19.041 - Primary osteoarthritis, right hand, M19.042 - Primary osteoarthritis, left hand, M25.50 - Pain in unspecified joint Immunofixation Pnl, Serum 11/03/23 M19.041 - Primary osteoarthritis, right hand, M19.042 - Primary osteoarthritis, left hand, M25.50 - Pain in unspecified joint Protein Electrophoresis, Serum 11/03/23 M19.041 - Primary osteoarthritis, right hand, M19.042 - Primary osteoarthritis, left hand, M25.50 - Pain in unspecified joint T Spot TB 11/03/23 M19.041 - Primary osteoarthritis, right hand, M19.042 - Primary osteoarthritis, left hand, M25.50 - Pain in unspecified joint, Z11.9 - Encounter for screening for infectious and parasitic diseases, unspecified Rheumatoid Factor 11/03/23 M19.041 - Primary osteoarthritis, right hand, M19.042 - Primary osteoarthritis, left hand, M25.50 - Pain in unspecified joint XR foot RT min 3V 11/03/23 M79.676 - Pain in unspecified toe(s) Referrals Pain Management Referral M54.50 - Low back pain, unspecified, M79.606 - Pain in leg, unspecified Coding Level of Care Code New Pt Level 4 (84373) Diagnoses Primary osteoarthritis of both hands M19.041; M19.042 Osteoarthritis type: primary Generalized joint pain M25.50 Low back pain radiating down leg M54.50; M79.606 Pain of great toe, unspecified laterality M79.676 Laterality: unspecified laterality
== END 2023-11-03 09:37 | disposition home or self-care (01) ==
PROVIDERS: PCP Family Medicine; Visit Provider Nurse Practitioner Family
DX: M19.041 Primary osteoarthritis, right hand (principal); M19.042 Primary osteoarthritis, left hand; M25.50 Pain in unspecified joint; M54.50 Low back pain, unspecified; M79.606 Pain in leg, unspecified; M79.676 Pain in unspecified toe(s)
CPT/HCPCS: 99204

== ENCOUNTER 2023-11-03 08:41 | Outpatient (REF) | payer OTHER, MEDICAID, SELFPAY ==
--- NOTE | ~2023-11-03 | XR_ITS ---
EXAMINATION: X-RAY BILATERAL FEET CLINICAL INFORMATION: Bilateral foot pain, toes. COMPARISON: Right foot of 07/14/2016. TECHNIQUE: 3 views of each foot. FINDINGS: Right foot: Small posterior and plantar calcaneal spurs. Radiopaque marker placed by technologist to indicate the area of concern as indicated by the patient along the medial aspect of the right first metatarsophalangeal joint. Mild degenerative changes in the first metatarsophalangeal joint with mild joint space narrowing and lateral hypertrophic change as well as a faint calcification/ossification along the lateral aspect of the joint space. Left foot: Small posterior and plantar calcaneal spurs. Hypertrophic change with ossicle along the anterosuperior aspect of the talus. Severe degenerative changes in the first metatarsophalangeal joint with joint space narrowing and subchondral sclerosis. Radiopaque marker placed by technologist to indicate the area of concern as indicated by the patient along the medial aspect of the IP joint of the left great toe. Left great toe IP joint preserved. No displaced fracture of the left great toe appreciated. XR/XR foot RT min 3V IMPRESSION: 1. Severe degenerative changes in the left first metatarsophalangeal joint. 2. Mild degenerative changes in the right first metatarsophalangeal joint. 3. Small bilateral calcaneal spurs. 4. Recommend follow up imaging in 10-14 days if fracture is suspected.
--- NOTE | ~2023-11-03 | XR_ITS ---
EXAMINATION: X-RAY BILATERAL FEET CLINICAL INFORMATION: Bilateral foot pain, toes. COMPARISON: Right foot of 07/14/2016. TECHNIQUE: 3 views of each foot. FINDINGS: Right foot: Small posterior and plantar calcaneal spurs. Radiopaque marker placed by technologist to indicate the area of concern as indicated by the patient along the medial aspect of the right first metatarsophalangeal joint. Mild degenerative changes in the first metatarsophalangeal joint with mild joint space narrowing and lateral hypertrophic change as well as a faint calcification/ossification along the lateral aspect of the joint space. Left foot: Small posterior and plantar calcaneal spurs. Hypertrophic change with ossicle along the anterosuperior aspect of the talus. Severe degenerative changes in the first metatarsophalangeal joint with joint space narrowing and subchondral sclerosis. Radiopaque marker placed by technologist to indicate the area of concern as indicated by the patient along the medial aspect of the IP joint of the left great toe. Left great toe IP joint preserved. No displaced fracture of the left great toe appreciated. XR/XR foot LT min 3V IMPRESSION: 1. Severe degenerative changes in the left first metatarsophalangeal joint. 2. Mild degenerative changes in the right first metatarsophalangeal joint. 3. Small bilateral calcaneal spurs. 4. Recommend follow up imaging in 10-14 days if fracture is suspected.
[2023-11-03 10:18] LABS: MANUAL DIFF FLAG NO
[2023-11-03 10:38] LABS: Basophils Percent Auto 0.5 % (0-2); Eosinophils Absolute Auto 0.1 X10*3/uL (0.0-0.4); Eosinophils Percent Auto 1.2 % (0-4); Hemoglobin 13.7 g/dl (12.0-16.0); Imm Gran Abs Auto 0.02 X10*3/uL (0.00-0.03); Imm Gran Pct Auto 0.3 % (0.0-0.4); Lymphocytes Absolute Auto 0.9 X10*3/uL (1.2-4.9); Lymphocytes Percent Auto 15.2 % (20-40); Mean Corpuscular HGB Conc 33.4 g/dl (31.0-35.0); Mean Corpuscular Hemoglobin 34.8 pg (27.0-33.0); Mean Corpuscular Volume 104.1 fL (80.0-98.0); Mean Platelet Volume 9.2 fL (9.4-12.3); Monocytes Absolute Auto 0.4 X10*3/uL (0.1-1.2); Monocytes Percent Auto 6.2 % (2-11); Neutrophils Absolute Auto 4.5 x10*3/uL (2.0-8.3); Neutrophils Percent Auto 76.6 % (45-73); Platelet Count 194 X10*3/uL (160-400); Red Blood Count 3.94 X10*6/uL (4.20-5.50); White Blood Count 5.9 X10*3/uL (4.8-10.8)
[2023-11-03 11:23] LABS: Erythrocyte Sedimentation Rate 12 MM/HR (0-20)
[2023-11-03 12:14] LABS: Alanine Aminotransferase 17 U/L (0-31); Alkaline Phosphatase 103 U/L (39-117); Anion Gap 13 (12-20); Aspartate Amino Transferase 19 U/L (5-31); Bilirubin Total 0.3 mg/dL (0.0-1.0); Blood Urea Nitrogen 4 mg/dL (9-16); C Reactive Protein 1.31 mg/dL (< or = 0.50); Calcium 9.2 mg/dL (8.4-10.2); Carbon Dioxide 33 mmol/L (22-29); Chloride 100 mmol/L (96-108); Estimated Glomerular Filt Rate > 60; Glucose Random 90 mg/dL (60-115); Potassium 3.2 mmol/L (3.3-5.1); Rheumatoid Factor < 13.0 IU/mL (<15.0); Sodium 143 mmol/L (135-145); Uric Acid 9.7 mg/dL (2.4-5.7)
[2023-11-03 12:26] LABS: HBS Num1 0.71 mIU/mL (0-7.99); HBc Num1 0.06 S/CO (0.00-0.79); HBsAGNum1 0.27 S/CO (0.00-0.99); Hepatitis A Antibody IgM 0.11 Index (0-0.79); Hepatitis B Core Antibody Nonreactive (Nonreactive); Hepatitis B Surface Antigen Negative (Negative); ~HepC Num1 0.07 S/CO (0.00-0.79); ~Hepatitis A Antibody IgM Nonreactive (Nonreactive); ~Hepatitis B Surface Antibody NONREACTIVE (Nonreactive); ~Hepatitis C Antibody Nonreactive (Nonreactive)
[2023-11-04 21:53] LABS: Prot Elec - Albumin 3.9 g/dL (3.8-4.8); Prot Elec - Alpha1 0.4 g/dL (0.2-0.3); Prot Elec - Alpha2 0.8 g/dL (0.5-0.9); Prot Elec - Beta 1 0.4 g/dL (0.4-0.6); Prot Elec - Beta 2 0.5 g/dL (0.2-0.5); Prot Elec - Gamma 0.8 g/dL (0.8-1.7); Prot Elec - Total Protein 6.8 g/dL (6.1-8.1)
[2023-11-04 22:18] LABS: Complement C3 151 mg/dL (83-193)
[2023-11-05 14:44] LABS: Cyclic Citrullinated Peptide <16 UNITS
[2023-11-08 21:53] LABS: TS Negative Control Passed; TS Panel A 2; TS Panel B 1; TS Positive Control Passed; TSpotTB Negative (Negative)
[2023-11-08 22:08] LABS: IgA 345 mg/dL (70-320); IgG 740 mg/dL (600-1540); IgM 48 mg/dL (50-300)
== END 2023-11-03 08:42 | disposition home or self-care (01) ==
LOC: HO.XRAY 08:41
PROVIDERS: PCP Family Medicine; Visit Provider Nurse Practitioner Family
DX: M19.041 Primary osteoarthritis, right hand (principal); M19.042 Primary osteoarthritis, left hand; M54.50 Low back pain, unspecified; M79.676 Pain in unspecified toe(s); Z11.9 Encounter for screening for infectious and parasitic diseases, unspecified
CPT/HCPCS: 36415; 73630; 80053; 82550; 82784; 84165; 84550; 85025; 85652; 86140; 86160; 86200; 86334; 86431; 86481; 86704; 86706; 86709; 86803; 87340; 99202

== ENCOUNTER 2023-11-22 13:44 | Outpatient (AMB) | payer OTHER, MEDICAID, SELFPAY ==
--- NOTE | 2023-11-22 13:46 | A.OFFVIS_ITS ---
Vital Signs 11/22/23 13:51 Height 5 ft 3 in Weight 159 lb 2.78 oz BMI 28.2 BP 116/68 Blood Pressure Location Lt brachial Position Sitting Respiration 18 Pulse 87 Pulse Source Pulse Oximeter Pulse Oximetry (%) 98 Oxygen Delivery Method Room Air Intake Visit Reasons: Labs and Genralized Pain Intake Note: Patient presents for labs and generalized pain. Allergies No Known Allergies [No Known Allergies*] Allergy (Verified 11/22/23 13:51) Medication List - Last Reconciled 11/22/23 by Cynthia Cool MD albuterol sulfate 90 mcg/actuation 2 puffs inhalation QID PRN celecoxib 200 mg PO DAILY cholecalciferol (vitamin D3) (Vitamin D3) 1 tab PO DAILY diclofenac sodium 50 mg PO BID duloxetine (Cymbalta) 30 mg PO BID [id number]-[id number] 100-62.5-25 mcg (Trelegy Ellipta) 1 puff inhalation DAILY furosemide 40 mg PO DAILY gabapentin 2 tabs PO TID methadone 106 mg PO DAILY multivitamin with minerals 1 tab PO DAILY pantoprazole 20 mg PO BID [Raised toilet seat As directed] sennosides (Senna Lax) 17.2 mg (2 x 8.6 mg) PO BEDTIME PRN 30 days walker Folding Front wheeled walker HPI Comments Details: Patient returns for follow-up after completion of her diagnostic workup. She was evaluated by Carie Nettles a few weeks ago for her generalized pain. She stated that she has had diffuse pain for years. She states that she wakes up stiff, the stiffness improved after approximately 1 hour. She has difficulty moving her hands especially at night and in the morning. She also has pain bottom of both her feet. She her grandmother had rheumatoid arthritis. A few years ago patient fell and injured her night knee, she had a large effusion. The effusion showed inflammatory fluid, white BC count 7k but no crystals negative cultures. She was prescribed prednisone for approximately 4 months with overall improvement. She had injections at bilateral 1st [facility] joints by Dr. Adame 08/2023 and they were quite helpful. [facility] Medical History Great toe pain Low back pain radiating down leg Screening examination for infectious disease Osteoarthritis of right knee DDD (degenerative disc disease), lumbar Anxiety Dysphagia Pulmonary nodules History of ascites Peripheral neuropathy Opioid use disorder Methadone maintenance therapy patient Arthritis IBS (irritable bowel syndrome) Cervical cancer Breast cancer COPD (chronic obstructive pulmonary disease) Vocal cord polyp Surgical History History of vocal cord polypectomy Hx of colonoscopy History of lumpectomy of left breast Hx of laparoscopy History of hemorrhoidectomy H/O total hysterectomy Family History Father Diabetes Mother CAD (coronary artery disease) CHF (congestive heart failure) Sister Breast cancer Lupus (systemic lupus erythematosus) Social History Household Members: Spouse Housing: House Are you a primary manager respiratory care to a significant other at home: No Do you presently have visiting nurse or other home services: No Alcohol intake: current Alcohol intake frequency: 0-2 drinks per day Comment: aware of trip hazard Patient Tobacco Use Status: Former Tobacco user Tobacco use type: Cigarette Years Smoked: 50 Second Hand Smoke Exposure: Yes service: No Current occupational status: disabled Review of Systems Musc Reports back pain, Reports myalgias, Reports arthralgias, Reports joint swelling and Reports stiffness Physical Exam Vital Signs: Last Vital Signs Pulse 87 11/22/23 13:51 Resp 18 11/22/23 13:51 BP 116/68 11/22/23 13:51 Pulse Ox 98 11/22/23 13:51 Oxygen Delivery Method Room Air 11/22/23 13:51 BMI result Body Mass Index 28.2 Const General: cooperative, healthy appearing and comfortable Nutritional Appearance: overweight Orientation/consciousness: patient oriented x3 Limitations: no limitations HEENT Head: Yes normocephalic and Yes atraumatic Mouth: moist mucous membranes Resp Effort & Inspection: normal respiratory effort and able to speak in complete sentences Cardio Rate: regular rate Skin General skin exam: no rashes or lesions noted Neuro General: patient oriented x3 Extrem Other: Significant osteoarthritic changes of both hands Bilateral wrist tenderness and pain with flexion-extension. No swelling Bilateral elbow pain with full extension Normal range of motion of both shoulders with some stiffness Right knee warmth Left knee pain with full flexion Mild bilateral dorsal foot swelling Few tender MTPs bilaterally Left big toe bunion, tender and slightly swollen Multiple fibromyalgia tender points Results Reviewed Results Reviewed: EXAMINATION: XR HAND, RIGHT CLINICAL INFORMATION: Pain. COMPARISON: Right wrist radiographs dated 07/14/2016. TECHNIQUE: PA, lateral, and oblique views of the right hand. FINDINGS: Bony alignment and mineralization are normal. There is mild osteoarthritic change of the interphalangeal joint of the thumb, the second through fifth distal interphalangeal joints and the fifth proximal interphalangeal joint. There is moderate osteoarthritic change of the first carpometacarpal joint. No fracture or dislocation is seen. The proximal and distal carpal rows are intact. There is no abnormal bone erosion. No focal soft tissue swelling, gas or foreign body is seen. XR/XR hand LT min 3V IMPRESSION: There are multi-focal osteoarthritic changes of the right hand and wrist. No fracture or dislocation is seen. There is no abnormal bone erosion. EXAMINATION: XR HAND, LEFT CLINICAL INFORMATION: Pain. COMPARISON: None available. TECHNIQUE: PA, lateral, and oblique views of the left hand. FINDINGS: Bony alignment and mineralization are normal. There is a neutral ulnar variance. There is mild osteoarthritic change of the interphalangeal joint of thumb and of the second distal interphalangeal joint. There is moderate osteoarthritic change of the first carpometacarpal joint. No fracture or dislocation is seen. The proximal and distal carpal rows are intact. There is no abnormal bone erosion. No focal soft tissue swelling, gas or foreign body is seen. IMPRESSION: There are multi-focal osteoarthritic changes of the left hand and wrist. No fracture or dislocation is seen. There is no abnormal bone erosion. Assessment & Plan Assessment & Plan (1) Generalized joint pain: Code(s): M25.50 - Pain in unspecified joint Category: Medical Plan: This is a 63-year-old female who presents for evaluation of diffuse pain. Evaluation patient definitely has generalized osteoarthritis affecting multiple sites as well as fibromyalgia however I would like to rule out an inflammatory arthritis. Comprehensive serology is negative with mildly elevated inflammatory markers. Will check a seronegative RA panel. Start on 10 mg daily for 2 weeks then remain on 5 mg daily (2) Osteoarthritis of hands, bilateral: Code(s): M19.041 - Primary osteoarthritis, right hand; M19.042 - Primary osteoarthritis, left hand Category: Medical Qualifiers: Osteoarthritis type: primary Qualified Code(s): M19.041 - Primary osteoarthritis, right hand; M19.042 - Primary osteoarthritis, left hand (3) Fibromyalgia, primary: Code(s): M79.7 - Fibromyalgia Category: Medical Plan: Advised patient to look up mind your fibro podcast videos and we will discuss further next visit Plan I spent 30 minutes reviewing patient's chart, evaluating patient, ordering di agnostic workup, counseling patient and documenting in the chart Orders: Orders Other Ref Test - Misc Today M13.80 - Other specified arthritis, unspecified site Medications: New prednisone Take 2 tabs daily for 2 weeks then remain on 1 tab daily 60 tabs 0RF Coding Level of Care Code Est Pt Level 4 (74343) Diagnoses Generalized joint pain M25.50 Primary osteoarthritis of both hands M19.041; M19.042 Osteoarthritis type: primary Fibromyalgia, primary M79.7
[2023-11-22 13:51] VITALS: BP 116/68; PULSE 87; RESP 18; O2SAT 98; BMI 28.2
== END 2023-11-22 14:22 | disposition home or self-care (01) ==
PROVIDERS: PCP Family Medicine; Visit Provider Student in an Organized Health Care Education/Training Program
DX: M25.50 Pain in unspecified joint (principal); M19.041 Primary osteoarthritis, right hand; M19.042 Primary osteoarthritis, left hand; M79.7 Fibromyalgia
CPT/HCPCS: 99214

== ENCOUNTER → 2023-11-22 13:44 | Outpatient (BNVA) | payer OTHER, MEDICAID, SELFPAY | PROVIDERS: PCP Family Medicine; Visit Provider Student in an Organized Health Care Education/Training Program | DX: M25.50 Pain in unspecified joint (principal); M19.041 Primary osteoarthritis, right hand; M19.042 Primary osteoarthritis, left hand; M79.7 Fibromyalgia | CPT/HCPCS: 99212 ==

== ENCOUNTER 2023-11-24 11:03 | Outpatient (AMB) | payer OTHER, MEDICAID, SELFPAY ==
--- NOTE | 2023-11-24 11:08 | MHC.OFFVIS ---
Vital Signs 11/24/23 11:08 Blood Pressure Location Lt brachial Position Sitting Pulse Source Pulse Oximeter Oxygen Delivery Method Room Air Intake Visit Reasons: Low back pain, unspecified Allergies No Known Allergies [No Known Allergies*] Allergy (Verified 11/24/23 11:10) Medication List - Last Reconciled 11/24/23 by Nadia Hall LPN albuterol sulfate 90 mcg/actuation 2 puffs inhalation QID PRN celecoxib 200 mg PO DAILY cholecalciferol (vitamin D3) (Vitamin D3) 1 tab PO DAILY diclofenac sodium 50 mg PO BID duloxetine (Cymbalta) 30 mg PO BID gpsrikgbbmk-pbrrlqlnl-vannzsjb 100-62.5-25 mcg (Trelegy Ellipta) 1 puff inhalation DAILY furosemide 40 mg PO DAILY gabapentin 2 tabs PO TID methadone 106 mg PO DAILY multivitamin with minerals 1 tab PO DAILY pantoprazole 20 mg PO BID prednisone Take 2 tabs daily for 2 weeks then remain on 1 tab daily [Raised toilet seat As directed] sennosides (Senna Lax) 17.2 mg (2 x 8.6 mg) PO BEDTIME PRN 30 days walker Folding Front wheeled walker HPI Comments Details: Do is a very pleasant 63-year-old female who presents the office today for evaluation management of her chronic lower back pain. Reports she has been suffering with this pain for approximately 5 years. States it started after a fall injury. Midline lumbar back pain without radiation down either lower extremity Denies burning, numbness, tingling, weakness of either lower extremity Pain is worse when moving and in the morning when she gets up. Recently evaluated by Rheumatology, started on prednisone yesterday for rheumatoid arthritis. Formalin a patient of new [facility], she had underwent MRI with plans for injections. States they never called her to schedule injections. She would now like to start the process of having injections done here as she would like to transition her care to [facility] [place] Patient is currently taking Celebrex, duloxetine and gabapentin. She is on methadone maintenance. Despite these medications her pain persists. Pain today is rated as an 8/10. Constant In terms of muscle damage condition is described as throbbing, aching, dull, sore, hurting, tight, squeezing, sharp, stabbing, shooting, stinging Pain is negatively impacting patient's enjoyment of life, general activity, sleeping and recreational activities. Patient denies implantable devices, pacemaker or defibrillator Denies current use of anticoagulants [facility] Medical History Great toe pain Low back pain radiating down leg Screening examination for infectious disease Osteoarthritis of right knee DDD (degenerative disc disease), lumbar Anxiety Dysphagia Pulmonary nodules History of ascites Peripheral neuropathy Opioid use disorder Methadone maintenance therapy patient Arthritis IBS (irritable bowel syndrome) Cervical cancer Breast cancer COPD (chronic obstructive pulmonary disease) Vocal cord polyp Surgical History History of vocal cord polypectomy Hx of colonoscopy History of lumpectomy of left breast Hx of laparoscopy History of hemorrhoidectomy H/O total hysterectomy Family History Father Diabetes Mother CAD (coronary artery disease) CHF (congestive heart failure) Sister Breast cancer Lupus (systemic lupus erythematosus) Social History Household Members: Spouse Housing: House Are you a primary intensive care anaesthetist to a significant other at home: No Do you presently have visiting nurse or other home services: No Alcohol intake: current Alcohol intake frequency: 0-2 drinks per day Comment: aware of trip hazard Patient Tobacco Use Status: Former Tobacco user Tobacco use type: Cigarette Years Smoked: 50 Second Hand Smoke Exposure: Yes service: No Current occupational status: disabled Review of Systems Const All systems reviewed & are unremarkable except as noted in HPI and below Physical Exam Vital Signs: Oxygen Delivery Method Room Air 11/24/23 11:08 General: awake, alert, oriented. Answers questions appropriately. Fully engaged in examination. Skin: warm, dry, intact HEENT: Normocephalic. Hearing intact. Cardiac: External chest normal in appearance. Respiratory: No cough, audible wheezing or stridor. Abdomen: without gross distension. MS: No obvious swelling or deformities. Able to stand on bilateral tiptoes and bilateral heels.? Able to transition from sit to stand unassisted. Ambulates with bilaterally normal heel strike and toe off Tenderness over midline lumbar vertebrae and lumbar paraspinal muscles Facet loading positive bilaterally SLR negative bilaterally Bilateral lower extremity strength 5/5 Negative footdrop, negative clonus Full lumbar range of motion Neurological: Oriented to person, place, time and situation. Thought process intact. No gait abnormalities appreciated. Psychiatric: Appropriate mood and affect. Good judgment and insight. Assessment & Plan Assessment & Plan (1) Lumbar spondylosis: Code(s): M47.816 - Spondylosis without myelopathy or radiculopathy, lumbar region Category: Medical Plan Do is a very pleasant 63-year-old female who presented to the office today for evaluation management of her chronic lower back pain. History, physical exam and provocative testing consistent with lumbar spondylosis X-ray ordered for evaluation Order placed for PT eval and treat Discussed options for treatment including diagnostic interventional testing, epidural steroid injections, peripheral nerve stimulation with Sprint, RFA and more permanent neuromodulation. Patient will follow up after physical therapy, if no improvement we will plan for bilateral diagnostic L3-L4 DR L5 medial branch blocks with local anesthetic. All questions and concerns have been answered and patient agrees with the plan. Follow up after physical therapy, sooner if needed. Orders: Orders XR lumbar spine 4V min Today M47.816 - Spondylosis without myelopathy or radiculopathy, lumbar region PT Evaluation and Treatment Today M47.816 - Spondylosis without myelopathy or radiculopathy, lumbar region Coding Level of Care Code New Pt Level 4 (53517) Diagnoses Lumbar spondylosis M47.816
== END 2023-11-24 11:54 | disposition home or self-care (01) ==
PROVIDERS: PCP Family Medicine; Referring Provider Nurse Practitioner Family; Visit Provider Registered Nurse Emergency
DX: M47.816 Spondylosis without myelopathy or radiculopathy, lumbar region (principal)
CPT/HCPCS: 99203

== ENCOUNTER → 2023-11-24 11:03 | Outpatient (BNVA) | payer OTHER, MEDICAID, SELFPAY | PROVIDERS: PCP Family Medicine; Referring Provider Nurse Practitioner Family; Visit Provider Registered Nurse Emergency | DX: M47.816 Spondylosis without myelopathy or radiculopathy, lumbar region (principal) | CPT/HCPCS: 99202 ==

== ENCOUNTER 2024-03-22 10:02 | Outpatient (AMB) | payer OTHER, MEDICAID, SELFPAY ==
--- NOTE | 2024-03-22 10:05 | MHC.OFFVIS ---
Vital Signs 03/22/24 10:09 Height 5 ft 3 in Weight 155 lb 6.814 oz BMI 27.5 BP 115/62 Blood Pressure Location Rt brachial Position Sitting Pulse 86 Pulse Source Pulse Oximeter Pulse Oximetry (%) 94 Oxygen Delivery Method Room Air Intake Visit Reasons: RA/OA/FMS/lm Intake Note: Patient presents for RA/OA/FMS. Allergies No Known Allergies [No Known Allergies*] Allergy (Verified 03/22/24 10:09) Medication List - Last Reconciled 03/22/24 by Cynthia Cool MD albuterol sulfate 90 mcg/actuation 2 puffs inhalation QID PRN celecoxib 200 mg PO DAILY cholecalciferol (vitamin D3) (Vitamin D3) 1 tab PO DAILY diclofenac sodium 50 mg PO BID duloxetine (Cymbalta) 30 mg PO BID ggllbtaptku-ghpjeqltp-nmjtldad 100-62.5-25 mcg (Trelegy Ellipta) 1 puff inhalation DAILY furosemide 40 mg PO DAILY gabapentin 2 tabs PO TID methadone 106 mg PO DAILY multivitamin with minerals 1 tab PO DAILY pantoprazole 20 mg PO BID prednisone 5 mg PO DAILY [Raised toilet seat As directed] sennosides (Senna Lax) 17.2 mg (2 x 8.6 mg) PO BEDTIME PRN 30 days walker Folding Front wheeled walker HPI Comments Details: 63-year-old female with fibromyalgia and osteoarthritis returns for follow-up. Last visit I had prescribed her prednisone. Patient took it. She states that it did not help much. She continues to have diffuse pain and stiffness. [facility] Medical History Great toe pain Low back pain radiating down leg Screening examination for infectious disease Osteoarthritis of right knee DDD (degenerative disc disease), lumbar Anxiety Dysphagia Pulmonary nodules History of ascites Peripheral neuropathy Opioid use disorder Methadone maintenance therapy patient Arthritis IBS (irritable bowel syndrome) Cervical cancer Breast cancer COPD (chronic obstructive pulmonary disease) Vocal cord polyp Surgical History History of vocal cord polypectomy Hx of colonoscopy History of lumpectomy of left breast Hx of laparoscopy History of hemorrhoidectomy H/O total hysterectomy Family History Father Diabetes Mother CAD (coronary artery disease) CHF (congestive heart failure) Sister Breast cancer Lupus (systemic lupus erythematosus) Social History Household Members: Spouse Housing: House Are you a primary healthcare management consultant to a significant other at home: No Do you presently have visiting nurse or other home services: No Alcohol intake: current Alcohol intake frequency: 0-2 drinks per day Comment: aware of trip hazard Patient Tobacco Use Status: Former Tobacco user Tobacco use type: Cigarette Years Smoked: 50 Second Hand Smoke Exposure: Yes service: No Current occupational status: disabled Review of Systems Musc Reports back pain, Reports myalgias, Reports arthralgias, Reports joint swelling and Reports stiffness Physical Exam Vital Signs: Last Vital Signs Pulse 86 03/22/24 10:09 BP 115/62 03/22/24 10:09 Pulse Ox 94 03/22/24 10:09 Oxygen Delivery Method Room Air 03/22/24 10:09 BMI result Body Mass Index 27.5 Const General: cooperative, healthy appearing and comfortable Nutritional Appearance: overweight Orientation/consciousness: patient oriented x3 Limitations: no limitations HEENT Head: Yes normocephalic and Yes atraumatic Resp Effort & Inspection: normal respiratory effort and able to speak in complete sentences Cardio Rate: regular rate Skin General skin exam: no rashes or lesions noted Neuro General: patient oriented x3 Extrem Other: Significant osteoarthritic changes of both hands Bilateral wrist tenderness and pain with flexion-extension. No swelling Bilateral elbow pain with full extension Normal range of motion of both shoulders with some stiffness Multiple fibromyalgia tender points Results Reviewed Results Reviewed: EXAMINATION: XR HAND, RIGHT CLINICAL INFORMATION: Pain. COMPARISON: Right wrist radiographs dated 07/14/2016. TECHNIQUE: PA, lateral, and oblique views of the right hand. FINDINGS: Bony alignment and mineralization are normal. There is mild osteoarthritic change of the interphalangeal joint of the thumb, the second through fifth distal interphalangeal joints and the fifth proximal interphalangeal joint. There is moderate osteoarthritic change of the first carpometacarpal joint. No fracture or dislocation is seen. The proximal and distal carpal rows are intact. There is no abnormal bone erosion. No focal soft tissue swelling, gas or foreign body is seen. XR/XR hand LT min 3V IMPRESSION: There are multi-focal osteoarthritic changes of the right hand and wrist. No fracture or dislocation is seen. There is no abnormal bone erosion. EXAMINATION: XR HAND, LEFT CLINICAL INFORMATION: Pain. COMPARISON: None available. TECHNIQUE: PA, lateral, and oblique views of the left hand. FINDINGS: Bony alignment and mineralization are normal. There is a neutral ulnar variance. There is mild osteoarthritic change of the interphalangeal joint of thumb and of the second distal interphalangeal joint. There is moderate osteoarthritic change of the first carpometacarpal joint. No fracture or dislocation is seen. The proximal and distal carpal rows are intact. There is no abnormal bone erosion. No focal soft tissue swelling, gas or foreign body is seen. IMPRESSION: There are multi-focal osteoarthritic changes of the left hand and wrist. No fracture or dislocation is seen. There is no abnormal bone erosion. Assessment & Plan Assessment & Plan (1) Generalized joint pain: Code(s): M25.50 - Pain in unspecified joint Category: Medical Plan: 63-year-old female with generalized osteoarthritis and fibromyalgia who presents for follow-up. Ask patient and I prescribed her some prednisone. It did not provide any relief. At this time there is no evidence of an autoimmune rheumatic disease. (2) Osteoarthritis of hands, bilateral: Code(s): M19.041 - Primary osteoarthritis, right hand; M19.042 - Primary osteoarthritis, left hand Category: Medical Qualifiers: Osteoarthritis type: primary Qualified Code(s): M19.041 - Primary osteoarthritis, right hand; M19.042 - Primary osteoarthritis, left hand Plan: Advised patient to go back to Dr. Adame, consider another injection at the base of the thumbs (3) Fibromyalgia, primary: Code(s): M79.7 - Fibromyalgia Category: Medical Plan: I had a long discussion with patient today regarding fibromyalgia and its management Discussed management of fibromyalgia with patient. Is a noninflammatory, non-autoimmune central afferent processing disorder leading to a diffuse pain syndrome. I suggested that patient try to address her underlying psychiatric issues, anxiety/depression. She follows up regularly with her psychotherapist. I suggested evaluation by a psychiatrist. Patient is supposed to sleep with oxygen at night but she is unable to tolerate it. Try to follow sleep hygiene practices. atient would benefit from increased physical activity, either through formal physical therapy or by joining a gym. Advised patient that she should start activity slowly and increase as tolerated. Consider low-impact exercises such as light weights swimming, aqua therapy stretching, yoga. Gabapentin has helped her symptoms. She is not sure whether she is taking duloxetine. Follow-up with PCP (4) Lumbar spondylosis: Code(s): M47.816 - Spondylosis without myelopathy or radiculopathy, lumbar region Category: Medical Plan: Return to pain management Plan I spent 30 minutes reviewing patient's chart, evaluating patient, counseling patient and documenting in the chart Medications: Discontinued prednisone Discontinued Reason: Doctor's Order 5 mg PO DAILY 30 tabs 0RF Coding Level of Care Code Est Pt Level 4 (02909) Diagnoses Generalized joint pain M25.50 Primary osteoarthritis of both hands M19.041; M19.042 Osteoarthritis type: primary Fibromyalgia, primary M79.7 Lumbar spondylosis M47.816
[2024-03-22 10:09] VITALS: BP 115/62; PULSE 86; O2SAT 94; BMI 27.5
== END 2024-03-22 10:42 | disposition home or self-care (01) ==
LOC: HO.RHE 10:02
PROVIDERS: Visit Provider Student in an Organized Health Care Education/Training Program
DX: M25.50 Pain in unspecified joint (principal); M19.041 Primary osteoarthritis, right hand; M19.042 Primary osteoarthritis, left hand; M79.7 Fibromyalgia; M47.816 Spondylosis without myelopathy or radiculopathy, lumbar region
CPT/HCPCS: 99214

== ENCOUNTER → 2024-03-22 10:02 | Outpatient (BNVA) | payer OTHER, MEDICAID, SELFPAY | PROVIDERS: Visit Provider Student in an Organized Health Care Education/Training Program | DX: M79.7 Fibromyalgia (principal); M19.041 Primary osteoarthritis, right hand; M19.042 Primary osteoarthritis, left hand; M47.816 Spondylosis without myelopathy or radiculopathy, lumbar region; M25.50 Pain in unspecified joint | CPT/HCPCS: 99212 ==

== ENCOUNTER 2024-07-19 09:04 | Inpatient (IN) | payer OTHER, SELFPAY ==
--- NOTE | ~2024-07-19 | CT_ITS ---
EXAMINATION: CT ABDOMEN AND PELVIS WITH CONTRAST CLINICAL INFORMATION: Upper abdominal pain. COMPARISON: June 17, 2021. TECHNIQUE: Multidetector volumetric images were obtained from the superior aspect of the liver through the pubic symphysis following administration 85 mL of Omnipaque 350 intravenous contrast. Sagittal and coronal reformatted images were obtained on the technologist's workstation. Oral contrast: No This CT examination was performed using dose optimization techniques as appropriate, variously including the following: *Automated exposure control *Adjustment of mA and/or kV according to patient size (this includes techniques or standardized protocols for targeted exams where dose is matched to indication/reason for exam; i.e. extremities or head) *Use of iterative reconstruction technique. DLP: 502 mGy centimeter. FINDINGS: LUNG BASES: Patchy groundglass in the periphery of the lung bases. LIVER, GALLBLADDER, AND BILIARY TREE: Liver measures 22 cm with decreased enhancement pattern. No focal lesion. Portal veins, hepatic veins and intrahepatic portion of the IVC are patent. No pericholecystic fluid collection or gallbladder wall thickening. The common bile duct measures 15 mm in maximal diameter with an abrupt cut off at the region of the sphincter of Oddi. PANCREAS: There is peripancreatic edema pattern without fluid collection. There is normal enhancement pattern of the parenchyma. No main pancreatic ductal dilatation. Splenic artery is patent without contour irregularity. Splenic vein is patent.. SPLEEN: 10 cm. No focal lesion. Contact calcification. ADRENAL GLANDS: There is a 2.6 cm heterogeneous low density enhancing nodular lesion, left adrenal gland. No nodular lesions, right adrenal gland. KIDNEYS AND URETERS: Right kidney: No hydronephrosis. No gross nephrolithiasis. Subcentimeter cyst. No gross renal lesion/mass. Left kidney: No hydronephrosis. No gross renal mass. No gross nephrolithiasis. BLADDER: Fluid-filled. GASTROINTESTINAL TRACT: Gas and fluid-filled prominent proximal small bowel loops. Questionable focal edema in the proximal jejunal loops adjacent to the pancreas. No intestinal obstruction pattern. No pneumoperitoneum. Stool within the large intestine. No pneumatosis intestinalis. Appendix is normal. No peritoneal fluid collection. ABDOMINAL WALL: No gross umbilical hernia. Probable fat-containing inguinal hernias, right greater than left with a small volume. LYMPH NODES: Mild prominent mesenteric. VASCULAR: Calcified plaques in the abdominal aorta wall and iliac arteries without aneurysm or dissection. Splenic vein is patent without intraluminal filling defect. Splenic artery is patent with mild calcified plaque in no contour irregularity. PELVIC VISCERA: I do not see the uterus. OSSEOUS STRUCTURES: Grade 1 anterolisthesis L4-5 on a degenerative basis. Facet joint hypertrophy L4-5 and L5-S1. Degenerative changes in the right coxofemoral joint and both sacroiliac joints. Probable bony island right acetabulum. CT/CT abdomen pelvis w IV con IMPRESSION: Acute pancreatitis without immediate complications. Consider stricture in sphincter of Oddi. Noncalcified calculus versus intrinsic lesion cannot be excluded. Hepatomegaly and steatosis. Discussed with the emergency physician Dr. Calvin Doan at 11:36 AM on July 19, 2024. Fleischner guidelines were followed. Electronically signed by: Patrice Mcdaniels MD 07/19/2024 11:51 AM [facility]
--- NOTE | ~2024-07-19 | MR_ITS ---
EXAMINATION: MR ABDOMEN WITHOUT AND WITH CONTRAST CLINICAL INFORMATION: Acute pancreatitis. Evaluate common bile duct and pancreas. COMPARISON: Correlated to CT dated July 19, 2024. TECHNIQUE: MR abdomen was performed without and with use of 7.0 mL intravenous (Gadavist) without reported immediate complications. Postcontrast images are performed in multiphase dynamic sequences. Imaging was performed in 3 planes. FINDINGS: Limited by patient's motion artifact. Probable atelectasis lung bases. LIVER, GALLBLADDER, AND BILIARY TREE: The common bile duct measures 15 mm in maximum diameter with an abrupt cut off at the junction with the second portion duodenum. No intraluminal signal abnormality or lesion. Mild intrahepatic biliary ductal dilatation. Gallbladder is fluid-filled. No pericholecystic fluid collection or gallbladder wall thickening. Liver measures 21 cm. No focal enhancing lesion. The portal veins, hepatic veins and intrahepatic portion of the IVC are patent. PANCREAS: No focal mass. Reduced volume of the pancreatic parenchyma. Homogeneous enhancement. No main pancreatic ductal dilatation. Main pancreatic duct measures 2 mm. No peripancreatic fluid collections. Splenic vein is patent without intraluminal filling defects. Splenic artery is tortuous and patent without gross irregularity. SPLEEN: 9 cm. No focal lesion. ADRENAL GLANDS: Left adrenal gland: There is a 2.3 cm iso to hypointense T1 and isointense T2 nodular lesion with drop off signal during the in phase out of phase sequences. Right adrenal gland: No nodular lesion.. KIDNEYS AND URETERS: Normal enhancement pattern of the renal parenchyma. No gross hydronephrosis. No gross renal mass. GASTROINTESTINAL TRACT: No intestinal obstruction pattern. No ascites. ABDOMINAL WALL: No gross umbilical hernia. LYMPH NODES: No lymphadenopathy. VASCULAR: No aneurysm or dissection in the abdominal aorta. OSSEOUS STRUCTURES: Multilevel lumbar spondylosis from L1-2 to L5-S1 more conspicuous at L3-4, L4-5 resulting in central spinal canal and bilateral neuroforamina stenosis. There is prominent epidural fat. Small central herniated disc at T8-9 without compression upon neural elements. MR/MR abdomen wo/w con IMPRESSION: Concerning strictures interbody resulting in dilatation of the common bile duct. No peripancreatic fluid collections. No gross splenic vein thrombosis or splenic artery pseudoaneurysm. 2.3 cm lipid rich adenoma, left adrenal gland. Electronically signed by: Patrice Mcdaniels MD 07/20/2024 03:26 PM EST RP
--- NOTE | ~2024-07-19 | US_ITS ---
EXAMINATION: US ABDOMEN LIMITED CLINICAL INFORMATION: Pancreatitis.. COMPARISON: None available. TECHNIQUE: Real-time imaging of the right upper quadrant abdominal viscera. FINDINGS: PANCREAS: Visualized portions are unremarkable. Pancreatic duct is minimally prominent measuring 0.3 cm. LIVER: The liver is mildly enlarged in size. If lobe measures 13.9 cm in the right lobe measures 21.5 cm.. The liver contour is normal. Parenchymal echogenicity is slightly increased.. No focal hepatic lesion. There is no intrahepatic biliary duct dilatation seen. GALLBLADDER: The gallbladder is physiologically distended without evidence of stones, sludge, polyps, wall thickening or pericholecystic fluid. COMMON BILE DUCT: Normal in caliber measuring 1.60 cm in diameter. RIGHT KIDNEY: No hydronephrosis. No renal calculi or focal parenchymal lesions. The kidney measures 12.2 cm in maximum dimension. FREE FLUID: None. US/US abdomen limited IMPRESSION: Hepatomegaly with mild increased hepatic echotexture but no focal lesion seen. Gallbladder, right kidney and visualized pancreas is grossly unremarkable. Electronically signed by: Vinicio Payan MD 07/20/2024 11:07 AM [facility]
[2024-07-19 09:19] VITALS: BP 147/92; BP 152/94; PULSE 104; PULSE 113; RESP 20; TEMP 36.6; O2SAT 96; BMI 29.1
[2024-07-19 09:22] VITALS: BP 152/94; PULSE 104; RESP 20; TEMP 36.6; O2SAT 96
--- NOTE | 2024-07-19 10:21 | ED.CHESTPAIN ---
HPI - Chest Pain General Chief Complaint: Chest Pain Stated Complaint: CP,DISTENDED ABD X1Y PER EMS Time Seen by Provider: 07/19/24 09:42 Source: patient Limitations: no limitations History of Present Illness HPI narrative: This is a 63 years old female presented to the emergency department complaining of abdominal pain and chest pain. The pain is localized in the epigastric area ongoing since last night no radiation. Patient has as history of COPD, she is on methadone, she has a history of arthritis MD complaint: chest pain Onset (ago): day(s) (1) Timing of current episode: constant Onset: during rest Pain location: epigastric Pain radiation: none Severity: moderate Quality: aching Relieving factors: nothing Risk Factors Thoracic aortic dissection risk factors: none Related Data On Oral Contraceptives: No Home Medications ?Medication ?Instructions ?Recorded ?Confirmed cholecalciferol (vitamin D3) 125 1 tab PO DAILY 08/21/21 11/24/23 mcg (5,000 unit) tablet (Vitamin D3) gabapentin 600 mg tablet 2 tab PO TID 08/21/21 11/24/23 fluticasone fur. 100 mcg-umeclid 1 puff inhalation DAILY 07/21/22 11/24/23 62.5 mcg-vilant 25 mcg inhalat.powder (Trelegy Ellipta) multivitamin with minerals 1 tab PO DAILY 07/21/22 11/24/23 duloxetine 30 mg capsule,delayed 30 mg PO BID 01/19/23 11/24/23 release (Cymbalta) pantoprazole 20 mg tablet,delayed 20 mg PO BID 01/28/23 11/24/23 release furosemide 40 mg tablet 40 mg PO DAILY 02/02/23 11/24/23 celecoxib 200 mg capsule 200 mg PO DAILY 11/03/23 11/24/23 methadone 10 mg/mL oral concentrate 106 mg PO DAILY 03/22/24 03/22/24 Previous Rx's ?Medication ?Instructions ?Recorded albuterol sulfate 90 mcg/actuation 2 puff inhalation QID PRN 07/29/21 aerosol inhaler shortness of breath or wheezing #8.5 grams walker #1 ea 07/20/22 Raised toilet seat #1 ea 07/30/22 sennosides 8.6 mg tablet (Senna 17.2 mg (2 x 8.6 mg) PO BEDTIME 02/08/23 Lax) PRN Constipation 30 days #60 tabs diclofenac sodium 50 mg 50 mg PO BID #60 tabs 06/20/24 tablet,delayed release Allergies Allergy/AdvReac Type Severity Reaction Status Date / Time No Known Allergies Allergy Verified 07/19/24 09:21 [No Known Allergies*] Review of Systems Constitutional: Constitutional: Reports no additional constitutional complaints Cardiovascular: Cardiovascular: Reports no additional cardiovascular complaints Respiratory: Respiratory: Reports no additional respiratory complaints Musculoskeletal: Musculoskeletal: Reports no additional musculoskeletal complaints [facility], [facility] Past Medical History Medical History Great toe pain Low back pain radiating down leg Screening examination for infectious disease Osteoarthritis of right knee DDD (degenerative disc disease), lumbar Anxiety Dysphagia Pulmonary nodules History of ascites Peripheral neuropathy Opioid use disorder Methadone maintenance therapy patient Arthritis IBS (irritable bowel syndrome) Cervical cancer Breast cancer COPD (chronic obstructive pulmonary disease) Vocal cord polyp Surgical History History of vocal cord polypectomy Hx of colonoscopy History of lumpectomy of left breast Hx of laparoscopy History of hemorrhoidectomy H/O total hysterectomy Family History Family History Father Diabetes Mother CAD (coronary artery disease) CHF (congestive heart failure) Sister Breast cancer Lupus (systemic lupus erythematosus) Social History Social History Household Members: Spouse Housing: House Are you a primary care professionals to a significant other at home: No Do you presently have visiting nurse or other home services: No Alcohol intake: current Alcohol intake frequency: a few times a week Comment: aware of trip hazard Patient Tobacco Use Status: Former Tobacco user Tobacco use type: Cigarette Years Smoked: 50 Smoked in Last 30 Days: No Second Hand Smoke Exposure: Yes Use of substances other than those prescribed or required for medical reasons: No Advance Directives: No Advance Directives Information Provided: Yes Do you have a plan to hurt others: No Plan Patient : No service: No Current occupational status: disabled Physical Exam Vital Signs: Vital Signs: Last Vital Signs Temp 98.6 F 07/19/24 11:06 Pulse 104 H 07/19/24 11:06 Resp 14 07/19/24 11:06 BP 152/80 H 07/19/24 11:06 Pulse Ox 95 07/19/24 11:06 O2 Del Method Nasal Cannula 07/19/24 11:06 O2 Flow Rate 2 07/19/24 11:06 BMI result Body Mass Index 29.1 Moderate distress Const: General: cooperative Nutritional Appearance: average body habitus Orientation/consciousness: patient oriented x3 Limitations: no limitations HEENT: Head: Yes normal to inspection Face and sinus: Yes normal facial exam Neck: Neck: Yes normal visual inspection Chest: Chest palpation & inspection: normal inspection of the chest Resp: Effort & Inspection: normal respiratory effort Auscultation: clear to auscultation bilaterally Cardio: Jugular venous distension: no JVD Rate: regular rate Rhythm: regular rhythm GI: Other: Tenderness in the epigastric area Palpation (GI): Soft to palpation Skin: General skin exam: no rashes or lesions noted Neuro: General: patient oriented x3 Course Reevaluation(s) Reevaluation #1: Clinical picture consistent with acute pancreatitis positive CT for acute pancreatitis, elevated lipase is as well. The etiology of the pancreatitis most likely alcoholic pancreatitis patient drinks daily. Also p elevated high sensitive troponin the EKG does not show any current of injury or acute abnormality. Anticipate admission Time: 12:59 Reevaluation #2: I spoke with certified appliance service technician Dr. Mata about the elevated high sensitive troponin. He will consult Time: 15:07 Reevaluation #3: Patient was accepted by Dr. Hung hospitalist Time: 15:11 Medications Administered Discontinued Medications Generic Name Dose Route Start Last Admin Trade Name Freq PRN Reason Stop Dose Admin Sodium Chloride 1,000 mls @ 999 mls/hr 07/19/24 10:30 07/19/24 11:50 Ns IVCONT 07/19/24 11:30 Infused .Q1H1M ABHI Infusion Sodium Chloride 1,000 mls @ 999 mls/hr 07/19/24 13:00 07/19/24 14:40 Ns IVCONT 07/19/24 14:00 Infused .Q1H1M ABHI Infusion Iohexol 100 ml 07/19/24 10:50 07/19/24 10:51 Iohexol 350 Mg/Ml 100 Ml Infus..Btl IV 07/19/24 10:51 85 ml ONCE ONE Administration Lorazepam 1 mg 07/19/24 10:19 07/19/24 10:27 Lorazepam 2 Mg/Ml Vial IVPUSH 07/19/24 10:20 1 mg ONCE ONE Administration Morphine Sulfate 4 mg 07/19/24 10:19 07/19/24 10:27 Morphine Sulfate 4 Mg/Ml Cartridge IVPUSH 07/19/24 10:20 4 mg ONCE ONE Administration Protocol Ondansetron HCl 4 mg 07/19/24 13:21 07/19/24 13:37 Ondansetron Hcl 4 Mg/2 Ml Vial IVPUSH 07/19/24 13:22 4 mg ONCE ONE Administration Medical Decision Making Medical Decision Making [facility] Narrative: Patient presented with the epigastric pain and lower chest pain we will obtain EKG labs Differential Diagnosis Differential Diagnoses: The differential diagnosis associated with the presentation includes Acute coronary syndrome/pancreatitis/peptic ulcer disease Lab Data 07/19/24 11:16 07/19/24 11:16 Labs: Lab Results 07/19/24 07/19/24 Range/Units 11:16 14:20 WBC 13.8 H (4.8-10.8) X10*3/uL RBC 3.66 L (4.20-5.50) X10*6/uL Hgb 13.5 (12.0-16.0) g/dl Hct 38.9 (37.0-47.0) % MCV 106.3 H (80.0-98.0) fL MCH 36.9 H (27.0-33.0) pg MCHC 34.7 (31.0-35.0) g/dl RDW 14.8 (11.0-16.0) % Plt Count 214 (160-400) X10*3/uL MPV 8.5 L (9.4-12.3) fL Immature Gran % (Auto) 0.4 (0.0-0.4) % Neut % (Auto) 89.9 H (45-73) % Lymph % (Auto) 5.1 L (20-40) % [place] % (Auto) 3.6 (2-11) % Eos % (Auto) 0.7 (0-4) % Baso % (Auto) 0.3 (0-2) % Lymph # (Auto) 0.7 L (1.2-4.9) X10*3/uL [place] # (Auto) 0.5 (0.1-1.2) X10*3/uL Eos # (Auto) 0.1 (0.0-0.4) X10*3/uL Baso # (Auto) 0.0 (0.0-0.2) X10*3/uL Abs Immat Gran (auto) 0.06 H (0.00-0.03) X10*3/uL Absolute Neuts (auto) 12.4 H (2.0-8.3) x10*3/uL Absolute Nucleated RBC 0.000 (0.0-0.012) X10*3/uL Nucleated RBC % (auto) 0.0 (0.0-0.2) /100WBC Sodium 138 (135-145) mmol/L Potassium 3.1 L (3.3-5.1) mmol/L Chloride 100 (96-108) mmol/L Carbon Dioxide 31 H (22-29) mmol/L Anion Gap 10 L (12-20) BUN 8 L (9-16) mg/dL Creatinine 0.59 (0.5-1.4) mg/dL Estim Creat Clear Calc 93.0 Estimated GFR > 60 Random Glucose 139 H (60-115) mg/dL Calcium 7.7 L D (8.4-10.2) mg/dL Magnesium 1.9 (1.6-2.6) mg/dL Total Bilirubin 1.1 H (0.0-1.0) mg/dL AST 80 H (5-31) U/L ALT 54 H (0-31) U/L Alkaline Phosphatase 106 (39-117) U/L Troponin I High Sens 278.5 H* 492.5 H* D (<3.5-17.0) ng/L Total Protein 5.7 L (6.5-8.0) g/dL Albumin 3.0 L (3.5-5.0) g/dL Lipase 220 H (8-78) U/L Independent Interpretation I performed an independent interpretation of an: EKG (Electrocardiogram repeated shows a sinus tachycardia rate [address]-T changes) Radiology Impression Discussion of test interpretation with radiology: I have reviewed the radiologist's reading. Prescription Management I considered prescription management with: Pain Medication Chronic Conditions Substance abuse Discharge Plan Discharge Clinical Impression: Pancreatitis, Elevated troponin Patient Disposition: Admitted As Inpatient Print Language: Frisian
[2024-07-19] MEDS: LORazepam 2 MG/ML VIAL 1 MG IVPUSH (10:27)
[2024-07-19] MEDS: Morphine Sulfate 4 MG/ML CARTRIDGE IVPUSH ×2 (10:27→20:05)
[2024-07-19] MEDS: 0.9 % Sodium Chloride 1,000 ML 999 ML IVCONT ×2 (10:36→13:18)
[2024-07-19] MEDS: iohexoL 350 MG/ML 100 ML INFUS..BTL IV (10:51)
[2024-07-19 11:06] VITALS: BP 152/80; PULSE 104; RESP 14; TEMP 37; O2SAT 95
[2024-07-19 11:24] LABS: MANUAL DIFF FLAG NO
[2024-07-19 11:25] LABS: Basophils Percent Auto 0.3 % (0-2); Eosinophils Absolute Auto 0.1 X10*3/uL (0.0-0.4); Eosinophils Percent Auto 0.7 % (0-4); Hematocrit 38.9 % (37.0-47.0); Hemoglobin 13.5 g/dl (12.0-16.0); Imm Gran Abs Auto 0.06 X10*3/uL (0.00-0.03); Imm Gran Pct Auto 0.4 % (0.0-0.4); Lymphocytes Absolute Auto 0.7 X10*3/uL (1.2-4.9); Lymphocytes Percent Auto 5.1 % (20-40); Mean Corpuscular HGB Conc 34.7 g/dl (31.0-35.0); Mean Corpuscular Hemoglobin 36.9 pg (27.0-33.0); Mean Corpuscular Volume 106.3 fL (80.0-98.0); Mean Platelet Volume 8.5 fL (9.4-12.3); Monocytes Absolute Auto 0.5 X10*3/uL (0.1-1.2); Monocytes Percent Auto 3.6 % (2-11); Neutrophils Absolute Auto 12.4 x10*3/uL (2.0-8.3); Neutrophils Percent Auto 89.9 % (45-73); Platelet Count 214 X10*3/uL (160-400); Red Blood Count 3.66 X10*6/uL (4.20-5.50); Red Cell Distribution Width 14.8 % (11.0-16.0); White Blood Count 13.8 X10*3/uL (4.8-10.8)
[2024-07-19 11:41] LABS: Alanine Aminotransferase 54 U/L (0-31); Alkaline Phosphatase 106 U/L (39-117); Anion Gap 10 (12-20); Aspartate Amino Transferase 80 U/L (5-31); Bilirubin Total 1.1 mg/dL (0.0-1.0); Blood Urea Nitrogen 8 mg/dL (9-16); Calcium 7.7 mg/dL (8.4-10.2); Carbon Dioxide 31 mmol/L (22-29); Chloride 100 mmol/L (96-108); Estimated Glomerular Filt Rate > 60; Glucose Random 139 mg/dL (60-115); Lipase 220 U/L (8-78); Magnesium 1.9 mg/dL (1.6-2.6); Potassium 3.1 mmol/L (3.3-5.1); Sodium 138 mmol/L (135-145); Total Protein 5.7 g/dL (6.5-8.0)
--- OUTSIDE RECORDS SUMMARY | 2024-07-19 11:46 | XMS_ITS | Clinical Summary ---
Author Organization [facility] Address [address] [place] [address] Care Team Providers Care Administrative Appeals Tribunal Member Name Role Phone Stacy Yen MD Primary Care Pr ovider Allergies No known active allergies Medications Medication Sig Dispensed Refills Start Date End Date Status senna (SENOKOT) 8.6 MG tablet Take 1 tablet by mouth daily. 0 Active acetaminophen (TYLENOL) 325 MG tablet Take 2 tablets (650 mg total) by mouth every 6 (six) hours as needed for pain. 0 Active polyethylene glycol (MIRALAX) packet Take 17 g by mouth daily. 0 Active albuterol (2.5 MG/3ML) 0.083% NEBU 3 mL, albuterol (5 MG/ML) 0.5% NEBU 0.5 mL Inhale into the lungs. 0 Active Cholecalciferol (VITAMIN D3) 50 MCG (2000 UT) capsule Take 400 Units by mouth daily. 0 Active ibuprofen (ADVIL,MOTRIN) 600 MG tablet Take 1 tablet (600 mg total) by mouth every 6 (six) hours as needed for pain. 0 Active celecoxib (CeleBREX) 200 MG capsule Take 1 capsule (200 mg total) by mouth daily. 0 Active linaCLOtide (LINZESS PO) Take by mouth. 0 Active furosemide (LASIX) 40 MG tablet TAKE 1 TABLET BY MOUTH EVERY DAY NEEDED FOR 90 DAYS 90 tablet 1 10/26/2023 Active semaglutide-weight management (Wegovy) 2.4 MG/0.75ML SOAJ subcutaneous auto-injector Inject under the skin. 0 Active gabapentin (NEURONTIN) 600 MG tablet Take 2 tablets (1,200 mg total) by mouth 3 (three) times a day. 180 tablet 5 11/17/2023 Active Active Problems Problem Noted Date Diagnosed Date Malignant neoplasm of upper- inner quadrant of left breast in female, estrogen receptor negative 09/30/2018 Social History Tobacco Use Types Packs/Day Years Used Date Smoking Tobacco: Never Assessed Sex and Gender Information Value Date Recorded Sex Assigned at Not on file Gender Identity Not on file Sexual Orientation Not on file Job Start Date Occupation Industry Not on file Not on file Not on file Last Filed Vital Signs Vital Sign Reading Time Taken Comments Blood Pressure 120/63 10/27/2023 11:59 AM EDT Pulse 89 10/27/2023 11:59 AM EDT Temperature 36.3 ??C (97.4 ??F) 10/27/2023 11:59 AM E DT Respiratory Rate 20 02/22/2019 11:34 AM EDT Oxygen Saturation 97% 10/27/2023 11:59 AM EDT Inhaled Oxygen Concentration - - Weight 71.2 kg (157 lb) 10/27/2023 11:59 AM EDT Height 157.5 cm (5' 2 ) 11/02/2022 9:34 AM EDT Body Mass Index 28.72 11/02/2022 9:34 AM EDT Plan of Treatment Health Maintenance Due Date Last Done Comments Hepatitis C Screening 1959 Depression Screening 1971 BMI Counseling 08/28/1977 Preventative Health Evaluation 08/28/1977 Shingrix-Zoster Vaccine (1 of 2) 08/28/1978 Cervical Cancer Screening (Pap Smear) 08/28/1980 Colon Cancer Screening (Colonoscopy) 08/28/2004 Breast Cancer Screening (Mammogram) 08/28/2009 DTap / Tdap / Td (2 - Td or Tdap) 01/26/2017 01/26/2007 Pneumococcal Vaccine (2 of 2 - PCV) 11/09/2019 11/08/2018 Pneumococcal Vaccine (2 of 2 - PCV) 11/09/2019 11/08/2018 COVID-19 Vaccine (2 - Pfizer risk series) 02/23/2022 02/02/2022 Influenza Vaccine (#1) 2024 3, 03/08/2018, 02/08/2017, Additional history exists RSV Adult > 60+ Yrs or (1 - 1-dose 75+ series) 08/28/2034 Hepatitis B Vaccines Aged Out No long er eligible based on patient's age to complete this topic RSV Ped < 20 months Aged Out No longe r eligible based on patient's age to complete this topic Care Teams Administrative Appeals Tribunal Member Relationship Specialty Start Date End Date Stacy Yen MD [address] [place] [address] PCP - General 11/02/22
--- OUTSIDE RECORDS SUMMARY | 2024-07-19 11:46 | XMS_ITS | Data Portability ---
Author Organization [facility] [address] Address [address] [place] [address] Care Team Providers Care Acupressure Therapist Name Role Phone [facility] Care Provider Assessment No assessment recorded. Plan of Treatment Reminders Order Date Submit Date Provider Last Modified By Organization Details Last Modified Time Details Appointments None recorded. Lab None recorded. Referral None recorded. Procedures None recorded. Surgeries None recorded. Imaging None recorded. Medication Orders doxycycline hyclate 100 mg capsule 2022 023 [id number], [address] [place] [address], [address], 11:35:14 Patient TargetsNo targets recorded. Patient Instructions Encounter Date Encounter Id Patient Instructions Last Modified By Organization Details Last Modified Time 09/14/2022 [id number] tick bite: care instructions [email or web address] Not available 09/14/2022 11:35:11 Reason for Referral None Reported. Problems Name Problem SNOMED Code Status Onset Date Resolution Date Notes Provider Name and Address Organization Details Recorded Time Neuropathy 274586122 Active 2022 KALPANA samayoa, [place] - [facility] 3 10:59:36 Gastroesophage al reflux disease 480307333 Active 2022 KALPANA ROSS null, PA - [facility] 3 11:01:20 Chronic obstructive pulmonary disease 77851089 Active 2022 KALPANA ROSS null, PA - [facility] 3 11:01:27 Osteoarthritis 577250239 Active 2022 KALPANA samayoa, PA - [facility] 3 11:01:37 Malignant tumor of breast 826742825 Active 2022 KALPANA VANDANA samayoa PA - [facility] 3 11:05:19 Problem Notes None recorded. Procedures Surgical History Date Name Laterality Status Provider Name and Address Organization Details Recorded Time 023 Foreign Body Removal completed Reggie De Souza MD [address] [place], [place] [address], [address], [place] - [facility] 09/14/2022 11:36:15 cervical biopsy completed KALPANA VANDANA PA - [facility] 09/14/2022 11:04:45 endoscopy completed KALPANA VANDANA PA - [facility] 09/14/2022 11:04:52 lumpectomy of breast completed KALPANA VANDANA PA - [facility] 09/14/2022 11:05:04 hemorrhoidectomy completed KALPANA VANDANA PA - [facility] 09/14/2022 11:05:30 Imaging Results None recorded. Procedure Notes None recorded. Medical Equipment None Reported. Allergies No known drug allergies Medications Name Sig Start Date Stop Date Status Note LastModified by Organization Details LastModified Time doxycycline hyclate 100 mg capsule Take 2 capsules every day by oral route for 1 day. 2022 active Not Available Not Available Not Avai lable omeprazole 20 mg capsule,delaye d release Take 1 capsule every day by oral route. active Not Available Not Available No t Available Vitamin C active Not Available Not Aneta ilable Not Available Vitamin D3 active Not Available Not Av ailable Not Available Metamucil active Not Available Not Aneta ilable Not Available gabapentin 1200 mg TID active Not Available Not Available No t Available Miralax active Not Available Not Avail able Not Available multivitamin active Not Available Not Available Not Available Linzess active Not Available Not Avail able Not Available Vitals Date Recorded Body height Body mass index (BMI) Body weight Respiratory rate Body temperature Oxygen saturation Oxygen saturation in Arterial blood by Pulse oximetry Heart rate Systolic blood pressure Diastolic blood pressure Provider Name and Address Organization Details Last Updated DateTime 3 160.02 cm 10.6 kg/m2 24530.5 4 g 16 /min 97 [degF] 95 % 95 % 80 /min 149 mm[Hg] 76 mm[Hg] KALPANA ROSS PA - [facility] 11:07:23 Social History Question Answer Notes LastModified by Organizat ion Details LastModified Time Tobacco Smoking Status Former Smoker KALPANA samayoa PA - [facility] 09/14/2022 11:04:05 What Is Your Level Of Alcohol Consumption? Occasional [email or web address] Information not available 09/14/2022 Do You Use Any Illicit Or Recreational Drugs? No [email or web address] Information not available 09/14/2022 Have You Recently Traveled Abroad? No [email or web address] Information not available 09/14/2022 Do You Or Have You Ever Used Any Other Forms Of Tobacco Or Nicotine? No [email or web address] Information not available 09/14/2022 Sex: Unknown Functional Status None recorded. Mental Status None recorded. Family History Relationship Description Onset Age of this Age Resolved Age Notes LastModified by Organization Details LastModified Time Unspecified Relation Malignant neoplastic disease [email or web address] Not available 2022 11:02:25 Unspecified Relation Diabetes mellitus [email or web address] Not available 2022 11:02:33 Unspecified Relation Heart disease [email or web address] Not available 2022 11:02:39 Unspecified Relation Hypertensive disorder [email or web address] Not available 2022 11:02:48 Unspecified Relation Lupus [email or web address] [email or web address] Not available 2022 11:02:58 Medical History No medical history recorded. Gynecological HistoryNo gynecological history recorded. Obstetrics History GPAL:G 0 P 0 0 0 0 Past Encounters Encounter ID Performer Location Encounter Start Date Encounter Closed Date Diagnosis/Indication Diagnosis SNOMED-CT Code Diagnosis ICD10 Code Diagnosis Note [id number] [address] [place] [address] 08/18/2016 13:00:28 08/18/2016 15:06:44 [id number] [address] [place] [address] 03/18/2015 16:39:07 03/18/2015 17:54:15 [id number] [address] [place] [address] 07/12/2018 13:33:15 07/12/2018 14:06:55 [id number] [address] [place] [address] 11/17/2015 09:21:39 11/17/2015 11:52:22 [id number] [address] [facility] [place] [address] 05/12/2018 11:35:34 05/12/2018 12:23:00 [id number] Reggie De Souza MD [address] [place] [address] 09/14/2022 10:40:21 09/14/2022 11:39:21 Tick bite 01130856 W57.XXXA Localized eruption of skin 448990669 R21 mild redness at sitewatch for worsening Health Concerns Section Related Observation LastModified by Organization Detai ls LastModified Time None Recorded Concern Status LastModified by Organization Details LastModified Time None Recorded Advance Directives Directive None Recorded Payers Encounter Date Sequence Insurance Name Policy Number Policy Ríos Covered Member ID Ríos Member ID Guarantor Name 11/17/2015 1 [facility] [id number] Jaylan Hotte [id number] Do Hotte 08/18/2016 1 [facility] [id number] Jaylan Hotte [id number] Do Hotte 05/12/2018 1 [facility] [id number] Jaylan Hotte [id number] Do Hotte 07/12/2018 1 [facility] [id number] Jaylan Hotte [id number] Do Hotte 09/14/2022 1 [place] Do P Hotte [id number] Do Hotte 09/14/2022 2 [place] Do Hotte [id number] Do Hotte Notes Date Note Type Note Provider Name and Address Organization Details Recorded Time 09/14/2022 text/html Rash / Skin LesionReported bypatient.Location:[facility] Quality:itchy Duration:days Alleviating Factors:nothing gives relief Associated Symptoms:no fever; no fatigue Reggie De Souza [place] [facility] [place], [address], [place] - [facility] 09/14/2022 11:36:39 OBGyn Episode No OBEpisode recorded.
--- OUTSIDE RECORDS SUMMARY | 2024-07-19 11:46 | XMS_ITS | Encounter Summary ---
Author Organization [facility] Address [address] [place] [address] Care Team Providers Care Meat Grinder Name Role Phone Stacy Yen MD Primary Care Pr ovider Encounter Details Date Type Department Care Team ([facility] st Contact Info) Description 07/04/2024 Telephone Lung Screening Program - [address] [id number] Suma Vázquez [place] Social History Tobacco Use Types Packs/Day Years Used Date Smoking Tobacco: Former Cigarettes 0.3 3.5 1 06/29/2018 - 11/14/2022 Smokeless Tobacco: Never Alcohol Use Standard Drinks/Week Comments Yes 0 (1 standard drink = 0.6 oz pur e alcohol) Housing Instability Answer Date Recorde d Are you worried that in the next 2 months you may not have stable housing? No 05/11/2024 Food Access & Nutrition Answer Date Rec orded Do you have access to a vari ety of food including fruits and vegetables? Yes 05/11/2024 Financial Risk Answer Date Recorded How hard is it for you to pa y for the very basics like food, housing, medical care, and air conditioning / heating? Hard 05/11/2024 Transportation Answer Date Recorded Has the lack of transportati on kept you from meetings, work, or from getting things needed for daily living? No Has the lack of transportati on kept you from medical appointments or from getting medications? No 05/11/2024 Social Isolation Answer Date Recorded How often do you feel lonely or isolated from those around you? Sometimes 05/11/2024 Food Risk Answer Date Recorded Within the past 12 months we worried whether our food would run out before we got money to buy more. Never true 05/11/2024 Within the past 12 months th e food we bought just didn? t last and we didn? t have money to get more. Not on file 05/11/2024 Dependent Care Answer Date Recorded Do you need help finding or paying for care for your loved ones. For example, children's service worker or elderly care for an older adult? No 05/11/2024 Education Answer Date Recorded Do you think completing more education or training, like finishing a GED, going to college, or learning a trade, would be helpful for you? No 05/11/2024 Employment and Income Answer Date Recor ded During the last four weeks, have you been actively looking for work? No 05/11/2024 Living Situation Answer Date Recorded What is your living situation? 1 07/12/2023 Comments No Sex and Gender Information Value Date Recorded Sex Assigned at Not on file Legal Sex Female 7:57 PM EST Gender Identity Not on file Sexual Orientation Not on file documented as of this encounter Progress Notes * Suma Vázquez MA - 07/04/2024 1:06 PM EST Do Luna was contacted by the Lung Cancer Screening Program today to confirm the appointment of their Lung Cancer Screening. The patient is currently scheduled to have their screening on Monday July 22, 2024 at 8 AM, at [facility]. Patient confirmed For all screenings scheduled during the week, the patient will check in at Patient Registration on the first floor of the main hospital. For screenings that take place on the weekend or after 5pm, check-in directly in Radiology. The patient was given the Lung Cancer Screening Program phone number, , to contact if they have any additional questions, concerns or need to reschedule. Patients are encouraged to call our office and reschedule if they are exhibiting any cold-like symptoms, have recently been treated for Pneumonia or Influenza (the flu) or have had another CT of their Chest since their last screening. documented in this encounter Plan of Treatment Upcoming Encounters Date Type Department Care Team (Late st Contact Info) Description 07/22/2024 8:00 AM EST Appointment [facility] CT Scan [address] [place] [phone] 09/11/2024 9:45 AM EDT Office Visit Adult Medicine [facility] [address] [place] [address] Stacy Yen MD [address] [place] [address] 10/02/2024 10:00 AM EDT Office Visit Orthopedic Surgery [facility] [address] [phone] Ashley Hu PA [address] [phone] 10/26/2024 9:45 AM EDT Office Visit [facility] Hematology Oncology [address] [place] [phone] Sunil Mauro MD [address] [place] [phone] 10/30/2024 10:45 AM EDT Office Visit Pulmonolgy - [place] [address] [facility] [address] [place] [phone] Swati Lehman MD [address] [address] documented as of this encounter Visit Diagnoses Not on filedocumented in this encounter Additional Health Concerns Assessment Noted Time PHQ-9 Depression Total Score: 1 05/11/20 24 10:20 AM EST documented as of this encounter Care Teams Meat Grinder Relationship Specialty Start Date End Date Stacy Yen MD [address] [place], [place] PCP - General Internal Medicine 12/17/21 documented as of this encounter
--- OUTSIDE RECORDS SUMMARY | 2024-07-19 11:46 | XMS_ITS | Clinical Summary ---
Author Organization [facility] Address [address] [place] [address] Phone Care Team Providers Care Trademark Attorney Name Role Phone Stacy Yen MD Primary Care Pr ovider Allergies No known active allergies Medications acetaminophen (TYLENOL) 325 mg tablet Take 2 tablets (650 mg total) by mouth every 6 (six) hours as needed for pain. Active UNABLE TO FIND albuterol (2.5 MG/3ML) 0.083% NEBU 3 mL, albuterol (5 MG/ML) 0.5% NEBU 0.5 mL, Inhale into the lungs. Active celecoxib (CeleBREX) 200 mg capsule Take 1 capsule (200 mg total) by mouth daily. Active cholecalciferol (VITAMIN D-3) 50 mcg (2,000 unit) capsule Take 400 Units by mouth daily. Active gabapentin (NEURONTIN) 600 mg tablet TAKE 2 TABLETS BY MOUTH 3 TIMES A DAY 3 Active ibuprofen (ADVIL,MOTRIN) 600 mg tablet Take 1 tablet (600 mg total) by mouth every 6 (six) hours as needed for pain. Active polyethylene glycol (MIRALAX) 17 gram packet Take 17 g by mouth daily. Active senna (SENOKOT) 8.6 mg tablet Take 1 tablet (8.6 mg total) by mouth 1 (one) time each day. Active albuterol HFA (PROAIR HFA ; PROVENTIL HFA ; VENTOLIN HFA) 90 mcg/actuation inhaler Inhale 2 puffs by mouth every 6 (six) hours if needed. 2 Active cyanocobalamin (VITAMIN B-12) 500 mcg tablet Take 1 tablet (500 mcg total) by mouth 1 (one) time each day. Active diclofenac (VOLTAREN) 50 mg EC tablet Take 1 tablet (50 mg total) by mouth 2 (two) times a day. 4 Active Trelegy Ellipta 100-62.5-25 mcg inhaler Inhale 1 puff (100 mcg total) by mouth 1 (one) time each day. 4 Active pantoprazole (PROTONIX) 20 mg EC tablet Take 1 tablet (20 mg total) by mouth 1 (one) time each day before breakfast. Active plecanatide (Trulance) 3 mg tablet Take 1 tablet (3 mg total) by mouth 1 (one) time each day. 4 Active furosemide (LASIX) 40 mg tablet TAKE 1 TABLET BY MOUTH EVERY DAY NEEDED 90 tablet 3 4 Active DULoxetine (CYMBALTA) [address] capsule TAKE 2 CAPSULES BY MOUTH EVERY DAY 180 capsule 1 4 Active tirzepatide, weight loss, (Zepbound) 2.5 mg/0.5 mL injection Inject 0.5 mL (2.5 mg total) under the skin every 7 (seven) days. 6 mL 5 Active Stool Softener 100 mg capsule TAKE 1 CAPSULE BY MOUTH TWICE A DAY NEEDED FOR CONSTIPATION 180 capsule 1 5 Active Active Problems Problem Noted Date Diagnosed Date Diverticulosis 04/04/2024 Dysphagia 04/04/2024 Overview (04/04/2024): Follows with gastroenterology, status post upper endoscopy suspicious for eosinophilic esophagitis Hemorrhoids 04/04/2024 Hypertriglyceridemia 03/08/2024 Gastroesophageal reflux disease without esophagi tis 01/20/2024 Overweight (BMI 25.0-29.9) 01/20/2024 Malignant neoplasm of upper- inner quadrant of left breast in female, estrogen receptor negative 01/13/2024 Alcohol use disorder, mild, in early remission, abuse 06/14/2023 Status post total right knee replacement 023 Hypoxemia 10/16/2022 Overview (04/04/2024): Last Assessment & Plan: Patient has chronic hypoxemia that is not related to her mild COPD I am looking forward to see the results of the cardiac catheterization, and specially the right ventricular pressures and right pulmonary pressures to see if she has pulmonary hypertension. She does have some mild crackles and mild interstitial changes in both bases that could be the result of the radiation therapy that she received 4 years ago We will repeat another pulmonary function test in 6 months and depending on the results of the cardiac catheterization we will decide regarding treatment Pending sleep studies Hepatic steatosis 03/24/2022 Overview (04/04/2024): Seen on MRI lumbar spine on 02/19/2022. See telephone encounter 03/24/2022 for more details. Last Assessment & Plan: Patient has hepatomegaly on CT scan. She is a drinker of every day beers. She should follow-up with gastroenterology for further work-up. The increase in the abdominal girth and the telangiectasia are signs of liver disease and could be contributing to her dyspnea. Abnormal echocardiogram 02/09/2022 Overview (04/04/2024): most recent echo done in February 2022 , obtained by cardiology showed normal regional wall motion. EF 55 to 60%. E-A reversal consistent with mild diastolic relaxation abnormality. Otherwise normal Last Assessment & Plan: The patient has a history of possible abnormal echocardiogram with possible wall motion abnormalities at the apex of the heart though this was not well visualized. Subsequent echocardiogram with Definity was normal. She has no concerning cardiorespiratory symptoms. Dyspnea on exertion 02/09/2022 Overview (04/04/2024): Last Assessment & Plan: Dyspnea is most likely multifactorial and secondary to her mild COPD, deconditioning. Neuropathy of foot 02/03/2022 Sleep apnea 09/10/2021 Overview (04/04/2024): Last Assessment & Plan: The patient has an elevated Odell scale, states that she snores and has daytime somnolence. In base of this I have ordered sleep study. Stage 1 mild COPD by GOLD classification 022 Overview (04/04/2024): Last Assessment & Plan: Continue with Trelegy 1 puff once a day Pulmonary nodules 07/14/2021 Overview (04/04/2024): Last Assessment & Plan: Follow-up with lung cancer screening on June 2022 Primary osteoarthritis of right knee 09/03/2020 Vocal cord nodules 05/09/2019 Overview (04/04/2024): S/p biopsy with ENT Anxiety 03/16/2019 Moderate episode of recurrent major depressive d isorder 03/16/2019 Peripheral neuropathy due to chemotherapy 2018 Vitamin D deficiency 10/14/2018 Invasive ductal carcinoma of breast, female, lef t 09/08/2018 Overview (04/04/2024): Diagnosed 09/2018 on chemo and radiation Lumbar radiculopathy 07/28/2018 History of substance abuse 07/14/2018 Overview (04/04/2024): Developed in addiction to Percocet and is s/p Suboxone treatment. Tobacco use disorder 03/24/2007 Irritable bowel syndrome 02/08/2006 Overview (04/04/2024): normal upper GI endoscopy 02.25.06. Epigastric abdominal pain. Encounters Date Type Department Care Team Description 07/04/2024 Telephone Lung Screening Program - [place] [address] [facility] [address] [place] [phone] Suma Vázquez [place] 06/27/2024 8:45 AM EST - 06/27/2024 11:59 PM EST Hospital Encounter Radiology Department - [address] [phone] Encounter for screening mammogram for breast cancer Discharge Disposition: Home or Self Care 06/06/2024 11:30 AM EST Consult Orthopedic Surgery - [place] [address] [facility] [address] [place] [phone] Ashley Hu PA Primary osteoarthritis of both first carpometacarpal joints (Primary Dx); Pain in both hands; Paresthesia of hand, bilateral 05/18/2024 Telephone Adult Medicine [address] [phone] Stacy Yen MD Med Refill 05/11/2024 11:11 AM EST - 05/11/2024 11:59 PM EST Hospital Encounter [address] [phone] Pain in both hands Discharge Disposition: Home or Self Care 05/11/2024 11:10 AM EST - 05/11/2024 11:59 PM EST Hospital Encounter [address] [phone] Lumbar radiculopathy Discharge Disposition: Home or Self Care 05/11/2024 10:00 AM EST Office Visit Adult Medicine [address] [phone] Isadora Carmona PA Annual physical exam (Primary Dx); Need for tetanus, diphtheria, and acellular pertussis (Tdap) vaccine; Invasive ductal carcinoma of breast, female, left (CMS/HCC); Peripheral neuropathy due to chemotherapy (CMS/HCC); Lumbar radiculopathy; Pain in both hands; Status post total right knee replacement; Dry skin; Stage 1 mild COPD by GOLD classification (CMS/HCC); Vitamin D deficiency; Gastroesophageal reflux disease without esophagitis 05/01/2024 8:30 AM EST Office Visit Pulmonolgy - [place] [address] [facility] [address] [place] [phone] Swati Lehman MD Chronic obstructive pulmonary disease, unspecified COPD type (CMS/HCC) (Primary Dx); Lung nodules; Smoker; Hypertension, unspecified type 04/27/2024 9:30 AM EST Office Visit [facility] Hematology Oncology [address] [place] [phone] Sunil Mauro MD Malignant neoplasm of upper-inner quadrant of left breast in female, estrogen receptor negative (CMS/HCC) (Primary Dx) from Last 3 Months Immunizations Name Administration Dates Next Due COVID-19 ([place]flower/Comirnaty) 12yo and older 05/21/2023 Influenza Quadravalent, MDCK , 0.5ml, preservative free (Flucelvax) 6mo and older 01/26/2023,03/08/2018 Influenza Quadrivalent, 0.5m l, preservative free (Fluarix; FluLaval; Fluzone) ages 6mo and older (Afluria) 3yo and older 01/11/2022 Influenza trivalent, 0.5mL, preservative free (Fluarix; FluLaval; Fluzone) ages 6mo and older (Afluria) 3 years and older 01/06/2024,12/25/2021,01/10/2021,01/14,02/08/2017,02/20/2015,02/24/2008 ,04/10/2006,03/28/2005 Wallflower SARS-CoV-2 COVID-19, mRNA, LNP-S, preservative free 02/02/2022 Pneumococcal polysaccharide 23 valent (Pneumovax 23) 2yo and older 11/08/2018 Td Tetanus diptheria (Tdvax) 7yo and older 05/17/1992 Tdap Tetanus diptheria acell ular pertussis (Boostrix; Adacel) 7yo and older 05/11/2024,01/26/2007 Zoster recombinant (Shingrix ) 19yo and older 04/24/2024,02/21/2024 Surgical History Surgery Date Site/Laterality Comments HYSTERECTOMY 2000 PROCEDURE: HISTORICAL HYSTERECTOMY; COMMENT: BSO, endometriosis- Dr. Brown OTHER SURGICAL HISTORY 08/2003 PROCEDURE: MAMMOGRAM COLONOSCOPY 04/2001 PROCEDURE: MD COLONOSCOPY STOMA DX INCLUDING COLLJ SPEC SPX OTHER SURGICAL HISTORY PROCEDURE: MD LARYNGOSCOPY INDIRECT W/VOCAL CORD INJECTION; COMMENT: Polyp removed on June 23, 2019 ESOPHAGOGASTRODUODENOSCOPY PROCEDURE: MD EGD TRANSORAL BIOPSY SINGLE/MULTIPLE; COMMENT: Performed on July 04, [address] Brenner BREAST BIOPSY PROCEDURE: BX BREAST; PERC NEEDLE CORE W/IMAG GUID; COMMENT: lt.breast bx-breast ca BREAST SURGERY PROCEDURE: MD UNLISTED PROCEDURE BREAST; COMMENT: lt lumpectomy w rad tx & chemo 10/2018 CERVICAL BIOPSY W/ LOOP ELEC TRODE EXCISION 1981 PROCEDURE: HISTORICAL CONE BIOPSY; COMMENT: cervical cancer Medical History Medical History Date Comments Breast cancer ([facility]) DX:Breas t cancer ([facility]) Vitamin D deficiency 10/14/2018 DX:Vitamin D deficiency Dysphagia DX:Dysphagia Choking DX:Choking Difficulty swallowing DX:Difficu lty swallowing Tobacco use DX:Tobacco use Anxiety DX:Anxiety Breast cancer ([facility]) DX:Breas t cancer ([facility]); COMMENT: 09/2018-lt. breast-invasive ductal carcinoma, S/P chemo and radiation tx COPD (chronic obstructive pu lmonary disease) ([facility]) DX:COPD (chronic obstructive pulmonary disease) ([facility]) Abnormal CT of the chest 04/08/2021 DX:Abno rmal CT of the chest; COMMENT: Abnl LDCT of chest 04/01/2021, repeat 3 months, to tumor board. Dry mouth DX:Dry mouth Abdominal bloating DX:Abdominal bloating Change in bowel habits DX:Change in bowel habits Cervical spondylosis without myelopathy DX:Cervical spondylosis without myelopathy Depressive disorder DX:Depressiv e disorder Irritable bowel syndrome DX:Irri table bowel syndrome Diverticulosis DX:Diverticulosi s Hemorrhoids DX:Hemorrhoids Constipation DX:Constipation CHF (congestive heart failure) ([facility]) 02/10/20 DX:CHF (congestive heart failure) ([facility]) History of rectal bleeding 02/08/2006 DX:Oh story of rectal bleeding; COMMENT: negative colonoscopy 12.17.. Terminal ileum normal. No colon cancer screening indicated until 2010. History of tobacco abuse 12/04/2020 DX:Hist ory of tobacco abuse; COMMENT: Apr 2019 Ascites 09/10/2021 DX:Ascites Gastroesophageal reflux dise ase without esophagitis 01/20/2024 DX:Gastroesophageal reflux disease without esophagitis Hypertriglyceridemia 03/08/2024 DX:Hypertri glyceridemia Family History Medical History Relation Name Comments Diabetes Father CAD, CABG, ESRD Arthritis Maternal Grandmother rheumat oid Heart attack Mother Hyperlipidemia Mother Hypertension Mother Breast cancer Other p. aunt Other: DJD Sister 1 two sisters and one brother Breast cancer Sister 2 45 Other: lupus Sister 2 45 Relation Name Status Comments Brother Alive Father Maternal Grandmother Mother Alive Other p. aunt Other Sister 1 Alive Sister 2 45 Alive Social History Tobacco Use Types Packs/Day Years Used Date Smoking Tobacco: Former Cigarettes 0.3 3.5 1 06/29/2018 - 11/14/2022 Smokeless Tobacco: Never Tobacco Cessation:Counseling Given: Not Answered Alcohol Use Standard Drinks/Week Comments Yes 0 [...] care for your loved ones. For example, summer child caregiver or elderly care for an older adult? [...] on file Sexual Orientation Not on file Obstetrics History Para Term AB IAB SAB Ectopic Multiple Livin g Live Births 2 2 2 2 Date Outcome GA Total Labor Labor/2nd/3rd Weight Sex Type Anes PTL Dedra A1 A5 Name Clin Term Term Last Filed Vital Signs Vital Sign Reading Time Taken Comments Blood Pressure 138/62 05/11/2024 10:14 AM EST Pulse 83 05/11/2024 10:14 AM EST Temperature 36.7 ??C (98 ??F) 05/11/2024 10:14 AM EST Respiratory Rate 12 05/11/2024 10:14 AM EST Oxygen Saturation 96% 05/11/2024 10:14 AM EST Inhaled Oxygen Concentration - - Weight 72.6 kg (160 lb) 06/06/2024 11:36 AM EST Height 160 cm (5' 3 ) 06/06/2024 11:36 AM EST Body Mass Index 28.34 06/06/2024 11:36 AM EST Plan of Treatment Upcoming Encounters Date Type Department Care Team (Late st Contact Info) Description 07/22/2024 8:00 AM EST Appointment [facility] CT Scan [address] [place] [phone] 09/11/2024 9:45 AM EDT Office Visit Adult Medicine [facility] [address] [place] [address] Stacy Yen MD [address] [place] [phone] 10/02/2024 10:00 AM EDT Office Visit Orthopedic Surgery - [place] [address] [phone] Ashley Hu PA [address] [phone] 10/26/2024 9:45 AM EDT Office Visit [facility] Hematology Oncology [address] [place] [phone] Sunil Mauro MD [address] [place] [phone] 10/30/2024 10:45 AM EDT Office Visit Pulmonolgy - [place] [address] [facility] [address] [place] [phone] Swati Lehman MD 175 [facility] [address] [place] [address] Health Maintenance Due Date Last Done Comments Hepatitis A Vaccines (1 of 2 - Risk 2-dose series) 08/28/1978 Hepatitis B Vaccines (1 of 3 - Risk 3-dose series) 2019 RSV Immunization Patients 60+ Years Old (1 - Risk 60-74 years 1-dose series) 2019 Pneumococcal Vaccine: 50+ Years (2 of 2 - PCV) 11/09/2019 11/08/2018 Pneumococcal Vaccine: Pediatrics (0 to 5 Years) and At-Risk Patients (6 to 64 Years) (2 of 2 - PCV) 11/09/2019 11/08/2018 HIV Screening 04/23/2022 Medicare Annual Wellness Visit 04/23/2022 COVID-19 Vaccine ( season) 2024 05/21/2023, 02/02/2022, 03/15/2021, Additional history exists Depression Screening 05/11/2025 05/11/2024 Social Influencers of Health Screening 05/11/2025 05/11/2024 Hypertension/CHF/CAD Annual BMP Blood Test 05/25/2025 05/25/2024, 03/07/2024, 09/09/2023 Breast Cancer Screening 06/27/2026 06/27/19, 06/14/2023, 06/03/2022, Additional history exists Cholesterol Screening (Lipid Panel) 03/07/2029 03/07/2024 Colorectal Cancer Screening: Colonoscopy 09/04/2031 09/03/2021 DTaP,Tdap,and Td Vaccines (4 - Td or Tdap) 05/11/2034 05/11/2024, 01/26/2007, 05/17/1992 Hepatitis C Screening Completed 04/30/2022 Influenza Vaccine Completed 01/06/2024, , 01/11/2022, Additional history exists Zoster Vaccines Completed 04/24/2024, 02/21/2024 HIB Vaccines Aged Out No longer eligi ble based on patient's age to complete this topic HPV Vaccines Aged Out No longer eligi ble based on patient's age to complete this topic IPV Vaccines Aged Out No longer eligi ble based on patient's age to complete this topic MMR Vaccines Aged Out No longer eligi ble based on patient's age to complete this topic Meningococcal ACWY Vaccine Aged Out N o longer eligible based on patient's age to complete this topic Meningococcal B Vacine Aged Out No lo nger eligible based on patient's age to complete this topic RSV Immunization Patients Under 20 months Aged Out No longer eligible based on patient's age to complete this topic Varicella Vaccines Aged Out No longer eligible based on patient's age to complete this topic Procedures Procedure Name Priority Date/Time Associated Diagnosis Comments MG MAMMO DIGITAL SCREENING W ÁNGEL BILAT Routine 06/27/2024 9:08 AM EST Encounter for screening mammogram for breast cancer BASIC METABOLIC PANEL Routine 05/25/2024 10:51 AM EST Annual physical exam VITAMIN B12 Routine 05/25/2024 10:51 AM EST Lumbar radiculopathy XR HAND 3+ VIEWS BILAT Routine 05/11/2024 11:32 AM EST Pain in both hands XR LUMBAR SPINE 4+ VIEWS Routine 05/11/2024 11:32 AM EST Lumbar radiculopathy from Last 3 Months Results * MG Mammo Digital Screening w Ángel bilat (06/27/2024 9:08 AM EST) Anatomical Region Laterality Modality Breast Bilateral Mammography 06/27/2024 6:04 PM EST Impressions 06/27/2024 6:10 PM EST BILATERAL BREASTS: Benign, no evidence of malignancy. Normal interval follow-up is recommended in 12 months. BREAST DENSITY: B - There are scattered areas of fibroglandular density. BI-RADS CATEGORY: 2 - BENIGN RECOMMENDATION: Screening bilateral mammogram is recommended in 1 year. Mammo Location: [facility], [address] [place] [address], [id number], . -------- FINAL REPORT -------- Dictated By: Nate Stewart Dictated Date: 06/27/2024 18:04 ET Assigned Physician: Nate Stewart Reviewed and Electronically Signed By: Nate Stewart Signed Date: 06/27/2024 18:10 ET Workstation ID: [id number] Transcribed By: Self Edit Transcribed Date: 06/27/2024 18:04 ET Narrative 06/27/2024 6:10 PM EST STUDY: Bilateral screening mammography with tomosynthesis and CAD History: Personal history of left breast lumpectomy for breast cancer in 2019. TECHNIQUE: Bilateral full-field digital screening mammography is obtained and read in conjunction with computer-aided detection. ??Tomosynthesis as well as 2-D C view imaging were obtained. ?? COMPARISON: Comparison made to multiple prior, most recent June 14, 2023, and most remote August 03, 2016. RIGHT BREAST: No significant masses, suspicious calcifications or other abnormalities are seen. LEFT BREAST: ??Postlumpectomy changes. No significant masses, suspicious calcifications or other abnormalities are seen. Procedure Note Nate Stewart MD - 06/27/2024 STUDY: Bilateral screening mammography with tomosynthesis and CAD History: Personal history of left breast lumpectomy for breast cancer [id number]. TECHNIQUE: Bilateral full-field digital screening mammography is obtainedand read in conjunction with computer-aided detection. Tomosynthesis aswell as 2-D C view imaging were obtained. COMPARISON: Comparison made to multiple prior, most recent May, and most remote August 03, 2016. RIGHT BREAST: No significant masses, suspicious calcifications or otherabnormalities are seen. LEFT BREAST: Postlumpectomy changes. No significant masses, suspiciouscalcifications or other abnormalities are seen. IMPRESSION: BILATERAL BREASTS: Benign, no evidence of malignancy. Normal intervalfollow-up is recommended in 12 months. BREAST DENSITY: B - There are scattered areas of fibroglandular density. BI-RADS CATEGORY: 2 - BENIGN RECOMMENDATION: Screening bilateral mammogram is recommended in 1 year. Mammo Location: [facility], [address] [place] [address], [id number], . -------- FINAL REPORT -------- Dictated By: Nate Stewart Dictated Date: 06/27/2024 18:04 ET Assigned Physician: Nate Stewart Reviewed and Electronically Signed By: Nate Stewart Signed Date: 06/27/2024 18:10 ET Workstation ID: [id number] Transcribed By: Self Edit Transcribed Date: 06/27/2024 18:04 ET Stacy Yen MD IMG BI PROCEDURE S Final Result * Vitamin B12 (05/25/2024 10:51 AM EST) Pathologist [facility] Vitamin B-12 486 250 - 900 pcg/mL LAB CHEMISTRY METHOD 05/25/2024 6:19 PM EST [facility] Blood Venous blood specimen / Unknown Venipuncture / Unknown 05/25/2024 10:51 AM EST 05/25/2024 10:51 AM EST us Isadora JIMENEZ LAB BLOOD ORDERABLES Final Re sult [facility] [address] [place] [address], [place] [phone] * (ABNORMAL) Basic metabolic panel (05/25/2024 10:51 AM EST) Pathologist [facility] Sodium 138 133 - 145 mmol/L LAB CHEMISTRY METHOD 05/25/2024 6:19 PM EST [facility] Potassium 3.5 3.5 - 5.5 mmol/L LAB CHEMISTRY METHOD 05/25/2024 6:19 PM [facility] Chloride 96 96 - 110 mmol/L LAB CHEMISTRY METHOD 05/25/2024 6:19 PM [facility] CO2 36(H) 21 - 32 mmol/L LAB CHEMISTRY METHOD 05/25/2024 6:19 PM [facility] Anion Gap 6 3 - 11 LAB CHEMISTRY METHOD 05/25/2024 6:19 PM [facility] Glucose 96 70 - 100 mg/dL LAB CHEMISTRY METHOD 05/25/2024 6:19 PM [facility] BUN 9 5 - 25 mg/dL LAB CHEMISTRY METHOD 05/25/2024 6:19 PM [facility] Creatinine 0.54 0.50 - 1.10 mg/dL LAB CHEMISTRY METHOD 05/25/2024 6:19 PM [facility] eGFR 103 >=60 mL/min/1. 73m2 LAB CHEMISTRY METHOD 05/25/2024 6:19 PM [facility] Comment:Calculation based on the??Chronic Kidney Disease Epidemiology Collaboration (CKD-EPI) equation refit??without adjustment for race. BUN/Creatinine Ratio 16.7 LAB CHEMISTRY METHOD 05/25/2024 6:19 PM [facility] Calcium 8.9 8.5 - 10.5 mg/dL LAB CHEMISTRY METHOD 05/25/2024 6:19 PM [facility] Blood Venous blood specimen / Unknown Venipuncture / Unknown 05/25/2024 10:51 AM EST 05/25/2024 10:51 AM EST us Isadora JIMENEZ LAB BLOOD ORDERABLES Final Re sult [facility] [address] [place] [address], * XR Hand 3+ Views bilat (05/11/2024 11:32 AM EST) Anatomical Region Laterality Modality Upper Extremities, Hand Bilateral Radiogra [facility] 05/11/2024 1:00 PM EST Narrative 05/11/2024 1:02 PM EST Bilateral hands, 3 views of each. History pain. There are degenerative changes in the DIP joints of multiple digits more prominent on the second and fifth digits on the right and second and third digits on the left. There are mild degenerative changes in the PIP joints bilaterally more prominent on the fifth fingers. There are mild degenerative changes in the first carpometacarpal joint on the right. There is no arm fractures, dislocations or abnormal soft tissue calcifications. CONCLUSIONS: Multisite degenerative changes as detailed. -------- FINAL REPORT -------- Dictated By: Gabby Frias Dictated Date: 05/11/2024 13:00 ET Assigned Physician: Gabby Frias Reviewed and Electronically Signed By: Gabby Frias Signed Date: 05/11/2024 13:02 ET Workstation ID: [id number] Transcribed By: Self Edit Transcribed Date: 05/11/2024 13:00 ET Procedure Note Gabby Frias MD - 05/11/2024 Bilateral hands, 3 views of each. History pain. There are degenerative changes in the DIP joints of multiple digits moreprominent on the second and fifth digits on the right and second and thirddigits on the left. There are mild degenerative changes in the PIP jointsbilaterally more prominent on the fifth fingers. There are milddegenerative changes in the first carpometacarpal joint on the right.There is no arm fractures, dislocations or abnormal soft tissuecalcifications. CONCLUSIONS: Multisite degenerative changes as detailed. -------- FINAL REPORT -------- Dictated By: Gabby Frias Dictated Date: 05/11/2024 13:00 ET Assigned Physician: Gabby Frias Reviewed and Electronically Signed By: Gabby Frias Signed Date: 05/11/2024 13:02 ET Workstation ID: [id number] Transcribed By: Self Edit Transcribed Date: 05/11/2024 13:00 ET us Isadora JIMENEZ IMG XR PROCEDURES Final Resul t * XR Lumbar Spine 4+ Views (05/11/2024 11:32 AM EST) Anatomical Region Laterality Modality Spine, L-spine Radiographic Phuong ging 05/11/2024 1:03 PM EST Narrative 05/11/2024 1:30 PM EST Lumbosacral spine, 4 views. HISTORY: Back pain. Compared with previous examinations, latest from 02/03/2022. There is no evidence of compression deformities. There is mild anterior displacement of L4 over L5 and posterior displacement of L5 over S1. There is facet arthropathy at multiple levels more prominent at L4-5 and L5-S1 levels. There is no visible fractures or dislocations. There is no bony destructive lesions. Visualization of the sacrum is limited due to overlapping intestinal contents. CONCLUSIONS: Degenerative changes as detailed. Slight interval progression since previous examination. -------- FINAL REPORT -------- Dictated By: Gabby Frias Dictated Date: 05/11/2024 13:03 ET Assigned Physician: Gabby Frias Reviewed and Electronically Signed By: Gabby Frias Signed Date: 05/11/2024 13:30 ET Workstation ID: [id number] Transcribed By: Self Edit Transcribed Date: 05/11/2024 13:03 ET Procedure Note Gabby Frias MD - 05/11/2024 Lumbosacral spine, 4 views. HISTORY: Back pain. Compared with previous examinations, latest from 02/03/2022. There is no evidence of compression deformities. There is mild anteriordisplacement of L4 over L5 and posterior displacement of L5 over S1. Thereis facet arthropathy at multiple levels more prominent at L4-5 and L5-Z4htrevd. There is no visible fractures or dislocations. There is no bonydestructive lesions. Visualization of the sacrum is limited due tooverlapping intestinal contents. CONCLUSIONS: Degenerative changes as detailed. Slight interval progressionsince previous examination. -------- FINAL REPORT -------- Dictated By: Gabby Frias Dictated Date: 05/11/2024 13:03 ET Assigned Physician: Gabby Frias Reviewed and Electronically Signed By: Gabby Frias Signed Date: 05/11/2024 13:30 ET Workstation ID: [id number] Transcribed By: Self Edit Transcribed Date: 05/11/2024 13:03 ET Isadora JIMENEZ IMG XR PROCEDURES Final Resul t from Last 3 Months Insurance [employer] MED[employer] Member Subscriber Plan / Payer (Ef fective 2023-Present) Name:Do Luna Kp Relation to Subscriber:Self Name:Do Luna Kp Payer ID:[id number] Group ID:[id number] Type:Not on file Address: [place] [address] [address] [id number] Care Teams Trademark Attorney Relationship Specialty Start Date End Date Stayc Yen MD [address] [place], [place] PCP - General Internal Medicine 12/17/21
--- OUTSIDE RECORDS SUMMARY | 2024-07-19 11:46 | XMS_ITS | Encounter Summary ---
Author Organization [facility] Address [address] [place] [address] Care Team Providers Care Rotoprinter Name Role Phone Stacy Yen MD Primary Care Pr ovider Reason for Visit * Imaging (Routine) - Closed Specialty Diagnoses / Procedures Referred By Charity ruvalcaba Referred To Contact Radiology Diagnoses Encounter for screening mammogram for breast cancer Procedures MG Mammo Digital Screening w Ángel bilat MG Mammo Digital Screening w Ángel bilStacy Raines MD [address] [place] [id number] Phone: tel: fax: [facility] Referral ID Status Reason Start Date Expiration Date Visits Re quested Visits Authorized [id number] Closed 03/02/2024 03/02/2025 1 1 Encounter Details Date Type Department Care Team (Latest Contact Info) Description 06/27/2024 8:45 AM EST - 06/27/2024 11:59 PM EST Hospital Encounter Radiology Department - [address] [address] Encounter for screening mammogram for breast cancer Discharge Disposition: Home or Self Care Social History Tobacco Use Types Packs/Day Years [...] for your loved ones. For example, children's ministry director or elderly care for an older adult? [...] on file documented as of this encounter Medications at Time of Discharge acetaminophen (TYLENOL) 325 mg tablet Take 2 tablets (650 mg total) by mouth every 6 (six) hours as needed for pain. albuterol HFA (PROAIR HFA ; PROVENTIL HFA ; VENTOLIN HFA) 90 mcg/actuation inhaler Inhale 2 puffs by mouth every 6 (six) hours if needed. 07/28/2021 celecoxib (CeleBREX) 200 mg capsule Take 1 capsule (200 mg total) by mouth daily. cholecalciferol (VITAMIN D-3) 50 mcg (2,000 unit) capsule Take 400 Units by mouth daily. cyanocobalamin (VITAMIN B-12) 500 mcg tablet Take 1 tablet (500 mcg total) by mouth 1 (one) time each day. diclofenac (VOLTAREN) 50 mg EC tablet Take 1 tablet (50 mg total) by mouth 2 (two) times a day. 12/16/2023 DULoxetine (CYMBALTA) [address] capsule TAKE 2 CAPSULES BY MOUTH EVERY DAY 180 capsule 1 05/11/2024 furosemide (LASIX) 40 mg tablet TAKE 1 TABLET BY MOUTH EVERY DAY NEEDED 90 tablet 3 04/20/2024 gabapentin (NEURONTIN) 600 mg tablet TAKE 2 TABLETS BY MOUTH 3 TIMES A DAY 04/07/2023 ibuprofen (ADVIL,MOTRIN) 600 mg tablet Take 1 tablet (600 mg total) by mouth every 6 (six) hours as needed for pain. pantoprazole (PROTONIX) 20 mg EC tablet Take 1 tablet (20 mg total) by mouth 1 (one) time each day before breakfast. plecanatide (Trulance) 3 mg tablet Take 1 tablet (3 mg total) by mouth 1 (one) time each day. 01/21/2024 polyethylene glycol (MIRALAX) 17 gram packet Take 17 g by mouth daily. senna (SENOKOT) 8.6 mg tablet Take 1 tablet (8.6 mg total) by mouth 1 (one) time each day. Stool Softener 100 mg capsule TAKE 1 CAPSULE BY MOUTH TWICE A DAY NEEDED FOR CONSTIPATION 180 capsule 1 06/23/2024 tirzepatide, weight loss, (Zepbound) 2.5 mg/0.5 mL injection Inject 0.5 mL (2.5 mg total) under the skin every 7 (seven) days. 6 mL 05/17/2024 Trelegy Ellipta 100-62.5-25 mcg inhaler Inhale 1 puff (100 mcg total) by mouth 1 (one) time each day. 03/20/2024 UNABLE TO FIND albuterol (2.5 MG/3ML) 0.083% NEBU 3 mL, albuterol (5 MG/ML) 0.5% NEBU 0.5 mL, Inhale into the lungs. documented as of this encounter Discharge Disposition Disposition Code Departure Means Destination Home or Self Care documented in this encounter Plan of Treatment Upcoming Encounters Date Type Department Care Team (Late st Contact Info) Description 07/22/2024 8:[address] [facility] CT Scan [address] [place] [phone] 09/11/2024 9:45 AM EDT Office Visit Adult Medicine [facility] [address] [place] [address] Stacy Yen MD [address] [place] [address] 10/02/2024 10:00 AM EDT Office Visit Orthopedic Surgery [facility] [address] [phone] Ashley Hu PA [address] [phone] 10/26/2024 9:45 AM EDT Office Visit [facility] Hematology Oncology [address] [place] [phone] Sunil Mauro MD [address] [place] [phone] 10/30/2024 10:45 AM EDT Office Visit Pulmonolgy [facility] [address] [phone] Swati Lehman MD [address] [phone] documented as of this encounter Procedures Procedure Name Priority Date/Time Associated Diagnosis Comments MG MAMMO DIGITAL SCREENING W ÁNGEL BILAT Routine 06/27/2024 9:08 AM EST Encounter for screening mammogram for breast cancer documented in this encounter Results * MG Mammo Digital Screening w [...] is recommended in 1 year. Mammo Location: [facility], [address] [place] [address], [phone], . -------- FINAL REPORT -------- Dictated By: Nate Stewart Dictated Date: 06/27/2024 18:04 ET Assigned Physician: Nate Stewart Reviewed and Electronically Signed By: Nate Stewart Signed Date: 06/27/2024 18:10 ET Workstation ID: [id number] Transcribed By: Self Edit Transcribed Date: 06/27/2024 [...] of left breast lumpectomy for breast cancer [id number]. TECHNIQUE: Bilateral full-field digital screening mammography is [...] is recommended in 1 year. Mammo Location: [facility], [address] [place] [address], [phone], . -------- FINAL REPORT -------- Dictated By: Nate Stewart Dictated Date: 06/27/2024 18:04 ET Assigned Physician: Nate Stewart Reviewed and Electronically Signed By: Nate Stewart Signed Date: 06/27/2024 18:10 ET Workstation ID: [id number] Transcribed By: Self Edit Transcribed Date: 06/27/2024 18:04 ET us Stacy Yen MD IM BI PROCEDURE S Final Result documented in this encounter Visit Diagnoses Diagnosis Encounter for screening mammogram for breast cancer documented in this encounter Additional Health Concerns Assessment Noted Time PHQ-9 Depression Total Score: 1 05/11/20 24 10:20 AM EST documented as of this encounter Care Teams Rotoprinter Relationship Specialty Start Date End Date Stacy Yen MD [address] [place], [place] PCP - General Internal Medicine 12/17/21 documented as of this encounter
[2024-07-19 11:54] LABS: Troponin-I High Sensitivity 278.5 ng/L (<3.5-17.0)
--- NOTE | 2024-07-19 12:16 | ECG_ITS ---
Test Reason : chest pain Blood Pressure : */* mmHG Vent. Rate : 108 BPM Atrial Rate : 108 BPM P-R Int : 154 ms QRS Dur : 108 ms QT Int : 388 ms P-R-T Axes : 83 -13 80 degrees QTcB Int : 519 ms Sinus tachycardia with occasional Premature ventricular complexes Minimal voltage criteria for LVH, may be normal variant ( Mariano product ) Nonspecific ST and T wave abnormality Abnormal ECG When compared with ECG of 21-Aug-2021 18:33, Premature ventricular complexes are now Present T wave inversion now evident in Lateral leads Referred By: Calvin Doan Electronically Signed By: RITA ARZATE MD
[2024-07-19] MEDS: ondansetron HCL 4 MG/2 ML VIAL IVPUSH ×2 (13:37→18:18)
[2024-07-19 14:51] LABS: Troponin-I High Sensitivity 492.5 ng/L (<3.5-17.0)
--- NOTE | 2024-07-19 14:55 | ECG_ITS ---
Test Reason : ELEVATED TROP Blood Pressure : */* mmHG Vent. Rate : 109 BPM Atrial Rate : 109 BPM P-R Int : 152 ms QRS Dur : 110 ms QT Int : 370 ms P-R-T Axes : 76 -33 87 degrees QTcB Int : 498 ms Sinus tachycardia Left axis deviation Minimal voltage criteria for LVH, may be normal variant ( [place] product ) Abnormal ECG When compared with ECG of 19-Jul-2024 12:42, Premature ventricular complexes are no longer Present Referred By: Calvin Doan Electronically Signed By: RITA ARZATE MD
[2024-07-19 15:33] VITALS: BP 142/78; PULSE 112; RESP 24; TEMP 36.8; O2SAT 91
--- NOTE | 2024-07-19 16:13 | PHA.MEDREC ---
Addendum entered by Fortunato Frances 07/19/24 16:31: reviewed Original Note: Pharmacy Consult ? Medication Reconciliation Pharmacy has completed the medication reconciliation. Spoke with patient and she was in an great amount of pain and just wanted her pain medication but was able to confirm her other medications. Patient confirmed her Methadone and confirmed she is starting to ween off of it and is now taking 102mg daily. She confirmed she took her medications yesterday.
--- NOTE | 2024-07-19 16:30 | P.HPHOSP_ITS ---
History of Present Illness Date of Service: 07/19/24 Attending physician on admission: Donna Hung Chief Complaint: Chest pain Pt is a 63-year-old female with a PMH significant for?COPD on home O2 2L at rest and 4L with exertion, fibromyalgia, osteoarthritis, lumbar disc degenerative disease, GERD, hx of breast cancer, hx of cervical cancer, opioid use disorder on methadone, and anxiety who presents to the ED with?chest and abdominal pain, nausea and vomiting x1 day. Pt reports she was awoken in the middle night with constant sharp, stabbing substernal pain that radiated to her abdomen and back. Denies radiation to neck, jaw, or arm. Has felt feverish and sweaty, though did not take her temperature at home. Chronic SOB and cough at baseline. Pt complaints pain is a 10/10, and the worse pain she has experienced in her life. Pt reports hx of opioid use disorder secondary to buying oxycodone from a neighbor when she was undergoing chemotherapy. Has been clean for 2 years. Pt reports drinks 2-3 Truly hard seltzers daily. No hx of alcohol withdrawal. Denies increased anxiety, tactile/visual/auditory hallucinations. In the ED pt was tachycardic up to 112, tachypneic up to 24, and hypertensive up to 152/94. Labs were significant for leukocytosis of 13.8, potassium 3.1 calcium 7.7, T bili 1.1, AST 80, ALT 54, lipase 220, troponin 278.5 with repeat with delta at 492.5. CT?of abdomen and pelvis found acute pancreatitis without immediate complications. Also found hepatomegaly and steatosis. EKG demonstrated sinus tachycardia of 109 without evidence of significant ischemic changes. Pt was treated with lorazepam, morphine, IVF, and ondansetron. Pt will be admitted to the hospital for treatment and further evaluation of acute pancreatitis. Review of Systems 2 Review of Systems: Negative except for that which is stated in the HPI. [facility] Medical History Great toe pain Low back pain radiating down leg Screening examination for infectious disease Osteoarthritis of right knee DDD (degenerative disc disease), lumbar Anxiety Dysphagia Pulmonary nodules History of ascites Peripheral neuropathy Opioid use disorder Methadone maintenance therapy patient Arthritis IBS (irritable bowel syndrome) Cervical cancer Breast cancer COPD (chronic obstructive pulmonary disease) Vocal cord polyp Family History Father Diabetes Mother CAD (coronary artery disease) CHF (congestive heart failure) Sister Breast cancer Lupus (systemic lupus erythematosus) Surgical History History of vocal cord polypectomy Hx of colonoscopy History of lumpectomy of left breast Hx of laparoscopy History of hemorrhoidectomy H/O total hysterectomy Social History Household Members: Spouse Housing: House Are you a primary morning caregiver to a significant other at home: No Do you presently have visiting nurse or other home services: No Alcohol intake: current Alcohol intake frequency: a few times a week Comment: aware of trip hazard Patient Tobacco Use Status: Former Tobacco user Tobacco use type: Cigarette Years Smoked: 50 Smoked in Last 30 Days: No Second Hand Smoke Exposure: Yes Use of substances other than those prescribed or required for medical reasons: No Advance Directives: No Advance Directives Information Provided: Yes Do you have a plan to hurt others: No Plan Patient : No service: No Current occupational status: disabled Meds Allergies Allergy/AdvReac Type Severity Reaction Status Date / Time No Known Allergies Allergy Verified 07/19/24 09:21 [No Known Allergies*] Home Medications ?Medication ?Instructions ?Recorded ?Confirmed ?Last Taken ?Type cholecalciferol (vitamin D3) 125 1 tab PO DAILY 08/21/21 07/19/24 07/18/24 History mcg (5,000 unit) tablet (Vitamin D3) gabapentin 600 mg tablet 2 tab PO TID 08/21/21 07/19/24 07/18/24 History fluticasone fur. 100 mcg-umeclid 1 puff inhalation DAILY 07/21/22 07/19/24 07/18/24 History 62.5 mcg-vilant 25 mcg inhalat.powder (Trelegy Ellipta) multivitamin with minerals 1 tab PO DAILY 07/21/22 07/19/24 07/18/24 History duloxetine 30 mg capsule,delayed 30 mg PO BID 01/19/23 07/19/24 07/18/24 History release (Cymbalta) pantoprazole 20 mg tablet,delayed 20 mg PO BID@0630,1630 01/28/23 07/19/24 07/18/24 History release furosemide 40 mg tablet 40 mg PO DAILY PRN Swelling 02/02/23 07/19/24 Unknown History methadone 10 mg/mL oral concentrate 106 mg PO DAILY 03/22/24 03/22/24 Unknown History docusate sodium 100 mg capsule 100 mg PO BID PRN Constipation 07/19/24 07/19/24 Unknown History (Stool Softener) Physical Exam 2 Vital Signs and Narrative: Vital Signs: Last Vital Signs Temp 98.2 F 07/19/24 15:33 Pulse 112 H 07/19/24 15:33 Resp 24 H 07/19/24 15:33 BP 142/78 H 07/19/24 15:33 Pulse Ox 91 L 07/19/24 15:33 O2 Del Method Room Air 07/19/24 15:33 O2 Flow Rate 2 07/19/24 11:06 BMI result Body Mass Index 29.1 General: AOx3, looks uncomfortable and in pain, no acute distress Resp: CTA bilaterally CVS: S1, S2, regular rhythm, tachycardic Chest: Central sternum tender to palpation GI: +BS, diffuse abd tenderness, worse in RUQ Skin: Warm, dry Neuro: Cranial nerves II-XII grossly intact bilaterally. Motor grossly intact bilaterally. No upper extremity tremors noted. Extremities: No edema Psych: Appropriate affect Results Labs 07/19/24 11:16 07/19/24 11:16 Labs: Laboratory Results - last 24 hr 07/19/24 11:16 MCV 106.3 H MCH 36.9 H MCHC 34.7 RDW 14.8 Plt Count 214 MPV 8.5 L Immature Gran % (Auto) 0.4 Neut % (Auto) 89.9 H Lymph % (Auto) 5.1 L [place] % (Auto) 3.6 Eos % (Auto) 0.7 Baso % (Auto) 0.3 Lymph # (Auto) 0.7 L [place] # (Auto) 0.5 Eos # (Auto) 0.1 Baso # (Auto) 0.0 Abs Immat Gran (auto) 0.06 H Absolute Neuts (auto) 12.4 H Absolute Nucleated RBC 0.000 Nucleated RBC % (auto) 0.0 Anion Gap 10 L Estim Creat Clear Calc 93.0 Estimated GFR > 60 Random Glucose 139 H Calcium 7.7 L D Magnesium 1.9 Total Bilirubin 1.1 H AST 80 H ALT 54 H Alkaline Phosphatase 106 Total Protein 5.7 L Albumin 3.0 L Lipase 220 H Imaging Radiologist's Impressions: Impressions Abdomen/Pelvis CT 07/19/24 10:47 IMPRESSION: Acute pancreatitis without immediate complications. Consider stricture in sphincter of Oddi. Noncalcified calculus versus intrinsic lesion cannot be excluded. Hepatomegaly and steatosis. Discussed with the emergency physician Dr. Calvin Doan at 11:36 AM on July 19, 2024. Fleischner guidelines were followed. Electronically signed by: Patrice Mcdaniels MD 07/19/2024 11:51 AM [facility] Assessment and Plan (1) Acute pancreatitis: Status: Acute Plan Pt is a 63-year-old female with a PMH significant for?COPD on home O2 2L at rest and 4L with exertion, fibromyalgia, osteoarthritis, lumbar disc degenerative disease, GERD, hx of breast cancer, hx of cervical cancer, opioid use disorder on methadone, and anxiety who presents to the ED with?chest and abdominal pain, nausea and vomiting x1 day. Pt will be admitted to the hospital for treatment and further evaluation of acute pancreatitis. Acute pancreatitis Pt with substernal chest pain radiating to abdomen and back with associated nausea and vomiting since middle of the night CT showing acute pancreatitis, lipase 220 Unclear etiology: CT concerning for stricture in sphincter of Oddi; pt reports drinking 2-3 hard selzters almost daily Bowel rest, analgesics, antiemetics, IVF GI consult Trend lipase Check triglycerides Elevated troponins Initial troponin 278.5 with repeat with delta at 492.5 Pt with atypical and reproducible substernal chest pain, possibly secondary to acute pancreatitis EKG x2 without ischemic changes Will repeat troponin Echocardiogram Monitor on telemetry Cardiology consult if significant further elevation Acute hypokalemia, mild Potassium 3.1 at time of presentation Likely secondary to nausea and vomiting in the setting of reduced p.o. intake Will supplement with potassium chloride 20 mEq p.o. Follow potassium Transaminitis T bili 1.1, AST 80, ALT 54 Likely in the setting acute pancreatitis Treat as above GI consult, Trend labs Alcohol dependence Pt reports drinking 2-3 hard seltzers daily No hx of withdrawal Monitor on CIWA COPD On 2 L home O2 at rest and 4 L with exertion Not in acute exacerbation Continue home inhalers Fibromyalgia Continue gabapentin GERD Continue PPI Opioid use disorder Continue methadone Full Code Attending:?Dr. Hung DVT Prophylaxis: Lovenox Pt will require a hospitalization of at least two nights for treatment of?acute pancreatitis of unclear etiology requiring hospital level care for bowel rest, IV analgesics and antiemetics, as well as specialist consultation with GI for possible further workup. Quality Stroke Does the patient have a stroke diagnosis?: No VTE Prior VTE?: No VTE Risk Level:: Medical - moderate - high VTE Device Contraindication: Treatment Not Indicated VTE Drug Contraindication: N/A - Med Ordered
[2024-07-19 17:01] LABS: Cholesterol 160 mg/dL (<200); HDL Cholesterol 40 mg/dL (>40); LDL Cholesterol Calculated 56 mg/dL (<100); Triglycerides 322 mg/dL (<150)
[2024-07-19] MEDS: Potassium Chloride ER 20 MEQ TAB.ER.PRT PO (18:13)
[2024-07-19] MEDS: Enoxaparin Sodium 40 MG/0.4 ML SYRINGE SUBCUT (18:14)
[2024-07-19] MEDS: HYDROmorphone HCl 0.5 MG/0.5 ML SYRINGE IVPUSH ×2 (18:18→22:14)
[2024-07-19] MEDS: Lactated Ringers 1,000 ML 100 ML IVCONT (18:27)
--- NOTE | 2024-07-19 18:28 | PM.EVENT ---
Event Note Date of Service: 07/19/24 Event Note: GI-Consult received, chart reviewed. Patient will be seen and evaluated tomorrow. In the meantime I have ordered F/U labs for the AM, a RUQ U/S to assess for gallstones, and a MRI/MRCP to assess for any pancreatic mass, choledocholithiasis, etc. Please call if questions in the meantime. Thanks Time Spent With Patient Time: Total time managing care of this patient today ____ minutes.
[2024-07-19 18:45] LABS: Troponin-I High Sensitivity 632.3 ng/L (<3.5-17.0)
[2024-07-19 19:14] VITALS: BP 134/91; PULSE 108; RESP 20; TEMP 36.6; O2SAT 94
[2024-07-19 19:45] LABS: Prothrombin Time 11.5 SEC (10.9-12.4)
[2024-07-19 19:48] LABS: PTT Heparin Drip 29.6 SEC (53-77.9)
[2024-07-19 20:00] VITALS: BP 128/78; PULSE 102; RESP 20; TEMP 36.9; O2SAT 93
[2024-07-19] MEDS: Heparin Sodium,Porcine/1/2NS 25,000 UNIT/250 ML IV.SOLN 8.93 UNIT IVCONT (20:03)
--- NOTE | 2024-07-19 20:22 | PC.NURSE ---
pt transported to [facility] with this RN and Thiago PCT, bedside handover to Sarika RN, dose rate of heparin confirmed at bedside. nad at time of transport.
[2024-07-19] MEDS: Gabapentin 600 MG TABLET 1200 MG PO (21:12)
[2024-07-19] MEDS: DULoxetine HCl 30 MG CAPSULE.DR PO (21:12)
[2024-07-19] MEDS: Diclofenac Sodium Delayed Rel 50 MG TABLET.DR PO (21:12)
[2024-07-19 22:01] VITALS: BMI 27.5
[2024-07-19] MEDS: Melatonin 3 MG TABLET 6 MG PO (22:11)
[2024-07-20] VITALS (7 sets, daily range): BP systolic 96–120; BP diastolic 54–76; PULSE 73–95; RESP 16–20; TEMP 36.3–37.2; O2SAT 94–97
--- NOTE | 2024-07-20 | ECG_ITS ---
Test Reason : CP Blood Pressure : */* mmHG Vent. Rate : 77 BPM Atrial Rate : 77 BPM P-R Int : 150 ms QRS Dur : 108 ms QT Int : 508 ms P-R-T Axes : 43 -43 67 degrees QTcB Int : 574 ms Normal sinus rhythm Left axis deviation Septal infarct , age undetermined Prolonged QT Abnormal ECG When compared with ECG of 19-Jul-2024 15:04, Septal infarct is now Present Nonspecific T wave abnormality has replaced inverted T waves in Lateral leads QT has lengthened Referred By: Donna Hung Electronically Signed By: RITA ARZATE MD
[2024-07-20 02:25] LABS: PTT Heparin Drip 47.5 SEC (53-77.9)
[2024-07-20] MEDS: Lactated Ringers 1,000 ML 100 ML IVCONT ×2 (02:51→16:46)
[2024-07-20] MEDS: Heparin Sodium,Porcine 5,000 UNIT/ML VIAL 3000 UNIT IVPUSH (02:52)
[2024-07-20] MEDS: Morphine Sulfate 4 MG/ML CARTRIDGE IVPUSH ×2 (03:04→09:06)
[2024-07-20] MEDS: Omeprazole 20 MG CAPSULE.DR PO (05:37)
--- NOTE | 2024-07-20 06:36 | HE.PHANOTE ---
RE METHADONE Pharmacy has recieved patients methadone verification form. Patient confirmed to be rieceving 104 mg of methadone on 07/07 with [facility] [phone], patient was given 27 at home bottles to last from 07/07 to 08/04. It is noted patient is tapering, patient took 102 mg on 07/19 and is scheduled to take 100 mg today (07/20) until 07/28.
[2024-07-20 06:37] LABS: Hematocrit 37.3 % (37.0-47.0); Hemoglobin 12.7 g/dl (12.0-16.0); Mean Corpuscular Hemoglobin 36.8 pg (27.0-33.0); Mean Corpuscular Volume 108.1 fL (80.0-98.0); Mean Platelet Volume 8.9 fL (9.4-12.3); Platelet Count 201 X10*3/uL (160-400); Red Blood Count 3.45 X10*6/uL (4.20-5.50); Red Cell Distribution Width 15.1 % (11.0-16.0); White Blood Count 10.7 X10*3/uL (4.8-10.8)
[2024-07-20 06:56] LABS: Alanine Aminotransferase 39 U/L (0-31); Albumin Level 2.8 g/dL (3.5-5.0); Alkaline Phosphatase 94 U/L (39-117); Anion Gap 12 (12-20); Aspartate Amino Transferase 60 U/L (5-31); Bilirubin Direct 0.4 mg/dL (0.0-0.5); Blood Urea Nitrogen 4 mg/dL (9-16); Calcium 7.5 mg/dL (8.4-10.2); Carbon Dioxide 26 mmol/L (22-29); Chloride 103 mmol/L (96-108); Creatinine Clr Calc Pharmacy 97.2; Estimated Glomerular Filt Rate > 60; Glucose Random 134 mg/dL (60-115); Lipase 135 U/L (8-78); Potassium 3.3 mmol/L (3.3-5.1); Sodium 138 mmol/L (135-145); Total Protein 5.5 g/dL (6.5-8.0)
--- NOTE | 2024-07-20 07:00 | CA_ITS ---
Transthoracic Echocardiogram Patient (Last, First, Middle): Do Luna, Gender: Female Date of : 1960 Age: 63 Procedure Date: 07/20/2024 Procedure Type: Transthoracic Echocardiogram Location: [facility] [place] Height: 160.02 cm Weight: 70.31 kg BSA: 1.74 m2 Heart Rate: 80 bpm BP: 116 / 62 mmHg Weigh And Charge Worker: TO Referring MD: Jose Cruz JIMENEZ Television Maintenance Worker: Frank Root MD Symptoms: Elevated troponins Study Quality: Adequate w contrast ECG Rhythm: Sinus Conclusions: - 1. Mildly dilated left ventricle with moderately reduced LV ejection fraction of 35-40% with impaired relaxation filling pattern with underlying regional wall motion abnormality consistent with coronary artery disease 2. Mild mitral regurgitation noted 3. No gross pericardial effusion Findings Procedure Information Contrast agent, definity, is being given per protocol without apparent complications. Left Ventricle Mildly increased left ventricular cavity size. There is normal left ventricular wall thickness. The left ventricular systolic function is moderately decreased. The visually estimated ejection fraction is between 35 40%. Spectral Doppler is indicative of an impaired relaxation filling pattern. E/E prime ratio is between 8 and 15 consistent with indeterminate filling pressures. Wall Motion Rest Echo Findings The inferior wall, inferolateral wall, and mid inferoseptal segment are hypokinetic. The basal inferoseptal segment is akinetic. All other scored wall segments showed normal motion. Right Ventricle Normal right ventricular cavity size and systolic function. Atria The left atrium is mildly dilated. There is lipomatous hypertrophy of the interatrial septum. There is no evidence of interatrial shunt. The right atrium is normal in size. Aortic Valve The aortic valve was not well visualized. There is no aortic valve stenosis. There is no aortic valve regurgitation. Mitral Valve The mitral valve was not well visualized. There is mild mitral valve regurgitation. There is no mitral valve stenosis. Pulmonic Valve The pulmonic valve was not well visualized. Tricuspid Valve Likely normal tricuspid valve structure and function. Tricuspid regurgitation envelope is inadequate for calculation of right ventricular systolic pressure. Normal right atrial pressure. Great Vessels The aorta was not well visualized. The pulmonary artery was not well visualized. Venous The inferior vena cava is normal in size and collapses greater than 50% with inspiration. Pericardium/Pleural There is no evidence of pericardial effusion. Prior Study Comparison No prior study available for comparison. Measurements 2D Linear Measurements IVSd: 0.81 0.6-0.9/0.6-1.0 cm LVIDd: 5.60 3.9-5.3/4.2-5.9 cm LVIDd Index: 3.22 2.4-3.2/2.2-3.1 cm/m2 LVIDs: 4.54 2.0-3.6 cm LVPWd: 0.66 0.7-1.1 cm LV Mass: 185.98 67-162/88-224 g LV Mass Index: 106.89 43-95/49-115 g/m2 LVOT Diam: 2.00 3.0+(-)1.3 cm 2D Systolic Function EF 4C: 38.00 >55% EF 2C: 37.60 >55% EF BiP: 39.70 >55% Mitral Valve MV Pk E: 0.60 MV PK A: 0.69 MV Decel Time: 123.00 E/A: 0.90 E'Lateral: 5.87 E'Medial: 3.92 E/E' Med: 15.20 E/E' Lat: 10.20 PHT: 36.00 MVA PHT: 6.11 Decel [place]: 4.83 Aortic Valve AoV Pk Scott: 1.56 AoV Mn Scott: 1.05 AoV VTI: 0.29 AoV Pk Grad: 10.00 Aov Mn Grad: 5.00 LAUREN Cont.VTI: 2.58 LVOT LVOT Pk Scott: 1.31 LVOT Mn Scott: 0.80 LVOT VTI: 0.24 LVOT Pk Grad: 7.00 LVOT Mn Grad: 3.00 LVOT Diam: 2.00 LVOT Area: 3.14 Diastolic Function MV Pk E: 0.60 MV Pk A: 0.69 E/A: 0.90 E'Medial: 3.92 E/E' Med: 15.20 E' Laterial: 5.87 E/E' Lat: 10.20 Right Ventricle TAPSE (mm): 24.30 TVS' Scott: 16.90 Tricuspid Valve RA Press: 3.00 Great Vessels Aorta Sinus of Valsalva: 3.08 2.0-3.5 cm Ao Asc: 3.00 2.1-3.4 cm Updated in Other Vendor System with Status of Final Frank Root MD electronically signed on 07/20/2024 10:30:49 AM with status of Final
[2024-07-20 07:03] LABS: Prothrombin Time 12.1 SEC (10.9-12.4)
[2024-07-20 07:10] LABS: Troponin-I High Sensitivity 525.7 ng/L (<3.5-17.0)
[2024-07-20] MEDS: Diclofenac Sodium Delayed Rel 50 MG TABLET.DR PO ×2 (09:00→20:12)
[2024-07-20] MEDS: Multivitamin TABLET 1 TAB PO (09:00)
[2024-07-20] MEDS: Cholecalciferol (Vitamin D3) 25 MCG TABLET 125 MCG PO (09:00)
[2024-07-20] MEDS: Gabapentin 600 MG TABLET 1200 MG PO ×3 (09:01→20:12)
[2024-07-20] MEDS: DULoxetine HCl 30 MG CAPSULE.DR PO ×2 (09:01→20:12)
[2024-07-20] MEDS: 0.9 % Sodium Chloride Flush 3 ML SYRINGE IVFLUSH (09:01)
[2024-07-20] MEDS: Potassium Chloride Packet 20 MEQ PACKET PO (09:01)
--- NOTE | 2024-07-20 09:03 | MHC.CM.PN ---
CM met with Patient at bedside and addressed IMM with her, providing Patient with the original and a copy has been placed on the chart. Patient lives in a house with her /HCP/Jaylan and she has home O2 from [employer] and [employer] services. Per Cardiology, who was at bedside, Patient will transfer to [facility], pending first bed availability. CM has initiated and will follow for dc planning.PCP is Dr. Yen.
[2024-07-20 09:25] LABS: PTT Heparin Drip 58.9 SEC (53-77.9)
[2024-07-20] MEDS: Fluticasone/Umeclidinium/Vilanterol 100/62.5/25 BLST.W.DEV 1 PUFF INHALE (10:22)
[2024-07-20] MEDS: methADONE HCl 20 MG/2 ML ORAL.CONC 102 MG PO (10:22)
--- NOTE | 2024-07-20 10:31 | P.CONCA_ITS ---
History of Present Illness History of Present Illness Date of Service: 07/20/24 Requesting physician: Donna Hung Consult reason: myocardial infarction Chief complaint: Acute Pancreatitis Narrative: I was consulted to see Do in cardiology consultation today for NSTEMI. She is a 63 year female with prior smoking, arthritis, COPD, limited functionality due to multiple issues including neuropathy. Patient came to the hospital with sudden-onset chest discomfort which started on residential child care counselor hours of Wednesday. Patient said she tried to do a lot of different things including rubbing her chest put in cold press on it and taking Tums and antacid but symptoms did not dissipate. She was very uncomfortable and subsequently when her woke up she called him to call 911. She was brought to the emergency room. In the emergency room initially there was confusion about her chest pain syndrome she also described chest pain radiating drawer belly as well as to the back. There was concern for pancreatitis with mildly elevated enzymes. Patient subsequently had troponin done showed elevated troponins which then further increased consistent with NSTEMI. EKGs not show any acute ST T wave changes. Cardiology consult was sought for further management plan. After discussion with me IV heparin was started yesterday. Patient was remained chest pain-free overnight. Denies any other complains of shortness of breath, orthopnea, PND. She was 2 years history of chronic constipation and belly distention which has been worked up as per her by her primary care physician as well as GI physician. He was no obvious etiology found as per her. She denies any recent exertional chest pain or shortness of breath. She has never had prior cardiac events and no history of prior hypertension or diabetes. Review of Systems 2 Constitutional: Constitutional: Reports no additional constitutional complaints Eyes: Eyes: Reports no additional eye complaints Cardiovascular: Cardiovascular: Reports chest pain at rest, Denies leg edema, Denies lightheadedness, Denies Loss of Consciousness, Denies palpitations and Denies dyspnea Respiratory: Respiratory: Denies dyspnea Gastrointestinal: Gastrointestinal: Reports abdominal pain and Reports bloating Genitourinary: Genitourinary: Reports no additional female genitourinary complaints Musculoskeletal: Musculoskeletal: Reports other (General arthritis and muscle discomfort and neuropathy) Neurologic: Reports system reviewed and no additional complaints, except as documented Endocrine: Endocrine: Denies palpitations PMFSH Past Medical History Medical History Great toe pain Low back pain radiating down leg Screening examination for infectious disease Osteoarthritis of right knee DDD (degenerative disc disease), lumbar Anxiety Dysphagia Pulmonary nodules History of ascites Peripheral neuropathy Opioid use disorder Methadone maintenance therapy patient Arthritis IBS (irritable bowel syndrome) Cervical cancer Breast cancer COPD (chronic obstructive pulmonary disease) Vocal cord polyp Family History Family History Father Diabetes Mother CAD (coronary artery disease) CHF (congestive heart failure) Sister Breast cancer Lupus (systemic lupus erythematosus) Surgical History Surgical History History of vocal cord polypectomy Hx of colonoscopy History of lumpectomy of left breast Hx of laparoscopy History of hemorrhoidectomy H/O total hysterectomy Social History Social History Household Members: Spouse Housing: House Are you a primary healthcare advisory services manager to a significant other at home: No Do you presently have visiting nurse or other home services: Yes Alcohol intake: current Alcohol intake frequency: a few times a week Comment: aware of trip hazard Patient Tobacco Use Status: Former Tobacco user Tobacco use type: Cigarette Years Smoked: 50 Smoked in Last 30 Days: No Second Hand Smoke Exposure: Yes Use of substances other than those prescribed or required for medical reasons: No Substance Use Type Other:: On methadone. Substance Use Frequency: Daily Currently Displaying Signs/Symptoms of Drug Intoxication Withdrawal: No Any prior treatment program specific to substance use: Yes (on methadone) Have you been hit, kicked, punched, or otherwise hurt by someone within the past year? If so, by whom?: No Do you feel safe in your current relationship?: Yes Is there a partner from a previous relationship who is making you feel unsafe now?: No Are you made to feel afraid or neglected: No Advance Directives: No Advance Directives Information Provided: Yes Do you have a plan to hurt others: No Plan Recently lost weight without trying: No How much weight loss: Not applicable Eating poorly because of decreased appetite: No Nutrition screen score: 0 Nutrition Risks: No Nutritional Risk Patient : No : No Poor oral hygiene: Yes service: No Current occupational status: disabled Meds Allergies Allergy/AdvReac Type Severity Reaction Status Date / Time No Known Allergies Allergy Verified 07/19/24 09:21 [No Known Allergies*] Active Medications: Current Medications Acetaminophen (Acetaminophen 325 Mg Tablet) 650 mg PO Q6H PRN PRN Reason: Pain, Mild 1-3,fever,headache Albuterol Sulfate (Albuterol Sulfate 90 Mcg 8 Gm Inhaler) 2 puff INHALE QID PRN PRN Reason: shortness of breath or wheezing Calcium Carbonate (Calcium Carbonate 750 Mg Tab.Chew) 750 mg PO Q4H PRN PRN Reason: Heartburn Diclofenac Sodium (Diclofenac Sodium Delayed Rel 50 Mg Tablet.) 50 mg PO BID [facility] Last Admin: 07/20/24 09:00 Dose: 50 mg Docusate Sodium (Docusate Sodium 100 Mg Capsule) 100 mg PO BID PRN PRN Reason: Constipation Duloxetine HCl (Duloxetine Hcl 30 Mg Capsule.) 30 mg PO BID [facility] Last Admin: 07/20/24 09:01 Dose: 30 mg Fluticasone/Umeclidinium/Vilanterol (Fluticasone/Umeclidinium/Vilanterol 100/62.5/25 Blst.W.Dev) 1 puff INHALE RDAILY [facility] Gabapentin (Gabapentin 600 Mg Tablet) 1,200 mg PO TID [facility] Last Admin: 07/20/24 09:01 Dose: 1,200 mg Heparin Sodium (Porcine) (Heparin Sodium,Porcine 5,000 Unit/Ml Vial) 3,000 unit 40 unit/kg (3000 unit) IVPUSH PROTOCOL BOLUS PRN; Protocol PRN Reason: 40 unit/kg - Heparin Protocol Last Admin: 07/20/24 02:52 Dose: 3,000 unit Heparin Sodium (Porcine) (Heparin Sodium,Porcine 5,000 Unit/Ml Vial) 6,000 unit 80 unit/kg (6000 unit) IVPUSH PROTOCOL BOLUS PRN; Protocol PRN Reason: 80 unit/kg - Heparin Protocol Lactated Ringer's (Lr) 1,000 mls @ 100 mls/hr IVCONT .Q10H [facility] Last Admin: 07/20/24 02:51 Dose: 100 mls/hr Heparin Sodium/Sodium Chloride (Heparin Sodium,Porcine/1/2ns) 25,000 unit in 250 mls @ 0 mls/hr IVCONT .Q0M [facility]; Protocol Last Titration: 07/20/24 09:52 Dose: 14 units/kg/hr, 10.42 mls/hr Magnesium Hydroxide (Milk Of Magnesia 30 Ml Oral.Susp) 30 ml PO DAILY PRN PRN Reason: Constipation Melatonin (Melatonin 3 Mg Tablet) 6 mg PO BEDTIME PRN PRN Reason: Insomnia Last Admin: 07/19/24 22:11 Dose: 6 mg Methadone HCl (Methadone Hcl 20 Mg/2 Ml Oral.Conc) 102 mg PO DAILY [facility] Morphine Sulfate (Morphine Sulfate 4 Mg/Ml Cartridge) 4 mg IVPUSH Q3H PRN; Protocol PRN Reason: Pain, Severe (Pain Scale 7-10) Last Admin: 07/20/24 09:06 Dose: 4 mg Multivitamins/Vitamin C (Multivitamin Tablet) 1 tab PO DAILY [facility] Last Admin: 07/20/24 09:00 Dose: 1 tab Omeprazole (Omeprazole 20 Mg Capsule.Dr) 20 mg PO DAILY@0630 [facility] Last Admin: 07/20/24 05:37 Dose: 20 mg Ondansetron HCl (Ondansetron Hcl 4 Mg/2 Ml Vial) 4 mg IVPUSH Q8H PRN PRN Reason: Nausea and Vomiting Last Admin: 07/19/24 18:18 Dose: 4 mg Senna (Sennosides 8.6 Mg Tablet) 17.2 mg PO BEDTIME PRN PRN Reason: Constipation Sodium Chloride (0.9 % Sodium Chloride Flush 3 Ml Syringe) 3 ml IVFLUSH QSHIFT [facility] Last Admin: 07/20/24 09:01 Dose: 3 ml Vitamin D (Cholecalciferol (Vitamin D3) 25 Mcg Tablet) 125 mcg PO DAILY [facility] Last Admin: 07/20/24 09:00 Dose: 125 mcg Home Medications ?Medication ?Instructions ?Recorded ?Confirmed ?Last Taken ?Type cholecalciferol (vitamin D3) 125 1 tab PO DAILY 08/21/21 07/19/24 07/18/24 History mcg (5,000 unit) tablet (Vitamin D3) gabapentin 600 mg tablet 2 tab PO TID 08/21/21 07/19/24 07/18/24 History fluticasone fur. 100 mcg-umeclid 1 puff inhalation DAILY 07/21/22 07/19/24 07/18/24 History 62.5 mcg-vilant 25 mcg inhalat.powder (Trelegy Ellipta) multivitamin with minerals 1 tab PO DAILY 07/21/22 07/19/24 07/18/24 History duloxetine 30 mg capsule,delayed 30 mg PO BID 01/19/23 07/19/24 07/18/24 History release (Cymbalta) pantoprazole 20 mg tablet,delayed 20 mg PO BID@0630,1630 01/28/23 07/19/24 07/18/24 History release furosemide 40 mg tablet 40 mg PO DAILY PRN Swelling 02/02/23 07/19/24 Unknown History methadone 10 mg/mL oral concentrate 102 mg PO DAILY 03/22/24 07/20/24 07/19/24 History docusate sodium 100 mg capsule 100 mg PO BID PRN Constipation 07/19/24 07/19/24 Unknown History (Stool Softener) Physical Exam 2 Vital Signs: Vital Signs: Last Vital Signs Temp 98.9 F 07/20/24 07:10 Pulse 90 07/20/24 07:10 Resp 18 07/20/24 07:10 BP 116/62 07/20/24 07:10 Pulse Ox 96 07/20/24 07:10 O2 Del Method Nasal Cannula 07/20/24 07:10 O2 Flow Rate 2 07/20/24 07:10 BMI result Body Mass Index 27.5 Const: General: cooperative, comfortable, no acute distress, alert and awake Nutritional Appearance: overweight Orientation/consciousness: patient oriented x3 Limitations: no limitations HEENT: Head: Yes normocephalic and Yes atraumatic Neck: Neck: Yes trachea midline, Yes supple and Yes no JVD Resp: Effort & Inspection: normal respiratory effort Auscultation: clear to auscultation bilaterally and diminished lung sounds Cardio: Jugular venous distension: no JVD Palpation: normal PMI Rate: r egular rate Rhythm: regular rhythm Heart sounds: S1 normal heart sound present, S2 normal heart sound present, no click, no gallops, no murmurs and no rubs GI: Inspection: Yes distended Auscultation: normal bowel sounds Skin: General skin exam: no rashes or lesions noted Neuro: General: patient oriented x3 and no focal motor deficits Extrem: General: Yes no clubbing, cyanosis or edema Psych: Appearance: grossly normal Objective Labs and Meds 07/20/24 06:23 07/20/24 06:23 Lab results: Laboratory Results - last 24 hr 07/19/24 07/19/24 07/19/24 11:16 14:20 18:12 WBC 13.8 H RBC 3.66 L Hgb 13.5 Hct 38.9 MCV 106.3 H MCH 36.9 H MCHC 34.7 RDW 14.8 Plt Count 214 MPV 8.5 L Immature Gran % (Auto) 0.4 Neut % (Auto) 89.9 H Lymph % (Auto) 5.1 L [place] % (Auto) 3.6 Eos % (Auto) 0.7 Baso % (Auto) 0.3 Lymph # (Auto) 0.7 L [place] # (Auto) 0.5 Eos # (Auto) 0.1 Baso # (Auto) 0.0 Abs Immat Gran (auto) 0.06 H Absolute Neuts (auto) 12.4 H Absolute Nucleated RBC 0.000 Nucleated RBC % (auto) 0.0 PT INR aPTT Heparin Protocol Sodium 138 Potassium 3.1 L Chloride 100 Carbon Dioxide 31 H Anion Gap 10 L BUN 8 L Creatinine 0.59 Estim Creat Clear Calc 93.0 Estimated GFR > 60 Random Glucose 139 H Calcium 7.7 L D Magnesium 1.9 Total Bilirubin 1.1 H Direct Bilirubin AST 80 H ALT 54 H Alkaline Phosphatase 106 Troponin I High Sens 278.5 H* 492.5 H* D 632.3 H* Total Protein 5.7 L Albumin 3.0 L Triglycerides 322 H Cholesterol 160 LDL Cholesterol, Calc 56 HDL Cholesterol 40 L Lipase 220 H 07/19/24 07/20/24 07/20/24 19:24 02:06 06:23 WBC 10.7 RBC 3.45 L Hgb 12.7 Hct 37.3 MCV 108.1 H MCH 36.8 H MCHC 34.0 RDW 15.1 Plt Count 201 MPV 8.9 L Immature Gran % (Auto) Neut % (Auto) Lymph % (Auto) [place] % (Auto) Eos % (Auto) Baso % (Auto) Lymph # (Auto) [place] # (Auto) Eos # (Auto) Baso # (Auto) Abs Immat Gran (auto) Absolute Neuts (auto) Absolute Nucleated RBC 0.000 Nucleated RBC % (auto) 0.0 PT 11.5 12.1 INR 1.0 1.0 aPTT Heparin Protocol 29.6 L 47.5 L D Sodium 138 Potassium 3.3 Chloride 103 Carbon Dioxide 26 Anion Gap 12 BUN 4 L Creatinine 0.55 Estim Creat Clear Calc 97.2 Estimated GFR > 60 Random Glucose 134 H Calcium 7.5 L Magnesium Total Bilirubin 1.0 Direct Bilirubin 0.4 AST 60 H ALT 39 H Alkaline Phosphatase 94 Troponin I High Sens 525.7 H* Total Protein 5.5 L Albumin 2.8 L Triglycerides Cholesterol LDL Cholesterol, Calc HDL Cholesterol Lipase 135 H 07/20/24 09:07 WBC RBC Hgb Hct MCV MCH MCHC RDW Plt Count MPV Immature Gran % (Auto) Neut % (Auto) Lymph % (Auto) [place] % (Auto) Eos % (Auto) Baso % (Auto) Lymph # (Auto) [place] # (Auto) Eos # (Auto) Baso # (Auto) Abs Immat Gran (auto) Absolute Neuts (auto) Absolute Nucleated RBC Nucleated RBC % (auto) PT INR aPTT Heparin Protocol 58.9 D Sodium Potassium Chloride Carbon Dioxide Anion Gap BUN Creatinine Estim Creat Clear Calc Estimated GFR Random Glucose Calcium Magnesium Total Bilirubin Direct Bilirubin AST ALT Alkaline Phosphatase Troponin I High Sens Total Protein Albumin Triglycerides Cholesterol LDL Cholesterol, Calc HDL Cholesterol Lipase Imaging Radiologist's impression: Impressions Abdomen/Pelvis CT 07/19/24 10:47 IMPRESSION: Acute pancreatitis without immediate complications. Consider stricture in sphincter of Oddi. Noncalcified calculus versus intrinsic lesion cannot be excluded. Hepatomegaly and steatosis. Discussed with the emergency physician Dr. Calvin Doan at 11:36 AM on July 19, 2024. Fleischner guidelines were followed. Electronically signed by: Patrice Mcdaniels MD 07/19/2024 11:51 AM [facility] Assessment and Plan (1) NSTEMI (non-ST elevated myocardial infarction): Status: Acute NSTEMI in this middle-aged woman with typical symptoms as elevated troponins and echocardiogram findings of LV systolic dysfunction with large wall motion abnormality in the RCA/circumflex territory. Patient was currently chest pain- free. I think she requires further evaluation with coronary angiogram. Will transfer to tertiary care center seems like [facility] is still has bad issues. Will consider transferring her to [facility]. Continue IV heparin, aspirin, high-intensity statin therapy. Start metoprolol 12.5 mg q.6 hours eventually will change it to twice a day therapy. We discussed about need for cardiac catheterization including, risks, benefits, alternatives. She understands and agrees. Will follow with you if patient was still here Procedures Date of Service Date of Service: 07/20/24
--- NOTE | 2024-07-20 11:03 | PM.DS ---
DS: Providers Provider Date of Service: 07/20/24 Date of admission: 07/19/24 17:03 Date of discharge: 07/20/24 Primary care physician: Stacy Yen MD Consults: 07/19/24 15:31 Consult to Cardiology Routine Consulting Provider: Frank Root Reason for consultation: nsetmi Has provider been notified: No 07/19/24 17:41 Consult to Gastroenterology Routine Consulting Provider: Sam Teixeira Reason for consultation: Acute pancreatitis, ?stricture in sphincter of Oddi 07/19/24 21:40 Addiction Medicine Routine Consulting Provider: Addiction Covering Reason for consultation: Audit scored 6. Attending physician on discharge: Donna Hung Discharging clinician: Donna Hung DS: Diagnosis Discharge Diagnosis (1) NSTEMI (non-ST elevated myocardial infarction): Status: Acute DS: Summary Hospital Course Hospital Course: Date of service and discharge:07/21/24. Vitals reviewed from07/21/24. Patient is improving. Vitals stable, further management coordinated below: HPI: 63-year-old female with a PMH significant for?COPD on home O2 2L at rest and 4L with exertion, fibromyalgia, osteoarthritis, lumbar disc degenerative disease, GERD, hx of breast cancer, hx of cervical cancer, opioid use disorder on methadone, and anxiety who presents to the ED with?chest and abdominal pain, nausea and vomiting x1 day. Pt reports she was awoken in the middle night with constant sharp, stabbing substernal pain that radiated to her abdomen and back. Denies radiation to neck, jaw, or arm. Has felt feverish and sweaty, though did not take her temperature at home. Chronic SOB and cough at baseline. Pt complaints pain is a 10/10, and the worse pain she has experienced in her life. Pt reports hx of opioid use disorder secondary to buying oxycodone from a neighbor when she was undergoing chemotherapy. Has been clean for 2 years. Pt reports drinks 2-3 Truly hard seltzers daily. No hx of alcohol withdrawal. Denies increased anxiety, tactile/visual/auditory hallucinations. In the ED pt was tachycardic up to 112, tachypneic up to 24, and hypertensive up to 152/94. Labs were significant for leukocytosis of 13.8, potassium 3.1 calcium 7.7, T bili 1.1, AST 80, ALT 54, lipase 220, troponin 278.5 with repeat with delta at 492.5. CT?of abdomen and pelvis found acute pancreatitis without immediate complications. Also found hepatomegaly and steatosis. EKG demonstrated sinus tachycardia of 109 without evidence of significant ischemic changes. Pt was treated with lorazepam, morphine, IVF, and ondansetron. Pt will be admitted to the hospital for treatment and further evaluation of acute pancreatitis. Hospital course: 63-year-old female with a PMH significant for?COPD on home O2 2L at rest and 4L with exertion, fibromyalgia, osteoarthritis, lumbar disc degenerative disease, GERD, hx of breast cancer, hx of cervical cancer, opioid use disorder on methadone, and anxiety -came because of upper epigastric pain: Found to have elevated troponin, EKG seems normal, in addition CT showing acute pancreatitis, lipase 220, mild elevated LFTs: Started on bowel rest, IV fluid and pain meds for pancreatitis as well as possible NSTEMI in setting troponin trended slowly trending up, echo and Cardiology evaluation added as well as IV heparin, aspirin,currently avoid statin due to elevated lft's ,added small dose metoprolol,morphine , also nitro . Patient was seen by Cardiology: Recommended to continue aspirin/IV heparin and echo showed wall motion abnormalities so recommended to transfer patient to tertiary care hospital for management of NSTEMI. Acute pancreatitis and elevated LFTs possible secondary to alcohol, seen by GI: Recommended RUQ U/S -Hepatomegaly with mild increased hepatic echotexture but no focal lesion seen., and a MRI/MRCP -Concerning strictures interbody resulting in dilatation of the common bile duct.No peripancreatic fluid collections. see GI:narrowing of the distal bile duct could just be from the resolving pancreatitis. moniter lft's and outpatient followup MRI in a month or two. Her diet can be advanced if she?s feeling better. consider Gi eval inpatient if needed. plan: Patient is to go to tertiary care hospital for cardiac catheterization. Further GI workup in tertiary care hospital, consider GI evaluation. Above management discussed with the patient in detail length she understand and in agreement with the above plan, time spent 40 minute. Time Attestation Total time managing care of this patient today: 40 mintues. Discharge Coordination Time (in mins): 40 min Quality: Safe Use of Opioids Does Pt have an Active Cancer Diagnosis on the Problem List?: No Quality: Stroke Does the patient have a stroke diagnosis?: No Physical Exam Vital Signs: Vital Signs: Last Vital Signs Temp 98.9 F 07/20/24 07:10 Pulse 90 07/20/24 07:10 Resp 18 07/20/24 07:10 BP 116/62 07/20/24 07:10 Pulse Ox 96 07/20/24 07:10 O2 Del Method Nasal Cannula 07/20/24 07:10 O2 Flow Rate 2 07/20/24 07:10 BMI result Body Mass Index 27.5 General: AOx3 Resp: CTA bilaterally CVS: S1, S2, regular rhythm. GI: +BS, diffuse abd tenderness, worse in RUQ Skin: Warm, dry Neuro: Cranial nerves II-XII grossly intact bilaterally. Motor grossly intact bilaterally. No upper extremity tremors noted. Extremities: No edema Psych: Appropriate affect DS: Data Data Completed and Pending Labs on day of discharge: Laboratory Results - last 24 hr 07/19/24 07/19/24 07/19/24 11:16 14:20 18:12 WBC 13.8 H RBC 3.66 L Hgb 13.5 Hct 38.9 MCV 106.3 H MCH 36.9 H MCHC 34.7 RDW 14.8 Plt Count 214 MPV 8.5 L Immature Gran % (Auto) 0.4 Neut % (Auto) 89.9 H Lymph % (Auto) 5.1 L Sharkey % (Auto) 3.6 Eos % (Auto) 0.7 Baso % (Auto) 0.3 Lymph # (Auto) 0.7 L Sharkey # (Auto) 0.5 Eos # (Auto) 0.1 Baso # (Auto) 0.0 Abs Immat Gran (auto) 0.06 H Absolute Neuts (auto) 12.4 H Absolute Nucleated RBC 0.000 Nucleated RBC % (auto) 0.0 PT INR aPTT Heparin Protocol Sodium 138 Potassium 3.1 L Chloride 100 Carbon Dioxide 31 H Anion Gap 10 L BUN 8 L Creatinine 0.59 Estim Creat Clear Calc 93.0 Estimated GFR > 60 Random Glucose 139 H Calcium 7.7 L D Magnesium 1.9 Total Bilirubin 1.1 H Direct Bilirubin AST 80 H ALT 54 H Alkaline Phosphatase 106 Troponin I High Sens 278.5 H* 492.5 H* D 632.3 H* Total Protein 5.7 L Albumin 3.0 L Triglycerides 322 H Cholesterol 160 LDL Cholesterol, Calc 56 HDL Cholesterol 40 L Lipase 220 H 07/19/24 07/20/24 07/20/24 19:24 02:06 06:23 WBC 10.7 RBC 3.45 L Hgb 12.7 Hct 37.3 MCV 108.1 H MCH 36.8 H MCHC 34.0 RDW 15.1 Plt Count 201 MPV 8.9 L Immature Gran % (Auto) Neut % (Auto) Lymph % (Auto) Sharkey % (Auto) Eos % (Auto) Baso % (Auto) Lymph # (Auto) Sharkey # (Auto) Eos # (Auto) Baso # (Auto) Abs Immat Gran (auto) Absolute Neuts (auto) Absolute Nucleated RBC 0.000 Nucleated RBC % (auto) 0.0 PT 11.5 12.1 INR 1.0 1.0 aPTT Heparin Protocol 29.6 L 47.5 L D Sodium 138 Potassium 3.3 Chloride 103 Carbon Dioxide 26 Anion Gap 12 BUN 4 L Creatinine 0.55 Estim Creat Clear Calc 97.2 Estimated GFR > 60 Random Glucose 134 H Calcium 7.5 L Magnesium Total Bilirubin 1.0 Direct Bilirubin 0.4 AST 60 H ALT 39 H Alkaline Phosphatase 94 Troponin I High Sens 525.7 H* Total Protein 5.5 L Albumin 2.8 L Triglycerides Cholesterol LDL Cholesterol, Calc HDL Cholesterol Lipase 135 H 07/20/24 09:07 WBC RBC Hgb Hct MCV MCH MCHC RDW Plt Count MPV Immature Gran % (Auto) Neut % (Auto) Lymph % (Auto) Sharkey % (Auto) Eos % (Auto) Baso % (Auto) Lymph # (Auto) Sharkey # (Auto) Eos # (Auto) Baso # (Auto) Abs Immat Gran (auto) Absolute Neuts (auto) Absolute Nucleated RBC Nucleated RBC % (auto) PT INR aPTT Heparin Protocol 58.9 D Sodium Potassium Chloride Carbon Dioxide Anion Gap BUN Creatinine Estim Creat Clear Calc Estimated GFR Random Glucose Calcium Magnesium Total Bilirubin Direct Bilirubin AST ALT Alkaline Phosphatase Troponin I High Sens Total Protein Albumin Triglycerides Cholesterol LDL Cholesterol, Calc HDL Cholesterol Lipase Imaging Chest x-ray: Radiologist's impression: ITS Impressions Abdomen/Pelvis CT 07/19/24 10:47 IMPRESSION: Acute pancreatitis without immediate complications. Consider stricture in sphincter of Oddi. Noncalcified calculus versus intrinsic lesion cannot be excluded. Hepatomegaly and steatosis. Discussed with the emergency physician Dr. Calvin Doan at 11:36 AM on July 19, 2024. Fleischner guidelines were followed. Electronically signed by: Patrice Mcdaniels MD 07/19/2024 11:51 AM [facility] [place] Discharge Plan Discharge Anticipated Discharge Date/Time: 07/20/24 10:49 Patient Disposition: Xfer Acute Care Hospital Discharge Diagnosis: acute pancreatitis ,nsetmi Referrals: [facility] [Outside] - 1 Week Stacy Yen MD [Primary Care Provider] - 1 Week Discharge Medications: New heparin(porcine) in 0.45% NaCl 25,000 unit/250 mL Parenteral Solution 25,000 unit continuous IV infusion .Q0M Qty: 1 0RF heparin (porcine) 5,000 unit/mL Solution 6,000 unit IVPUSH PROTOCOL BOLUS PRN (Reason: 80 Unit/Kg - Heparin Protocol) Qty: 1 0RF heparin (porcine) 5,000 unit/mL Solution 3,000 unit IVPUSH PROTOCOL BOLUS PRN (Reason: 40 Unit/Kg - Heparin Protocol) Qty: 1 0RF aspirin 81 mg Tablet,Delayed Release (Dr/Ec) 81 mg PO DAILY Qty: 1 0RF metoprolol tartrate 25 mg tablet 12.5 mg PO BID Qty: 1 0RF Continued (DME) walker Misc See Rx Instructions .MEDSUPPLY Qty: 1 0RF Rx Instructions: Folding Front wheeled walker diclofenac sodium 50 mg tablet,delayed release (DR/EC) 50 mg PO BID Qty: 60 0RF gabapentin 600 mg tablet 2 tab PO TID cholecalciferol (vitamin D3) [Vitamin D3] 125 mcg (5,000 unit) tablet 1 tab PO DAILY Trelegy Ellipta 100-62.5-25 mcg blister with device 1 puff INHALATION DAILY multivitamin with minerals Tablet 1 tab PO DAILY albuterol sulfate 90 mcg/actuation HFA aerosol inhaler 2 puff inhalation QID PRN (Reason: shortness of breath or wheezing) Qty: 8.5 0RF docusate sodium [Stool Softener] 100 mg capsule 100 mg PO BID PRN (Reason: Constipation) duloxetine [Cymbalta] 30 mg Capsule,Delayed Release(Dr/Ec) 30 mg PO BID furosemide 40 mg tablet 40 mg PO DAILY PRN (Reason: Swelling) sennosides [Senna Lax] 8.6 mg Tablet 17.2 mg PO BEDTIME PRN (Reason: Constipation) 30 Days Qty: 60 0RF (DME) Raised toilet seat See Rx Instructions .ROUTE .MEDSUPPLY Qty: 1 0RF Rx Instructions: As directed pantoprazole 20 mg tablet,delayed release (DR/EC) 20 mg PO BID@0630,1630 methadone 10 mg/mL concentrate 102 mg PO DAILY Discharge Orders: Discharge Order (Routine); Ordered 07/20/24 Ordered By: Donna Hung Diet: Advance to usual diet Activity on Discharge: As tolerated Stand Alone Forms: Patient Portal Discharge page Print Language: Croatian Care Plan Goals: 63-year-old female with a PMH significant for?COPD on home O2 2L at rest and 4L with exertion, fibromyalgia, osteoarthritis, lumbar disc degenerative disease, GERD, hx of breast cancer, hx of cervical cancer, opioid use disorder on methadone, and anxiety -came because of upper epigastric pain: Found to have elevated troponin, EKG seems normal, in addition CT showing acute pancreatitis, lipase 220, mild elevated LFTs: Started on bowel rest, IV fluid and pain meds for pancreatitis as well as possible NSTEMI in setting troponin trended slowly trending up, echo and Cardiology evaluation added as well as IV heparin, aspirin,currently avoid statin due to elevated lft's ,added small dose metoprolol. Patient was seen by Cardiology: Recommended to continue aspirin/IV heparin and echo showed wall motion abnormalities so recommended to transfer patient to tertiary care hospital for management of NSTEMI. Acute pancreatitis and elevated LFTs possible secondary to alcohol, seen by GI: please see discharge summary. Health Concerns: As above. Plan of Treatment: As above. Assessment: as above.
--- NOTE | 2024-07-20 11:09 | MHC.CM.PN ---
Patient will transfer to [facility].
[2024-07-20] MEDS: Aspirin Enteric Coated 81 MG TABLET.DR PO (11:30)
[2024-07-20] MEDS: LORazepam 2 MG/ML VIAL 1 MG IVPUSH (12:17)
--- NOTE | 2024-07-20 12:40 | PC.NURSE ---
Addendum entered by Donna Blair RN 07/20/24 17:02: Per pharmacy/MD give bolus and increase dose per protocol per last PTT. Medicated per JUL. Addendum entered by Donna Blair RN 07/20/24 16:59: This RN at bedside to titrate heparin drip. Noticed that pump had . Unsure of duration of heparin drip being not running. Pharmacy contacted stated to restart drip and contact MD. MD notified. Stated to get STAT PTT and restart drip at 14 units/kg/hr. Restarted drip at 1640. Original Note: Heparin drip paused at 12:38 per MD for MRI. Restarted at 1430 when back on unit.
--- NOTE | 2024-07-20 13:30 | HO.PM.IMPN ---
Subjective Subjective Date of Service: 07/21/24 Interval History: nsetmi pancreatitis Review of Systems abd pain somewhat improving no fever Physical Exam Vital Signs: Vital Signs: Last Vital Signs Temp 97.4 F 07/20/24 11:19 Pulse 79 07/20/24 11:19 Resp 18 07/20/24 11:19 BP 99/55 L 07/20/24 11:19 Pulse Ox 97 07/20/24 11:19 O2 Del Method Nasal Cannula 07/20/24 11:19 O2 Flow Rate 2 07/20/24 11:19 BMI result Body Mass Index 27.5 General: AOx3. Resp: CTA bilaterally CVS: S1, S2, regular rhythm. GI: +BS, diffuse abd tenderness,soft . Skin: Warm, dry Neuro: nonfocal Extremities: No edema Objective Data Active Medications Acetaminophen (Acetaminophen 325 Mg Tablet) 650 mg PO Q6H PRN PRN Reason: Pain, Mild 1-3,fever,headache Albuterol Sulfate (Albuterol Sulfate 90 Mcg 8 Gm Inhaler) 2 puff INHALE QID PRN PRN Reason: shortness of breath or wheezing Aspirin (Aspirin Enteric Coated 81 Mg Tablet.) 81 mg PO DAILY [facility] Last Admin: 07/20/24 11:30 Dose: 81 mg Documented By: NOEL Calcium Carbonate (Calcium Carbonate 750 Mg Tab.Chew) 750 mg PO Q4H PRN PRN Reason: Heartburn Diclofenac Sodium (Diclofenac Sodium Delayed Rel 50 Mg Tablet.) 50 mg PO BID [facility] Last Admin: 07/20/24 09:00 Dose: 50 mg Documented By: NOEL Docusate Sodium (Docusate Sodium 100 Mg Capsule) 100 mg PO BID PRN PRN Reason: Constipation Duloxetine HCl (Duloxetine Hcl 30 Mg Capsule.) 30 mg PO BID [facility] Last Admin: 07/20/24 09:01 Dose: 30 mg Documented By: NOEL Fluticasone/Umeclidinium/Vilanterol (Fluticasone/Umeclidinium/Vilanterol 100/62.5/25 Blst.W.Dev) 1 puff INHALE RDAILY [facility] Last Admin: 07/20/24 10:22 Dose: 1 puff Documented By: NOEL Gabapentin (Gabapentin 600 Mg Tablet) 1,200 mg PO TID [facility] Last Admin: 07/20/24 09:01 Dose: 1,200 mg Documented By: NOEL Heparin Sodium (Porcine) (Heparin Sodium,Porcine 5,000 Unit/Ml Vial) 3,000 unit 40 unit/kg (3000 unit) IVPUSH PROTOCOL BOLUS PRN; Protocol PRN Reason: 40 unit/kg - Heparin Protocol Last Admin: 07/20/24 02:52 Dose: 3,000 unit Documented By: TORY Heparin Sodium (Porcine) (Heparin Sodium,Porcine 5,000 Unit/Ml Vial) 6,000 unit 80 unit/kg (6000 unit) IVPUSH PROTOCOL BOLUS PRN; Protocol PRN Reason: 80 unit/kg - Heparin Protocol Lactated Ringer's (Lr) 1,000 mls @ 100 mls/hr IVCONT .Q10H [facility] Last Admin: 07/20/24 02:51 Dose: 100 mls/hr Documented By: TORY Heparin Sodium/Sodium Chloride (Heparin Sodium,Porcine/1/2ns) 25,000 unit in 250 mls @ 0 mls/hr IVCONT .Q0M [facility]; Protocol Last Titration: 07/20/24 12:38 Dose: 0 units/kg/hr, 0 mls/hr Documented By: NOEL Co-signed By: ERON Magnesium Hydroxide (Milk Of Magnesia 30 Ml Oral.Susp) 30 ml PO DAILY PRN PRN Reason: Constipation Melatonin (Melatonin 3 Mg Tablet) 6 mg PO BEDTIME PRN PRN Reason: Insomnia Last Admin: 07/19/24 22:11 Dose: 6 mg Documented By: TORY Methadone HCl (Methadone Hcl 20 Mg/2 Ml Oral.Conc) 102 mg PO DAILY [facility] Last Admin: 07/20/24 10:22 Dose: 102 mg Documented By: NOEL Co-signed By: TIN Metoprolol Tartrate (Metoprolol Tartrate 12.5 Mg Halftab) 12.5 mg PO BID [facility]; Protocol Last Admin: 07/20/24 11:35 Dose: Not Given Documented By: NOEL Non-Admin Reason: Physician Approved Morphine Sulfate (Morphine Sulfate 4 Mg/Ml Cartridge) 4 mg IVPUSH Q3H PRN; Protocol PRN Reason: Pain, Severe (Pain Scale 7-10) Last Admin: 07/20/24 09:06 Dose: 4 mg Documented By: NOEL Multivitamins/Vitamin C (Multivitamin Tablet) 1 tab PO DAILY [facility] Last Admin: 07/20/24 09:00 Dose: 1 tab Documented By: NOEL Omeprazole (Omeprazole 20 Mg Capsule.) 20 mg PO DAILY@0630 [facility] Last Admin: 07/20/24 05:37 Dose: 20 mg Documented By: TORY Ondansetron HCl (Ondansetron Hcl 4 Mg/2 Ml Vial) 4 mg IVPUSH Q8H PRN PRN Reason: Nausea and Vomiting Last Admin: 07/19/24 18:18 Dose: 4 mg Documented By: LUIGI Senna (Sennosides 8.6 Mg Tablet) 17.2 mg PO BEDTIME PRN PRN Reason: Constipation Sodium Chloride (0.9 % Sodium Chloride Flush 3 Ml Syringe) 3 ml IVFLUSH QSHIFT [facility] Last Admin: 07/20/24 09:01 Dose: 3 ml Documented By: NOEL Vitamin D (Cholecalciferol (Vitamin D3) 25 Mcg Tablet) 125 mcg PO DAILY [facility] Last Admin: 07/20/24 09:00 Dose: 125 mcg Documented By: NOEL Labs 07/20/24 06:23 07/21/24 05:52 Labs: Laboratory Results - last 24 hr 07/19/24 07/19/24 07/20/24 11:16 19:24 02:06 MCV MCH MCHC RDW Plt Count MPV Absolute Nucleated RBC Nucleated RBC % (auto) PT 11.5 INR 1.0 aPTT Heparin Protocol 29.6 L 47.5 L D Anion Gap Estim Creat Clear Calc Estimated GFR Random Glucose Calcium Total Bilirubin Direct Bilirubin AST ALT Alkaline Phosphatase Total Protein Albumin Triglycerides 322 H Cholesterol 160 LDL Cholesterol, Calc 56 HDL Cholesterol 40 L Lipase 07/20/24 07/20/24 06:23 09:07 MCV 108.1 H MCH 36.8 H MCHC 34.0 RDW 15.1 Plt Count 201 MPV 8.9 L Absolute Nucleated RBC 0.000 Nucleated RBC % (auto) 0.0 PT 12.1 INR 1.0 aPTT Heparin Protocol 58.9 D Anion Gap 12 Estim Creat Clear Calc 97.2 Estimated GFR > 60 Random Glucose 134 H Calcium 7.5 L Total Bilirubin 1.0 Direct Bilirubin 0.4 AST 60 H ALT 39 H Alkaline Phosphatase 94 Total Protein 5.5 L Albumin 2.8 L Triglycerides Cholesterol LDL Cholesterol, Calc HDL Cholesterol Lipase 135 H Assessment and Plan (1) NSTEMI (non-ST elevated myocardial infarction): Status: Acute (2) Acute pancreatitis: Status: Acute Assessment and Plan: 63-year-old female with a PMH significant for?COPD on home O2 2L at rest and 4L with exertion, fibromyalgia, osteoarthritis, lumbar disc degenerative disease, GERD, hx of breast cancer, hx of cervical cancer, opioid use disorder on methadone, and anxiety who presents to the ED with?chest and abdominal pain, nausea and vomiting x1 day. Pt will be admitted to the hospital for treatment and further evaluation of acute pancreatitis. Acute pancreatitis Pt with substernal chest pain radiating to abdomen and back with associated nausea and vomiting since middle of the night CT showing acute pancreatitis, lipase 220 Unclear etiology: CT concerning for stricture in sphincter of Oddi; pt reports drinking 2-3 hard selzters almost daily lfts and lipase seems improving plan: trial of clears, analgesics, antiemetics, IVF. seen by gi-Recommended RUQ U/S to assess for gallstones, and a MRI/MRCP to assess for any pancreatic mass, choledocholithiasis, etc. Currently continue bowel. nstemi: on asa, heparin drip ,bb ,avoid statin for now due to elevated lft's Acute hypokalemia, mild repleted and improved. Transaminitis T bili 1.1, AST 80, ALT 54 Likely in the setting acute pancreatitis Treat as above GI consult, Trend labs Alcohol dependence Pt reports drinking 2-3 hard seltzers daily No hx of withdrawal Monitor on CIWA COPD On 2 L home O2 at rest and 4 L with exertion Not in acute exacerbation Continue home inhalers Fibromyalgia Continue gabapentin GERD Continue PPI Opioid use disorder Continue methadone Full Code DVT Prophylaxis:iv heparin ongoing need for treatment of?acute pancreatitis of unclear etiology requiring hospital level care for bowel rest, IV analgesics and antiemetics, as well as specialist consultation with GI for possible further workup. Quality Stroke Does the patient have a stroke diagnosis?: No VTE Prior VTE?: No VTE Risk Level:: Medical - moderate - high VTE Device Contraindication: Treatment Not Indicated VTE Drug Contraindication: N/A - Med Ordered
[2024-07-20] MEDS: gadobutroL 7.5 ML VIAL IVPUSH (14:09)
[2024-07-20 15:51] LABS: PTT Heparin Drip 30.7 SEC (53-77.9)
--- NOTE | 2024-07-20 17:04 | HE.PHANOTE ---
Heparin Drip RN called to say the Heparin Drip pump has been off for an unknown period of time ( approximately 1 hour). PTT is 30.7 but unsure if this is a true PTT. Contacted Dr. Hung and we agreed to give a Heparin 80 unit/kg bolus and increase the doserate to 18 units/kg/hr. Next PTT will be in 6 hours at 2300.
[2024-07-20] MEDS: Heparin Sodium,Porcine 5,000 UNIT/ML VIAL 6000 UNIT IVPUSH (17:05)
--- NOTE | 2024-07-20 18:53 | P.EN_ITS ---
Event Note Date of Service: 07/20/24 Event Note: GI Consult-Full note dictated-Xrays reviewed Imp: Acute pancreatitis with associated biliary dilatation. Clinically improving. Diff dx: EtOH-induced pancreatitis, occult gallstones with associated biliary pancreatitis although none seen on imaging, pancreatic cancer, ampullary lesion Rec: In light of ongoing cardiac issues will hold off on any invasive testing such as ERCP. However, given almost normal LFT's and resolving symptoms, an ERCP is currently not needed urgently. The dilated bile duct may simply be a result of pancreatic head edema as opposed to an obstruction from a pancreatic or ampullary lesion. I did advise the patient that once she has been discharged from her cardiac workup she will need to F/U with her PCP and her GI MD at [facility] for F/U imaging to see if the biliary abnormality persists and warrants further w/u with ERCP and/or EUS. Will check a CA 19-9 in the AM in the meantime. Advance diet as tolerated. D/W patient in detail. Thanks Time Spent With Patient Time: Total time managing care of this patient today ____ minutes.
[2024-07-20] MEDS: Metoprolol Tartrate 12.5 MG HALFTAB PO (20:12)
[2024-07-20] MEDS: Heparin Sodium,Porcine/1/2NS 25,000 UNIT/250 ML IV.SOLN 13.39 UNIT IVCONT (22:00)
[2024-07-21] VITALS: BP 92/55; PULSE 67; RESP 19; TEMP 36.7; O2SAT 96
[2024-07-21 00:20] LABS: PTT Heparin Drip 78.7 SEC (53-77.9)
[2024-07-21] MEDS: Acetaminophen 325 MG TABLET 650 MG PO (02:49)
[2024-07-21] MEDS: Lactated Ringers 1,000 ML 100 ML IVCONT (02:50)
[2024-07-21 03:21] VITALS: BP 93/62; PULSE 71; RESP 19; TEMP 36.7; O2SAT 97
--- NOTE | 2024-07-21 04:14 | CONS_ITS ---
DATE OF SERVICE: 07/20/2024 REASON FOR CONSULTATION: Pancreatitis, elevated LFTs, and abnormal imaging of biliary tract. HISTORY OF PRESENT ILLNESS: This has been obtained from the patient and the medical record. The patient is a 63-year-old female who came to the hospital after she was awakened with lower chest and epigastric pain with associated nausea and vomiting. She reports that she has not had this problem before and denies any previous history of pancreatitis, liver disease, nor gallbladder disease. Due to the persistence of her pain, she came to the ER and was found to have pancreatitis based on imaging and laboratories. However, she was also found to have elevated troponin levels and subsequently has been seen by Cardiology. From a cardiac standpoint, she has been stable, but the plan is to refer her to a tertiary center once a bed is available for cardiac catheterization. From a GI standpoint, she has been feeling better here in the hospital. She has been tolerating liquids. She has no further abdominal pain and denies any further nausea nor vomiting. She denies any diarrhea, hematochezia, nor melena. She denies any signs of jaundice. She does drink 2 cans of hard seltzer per day, but denies any other alcoholic beverages during the day. She denies any history of pancreatitis or pancreatic cancer in family members. She denies any history of peptic ulcer disease. She has not been on any new medication. She is on chronic methadone, but denies any chronic NSAIDs. She has been afebrile in the hospital. MEDICATIONS: At home included albuterol inhaler, vitamin D, Colace, duloxetine, furosemide, gabapentin, methadone, multivitamin, pantoprazole, Senokot, Trelegy inhaler, and diclofenac. Medications here in the hospital include acetaminophen, 81 mg aspirin, vitamin D, Colace, duloxetine, gabapentin, heparin, Dilaudid p.r.n., lorazepam p.r.n., melatonin p.r.n., methadone, metoprolol, milk of magnesia, morphine, omeprazole, Senokot, and potassium. PAST MEDICAL HISTORY: Oxygen-dependent COPD. Neuropathy. She denies any history of NM, diabetes, stroke, nor kidney disease. She has fibromyalgia, arthritis, back pain, reflux, history of cervical cancer, and anxiety. PAST SURGICAL HISTORY: Surgeries included right knee replacement, complete hysterectomy, left breast lumpectomy for cancer with associated chemo and radiation. SOCIAL HISTORY: She stopped smoking about 5 or 6 years ago. Alcohol as above. FAMILY HISTORY: Noncontributory. REVIEW OF SYSTEMS: CONSTITUTIONAL: Prior to becoming ill, she was at her baseline with good appetite. SKIN: Without rash. No pruritus. CARDIAC: No previous chest pain up until admission. PULMONARY: No coughing or hemoptysis. GI: As above. PHYSICAL EXAMINATION: GENERAL: Patient is somewhat chronically ill-appearing female, but in no distress. SKIN: Warm and dry. EYES: Anicteric sclerae. NECK: Supple without lymphadenopathy. ABDOMEN: Soft, nondistended, normal bowel sounds, and nontender. There is no palpable mass. EXTREMITIES: Without edema. LABORATORY DATA: I did review all of her imaging, which included a CT of the abdomen, ultrasound of the abdomen, and MRI of the abdomen. There was no sign of any gallstones. There is evidence of biliary dilatation, but on many of the images of the MRI, there does not appear to be a stricture in the distal portion, as suggested in the report. Some images do appear to show a cutoff, but other images show more of a smooth tapering of the distal duct. There is no pancreatic ductal dilatation. There was no mass in the pancreas. There is evidence of pancreatitis on the CT and MRI. Hemoglobin 12.7, white blood cell count 10.7, platelets 201,000. Initial LFTs showed a total bilirubin of 1.1 with a repeat of 1.0 today. AST was 80 and repeat 60 today. ALT was 54 and today is 39. Alkaline phosphatase was 106 and today is 94. Lipase level was 220 and today is 135. Triglyceride level was 322. IMPRESSION: Given the patient's presentation with acute pancreatitis based on her imaging and laboratories, one potential diagnosis would be that of alcohol given her history of daily alcohol use. This does not appear to be a biliary source of pancreatitis given no sign of gallstones and essentially normal LFTs. Another possibility would be that of a neoplasm in the region of the head of the pancreas or ampulla given the biliary dilatation with some images showing some degree of a cutoff sign. However, the dilated bile duct may also be in relation to the pancreatitis with edema of the head of the pancreas. At this point, she appears quite stable from a pancreatitis and GI standpoint. I do not think she needs any type of urgent GI procedures such as ERCP or endoscopic ultrasound. She clearly has some cardiac issues going on and that will take precedence over any GI workup at the present time. However, at the same time, I did review with her in detail the need for followup by her primary care physician and her GI doctor at [facility] with followup imaging such as MRI to be sure the bile duct normalizes. I did advise her that if the abnormality persists, she may then need ERCP and endoscopic ultrasound. If the abnormality resolves, then she would not need any further workup. I shall order a CA 19-9 level for the morning. I did advise her to avoid alcohol completely long-term. This has all been discussed in detail with the patient and she is comfortable with the plan. Thank you for the consultation. MD KETAN Abebe/YADI / [phone]
[2024-07-21] MEDS: Omeprazole 20 MG CAPSULE.DR PO (05:50)
[2024-07-21 06:41] LABS: PTT Heparin Drip 49.5 SEC (53-77.9)
[2024-07-21 06:57] LABS: Alanine Aminotransferase 33 U/L (0-31); Albumin Level 2.7 g/dL (3.5-5.0); Anion Gap 11 (12-20); Aspartate Amino Transferase 49 U/L (5-31); Bilirubin Total 0.6 mg/dL (0.0-1.0); Blood Urea Nitrogen 9 mg/dL (9-16); Carbon Dioxide 29 mmol/L (22-29); Chloride 103 mmol/L (96-108); Creatinine Clr Calc Pharmacy 82.2; Estimated Glomerular Filt Rate > 60; Glucose Random 94 mg/dL (60-115); Lipase 89 U/L (8-78); Potassium 3.5 mmol/L (3.3-5.1); Sodium 139 mmol/L (135-145); Total Protein 5.6 g/dL (6.5-8.0)
[2024-07-21 07:06] VITALS: BP 100/54; PULSE 65; RESP 16; TEMP 36.9; O2SAT 90
[2024-07-21] MEDS: Gabapentin 600 MG TABLET 1200 MG PO (07:33)
[2024-07-21] MEDS: Diclofenac Sodium Delayed Rel 50 MG TABLET.DR PO (07:33)
[2024-07-21] MEDS: DULoxetine HCl 30 MG CAPSULE.DR PO (07:33)
[2024-07-21] MEDS: Multivitamin TABLET 1 TAB PO (07:33)
[2024-07-21] MEDS: Metoprolol Tartrate 12.5 MG HALFTAB PO (07:34)
[2024-07-21] MEDS: Cholecalciferol (Vitamin D3) 25 MCG TABLET 125 MCG PO (07:34)
[2024-07-21] MEDS: Aspirin Enteric Coated 81 MG TABLET.DR PO (07:34)
[2024-07-21] MEDS: Heparin Sodium,Porcine 5,000 UNIT/ML VIAL 3000 UNIT IVPUSH (07:34)
[2024-07-21] MEDS: methADONE HCl 20 MG/2 ML ORAL.CONC 102 MG PO (07:37)
[2024-07-21] MEDS: Fluticasone/Umeclidinium/Vilanterol 100/62.5/25 BLST.W.DEV 1 PUFF INHALE (08:19)
[2024-07-21 08:23] VITALS: PULSE 88; RESP 20; O2SAT 97
--- NOTE | 2024-07-21 10:17 | PM.PNCARD ---
Subjective Subjective Date of Service: 07/21/24 Principal diagnosis: NSTEMI, ischemic cardiomyopathy. Interval history: Patient was not had any overt chest pain. Continues to have some belly issues but they are getting better. Blood pressures remained stable. Echocardiogram at shown yesterday showed LV systolic dysfunction with regional wall motion abnormality consistent with underlying coronary artery disease Review of Systems Constitutional: Reports no additional constitutional complaints Eyes: Reports no additional eye complaints Cardiovascular: Reports no additional cardiovascular complaints Respiratory: Reports no additional respiratory complaints Gastrointestinal: Reports bloating Skin/Breast: Reports system reviewed and no additional complaints, except as docu Reports system reviewed and no additional complaints, except as documented Psychiatric: Reports no additional psychiatric complaints Physical Exam Vital Signs: Last Vital Signs Temp 98.5 F 07/21/24 07:06 Pulse 88 07/21/24 08:23 Resp 20 07/21/24 08:23 BP 100/54 L 07/21/24 07:06 Pulse Ox 90 L 07/21/24 07:06 O2 Del Method Nasal Cannula 07/21/24 07:06 O2 Flow Rate 2.5 07/21/24 07:06 BMI result Body Mass Index 27.5 Const General: cooperative, comfortable, no acute distress, alert and awake Nutritional Appearance: overweight Orientation/consciousness: patient oriented x3 Limitations: no limitations HEENT Head: Yes normocephalic and Yes atraumatic Neck Neck: Yes trachea midline, Yes supple and Yes no JVD Resp Effort & Inspection: normal respiratory effort Auscultation: clear to auscultation bilaterally and diminished lung sounds Cardio Jugular venous distension: no JVD Palpation: normal PMI Rate: regular rate Rhythm: regular rhythm Heart sounds: S1 normal heart sound present, S2 normal heart sound present, no click, no gallops, no murmurs and no rubs GI Inspection: Yes distended Auscultation: normal bowel sounds Skin General skin exam: no rashes or lesions noted Neuro General: patient oriented x3 and no focal motor deficits Extrem General: Yes no clubbing, cyanosis or edema Psych Appearance: grossly normal Objective Labs and Meds 07/20/24 06:23 07/21/24 05:52 Lab results: Laboratory Results - last 24 hr 07/20/24 07/20/24 07/21/24 15:03 23:34 05:52 aPTT Heparin Protocol 30.7 L D 78.7 H D 49.5 L D Sodium 139 Potassium 3.5 Chloride 103 Carbon Dioxide 29 Anion Gap 11 L BUN 9 Creatinine 0.65 Estim Creat Clear Calc 82.2 Estimated GFR > 60 Random Glucose 94 Calcium 8.0 L D Total Bilirubin 0.6 AST 49 H ALT 33 H Total Protein 5.6 L Albumin 2.7 L Lipase 89 H Imaging Radiologist's impression: Impressions Abdomen Ultrasound 07/20/24 10:13 IMPRESSION: Hepatomegaly with mild increased hepatic echotexture but no focal lesion seen. Gallbladder, right kidney and visualized pancreas is grossly unremarkable. Electronically signed by: Vinicio Payan MD 07/20/2024 11:07 AM EST RP Abdomen MRI 07/20/24 12:58 IMPRESSION: Concerning strictures interbody resulting in dilatation of the common bile duct. No peripancreatic fluid collections. No gross splenic vein thrombosis or splenic artery pseudoaneurysm. 2.3 cm lipid rich adenoma, left adrenal gland. Electronically signed by: Patrice Mcdaniels MD 07/20/2024 03:26 PM EST RP Progress Note: A&P Assessment and plan (1) NSTEMI (non-ST elevated myocardial infarction): Status: Acute Assessment and Plan: NSTEMI with a elevated troponins with LV systolic dysfunction highly suggestive of underlying coronary artery disease and primary plaque rupture. Patient was strong family history in his sisters as well. Continue IV heparin drip. Patient was awaiting transfer to [facility] for cardiac catheterization. Continue to pursue that. Will also try to see if [facility] has sooner beds. Continue aspirin, statins, metoprolol. Advised patient to call us with any new symptoms. We discussed about the need for cardiac catheterization including risks, benefits, alternatives. She understands agrees. Will follow up patient was still here Time Spent With Patient Time: Total time managing care of this patient today ____ minutes. Progress Note: Quality Stroke Does the patient have a stroke diagnosis?: No Procedures Date of Service Date of Service: 07/21/24
--- NOTE | 2024-07-21 10:42 | MHC.CM.PN ---
dc plan remains to be, transfer to [facility], pending bed availability. CM will continue to follow.
[2024-07-21 10:46] LABS: Alkaline Phosphatase 81 U/L (39-117)
[2024-07-21 11:47] VITALS: BP 105/55; PULSE 67; RESP 18; TEMP 36.3; O2SAT 92
--- NOTE | 2024-07-21 14:19 | PC.NURSE ---
This RN to discharge pt at 1330 via ambulance. PTT had a pending draw for PTT. Pt PTT in therapeutic range. Pt did not receive bolus or rate change per JUL. [facility] RN notified of current PTT and next PTT draw.
[2024-07-24 13:33] LABS: Carbohydrate Antigen 19-9 58 U/mL (<34)
== END 2024-07-21 13:30 | disposition short-term general hospital (02) | DRG 438 ==
LOC: HO.ED 12:57 → HO.EDOVER 17:31 → HO.IMC 19:17
PROVIDERS: Internal Medicine; Physician Assistant Medical; Admitting Provider Student in an Organized Health Care Education/Training Program; Emergency Provider Emergency Medicine; PCP Family Medicine; Visit Provider Internal Medicine
DX: K85.20 Alcohol induced acute pancreatitis without necrosis or infection (principal); I21.4 Non-ST elevation (NSTEMI) myocardial infarction; F11.20 Opioid dependence, uncomplicated; K21.9 Gastro-esophageal reflux disease without esophagitis; I25.10 Atherosclerotic heart disease of native coronary artery without angina pectoris; J44.9 Chronic obstructive pulmonary disease, unspecified; E87.6 Hypokalemia; M79.7 Fibromyalgia; Z99.81 Dependence on supplemental oxygen; Z87.891 Personal history of nicotine dependence; Z79.899 Other long term (current) drug therapy
CPT/HCPCS: 36415; 74177; 74183; 76705; 80053; 80061; 82248; 83690; 83735; 84484; 85025; 85027; 85610; 85730; 86301; 93005; 93306; 99285; A9585; J1171; J1644; J1650; J2060; J2270; J2405; J7120; Q9957; Q9967; S9485

== ENCOUNTER → 2024-07-19 10:20 | Outpatient (BNV) | payer OTHER, MEDICAID, SELFPAY | PROVIDERS: Emergency Provider Emergency Medicine; PCP Family Medicine; Visit Provider Radiology Diagnostic Radiology | DX: K85.90 Acute pancreatitis without necrosis or infection, unspecified (principal); R16.0 Hepatomegaly, not elsewhere classified; K76.0 Fatty (change of) liver, not elsewhere classified | CPT/HCPCS: 74177 ==

== ENCOUNTER → 2024-07-19 12:16 | Outpatient (BNV) | payer OTHER, MEDICAID, SELFPAY | PROVIDERS: Emergency Provider Emergency Medicine; PCP Family Medicine; Visit Provider Internal Medicine Cardiovascular Disease | DX: I49.3 Ventricular premature depolarization (principal); R00.0 Tachycardia, unspecified | CPT/HCPCS: 93010 ==

== ENCOUNTER 2024-07-19 17:03 | Outpatient (BNV) | payer OTHER, SELFPAY | END 2024-07-20 07:00 | PROVIDERS: Admitting Provider Student in an Organized Health Care Education/Training Program; Emergency Provider Emergency Medicine; PCP Family Medicine; Visit Provider Internal Medicine Cardiovascular Disease | DX: R94.31 Abnormal electrocardiogram [ECG] [EKG] (principal); R07.9 Chest pain, unspecified | CPT/HCPCS: 93010 ==

== ENCOUNTER 2024-07-19 17:03 | Outpatient (BNV) | payer OTHER, SELFPAY | END 2024-07-20 08:00 | PROVIDERS: Admitting Provider Student in an Organized Health Care Education/Training Program; Emergency Provider Emergency Medicine; PCP Family Medicine; Visit Provider Radiology Diagnostic Radiology | DX: R16.0 Hepatomegaly, not elsewhere classified (principal); K83.8 Other specified diseases of biliary tract; D35.02 Benign neoplasm of left adrenal gland | CPT/HCPCS: 74183; 76705 ==

== ENCOUNTER → 2024-07-19 17:03 | Outpatient (BNV) | payer OTHER, MEDICAID, SELFPAY | PROVIDERS: Admitting Provider Student in an Organized Health Care Education/Training Program; Emergency Provider Emergency Medicine; PCP Family Medicine; Visit Provider Student in an Organized Health Care Education/Training Program | DX: I21.4 Non-ST elevation (NSTEMI) myocardial infarction (principal); K85.90 Acute pancreatitis without necrosis or infection, unspecified | CPT/HCPCS: 99223; 99232; 99239 ==

== ENCOUNTER → 2024-07-19 17:03 | Outpatient (BNV) | payer OTHER, SELFPAY | PROVIDERS: Admitting Provider Student in an Organized Health Care Education/Training Program; Emergency Provider Emergency Medicine; PCP Family Medicine; Visit Provider Internal Medicine Cardiovascular Disease | DX: I21.4 Non-ST elevation (NSTEMI) myocardial infarction (principal) | CPT/HCPCS: 99222 ==

== ENCOUNTER 2025-03-31 02:59 | Emergency (ER) | payer OTHER, SELFPAY ==
--- OUTSIDE RECORDS SUMMARY | 2025-03-27 13:30 | XMS_ITS | Encounter Summary ---
Author Organization [facility] Address [address] [place] [address] Care Team Providers Care Fire Manager Name Role Phone Stacy Yen MD Primary Care Pr ovider Reason for Referral * Consultation (Routine) - Denied Specialty Diagnoses / Procedures Referred By Contact Referred To Contact Family Nutrition Services / Bariatrics Diagnoses Overweight (BMI 25.0-29.9) Isadora Carmona PA [address] [place] [address] Phone: tel: fax: Bariatric Surgery [address] [phone] Phone: tel: fax: Referral ID Status Reason Start Date Expiration Date V isits Requested Visits Authorized [id number] Denied Specialty Services Required 03/27/2025 03/27/2026 1 0 Reason for Visit * Reason Comments Medication Visit Encounter Details Date Type Department Care Team (Late st Contact Info) Description 03/27/2025 1:30 PM EST Office Visit Adult Medicine [address] [phone] Isadora Carmona PA [address] [place] [address] Malignant neoplasm of upper-inner quadrant of left breast in female, estrogen receptor negative ([facility] V24, [facility] V28) (Primary Dx); Peripheral neuropathy due to chemotherapy ([facility] V24); NSTEMI (non-ST elevated myocardial infarction) ([facility] V24, [facility] V28); Heart failure with mildly reduced ejection fraction ([facility] V24, [facility] V28); Stage 1 mild COPD by GOLD classification ([facility] V24, [facility] V28); Anxiety and depression; Primary insomnia; Chronic constipation; Gastroesophageal reflux disease without esophagitis; Recurrent cold sores; Overweight (BMI 25.0-29.9) Social History Tobacco Use Types Packs/Day Years Used Date Smoking Tobacco: Former Cigarettes 0.3 3.5 1 06/29/2018 - 11/14/2022 Smokeless Tobacco: Never Tobacco Cessation:Counseling Given: Not Answered Alcohol Use Standard Drinks/Week Comments Not Currently 0 (1 standard drink = 0.6 oz [...] months th e food we bought just didn t last and we didn t have money to get more. Not on file 05/11/2024 Dependent Care Answer Date Recorded Do you need help finding or paying for care for your loved ones. For example, childcare attendant or elderly care for an older adult? [...] Date Recorded What is your living situation? Unrecognized valu e 05/11/2024 Comments No Sex and Gender Information Value Date Recorded Sex Assigned at Not on file Legal Sex Female 7:57 PM EST Gender Identity Not on file Sexual Orientation Not on file documented as of this encounter Last Filed Vital Signs Vital Sign Reading Time Taken Comments Blood Pressure 127/71 03/27/2025 1:34 PM EST Pulse 91 03/27/2025 1:34 PM EST Temperature 36.1 C (97 F) 03/27/2025 1:34 PM EST Respiratory Rate 14 03/27/2025 1:34 PM EST Oxygen Saturation - - Inhaled Oxygen Concentration - - Weight 74.4 kg (164 lb) 03/27/2025 1:34 PM EST Height 160 cm (5' 3 ) 03/27/2025 1:34 PM EST Body Mass Index 29.05 03/27/2025 1:34 PM EST documented in this encounter Ordered Prescriptions Prescription Sig Dispense Quantity Refills Last Filled Start Date End Date amitriptyline (ELAVIL) 25 mg tabletIndications: Peripheral neuropathy due to chemotherapy (CMS/HCC V24),Anxiety and depression,Primary insomnia Take 1 tablet nightly for two weeks then increase to 2 tablets nightly 180 tablet 03/27/2025 valACYclovir (Valtrex) 1 gram tabletIndications: Recurrent cold sores Take 2 tablets (2,000 mg total) by mouth 2 (two) times a day for 1 day. 12 tablet 1 03/27/2025 documented in this encounter Progress Notes * TONY Dobson - 03/27/2025 1:30 PM EST CHIEF COMPLAINT: Medication Visit IDENTIFIER: Do Luna is a 64 y.o. old female. HPI: 64 year old female presents to office for medication review History of left breast cancer, peripheral neuropathy (secondary to chemotherapy and lumbar degenerative disc disease) - on gabapentin 1200mg q8 and duloxetine 60mg daily. Follows with oncology (Dr. Mauro) NSTEMI, HFrEF - BP today 127/71, follows with Cardiology, currently on losartan 25mg daily, spironolactone 12.5mg daily COPD - on Trelegy daily, albuterol PRN, follows with Pulmonology Anxiety, depression, insomnia - started on amitriptyline 25mg nightly at last visit for mood related symptoms as well as neuropathy symptoms. She states she took medication for a bit but did not notice much change in symptoms so discontinued. She continues to report trouble sleeping as well. DeniesSI/HI Chronic constipation - on miralax/docusate/senna as needed GERD - on pantoprazole 20mg BID Recurrent cold sores - on Valtrex (2g BID x 1 day) PRN with good effect, requesting refill She was previously on Zepbound for weight loss. BMI 29.05 today. Medication was resent in spring. She has history of alcoholic pancreatitis (admitted earlier this year, followed up with PCP early July). Zepbound was resent after lipase levels normalized. Patient states insurance was back and forthabout coverage of the medications (Zepbound, Wegovy). She has not taken in at least a few months She is requesting letter for social security. She states when she was undergoing chemotherapy, she was experiencing forgetfulness and chemo brain she states at the time, she placed her ([place], who she is not from) and her daughter in charge of her finances which included her social security checks. She states the checks were being deposited and continue to be deposited into his account. She states she went to social security with new banking information but never changed the account from what she had previously stated from when her was getting her checks. She states she needs a doctor's note stating she is able to manage her finances in order to get social security to change the account for her. She denies continued issue with forgetfulness, memory related symptoms. She states she manages her finances/bills currently for herself ROS: GENERAL: No malaise or fever HEENT: No changes in hearing or vision RESPIRATORY: No cough, wheezing or shortness of breath CARDIOVASCULAR: No chest pain GI: No abdominal pain, diarrhea, constipation MUSCULOSKELETAL: No joint pain or swelling NEURO: No persistent headache, syncope, numbness All other systems reviewed and negative. PAST MEDICAL HISTORY: Patient Active Problem List Diagnosis Date Noted Neck pain, chronic 01/16/2025 Chronic constipation 08/30/2024 Primary insomnia 08/30/2024 Arthritis of metatarsophalangeal (MTP) joint of great toe 08/30/2024 Calcaneal spur of both feet 08/30/2024 QT prolongation 07/28/2024 Adrenal nodule ([facility] V24) 07/28/2024 Hepatomegaly 07/28/2024 NSTEMI (non-ST elevated myocardial infarction) ([facility] V24, [facility] V28) 07/27/2024 Heart failure with mildly reduced ejection fraction ([facility] V24, [facility] V28) 07/27/2024 Dilated cbd, acquired 07/27/2024 Diverticulosis 04/04/2024 Dysphagia 04/04/2024 Hemorrhoids 04/04/2024 Gastroesophageal reflux disease without esophagitis 01/20/2024 Overweight (BMI 25.0-29.9) 01/20/2024 Malignant neoplasm of upper-inner quadrant of left breast in female, estrogen receptor negative ([facility] V24, [facility] V28) 01/13/2024 Alcohol use disorder, mild, in early remission, abuse 06/14/2023 Status post total right knee replacement 02/11/2023 Hypoxemia 10/16/2022 Hepatic steatosis 03/24/2022 Dyspnea on exertion 02/09/2022 Sleep apnea 09/10/2021 Stage 1 mild COPD by GOLD classification ([facility] V24, [facility] V28) 09/10/2021 Pulmonary nodules 07/14/2021 Primary osteoarthritis of right knee 09/03/2020 Vocal cord nodules 05/09/2019 Anxiety and depression 03/16/2019 Peripheral neuropathy due to chemotherapy ([facility] V24) 03/16/2019 Vitamin D deficiency 10/14/2018 Lumbar radiculopathy 07/28/2018 History of substance abuse ([facility] V24, [facility] V28) 07/14/2018 Tobacco use disorder 03/24/2007 Irritable bowel syndrome 02/08/2006 ACTIVE MEDICATIONS: Current Outpatient Medications Medication Instructions acetaminophen (TYLENOL) 325 mg tablet Take 2 tablets (650 mg total) by mouth every 6 (six) hours asneeded for pain. albuterol HFA (PROAIR HFA ; PROVENTIL HFA ; VENTOLIN HFA) 90 mcg/actuation inhaler 2 puffs, inhalation, Every 6 hours PRN amitriptyline (ELAVIL) 25 mg tablet Take 1 tablet nightly for two weeks then increase to 2 tablets nightly cholecalciferol (VITAMIN D-3) 50 mcg (2,000 unit) capsule Take 400 Units by mouth daily. cyanocobalamin (VITAMIN B-12) 500 mcg tablet 1 tablet, Daily dexAMETHasone (DECADRON) 1 mg tablet Take 1 tablet at 11 pm and have labs drawn at 8 AM the next day diclofenac (VOLTAREN) 50 mg EC tablet 1 tablet, 2 times daily docusate sodium (COLACE) 100 mg, oral, Daily DULoxetine (CYMBALTA) 60 mg, oral, Daily qnkwqpxxssb-gwzovujniztd-logcnggkhq (Trelegy Ellipta) 100-62.5-25 mcg inhaler 100 mcg, inhalation, Daily, Rinse mouth with water after use to reduce aftertaste and incidence of candidiasis. Do not swallow. furosemide (LASIX) 40 mg, Daily PRN gabapentin (NEURONTIN) 600 mg tablet TAKE 2 TABLETS (1,200 MG TOTAL) BY MOUTH 3 TIMES A DAY losartan (COZAAR) 25 mg, oral, Daily pantoprazole (PROTONIX) 20 mg EC tablet TAKE 1 TABLET BY MOUTH TWICE DAILY. TAKE ON EMPTY STOMACH, WAIT 30 MINS AND THEN EAT TO ACTIVATE THE MEDICATION- BEFORE BREAKFAST AND SUPPER polyethylene glycol (MIRALAX) 17 gram packet Take 17 g by mouth daily. senna (SENOKOT) 8.6 mg tablet 1 tablet, Daily spironolactone (ALDACTONE) 12.5 mg, oral, Daily Trelegy Ellipta 100-62.5-25 mcg inhaler 1 puff, Daily UNABLE TO FIND albuterol (2.5 MG/3ML) 0.083% NEBU 3 mL, albuterol (5 MG/ML) 0.5% NEBU 0.5 mL, Inhale into the lungs. valACYclovir (VALTREX) 2,000 mg, oral, 2 times daily ALLERGIES: Allergies[1] PHYSICAL EXAM: Blood pressure 127/71, pulse 91, temperature 36.1 ??C (97 ??F), temperature source Temporal, resp. rate 14, height 1.6 m (63 ), weight 74.4 kg (164 lb). Body mass index is 29.05 kg/m??. APPEARANCE: Alert and in no acute distress EYES: Conjunctiva and sclera normal. HEART: RRR with normal S1 and S2 LUNG: clear to auscultation, no wheezing, rales, or rhonchi EXTREMITIES: Extremities warm and well perfused without clubbing, cyanosis, or edema NEURO: Awake, alert and oriented x 3 LABS/IMAGING: Reviewed IMPRESSION: 1. Malignant neoplasm of upper-inner quadrant of left breast in female, estrogen receptor negative ([facility] V24, [facility] V28) 2. Peripheral neuropathy due to chemotherapy ([facility] V24) 3. NSTEMI (non-ST elevated myocardial infarction) ([facility] V24, [facility] V28) 4. Heart failure with mildly reduced ejection fraction ([facility] V24, [facility] V28) 5. Stage 1 mild COPD by GOLD classification ([facility] V24, [facility] V28) 6. Anxiety and depression 7. Primary insomnia 8. Chronic constipation 9. Gastroesophageal reflux disease without esophagitis 10. Recurrent cold sores 11. Overweight (BMI 25.0-29.9) PLAN: History of breast cancer, peripheral neuropathy - continue regimen and follow-up with oncology as directed NSTEMI, HF - vitals stable, continue losartan 25mg daily and spironolactone 12.5mg daily and follow-up with Cardiology as directed COPD - continue Trelegy and albuterol, follow-up with Pulmonology as directed Anxiety, depression, insomnia - will restart amitriptyline 25mg nightly for two weeks then increaseto 50mg nightly to see if this improves symptoms. Follow-up ~6-8 weeks after starting Constipation - continue colace, senna, miralax as directed GERD - continue pantoprazole 20mg twice daily Recurrent cold sores - refill of Valtrex sent BMI 29.05 - not currently on GLP-1, was previously but insurance will not cover looks like. She is interested in medication. Will refer to weight management for consultation (especially given historyof pancreatitis) Follow-up as above Patient verbalized understanding and is in agreement with plan ADDITIONAL ORDERS: Orders Placed This Encounter Procedures Ambulatory referral to Weight Management AMB REFERRAL TO WEIGHT MANAGEMENT TONY Dobson on 03/27/2025 at 5:01 PM EST Today's documentation was made using voice recognition software.This note may contain grammatical errors secondary to this software. [1] No Known Allergies documented in this encounter Plan of Treatment Upcoming Encounters Date Type Department Care Team (Late st Contact Info) Description 04/26/2025 9:45 AM EST Office Visit [facility] Hematology Oncology [address] [place] [phone] Sunil Mauro MD [address] [place] [phone] 05/02/2025 9:30 AM EST Office Visit Pulmonology - [place] [address] [facility] [address] [place] [phone] Swati Lehman MD [address] [place] [phone] 06/08/2025 9:00 AM EST Office Visit [facility] - [address] [phone] Stacy Yen MD [address] [place] [phone] 06/14/2025 2:45 PM EST Appointment Bone Density - [address] [phone] Scheduled Referrals Name Type Priority Associated Diagnoses Order Schedule Ambulatory referral to Weight Management Outpatient Referral Routine Overweight (BMI 25.0-29.9) 1 Occurrences starting 03/27/2025 until 03/27/2026 documented as of this encounter Visit Diagnoses Diagnosis Malignant neoplasm of upper-inner quadrant of left breast in female, estrogen receptor negative (CMS/HCC V24, CMS/HCC V28)- Primary Peripheral neuropathy due to chemotherapy (CMS/HCC V24) NSTEMI (non-ST elevated myocardial infarction) (CMS/HCC V24, [facility] V28) Acute myocardial infarction, subendocardial infarction, episode of care unspecified Heart failure with mildly reduced ejection fraction ([facility] V24, [facility] V28) Stage 1 mild COPD by GOLD classification ([facility] V24, [facility] V28) Anxiety and depression Primary insomnia Persistent disorder of initiating or maintaining sleep Chronic constipation Unspecified constipation Gastroesophageal reflux disease without esophagitis Esophageal reflux Recurrent cold sores Herpes simplex without mention of complication Overweight (BMI 25.0-29.9) Overweight documented in this encounter Discontinued Medications Medication Sig Discontinue Reason Start Date End Da te valACYclovir (Valtrex) 1 gram tabletIndications:Recurr ent cold sores Take 2 tablets (2,000 mg total) by mouth 2 (two) times a day. Reorder 09/11/2024 03/27/2025 amoxicillin-clavulanate (AUGMENTIN) 875-125 mg per tablet Take 1 tablet by mouth 2 (two) times a day. 03/27/2025 celecoxib (CeleBREX) 200 mg capsule 03/27/2025 amitriptyline (ELAVIL) 25 mg tabletIndications:Periph eral neuropathy due to chemotherapy ([facility] V24),Anxiety and depression,Primary insomnia TAKE 1 TABLET BY MOUTH EVERYDAY AT BEDTIME 03/14/2025 03/27/2025 tirzepatide, weight loss, (Zepbound) 2.5 mg/0.5 mL injection INJECT 0.5 ML (2.5 MG TOTAL) UNDER THE SKIN EVERY 7 DAYS 10/06/2024 03/27/2025 semaglutide (Wegovy) 0.25 mg/0.5 mL injection penIndications:Overweigh t (BMI 25.0-29.9) Inject 0.25 mg under the skin every 7 (seven) days. 09/27/2024 03/27/2025 documented as of this encounter Additional Health Concerns Assessment Noted Time PHQ-9 Depression Total Score: 1 05/11/20 24 10:20 AM EST documented as of this encounter Care Teams Fire Manager Relationship Specialty Start Date End Date Stacy Yen MD [address] [place], [place] PCP - General Internal Medicine 12/17/21 documented as of this encounter
--- OUTSIDE RECORDS SUMMARY | 2025-03-27 14:20 | XMS_ITS | Encounter Summary ---
Author Organization [facility] Address [address] [place] [address] Care Team Providers Care Deputy Commonwealth'S Attorney Name Role Phone Stacy Yen MD Primary Care Pr ovider Encounter Details Date Type Department Care Team ([facility] Contact Info) Description 03/27/2025 2:20 PM EST Lab Draw Station [address] [phone] NSTEMI (non-ST elevated myocardial infarction) (CMS/HCC V24, CMS/HCC V28); Hypertriglyceridemia; Palpitations; Adrenal nodule (CMS/HCC V24) Social History Tobacco Use Types Packs/Day Years Used Date Smoking Tobacco: Former Cigarettes 0.3 3.5 1 06/29/2018 - 11/14/2022 Smokeless Tobacco: Never Alcohol Use Standard Drinks/Week Comments Not Currently [...] care for your loved ones. For example, childhood development teacher or elderly care for an older adult? [...] on file documented as of this encounter Plan of Treatment Upcoming Encounters Date Type Department Care Team (Late st Contact Info) Description 04/26/2025 9:45 AM EST Office Visit [facility] Hematology Oncology [address] [place] [phone] Sunil Mauro MD [address] [place] [phone] 05/02/2025 9:30 AM EST Office Visit Pulmonology [facility] [address] [facility] [address] [place] [phone] Swati Lehman MD [address] [place] [phone] 06/08/2025 9:00 AM EST Office Visit Adult Medicine [address] [phone] Stacy Yen MD [address] [place], [place] 06/14/2025 2:45 PM EST Appointment [facility] - [address] [phone] documented as of this encounter Procedures Procedure Name Priority Date/Time Associated Diagnosis Comments LIPID PANEL WITH REFLEX TO DIRECT LDL Routine 03/27/2025 2:17 PM EST NSTEMI (non-ST elevated myocardial infarction) ([facility] V24, [facility] V28) Hypertriglyceridemi a CORTISOL Routine 03/27/2025 2:17 PM EST Adrenal nodule ([facility] V24) BASIC METABOLIC PANEL Routine 03/27/2025 2:17 PM EST NSTEMI (non-ST elevated myocardial infarction) ([facility] V24, [facility] V28) Palpitations documented in this encounter Results * Cortisol (03/27/2025 2:17 PM EST) Cortisol 12.2 mcg/dL LAB CHEMISTRY METHOD 03/27/2025 6:59 PM EST [facility] Blood Venous blood specimen / Unknown Venipuncture / Unknown 03/27/2025 2:17 PM EST 03/27/2025 2:17 PM EST Narrative [facility] - 03/27/2025 6:59 PM EST CORTISOL REFERENCE RANGE 8 AM SPEC: 5.0-23.0 mcg/dL 4 PM SPEC: 3.0-16.0 mcg/dL 8 PM SPEC: <5.0 mcg/dL us Clement Nguyen MD LAB BLOOD ORDERABLES Final Resul t [facility] [address] [place] [address], * (ABNORMAL) Basic metabolic panel (03/27/2025 2:17 PM EST) Sodium 137 133 - 145 mmol/L LAB CHEMISTRY METHOD 03/27/2025 7:07 PM [facility] Potassium 4.3 3.5 - 5.5 mmol/L LAB CHEMISTRY METHOD 03/27/2025 7:07 PM [facility] Chloride 95(L) 96 - 110 mmol/L LAB CHEMISTRY METHOD 03/27/2025 7:07 PM [facility] CO2 36(H) 21 - 32 mmol/L LAB CHEMISTRY METHOD 03/27/2025 7:07 PM [facility] Anion Gap 6 3 - 11 LAB CHEMISTRY METHOD 03/27/2025 7:07 PM [facility] Glucose 77 70 - 100 mg/dL LAB CHEMISTRY METHOD 03/27/2025 7:07 PM [facility] BUN 14 5 - 25 mg/dL LAB CHEMISTRY METHOD 03/27/2025 7:07 PM [facility] Creatinine 0.67 0.50 - 1.10 mg/dL LAB CHEMISTRY METHOD 03/27/2025 7:07 PM [facility] eGFR 97 >=60 mL/min/1. 73m2 LAB CHEMISTRY METHOD 03/27/2025 7:07 PM [facility] Comment:Calculation based on the Chronic Kidney Disease Epidemiology Collaboration (CKD-EPI) equation refit without adjustment for race. BUN/Creatinine Ratio 20.9 LAB CHEMISTRY METHOD 03/27/2025 7:07 PM [facility] Calcium 8.8 8.5 - 10.5 mg/dL LAB CHEMISTRY METHOD 03/27/2025 7:07 PM [facility] Blood Venous blood specimen / Unknown Venipuncture / Unknown 03/27/2025 2:17 PM EST 03/27/2025 2:17 PM EST us Violet Jackson [employer] PRESERVATION INSPECT[employer] LAB BLOOD ORDERABLES F inal Result [facility] [address] [place] [address], [place] [phone] * (ABNORMAL) Lipid panel with reflex to direct LDL (03/27/2025 2:17 PM EST) Cholesterol 227(H) 0 - 200 mg/dL LAB CHEMISTRY METHOD 03/27/2025 6:39 PM EST [facility] Triglycerides 382(H) 0 - 150 mg/dL LAB CHEMISTRY METHOD 03/27/2025 6:39 PM [facility] HDL 62 >=40 mg/dL LAB CHEMISTRY METHOD 03/27/2025 6:39 PM [facility] LDL Calculated 89 0 - 100 mg/dL LAB CHEMISTRY METHOD 03/27/2025 6:39 PM [facility] Comment:Estimated LDL Calcul ated using equation: Total cholesterol - HDL cholesterol - (Triglycerides/5) VLDL Cholesterol [place] 76.4 mg/dL LAB CHEMISTRY METHOD 03/27/2025 6:39 PM [facility] Non HDL Chol. (LDL+VLDL) 165(H) <145 mg/dL LAB CHEMISTRY METHOD 03/27/2025 6:39 PM [facility] Chol/HDL Ratio 3.7 0.0 - 4.4 LAB CHEMISTRY METHOD 03/27/2025 6:39 PM [facility] Blood Venous blood specimen / Unknown Venipuncture / Unknown 03/27/2025 2:17 PM EST 03/27/2025 2:17 PM EST Violet Jackson [employer] PRESERVATION INSPECTOR LAB BLOOD ORDERABLES F inal Result [facility] [address] [place] [address], [place] [phone] documented in this encounter Visit Diagnoses Diagnosis NSTEMI (non-ST elevated myocardial infarction) ([facility] V24, [facility] V28) Acute myocardial infarction, subendocardial infarction, episode of care unspecified Hypertriglyceridemia Pure hyperglyceridemia Palpitations Adrenal nodule ([facility] V24) Benign neoplasm of adrenal gland documented in this encounter Additional Health Concerns Assessment Noted Time PHQ-9 Depression Total Score: 1 05/11/20 24 10:20 AM EST documented as of this encounter Care Teams Deputy Commonwealth'S Attorney Relationship Specialty Start Date End Date Stacy Yen MD [address] [facility], [place] PCP - General Internal Medicine 12/17/21 documented as of this encounter
--- NOTE | ~2025-03-31 | CT_ITS ---
CLINICAL HISTORY: trauma CT head without contrast Comparison: None provided Findings: No intra-axial mass, midline shift, hydrocephalus, or acute hemorrhage. No significant atrophy-like change or white matter disease. There is no sinus or mastoid fluid. The orbits are within normal limits. No skull fracture. IMPRESSION: No acute intracranial findings. This document has been electronically signed by: Gamal Ramos MD on 03/31/2025 05:50:51
[2025-03-31 03:09] VITALS: BP 159/80; BP 174/102; PULSE 103; PULSE 93; RESP 17; TEMP 36.8; O2SAT 90; O2SAT 93; BMI 30.1
--- NOTE | 2025-03-31 03:14 | ECG_ITS ---
Test Reason : FALL Blood Pressure : */* mmHG Vent. Rate : 87 BPM Atrial Rate : 87 BPM P-R Int : 154 ms QRS Dur : 96 ms QT Int : 386 ms P-R-T Axes : 69 -22 24 degrees QTcB Int : 464 ms Normal sinus rhythm Normal ECG When compared with ECG of 20-Jul-2024 19:29, Criteria for Septal infarct are no longer Present QT has shortened Referred By: Generic ED Physician Electronically Signed By: RITA ARZATE MD
[2025-03-31 03:24] LABS: MANUAL DIFF FLAG NO
[2025-03-31 03:25] LABS: Hematocrit 41.7 % (37.0-47.0); Hemoglobin 13.7 g/dl (12.0-16.0); Imm Gran Abs Auto 0.04 X10*3/uL (0.00-0.03); Imm Gran Pct Auto 0.6 % (0.0-0.4); Lymphocytes Absolute Auto 1.5 X10*3/uL (1.2-4.9); Mean Corpuscular HGB Conc 32.9 g/dl (31.0-35.0); Mean Corpuscular Hemoglobin 33.8 pg (27.0-33.0); Mean Corpuscular Volume 103.0 fL (80.0-98.0); NRBC Abs Auto 0.000 X10*3/uL (0.0-0.012); NRBC Pct Auto 0.0 /100WBC (0.0-0.2); Platelet Count 176 X10*3/uL (160-400); Red Blood Count 4.05 X10*6/uL (4.20-5.50); White Blood Count 6.7 X10*3/uL (4.8-10.8)
--- OUTSIDE RECORDS SUMMARY | 2025-03-31 03:27 | XMS_ITS | Encounter Summary ---
Author Organization [facility] Address [address] [place] [address] Care Team Providers Care Life Insurance Sales Agent Name Role Phone Stacy Yen MD Primary Care Pr ovider Reason for Visit * Reason Onset Date Comments Results 03/28/2025 Lipid results Encounter Details Date Type Department Care Team (Late st Contact Info) Description 03/28/2025 Results Follow-Up [facility] - [facility] [address] [facility] [address] [place] [address] Violet Jackson NP [address] [place] [address] [place] [address] Social History Tobacco Use Types Packs/Day Years [...] care for your loved ones. For example, vocational childcare teacher or elderly care for an older [...] as of this encounter Progress Notes * Kenny Wasserman MA - 03/28/2025 1:46 PM EST Pt aware of lab results. Agrees to continue medications and to be more mindful of the junk foods she has been eating late at night. Thank you. * Kenny Wasserman MA - 03/28/2025 1:40 PM EST ----- Message from A LOULOU Jackson sent at 03/28/2025 1:00 PM EST ----- Her total cholesterol is elevated . Her LDL is not at goal of less than 70 . her triglycerides continue to be elevated. She needs to be mindful of her dietary fat intake as well as alcohol consumption. She needs to ensure that her blood sugars are under good control. Please confirm that the patient has restarted her medications as she had self discontinued all her medications during her last office visit. ----- Message ----- From: Lab, Background User Sent: 03/27/2025 6:39 PM EST To: Violet Jackson NP documented in this encounter Plan of Treatment Upcoming Encounters Date Type Department Care Team (Late st Contact Info) Description 04/26/2025 9:45 AM EST Office Visit [facility] Hematology Oncology [address] [place] [phone] Sunil Mauro MD [address] [place] [phone] 05/02/2025 9:30 AM EST Office Visit Pulmonology - [place] 175 [facility] [address] [place] [phone] Swati Lehman MD [address] [place] [phone] 06/08/2025 9:00 AM EST Office Visit Adult Medicine [facility] - [address] [phone] Stacy Yen MD [address] [place] [address] 06/14/2025 2:45 PM EST Appointment [facility] - [address] [phone] documented as of this encounter Visit Diagnoses Not on filedocumented in this encounter Additional Health Concerns Assessment Noted Time PHQ-9 Depression Total Score: 1 05/11/20 24 10:20 AM EST documented as of this encounter Care Teams Life Insurance Sales Agent Relationship Specialty Start Date End Date Stacy Yen MD [address] [place] [address] PCP - General Internal Medicine 12/17/21 documented as of this encounter
--- OUTSIDE RECORDS SUMMARY | 2025-03-31 03:27 | XMS_ITS | Encounter Summary ---
Author Organization [facility] Address [address] [place] [address] Care Team Providers Care Senior Web Developer Name Role Phone Stacy Yen MD Primary Care Pr ovider Reason for Visit * Reason Onset Date Comments Letter for School/Work 03/15/2025 Social Se curity letter Encounter Details Date Type Department Care Team ([facility] Contact Info) Description 03/15/2025 Telephone Adult Medicine [address] [phone] Stacy Yen MD [address] [place] [address] Social History Tobacco Use Types Packs/Day Years [...] care for your loved ones. For example, child and family services specialist or elderly care for an older adult? [...] as of this encounter Progress Notes * Haritha Ronni - 03/15/2025 1:37 PM EDT Letter Request Call: Who is requesting the letter?: The patient Reason for letter: Social security requesting a letter Specific notations needed in body of letter: pt is requesting a letter for social security , letterneeds to be on a letter head form with The date Patients full name Address and date of Letter needs to state pt is competent to manage her own finances. Pt needs this letter for SSA , so she can be her own payee and be paid directly to her banking acctsince pt is separate and all the account where under her name Date needed for completion: KAILEY When completed: Will apple picking supervisor-call when completed: (home) documented in this encounter Plan of Treatment Upcoming Encounters Date Type Department Care Team (Late st Contact Info) Description 04/26/2025 9:45 AM EST Office Visit [facility] Hematology Oncology [address] [place] [phone] Sunil Mauro MD [address] [place] [phone] 05/02/2025 9:30 AM EST Office Visit Pulmonology - [place] [address] [facility] [address] [place] [phone] Swati Lehman MD [address] [place] [phone] 06/08/2025 9:00 AM EST Office Visit Adult Medicine [address] [phone] Stacy Yen MD [address] [place] [address] 06/14/2025 2:45 PM EST Appointment [facility] [address] [phone] documented as of this encounter Visit Diagnoses Not on filedocumented in this encounter Additional Health Concerns Assessment Noted Time PHQ-9 Depression Total Score: 1 05/11/20 24 10:20 AM EST documented as of this encounter Care Teams Senior Web Developer Relationship Specialty Start Date End Date Stacy Yen MD [address] [facility] [address] [facility], [place] PCP - General Internal Medicine 12/17/21 documented as of this encounter
--- OUTSIDE RECORDS SUMMARY | 2025-03-31 03:27 | XMS_ITS | Encounter Summary ---
Author Organization [facility] Address [address] [place] [address] Care Team Providers Care Oracle Scm Consultant Name Role Phone Stacy Yen MD Primary Care Pr ovider Encounter Details Date Type Department Care Team ([facility] Contact Info) Description 03/28/2025 Results Follow-Up [place] - [address] [phone] Flor Bethea [place] Social History Tobacco Use Types Packs/Day [...] care for your loved ones. For example, school childcare attendant or elderly care for an [...] Description 04/26/2025 9:45 AM EST Office Visit [facility] Hematology Oncology [address] [place] [phone] Sunil Mauro MD [address] [place] [phone] 05/02/2025 9:30 AM EST Office Visit Pulmonology [facility] 175 [facility] [address] [place] [phone] Swati Lehman MD [address] [place] [phone] 06/08/2025 9:00 AM EST Office Visit Adult Medicine [address] [phone] Stacy Yen MD [address] [place] [phone] 06/14/2025 2:45 PM EST Appointment [facility] - [address] [phone] documented as of this encounter Visit Diagnoses Not on filedocumented in this encounter Additional Health Concerns Assessment Noted Time PHQ-9 Depression Total Score: 1 05/11/20 24 10:20 AM EST documented as of this encounter Care Teams Oracle Scm Consultant Relationship Specialty Start Date End Date Stacy Yen MD [address] [facility] [place], [place] PCP - General Internal Medicine 12/17/21 documented as of this encounter
--- OUTSIDE RECORDS SUMMARY | 2025-03-31 03:28 | XMS_ITS | Clinical Summary ---
Author Organization [facility] Address [address] [place] [address] Care Team Providers Care Caramel Cutter Hand Name Role Phone Stacy Yen MD Primary Care Provider Unavailable Allergies No known active allergies Medications albuterol (PROVENTIL HFA; VENTOLIN HFA) 108 (90 Base) MCG/ACT inhaler Inhale 2 puffs 4 times daily (every 6 hours) as needed for wheezing or shortness of breath. 5 Active acetaminophen (TYLENOL) 325 MG tablet Take 2 tablets (650 mg total) by mouth 4 times daily (every 6 hours) as needed. Active Vitamin D3 (CHOLECALCIFEROL ) 50 MCG (2000 UT) capsule Take 400 Units by mouth daily. Active cyanocobalamin (VITAMIN B-12) 500 MCG tablet Take 1 tablet (500 mcg total) by mouth daily. Active docusate sodium (COLACE) 100 MG capsule Take 1 capsule (100 mg total) by mouth 2 (two) times a day as needed. 5 Active DULoxetine (CYMBALTA) 30 MG capsule Take 2 capsules (60 mg total) by mouth daily. 4 Active Trelegy Ellipta 100-62.5-25 MCG/ACT inhaler Inhale 100 mcg daily. 4 Active gabapentin (NEURONTIN) 600 MG tablet Take 1 tablet (600 mg total) by mouth 3 (three) times a day. Active PANTOprazole (PROTONIX) 20 MG tablet Take 1 tablet (20 mg total) by mouth daily. Active polyethylene glycol (miraLAx) 17 g packet Take 1 packet (17 g total) by mouth daily. Active empagliflozin (JARDIANCE) 10 MG tabletIndication s:Cardiomyopathy , unspecified type (HCC) Take 1 tablet (10 mg total) by mouth daily. 30 tablet 5 Active losartan (COZAAR) 25 MG tabletIndication s:Cardiomyopathy , unspecified type (HCC) Take 0.5 tablets (12.5 mg total) by mouth daily. 15 tablet 5 Active furosemide (LASIX) 40 MG tabletIndication s:Cardiomyopathy , unspecified type (HCC) Take 0.5 tablets (20 mg total) by mouth daily. 15 tablet 5 Active spironolactone (ALDACTONE) 25 MG tabletIndication s:Cardiomyopathy , unspecified type (HCC) Take 0.5 tablets (12.5 mg total) by mouth every morning with breakfast. Do not start before July 24, 2024. 15 tablet 5 Active Active Problems Problem Noted Date Diagnosed Date NSTEMI (non-ST elevated myocardial infarction) 0 07/21/2024 Hemorrhoids 04/04/2024 Dysphagia 04/04/2024 Overview (07/21/2024): Follows with gastroenterology, status post upper endoscopy suspicious for eosinophilic esophagitis Diverticulosis 04/04/2024 Hypertriglyceridemia 03/08/2024 Gastroesophageal reflux disease without esophagi tis 01/20/2024 Overweight (BMI 25.0-29.9) 01/20/2024 Alcohol use disorder, mild, in early remission, abuse 06/14/2023 Status post total right knee replacement 023 Hypoxemia 10/16/2022 Overview (07/21/2024): Last Assessment & Plan: Patient has chronic [...] Pending sleep studies Hepatic steatosis 03/24/2022 Overview (07/21/2024): Seen on MRI lumbar spine on 02/19/2022. See telephone encounter 03/24/2022 for more details. Last Assessment & Plan: Patient has hepatomegaly on CT scan. She is a drinker of every day beers. She should follow-up with gastroenterology for further work-up. The increase in the abdominal girth and the telangiectasia are signs of liver disease and could be contributing to her dyspnea. Dyspnea on exertion 02/09/2022 Overview (07/21/2024): Last Assessment & Plan: Dyspnea is most likely multifactorial and secondary to her mild COPD, deconditioning. Sleep apnea 09/10/2021 Overview (07/21/2024): Last Assessment & Plan: The patient has an elevated Sabinal scale, states that she snores and has daytime somnolence. In base of this I have ordered sleep study. Stage 1 mild COPD by GOLD classification 022 Overview (07/21/2024): Last Assessment & Plan: Continue with Trelegy 1 puff once a day Pulmonary nodules 07/14/2021 Overview (07/21/2024): Last Assessment & Plan: Follow-up with lung cancer screening on June 2022 Primary osteoarthritis of right knee 09/03/2020 Vocal cord nodules 05/09/2019 Overview (07/21/2024): S/p biopsy with ENT Anxiety 03/16/2019 Moderate episode of recurrent major depressive d isorder 03/16/2019 Peripheral neuropathy due to chemotherapy 2018 Vitamin D deficiency 10/14/2018 Invasive ductal carcinoma of breast, female, lef t 09/08/2018 Overview (07/21/2024): Diagnosed 09/2018 on chemo and radiation Lumbar radiculopathy 07/28/2018 History of substance abuse 07/14/2018 Overview (07/21/2024): Developed in addiction to Percocet and is s/p Suboxone treatment. Tobacco use disorder 03/24/2007 Irritable bowel syndrome 02/08/2006 Overview (07/21/2024): normal upper GI endoscopy 02.25.06. Epigastric abdominal pain. Social History Tobacco Use Types Packs/Day Years Used Date Smoking Tobacco: Former Cigarettes 1 5.9 1 06/29/2018 - 05/17/1974 Smokeless Tobacco: Never Tobacco Cessation:Counseling Given: Not Answered Alcohol Use Standard Drinks/Week Comments Yes 14 (1 standard drink = 0.6 oz pu re alcohol) [facility] [employer] Answer Date Recorded In the past 12 months has th e [employer], gas, oil, or water [employer] threatened to shut off services in your home? No 07/23/2024 AUDIT-C Answer Date Recorded Q1: How often do you have a drink containing alcohol? 4 or more times a week 07/21/2024 Q2: How many drinks containi ng alcohol do you have on a typical day when you are drinking? 1 or 2 Q3: How often do you have si x or more drinks on one occasion? Never 07/21/2024 Hunger Vital Sign Answer Date Recorded Within the past 12 months, y ou worried that your food would run out before you got the money to buy more. Never true 07/24/19 25 Within the past 12 months, t he food you bought just didn't last and you didn't have money to get more. Never true 07/23/2024 PRAPARE - Transportation Answer Date Re corded In the past 12 months, has l ack of transportation kept you from medical appointments or from getting medications? No 01/2025 In the past 12 months, has l ack of transportation kept you from meetings, work, or from getting things needed for daily living? No 07/23/2024 Housing Stability Vital Sign Answer Andrew e Recorded In the last 12 months, was t here a time when you were not able to pay the mortgage or rent on time? No 07/23/2024 In the past 12 months, how m any times have you moved where you were living? 1 07/23/2024 At any time in the past 12 m [facility], were you homeless or living in a penitentiary (including now)? No 07/23/2024 Comments Unknown Sex and Gender Information Value Date Recorded Sex Assigned at Female 07/22/2024 8:59 AM EST Legal Sex Female 11:12 AM EST Gender Identity Female 07/22/2024 8:59 AM EST Sexual Orientation Heterosexual (straight) 07/22 8:59 AM EST Last Filed Vital Signs Vital Sign Reading Time Taken Comments Blood Pressure 104/56 07/23/2024 9:54 AM EDT Pulse 81 07/23/2024 9:54 AM EDT Temperature 36.4 C (97.6 F) 07/23/2024 7:10 AM EDT Respiratory Rate 20 07/23/2024 7:10 AM EDT Oxygen Saturation 96% 07/23/2024 7:10 AM EDT Inhaled Oxygen Concentration - - Weight 67 kg (147 lb 11.3 oz) 07/23/2024 6:00 AM EDT Height 160 cm (5' 3 ) 07/21/2024 3:08 PM EST Body Mass Index 26.17 07/21/2024 3:08 PM EST Plan of Treatment Health Maintenance Due Date Last Done Comments Advance Care Planning 1960 Hepatitis C Virus Screening 1960 HIV Screening 08/28/1972 DTaP/Tdap/Td Vaccines (1 - Tdap) 08/28/1978 Pneumococcal Vaccines 50+ (1 of 2 - PCV) 08/28/1978 Zoster (Shingles) Vaccine (1 of 2) 08/28/1978 Pap Smear (Ages 21-65) 08/28/1980 Mammogram 1999 Colonoscopy 08/28/2004 RSV Vaccine 50 years and older and Patients (1 - Risk 50-74 years 1-dose series) 08/28/2009 COVID-19 Vaccine (3 - Pfizer risk series) 06/18/2023 05/21/2023, 02/02/2022 DXA Bone Density (Females,Ages 65 and older) 08/28/2024 Influenza Vaccine 12/15/2024 01/06/2024, , 01/11/2022, Additional history exists Hepatitis B Vaccines Aged Out No long er eligible based on patient's age to complete this topic Insurance MEDICAID OUT OF STATE [facility] MEDICAID OUT OF STATE [facility] [place] [id number] Advance Directives * Full Code (Latest Code Status on File) Date Activated Date Inactivated Comments 07/21/2024 4:04 PM Question Answer Comments Decision Thoroughly Discussed with: Patient Care Teams Caramel Cutter Hand Relationship Specialty Start Date End Date Stacy Yen MD PCP - General Internal Medicine 07/23/24
--- OUTSIDE RECORDS SUMMARY | 2025-03-31 03:28 | XMS_ITS | Data Portability ---
Author Organization [facility] [address] Address [address] [place] [address] Care Team Providers Care Automotive Upholsterer Name Role Phone [facility] Care Provider Assessment No assessment recorded. Plan of Treatment Reminders Order Date Submit Date Provider Last Modified By Organization Details Last Modified Time Details Appointments None recorded. Lab None recorded. Referral None recorded. Procedures None recorded. Surgeries None recorded. Imaging None recorded. Medication Orders doxycycline hyclate 100 mg capsule 2022 023 [id number], [address] [place] [address], [address], 11:35:14 Patient TargetsNo targets recorded. Patient Instructions Encounter Date Encounter Id Patient Instructions Last Modified By Organization Details Last Modified Time 09/14/2022 [id number] tick bite: care instructions [email or web address] Not available 09/14/2022 11:35:11 Reason for Referral None Reported. Problems Name Problem SNOMED Code Status Onset Date Resolution Date Notes Provider Name and Address Organization Details Recorded Time Neuropathy 772977703 Active 2022 KALPANA samayoa, [place] - [facility] 3 10:59:36 Gastroesophage al reflux disease 278880681 Active 2022 KALPANA ROSS null, [place] - [facility] 3 11:01:20 Chronic obstructive pulmonary disease 27585981 Active 2022 KALPANA ROSS null, PA - [facility] 3 11:01:27 Osteoarthritis 163914031 Active 2022 KALPANA samayoa, PA - [facility] 3 11:01:37 Malignant neoplasm of breast 062064709 Active 2022 KALPANA samayoa PA - [facility] 3 11:05:19 Problem Notes None recorded. Procedures Surgical History Date Name Laterality Status Provider Name and Address Organization Details Recorded Time 023 Foreign Body Removal completed Reggie De Souza MD [address] [place] [address] [place], [address], [place] - [facility] 09/14/2022 11:36:15 cervical biopsy completed KALPANA ROSS PA - [facility] 09/14/2022 11:04:45 endoscopy completed KALPANA ROSS PA - [facility] 09/14/2022 11:04:52 lumpectomy of breast completed KALPANA ROSS PA - [facility] 09/14/2022 11:05:04 hemorrhoidectomy completed KALPANA ROSS PA - [facility] 09/14/2022 11:05:30 Imaging [...] blood by Pulse oximetry Heart rate Systolic And Diastolic Provider Name and Address Organization Details Last Updated DateTime 3 160.02 cm 10.6 kg/m2 30841.5 4 g 16 /min 97 [degF] 95 % 95 % 80 /min 149/76 mm[Hg] KALPANA ROSS PA - [facility] 11:07:23 Social History Question Answer Notes LastModified by Organizat ion Details LastModified Time Tobacco Smoking Status Former Smoker KALPANA samayoa [place] - [facility] 09/14/2022 11:04:05 Have You Recently Traveled Abroad? No [email or web address] Information not available 09/14/2022 Sex: Unknown Functional Status Question Answer Note LastModified by Organizat ion Details LastModified Time Do you use any illicit or recreational drugs? No [email or web address] Information not available 09/14/2022 Do you or have you ever used any other forms of tobacco or nicotine? No [email or web address] Information not available 09/14/2022 What is your level of alcohol consumption? Occasional [email or web address] Information not available 09/14/2022 Mental Status None recorded. Family History Relationship Description Onset Age of this Age Resolved Age Notes LastModified by Organization Details LastModified Time Unspecified Relation Malignant neoplastic disease Not available 2022 11:02:25 Unspecified Relation Diabetes mellitus [email or web address] Not available 2022 11:02:33 Unspecified Relation Heart disease [email or web address] Not available 2022 11:02:39 Unspecified Relation Hypertensive disorder [email or web address] Not available 2022 11:02:48 Unspecified Relation Lupus erythematosu s [email or web address] Not available 2022 11:02:58 Medical History No medical history recorded. Gynecological HistoryNo gynecological history recorded. Obstetrics History GPAL:G 0 P 0 0 0 0 Past Encounters Encounter ID Performer Location Encounter Start Date Encounter Closed Date Diagnosis/Indication Diagnosis SNOMED-CT Code Diagnosis ICD10 Code Diagnosis IMO Codes Diagnosis Note [id number] [address] [facility] [address] [place] [address] 08/18/2016 13:00:28 08/18/2016 15:06:44 [id number] [address] [facility] [address] [place] [address] 03/18/2015 16:39:07 03/18/2015 17:54:15 [id number] [address] [facility] [address] [place] [address] 07/12/2018 13:33:15 07/12/2018 14:06:55 [id number] [address] [facility] [address] [place] [address] 11/17/2015 09:21:39 11/17/2015 11:52:22 [id number] [address] [address] [place] [address] 05/12/2018 11:35:34 05/12/2018 12:23:00 [id number] Reggie De Souza MD [address] [place] [address] 09/14/2022 10:40:21 09/14/2022 11:39:21 Tick bite [id number] W57.XXXA Localized eruption of skin 718778291 R21 mild redness at sitewatch for worsening Health Concerns Section Related Observation LastModified by Organization Detai ls LastModified Time None Recorded Concern Status LastModified by Organization Details LastModified Time None Recorded Advance Directives Directive None Recorded Payers Insurance Date Sequence Insurance Name Policy Number Policy Ríos Covered Member ID Ríos Member ID Guarantor Name 09/14/2022 1 [facility] [id number] Jaylan Hotte [id number] Do Hotte 09/14/2022 1 [place] Do P Hotte [id number] Do Hotte 09/14/2022 2 [place] Do Hotte [id number] Do Hotte 09/15/2022 1 [place] Do P Hotte [id number] Do Hotte 09/14/2022 1 [place] Do Hotte [id number] Do Hotte Notes Date Note Type Note Provider Name and Address Organization Details Recorded Time 09/14/2022 text/html Rash / Skin LesionReported by PatientHPIFor quality, patient reportsitchy. For location, patient reportsback. For duration, patient reports___ days. For alleviating factors, patient reportsnothing gives relief. For associated symptoms, patient reportsno feverandno fatigue. Reggie De Souza MD [address] [facility] [place], [address], [place] - [facility] 09/14/2022 11:36:39 OBGyn Episode No OBEpisode recorded.
--- OUTSIDE RECORDS SUMMARY | 2025-03-31 03:28 | XMS_ITS ---
Author Name [facility] Organization Unknown Results Test Name/Text Value Interpretation Date Range Source Magnesium SerPl-mCnc 2.0 mg/dL Normal 07/23/2024 1.6 - 2.7 [facility] Sodium SerPl-sCnc 140.0 mmol/L Normal 07/23/2024 136 - 14 5 [facility] Glucose SerPl-mCnc 124.0 mg/dL Above high normal 07/23/2024 65 - 99 [facility] Creat SerPl-mCnc 0.6 mg/dL Normal 07/23/2024 0.4 - 1.1 HH CCT GFR/BSA.pred SerPlBld [id number] >90.0 Normal 07/23/2024 59 - [facility]CT Calcium SerPl-mCnc 8.6 mg/dL Below low normal 07/23/2024 8.7 - 10.5 [facility] BUN SerPl-mCnc 6.0 mg/dL Below low normal 07/23/2024 8 - 21 [facility] BUN/Creat SerPl 10.0 Ratio Normal 07/23/2024 10 - 25 HH CCT CO2 SerPl-sCnc 35.0 mmol/L Above high normal 07/23/2024 22 - 33 [facility] Chloride SerPl-sCnc 97.0 mmol/L Below low normal 07/23/2024 98 - 107 [facility] Anion Gap Bld-sCnc 8.0 Normal 07/23/2024 7 - 17 [facility] Potassium SerPl-sCnc 3.7 mmol/L Normal 07/23/2024 3.4 - 5.3 [facility] Delta 2.0 Normal 07/22/2024 - 3 [facility]CT Troponin T SerPl-mCnc 57.0 ng/L Critically high 07/22/2024 - 15 [facility] Calcium SerPl-mCnc 8.3 mg/dL Below low normal 07/22/2024 8.7 - 10.5 [facility] Sodium SerPl-sCnc 143.0 mmol/L Normal 07/22/2024 136 - 14 5 H[facility]CT GFR/BSA.pred SerPlBld [id number] >90.0 Normal 07/22/2024 59 - [facility]CT BUN/Creat SerPl 10.0 Ratio Normal 07/22/2024 10 - 25 HH CCT Anion Gap Bld-sCnc 7.0 Normal 07/22/2024 7 - 17 [facility] CO2 SerPl-sCnc 32.0 mmol/L Normal 07/22/2024 22 - 33 HH CCT Creat SerPl-mCnc 0.7 mg/dL Normal 07/22/2024 0.4 - 1.1 HH CCT BUN SerPl-mCnc 7.0 mg/dL Below low normal 07/22/2024 8 - 21 [facility] Chloride SerPl-sCnc 104.0 mmol/L Normal 07/22/2024 98 - 1 07 H[facility]CT Potassium SerPl-sCnc 4.1 mmol/L Normal 07/22/2024 3.4 - 5.3 H[facility]CT Glucose SerPl-mCnc 91.0 mg/dL Normal 07/22/2024 65 - 99 [facility]CT Cholest SerPl-mCnc 196.0 mg/dL Normal 07/22/2024 - 200 H[facility]CT LDLc SerPl Calc-mCnc 118.0 mg/dL Normal 07/22/2024 - 130 H[facility]CT Trigl SerPl-mCnc 114.0 mg/dL Normal 07/22/2024 - 150 H[facility]CT HDLc SerPl 3.6 Ratio Normal 07/22/2024 0 - 5 [facility]CT HDLc SerPl-mCnc 55.0 mg/dL Normal 07/22/2024 39 - HH CCT Troponin T SerPl-mCnc 55.0 ng/L Critically high 07/22/2024 - 15 [facility]CT Delta NO PREVIOUS RESULT Normal 07/22/2024 - 3 [facility]CT Magnesium SerPl-mCnc 2.2 mg/dL Normal 07/22/2024 1.6 - 2.7 H[facility]CT Lymphocytes/leuk NFr Bld Auto 15.3 % Normal 07/22/2024 H[facility]CT Basophils num Bld Auto 0.03 Thou/uL Normal 07/22/2024 0 - 0.2 H[facility]CT Monocytes/leuk NFr Bld Auto 6.5 % Normal 07/22/2024 H[facility]CT Stomatocytes Bld Ql Smear Occasional Normal 07/22/2024 H[facility]CT Imm Granulocytes/leuk NFr Bld Auto 0.8 % Normal 07/22/2024 H[facility]CT Imm Granulocytes num Bld Auto 0.04 Thou/uL Normal 07/22/2024 0 - 0.1 HHCCT Eosinophil/leuk NFr Bld Auto 1.7 % Normal 07/22/2024 H[facility]CT Monocytes num Bld Auto 0.34 Thou/uL Normal 07/22/2024 0.2 - 1.5 HHCCT Neutrophils num Bld Auto 3.94 Thou/uL Normal 07/22/2024 2 - 7.5 HHCCT Lymphocytes num Bld Auto 0.8 Thou/uL Below low normal 07/22/2024 1.5 - 4.5 H[facility]CT Eosinophil num Bld Auto 0.09 Thou/uL Normal 07/22/2024 0 - 0.7 H[facility]CT Basophils/leuk NFr Bld Auto 0.6 % Normal 07/22/2024 [facility]CT Smear Comment See Comment Normal 07/22/[address] [facility] Neutrophils/leuk NFr Bld Auto 75.1 % Normal 07/22/2024 H[facility]CT MCV RBC Auto 118.0 fL Above high normal 07/22/2024 80 - 100 H[facility]CT RDW RBC Auto-Rto 15.4 % Above high normal 07/22/2024 11.5 - 14.5 HHCCT WBC num Bld Auto 5.2 Thou/uL Normal 07/22/2024 4 - 11 H[facility]CT MCHC RBC Auto-mCnc 31.2 g/dL Normal 07/22/2024 30 - 36 H[facility]CT RBC num Bld Auto 2.92 Mil/uL Below low normal 07/22/2024 4 - 5.4 HHCCT Hgb Bld-mCnc 10.7 g/dL Below low normal 07/22/2024 11.7 - 15 .7 H[facility]CT Platelet num Bld Auto 164.0 Thou/uL Normal 07/22/2024 150 - 450 HHCCT MCH RBC Qn Auto 36.6 pg Above high normal 07/22/2024 27 - 31 HHCCT PMV Bld Auto 9.3 fL Normal 07/22/2024 7.5 - 12.5 HHCCT Hct VFr Bld Auto 34.3 % Below low normal 07/22/2024 35 - 47 [facility] LMWH PPP Electronic [address] Recorder-aCnc 0.13 IU/mL Normal 07/22/2024 H[facility]CT Anticoagulant IV HEPARIN, UNFRACTIONATED Normal 07/21/2024 HHCCT Hgb A1c MFr Bld 5.4 % Normal 07/22/2024 - 5.[address] Est. average glucose Bld gHb Est-mCnc 108.0 mg/dL Normal 07/22/2024 H[facility]CT BUN SerPl-mCnc 7.0 mg/dL Below low normal 07/22/2024 8 - 21 H[facility]CT Creat SerPl-mCnc 0.6 mg/dL Normal 07/22/2024 0.4 - 1.1 HH CCT GFR/BSA.pred SerPlBld [id number] >90.0 Normal 07/22/2024 59 - HHCCT Potassium SerPl-sCnc 4.0 mmol/L Normal 07/22/2024 3.4 - 5.3 HHCCT Albumin/Glob SerPl 1.1 Ratio Normal 07/22/2024 1 - 3 HHCCT CO2 SerPl-sCnc 29.0 mmol/L Normal 07/22/2024 22 - 33 HH CCT ALT SerPl-cCnc 48.0 U/L Normal 07/22/2024 10 - 50 HHCC T BUN/Creat SerPl 12.0 Ratio Normal 07/22/2024 10 - 25 HH CCT Glucose SerPl-mCnc 66.0 mg/dL Normal 07/22/2024 65 - 99 H[facility]CT ALP SerPl-cCnc 93.0 U/L Normal 07/22/2024 32 - 122 HHCC T Sodium SerPl-sCnc 140.0 mmol/L Normal 07/22/2024 136 - 14 5 HHCCT Prot SerPl-mCnc 5.8 g/dL Below low normal 07/22/2024 6.3 - 8.3 H[facility]CT Chloride SerPl-sCnc 101.0 mmol/L Normal 07/22/2024 98 - 1 07 HHCCT AST SerPl-cCnc Specimen hemolyzed. Test not performed. Normal 07/22/2024 10 - 50 H[facility]CT Calcium SerPl-mCnc 8.3 mg/dL Below low normal 07/22/2024 8.7 - 10.5 HHCCT Albumin SerPl-mCnc 3.1 g/dL Below low normal 07/22/2024 3.4 - 4.8 H[facility]CT Bilirub SerPl-mCnc 0.4 mg/dL Normal 07/22/2024 0.2 - 1 H[facility]CT Globulin Ser Calc-mCnc 2.7 g/dL Normal 07/22/2024 1.5 - 3.9 H[facility]CT Anion Gap Bld-sCnc 10.0 Normal 07/22/2024 7 - 17 H[facility]CT Prothrombin time 11.3 seconds Normal 07/21/2024 10 - 13.5 HHCCT INR PPP 1.0 Normal 07/21/2024 H[facility]CT Anticoagulant IV HEPARIN, UNFRACTIONATED Normal 07/21/2024 H[facility]CT aPTT PPP 32.0 seconds Normal 07/21/2024 25 - 36 [facility] Anticoagulant IV HEPARIN, UNFRACTIONATED Normal 07/21/[address] LMWH PPP Electronic Court Recorder-aCnc 0.13 IU/mL Normal 07/21/2024 [facility]CT Anticoagulant IV HEPARIN, UNFRACTIONATED Normal 07/21/2024 HHCCT RBC num Bld Auto 3.11 Mil/uL Below low normal 07/21/2024 4 - 5.4 HHCCT Hgb Bld-mCnc 11.3 g/dL Below low normal 07/21/2024 11.7 - 15 .7 H[facility]CT Basophils/leuk NFr Bld Auto 0.6 % Normal 07/21/2024 [facility]CT MCHC RBC Auto-mCnc 31.5 g/dL Normal 07/21/2024 30 - 36 H[facility]CT RDW RBC Auto-Rto 15.3 % Above high normal 07/21/2024 11.5 - 14.5 HHCCT Imm Granulocytes/leuk NFr Bld Auto 0.9 % Normal 07/21/2024 H[facility]CT Imm Granulocytes num Bld Auto 0.06 Thou/uL Normal 07/21/2024 0 - 0.1 HHCCT Eosinophil num Bld Auto 0.07 Thou/uL Normal 07/21/2024 0 - 0.7 H[facility]CT Neutrophils/leuk NFr Bld Auto 76.3 % Normal 07/21/2024 HHCCT Basophils num Bld Auto 0.04 Thou/uL Normal 07/21/2024 0 - 0.2 H[facility]CT Monocytes/leuk NFr Bld Auto 6.4 % Normal 07/21/2024 HHCCT Hct VFr Bld Auto 35.9 % Normal 07/21/2024 35 - 47 HH CCT MCH RBC Qn Auto 36.3 pg Above high normal 07/21/2024 27 - 31 HHCCT MCV RBC Auto 115.0 fL Above high normal 07/21/2024 80 - 100 H[facility]CT Lymphocytes/leuk NFr Bld Auto 14.7 % Normal 07/21/2024 [facility] Platelet num Bld Auto 196.0 Thou/uL Normal 07/21/2024 150 - 450 H[facility]CT Eosinophil/leuk NFr Bld Auto 1.1 % Normal 07/21/2024 H[facility]CT Monocytes num Bld Auto 0.42 Thou/uL Normal 07/21/2024 0.2 - 1.5 HHCCT Lymphocytes num Bld Auto 0.97 Thou/uL Below low normal 07/21/2024 1.5 - 4.5 HHCCT PMV Bld Auto 9.4 fL Normal 07/21/2024 7.5 - 12.5 HHCCT WBC num Bld Auto 6.6 Thou/uL Normal 07/21/2024 4 - 11 H[facility]CT Neutrophils num Bld Auto 5.03 Thou/uL Normal 07/21/2024 2 - 7.5 HHCCT Encounters Encounter Type Encounter Reason Primary Diagnosis Location Date Inpatient Cardiomyopathy, unspecified Cardiomyopathy, unspecified Novadiol 07/21/2024 Care Team Organization Name Specialty Phone Email Start Date End Da te Novadiol 07/25/2024 5 Novadiol 07/20/[address] [facility] DAVE PATEL Primary Care [email or web address] 10/23/[address] [facility] Clement Nguyen Primary Care 05/25/2022 [address] [facility] Termed, PROVIDER Primary Care 03/24/202212/15 4
--- OUTSIDE RECORDS SUMMARY | 2025-03-31 03:28 | XMS_ITS | Clinical Summary ---
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 Active UNABLE TO FIND albuterol (2.5 MG/3ML) 0.083% NEBU 3 mL, albuterol (5 MG/ML) 0.5% NEBU 0.5 mL, Inhale into the lungs. Active cholecalciferol (VITAMIN D-3) 50 mcg (2,000 unit) capsule Take 400 Units by mouth daily. Active polyethylene glycol (MIRALAX) 17 gram packet Take 17 g by mouth daily. Active cyanocobalamin (VITAMIN B-12) 500 mcg tablet Take 1 tablet (500 mcg total) by mouth 1 (one) time each day. Active Trelegy Ellipta 100-62.5-25 mcg inhaler Inhale 1 puff (100 mcg total) by mouth 1 (one) time each day. 03/20/20 24 Active DULoxetine (CYMBALTA) [address] capsule TAKE 2 CAPSULES BY MOUTH EVERY DAY 180 capsule 1 05/11/20 24 Active furosemide (LASIX) 40 mg tabletIndicatio ns:Heart failure with mildly reduced ejection fraction (CMS/HCC V24, CMS/HCC V28) Take 1 tablet (40 mg total) by mouth 1 (one) time each day if needed. 07/28/19 25 Active albuterol HFA (PROAIR HFA ; PROVENTIL HFA ; VENTOLIN HFA) 90 mcg/actuation inhaler Inhale 2 puffs by mouth every 6 (six) hours if needed for wheezing. 3 each 3 08/14/19 25 026 Active pantoprazole (PROTONIX) 20 mg EC tablet TAKE 1 TABLET BY MOUTH TWICE DAILY. TAKE ON EMPTY STOMACH, WAIT 30 MINS AND THEN EAT TO ACTIVATE THE MEDICATION- BEFORE BREAKFAST AND SUPPER 180 tablet 08/15/19 25 Active senna (SENOKOT) 8.6 mg tablet Take 1 tablet (8.6 mg total) by mouth 1 (one) time each day. 08/31/19 25 Active dexAMETHasone (DECADRON) 1 mg tabletIndicatio ns:Adrenal nodule (CMS/HCC V24) Take 1 tablet at 11 pm and have labs drawn at 8 AM the next day 1 tablet 10/11/19 25 Active fluticasone-ume clidinium-vilan terol (Trelegy Ellipta) 100-62.5-25 mcg inhaler Inhale 1 puff (100 mcg total) by mouth 1 (one) time each day. Rinse mouth with water after use to reduce aftertaste and incidence of candidiasis. Do not swallow. 1 each 10/31/19 25 026 Active docusate sodium (COLACE) 100 mg capsule Take 1 capsule (100 mg total) by mouth 1 (one) time each day. 90 each 12/22/19 25 026 Active diclofenac (VOLTAREN) 50 mg EC tablet Take 1 tablet (50 mg total) by mouth 2 (two) times a day. Active losartan (COZAAR) 25 mg tabletIndicatio ns:NSTEMI (non-ST elevated myocardial infarction) (CMS/HCC V24, CMS/HCC V28),Heart failure with mildly reduced ejection fraction (CMS/HCC V24, CMS/HCC V28) TAKE 1 TABLET BY MOUTH 1 TIME EACH DAY. 90 tablet 1 01/20/20 25 Active spironolactone (ALDACTONE) 25 mg tabletIndicatio ns:Heart failure with mildly reduced ejection fraction (CMS/HCC V24, CMS/HCC V28) TAKE 0.5 TABLETS BY MOUTH 1 TIME EACH DAY. 45 tablet 02/07/20 25 Active gabapentin (NEURONTIN) 600 mg tabletIndicatio ns:Peripheral neuropathy due to chemotherapy ([facility] V24) TAKE 2 TABLETS (1,200 MG TOTAL) BY MOUTH 3 TIMES A DAY 90 tablet 02/29/20 25 Active amitriptyline (ELAVIL) 25 mg tabletIndicatio ns:Peripheral neuropathy due to chemotherapy ([facility] V24),Anxiety and depression,Prim liya insomnia Take 1 tablet nightly for two weeks then increase to 2 tablets nightly 180 tablet 03/27/20 25 Active celecoxib (CeleBREX) 200 mg capsule 025 Discontinued valACYclovir (Valtrex) 1 gram tabletIndicatio ns:Recurrent cold sores Take 2 tablets (2,000 mg total) by mouth 2 (two) times a day. 4 tablet 3 09/12/19 25 025 Discontinued(R eorder) semaglutide (Wegovy) 0.25 mg/0.5 mL injection penIndications: Overweight (BMI 25.0-29.9) Inject 0.25 mg under the skin every 7 (seven) days. 2 mL 09/28/19 25 025 Discontinued amitriptyline (ELAVIL) 25 mg tabletIndicatio ns:Peripheral neuropathy due to chemotherapy ([facility] V24),Anxiety and depression,Prim liya insomnia TAKE 1 TABLET BY MOUTH EVERYDAY AT BEDTIME 90 tablet 1 09/26/19 25 025 Discontinued tirzepatide, weight loss, (Zepbound) 2.5 mg/0.5 mL injection INJECT 0.5 ML (2.5 MG TOTAL) UNDER THE SKIN EVERY 7 DAYS 10/07/19 25 025 Discontinued fluticasone-ume clidinium-vilan terol (TRELEGY ELLIPTA) 100-62.5-25 mcg inhaler Inhale 1 puff (100 mcg total) by mouth 1 (one) time each day. 1 each 10/31/19 25 025 Discontinued amoxicillin-cla vulanate (AUGMENTIN) 875-125 mg per tablet Take 1 tablet by mouth 2 (two) times a day. 025 Discontinued buprenorphine-n aloxone (SUBOXONE) 12-3 mg film 05/02/20 025 Discontinued fluconazole (DIFLUCAN) 150 mg tablet TAKE 1 TABLET BY MOUTH NOW. REPEAT IN 7 DAYS IF SYMPTOMS PERSIST 025 Discontinued fluticasone furoate-vilante roL (BREO ELLIPTA) 100-25 mcg/dose inhaler 05/16/20 19 025 Discontinued amitriptyline (ELAVIL) 25 mg tabletIndicatio ns:Peripheral neuropathy due to chemotherapy (CMS/HCC V24),Anxiety and depression,Prim liya insomnia TAKE 1 TABLET BY MOUTH EVERYDAY AT BEDTIME 90 tablet 03/14/20 025 Discontinued valACYclovir (Valtrex) 1 gram tabletIndicatio ns:Recurrent cold sores Take 2 tablets (2,000 mg total) by mouth 2 (two) times a day for 1 day. 12 tablet 1 03/27/20 Active Problems Problem Noted Date Diagnosed Date Neck pain, chronic 01/16/2025 Assessment & Plan (02/06/2025 1:03 PM EDT): While pt was here, she was talking about her hands feeling weak at times. She has mild neck pain on/off, feels her hands won't function at times, can drop things. No hyperreflexia on exam, overall good strength bilaterally, does not seem like cervical stenosis contributing, ? Flapping tremor on exam, h/o hepatosplenomegaly. Has not had any ETOH for 2 weeks, per pt. If neck pain or arm sxs worsen can check C/S MRI. Chronic constipation 08/30/2024 Assessment & Plan (08/30/2024 2:45 PM EDT): Continue MiraLAX/docusate/Senokot as needed Primary insomnia 08/30/2024 Assessment & Plan (08/30/2024 2:45 PM EDT): As above Orders: amitriptyline (ELAVIL) 25 mg tablet; Take 1 tablet (25 mg total) by mouth at bedtime. 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 Orders: Ambulatory referral to Cardiology ECG 12 lead Assessment & Plan (07/28/2024 8:21 AM EDT): Her QTc was prolonged while hospitalized. Attributed to methadone use. Repeat EKG was done today and showed sinus rhythm. QTc improved to 493. Orders: Ambulatory referral to Cardiology; Future Ambulatory referral to Cardiac Rehabilitation; Future Adrenal nodule ([facility] V24) 07/28/2024 Assessment & Plan (07/28/2024 8:21 AM EDT): Incidental finding noted on MRI abdomen. Referred to endocrinology Orders: Ambulatory referral to Endocrinology; Future Hepatomegaly 07/28/2024 Assessment & Plan (07/28/2024 8:21 AM EDT): Referred to GI. Strongly advised to stay off alcohol. Counseled on the increased risk of liver cirrhosis with alcohol use. Will update CMP Orders: Comprehensive metabolic panel; Future Ambulatory referral to Gastroenterology; Future NSTEMI (non-ST elevated myoc ardial infarction) ([facility] V24, [facility] V28) 07/27/2024 Assessment & Plan (03/07/2025 11:50 AM EDT): Denies any anginal symptoms. Patient agrees to restart her medications. Instructed to call 911 or go to the emergency room should the patient begin to experience chest pain or pressure lasting greater than 10 minutes does not resolve with rest. Orders: ECG 12 lead Basic metabolic panel; Future Lipid panel with reflex to direct LDL; Future Assessment & Plan (08/14/2024 1:31 PM EDT): Denies any anginal symptoms at this time. Cardiac catheterization without evidence of obstructive coronary disease as outlined above. Orders: Ambulatory referral to Cardiology ECG 12 lead Ambulatory referral to Cardiac Rehabilitation; Future Transthoracic echocardiogram (TTE) complete with PRN contrast, bubble, strain, and 3D order panel; Future Assessment & Plan (07/28/2024 8:21 AM EDT): Referred to cardiology and for cardiac rehab. Cardiac cath was negative Orders: Ambulatory referral to Cardiology; Future Ambulatory referral to Cardiac Rehabilitation; Future losartan (COZAAR) 25 mg tablet; Take 1 tablet (25 mg total) by mouth 1 (one) time each day. Heart failure with mildly re duced ejection fraction (CMS/HCC V24, CMS/HCC V28) 07/27/2024 Assessment & Plan (03/07/2025 11:50 AM EDT): Patient appears to have some abdominal distention during exam today likely in the setting of discontinuing her furosemide and her spironolactone. Patient agrees to restart her medications. Encouraged to continue to follow a low-sodium diet and perform daily weights. Patient will reach out to our office with a weight gain of 2 pounds in 1 day or 5 pounds in 5 days accompanied by worsening peripheral edema, shortness of breath or abdominal distention. Assessment & Plan (08/14/2024 1:31 PM EDT): Appears to be euvolemic upon exam today. She will continue on her current dose of Farxiga, losartan, spironolactone and furosemide. We will update surveillance echocardiogram in 3 to 6 months to further evaluate for improvement in her LVEF. Encouraged to continue to follow a low-sodium diet and perform daily weights. Patient will reach out to our office with a weight gain of 2 pounds in 1 day or 5 pounds in 5 days accompanied by worsening peripheral edema, shortness of breath or abdominal distention. Orders: Ambulatory referral to Cardiology ECG 12 lead Ambulatory referral to Cardiac Rehabilitation; Future Transthoracic echocardiogram (TTE) complete with PRN contrast, bubble, strain, and 3D order panel; Future Assessment & Plan (07/28/2024 8:21 AM EDT): Referred to cardiology and for cardiac rehab. Advised that she can take 1 tablet of losartan 25 mg daily. Advised to obtain a pill cutter to break the spironolactone 25 mg for the 12.5 mg dose. She is sent Jardiance 10 mg daily. She will continue Lasix 40 mg daily F/u in 4 weeks for BP check Will update electrolytes Orders: Comprehensive metabolic panel; Future empagliflozin (JARDIANCE) 10 mg tablet; Take 1 tablet (10 mg total) by mouth 1 (one) time each day. Ambulatory referral to Cardiology; Future Ambulatory referral to Cardiac Rehabilitation; Future losartan (COZAAR) 25 mg tablet; Take 1 tablet (25 mg total) by mouth 1 (one) time each day. Dilated cbd, acquired 07/27/2024 Assessment & Plan (07/28/2024 8:21 AM EDT): She has intermittent right upper quadrant pain. MRI findings are as above. She is not satisfied with the care she is getting with gastroenterology at [facility]. She is referred to gastroenterology at [facility]. She would likely benefit from an ERCP given the abnormal finding of the bile duct. Orders: Ambulatory referral to Gastroenterology; Future Diverticulosis 04/04/2024 Dysphagia 04/04/2024 Overview (04/04/2024): Follows with gastroenterology, status post upper endoscopy suspicious for eosinophilic esophagitis Hemorrhoids 04/04/2024 Gastroesophageal reflux disease without esophagi tis 01/20/2024 Overweight (BMI 25.0-29.9) 01/20/2024 Assessment & Plan (08/30/2024 2:45 PM EDT): As above Assessment & Plan (07/28/2024 8:21 AM EDT): Advised Zepbound could increase her risk of pancreatitis/elevated lipase levels She is currently denying any epigastric pain She would like to continue this upon that the increased dose to get to her weight loss goal. This is sent but she is strongly advised that at any sign of epigastric pain, nausea or vomiting she needs to stop the medication and inform me/go to the ER. She expressed understanding Orders: tirzepatide, weight loss, (Zepbound) 5 mg/0.5 mL injection; Inject 0.5 mL (5 mg total) under the skin every 7 (seven) days. Malignant neoplasm of upper- inner quadrant of left breast in female, estrogen receptor negative (CMS/HCC V24, CMS/HCC V28) 01/13/2024 Assessment & Plan (08/30/2024 2:45 PM EDT): See HPI. She would like ultrasound of the breast done even though she had a mammogram done in June which was benign. This is ordered by her preference Orders: US Breast Complete bilat Screening; Future Alcohol use disorder, mild, in early remission, abuse 06/14/2023 Assessment & Plan (08/14/2024 1:31 PM EDT): She does inform me that she continues to drink alcohol. She is planning another cruise and wants to purchase the drink package. Again was counseled on cessation of alcohol intake in light of her cardiomyopathy, hepatomegaly as well as acute pancreatitis. Status post total right knee replacement 023 [...] and could be contributing to her dyspnea. Assessment & Plan (07/28/2024 8:21 AM EDT): Will obtain viral hepatitis panel to determine need for vaccinations Orders: Comprehensive metabolic panel; Future Hepatitis B core antibody, total; Future Hepatitis B surface antigen with reflex to confirmation; Future Hepatitis C antibody; Future Hepatitis A antibody IgM; Future Hepatitis B surface antibody; Future Ambulatory referral to Gastroenterology; Future Dyspnea on exertion 02/09/2022 Overview (04/04/2024): Last Assessment & Plan: Dyspnea is most likely multifactorial and secondary to her mild COPD, deconditioning. Sleep apnea 09/10/2021 Overview (04/04/2024): Last Assessment & Plan: The patient has an elevated [place] scale, states that she snores and has daytime somnolence. In base of this I have ordered sleep study. Stage 1 mild COPD by GOLD cl assification (CMS/HCC V24, CMS/HCC V28) 09/10/2021 Overview (04/04/2024): Last Assessment & Plan: Continue with Trelegy 1 puff once a day Pulmonary nodules 07/14/2021 Overview (04/04/2024): Last Assessment & Plan: Follow-up with lung cancer screening on June 2022 Primary osteoarthritis of right knee 09/03/2020 Vocal cord nodules 05/09/2019 Overview (04/04/2024): S/p biopsy with ENT Anxiety and depression 03/16/2019 Assessment & Plan (08/30/2024 2:45 PM EDT): Start amitriptyline 25 mg nightly. This will help with her mood and also insomnia Orders: amitriptyline (ELAVIL) 25 mg tablet; Take 1 tablet (25 mg total) by mouth at bedtime. Peripheral neuropathy due to chemotherapy ([facility] V24) 03/16/2019 Assessment & Plan (08/30/2024 2:45 PM EDT): Continue gabapentin 1200 mg 3 times daily. Will start amitriptyline 25 mg nightly to see if this helps relieve some of her ongoing discomfort. She will continue duloxetine 60 mg daily(taking 30 mg twice daily) Orders: gabapentin (NEURONTIN) 600 mg tablet; Take 2 tablets (1,200 mg total) by mouth 3 (three) times a day. amitriptyline (ELAVIL) 25 mg tablet; Take 1 tablet (25 mg total) by mouth at bedtime. Vitamin D deficiency 10/14/2018 Lumbar radiculopathy 07/28/2018 Assessment & Plan (01/16/2025 8:56 PM EDT): Patient has multiple medical issues, hospitalization earlier this year for stress-induced cardiomyopathy, pancreatitis. She has COPD, is on oxygen, states she supposed to wear it at all times but sometimes does not use it when out of the home, feels embarrassed. On today's visit she was getting short of breath, having a hard time focusing, did put her nasal cannula O2 on. She describes severe pain in her feet, states sometimes it feels like they are on fire, sometimes they feel frozen and numb, her feet are killing her . The pain will radiate from her feet up her legs, she also gets low back pain primarily with bending forward, states she cannot even garden for 1 minute. She is s/p L4-5 FILIBERTO 07/07/[address] Hancock. She had EMG/NCS study [facility] that showed bilateral distal tibial neuropathy and right lower lumbar radiculopathy. She states she is just been going downhill with problems and pain since radiation and chemo, s/p left breast lumpectomy for cancer 2018. She is on vitamin B12, D, C, multivitamin. She has a hard time eating regular foods, cannot fit in lower dentures, has to pur e her foods or cut them extremely small. She states in the past her heart would stop when she got anesthesia. She also reports chronic problems like lateral knee numbness and pain, worse after a fall s/p right knee replacement. She had [place] abdomen with and [place] [facility] [place] scanned into media section, however I reviewed this MRI with Dr. Bonds in the computer, we were able to visualize her lumbar spine on the sagittal and axial views well, will not need a dedicated lumbar spine MRI. She has mild degenerative changes overall, mild disc bulging L3-4, L4-5, no severe foraminal or central stenosis at any level, mild L4-5 spondylolisthesis. We also reviewed lumbar spine x-rays, no significant findings. I reviewed these images with patient as well. Ms. Luna has neuropathy bilaterally feet and distal legs, describes pain radiating up the legs but is not specific to a dermatome. No significant nerve root compression or DDD seen on the MRI abdomen 07[place]20[place] [facility] [place] [place] Patient states she has multiple medical issues, seeing multiple doctors, it gets confusing, but notes she has upcoming appointment with cardiology 02/13/2025 after finishing her cardiac PT, she states they may have to do a defibrillator. it does not seem like patient will need surgical intervention at this time, and she is not a good candidate for general anesthesia right now, given her severe COPD requiring O2, and recent hospitalization for cardiomyopathy, elevated cardiac enzymes. We will try to get copies of her cardiology notes. She also wants to follow-up with GI, has a lot of abdominal distention and discomfort. If she needs surgery in the future, she would need medical clearance. I asked her to call with any concerns or questions. Assessment & Plan (09/11/2024 7:13 PM EDT): Ongoing chronically. X-rays ordered to rule out any acute findings She was referred to continue follow-up with family physiatry. Last seen in June and she received an L4-L5 FILIBERTO injection at that time Orders: Ambulatory referral to Physical Medicine Rehab; Future Assessment & Plan (07/28/2024 8:21 AM EDT): Continue physiatry follow-up. Continue gabapentin. Referred for physical therapy History of substance abuse ([facility] V24, [facility] V28) 07/14/2018 Overview (04/04/2024): Developed in addiction to Percocet and is s/p Suboxone treatment. Assessment & Plan (07/28/2024 8:21 AM EDT): She is following with [facility] and will continue on methadone 98mg daily (going down by 2mg ) every week Tobacco use disorder 03/24/2007 Irritable bowel syndrome 02/08/2006 Overview (04/04/2024): normal upper GI endoscopy 02.25.06. Epigastric abdominal pain. Resolved Problems Problem Noted Date Diagnosed Date Resolved Date 1st MTP arthritis 08/30/2024 08/30/2024 Alcohol-induced acute pancre atitis without infection or necrosis 07/28/2024 08/30/2024 Assessment & Plan (07/28/2024 8:21 AM EDT): Strongly advised to remain off alcohol Will update lipase level. It was [facility] at [facility] and her CT scan showed evidence of pancreatitis She is on Zepbound for weight loss Advised this could increase her risk of pancreatitis/elevated lipase levels She is currently denying any epigastric pain She does not want to start Zepbound at this time as she is more interested in losing a few more pounds. Orders: Lipase; Future Hypertriglyceridemia 03/08/2024 025 Abnormal echocardiogram 02/09/202207/15 Overview (04/04/2024): most recent echo done in [...] normal. She has no concerning cardiorespiratory symptoms. Neuropathy of foot 02/03/2022 Moderate episode of recurren t major depressive disorder (CMS/HCC V24, CMS/HCC V28) 03/16/2019 08/30/2024 Invasive ductal carcinoma of breast, female, left (CMS/HCC V24, CMS/HCC V28) 09/08/2018 08/31/19 Overview (04/04/2024): Diagnosed 09/2018 on chemo and radiation Encounters Date Type Department Care Team Description 03/28/2025 Results Follow-Up [facility] [address] [place] [address] Violet Jackson NP 03/28/2025 Results Follow-Up Endocrinology [address] [phone] Flor Bethea MA 03/27/2025 2:20 PM EST Lab Draw Station [address] NSTEMI (non-ST elevated myocardial infarction) (CMS/HCC V24, CMS/HCC V28); Hypertriglyceridemia; Palpitations; Adrenal nodule ([facility]/HCC V24) 03/27/2025 1:30 PM EST Office Visit Adult [address] [phone] Isadora Carmona PA Malignant neoplasm of upper-inner quadrant of left breast in female, estrogen receptor negative (CMS/HCC V24, CMS/HCC V28) (Primary Dx); Peripheral neuropathy due to chemotherapy ([facility] V24); NSTEMI (non-ST elevated myocardial infarction) (CMS/HCC V24, CMS/HCC V28); Heart failure with mildly reduced ejection fraction ([facility]/HCC V24, CMS/HCC V28); Stage 1 mild COPD by GOLD classification ([facility] V24, [facility]/HCC V28); Anxiety and depression; Primary insomnia; Chronic constipation; Gastroesophageal reflux disease without esophagitis; Recurrent cold sores; Overweight (BMI 25.0-29.9) 03/15/2025 Telephone Adult [address] [phone] Stacy Yen MD 03/08/2025 Telephone [facility] Cardiology [facility] [address] [facility] [address] [place] [phone] Luis Antonio Diaz MD 03/07/2025 9:10 AM EDT Office Visit [facility] Cardiology [facility] [address] [facility] [address] [place] [phone] Violet Jackson NP NSTEMI (non-ST elevated myocardial infarction) (CMS/HCC V24, CMS/HCC V28) (Primary Dx); Palpitations; Hypertriglyceridemia; Heart failure with mildly reduced ejection fraction (CMS/HCC V24, CMS/HCC V28) 03/07/2025 Telephone Adult Medicine [address] [phone] Stacy Yen MD 03/05/2025 Telephone Adult Medicine [address] [phone] Shakila Vázquez MA 02/15/2025 Results Follow-Up [facility] Cardiology [facility] [address] [facility] [address] [place] [phone] Violet Jackson NP 02/13/2025 9:00 AM EDT Ancillary Procedure [facility] Cardiology [facility] [address] [facility] [address] [place] [phone] NSTEMI (non-ST elevated myocardial infarction) (CMS/HCC V24, CMS/HCC V28); Heart failure with mildly reduced ejection fraction (CMS/HCC V24, CMS/HCC V28) 01/16/2025 11:30 AM EDT Consult Neurosurgery [place] [facility] [address] [phone] Valeri Nesbitt PA Lumbar radiculopathy (Primary Dx); Lumbosacral radiculopathy; Neck pain, chronic 01/04/2025 9:15 AM EDT Office Visit Orthopedic Surgery [facility] [address] 175 [facility] 250 [place] [phone] Olegario Barger, VENKAT Arthritis of both feet (Primary Dx); PAD (peripheral artery disease) (CMS/HCC V24); Lumbosacral radiculopathy; Capsulitis of metatarsophalangeal (MTP) joint of left foot 01/01/2025 7:00 AM EDT Ancillary Procedure [facility] Cardiology [facility] 101 [address] [facility] [address] [place] [phone] PAD (peripheral artery disease) ([facility] [facility] V[facility]) from Last 3 Months Immunizations Immunization Administration Dates Next Due COVID-19 (Pfizer/Comirnaty) 12yo and older 05/21/2023 Influenza Quadravalent, MDCK , 0.5ml, preservative free (Flucelvax) 6mo and older 01/26/2023,03/08/2018 Influenza Quadrivalent, 0.5m l, preservative free (Fluarix; FluLaval; Fluzone) ages 6mo and older (Afluria) 3yo and older 01/11/2022 Influenza trivalent, 0.5mL ( Fluzone High-dose) 65yo and older 02/13/2025 Influenza trivalent, 0.5mL, preservative free (Fluarix; FluLaval; Fluzone) ages 6mo and older (Afluria) 3 years and older 01/06/2024,12/25/2021,01/10/2021,01/14,02/08/2017,02/20/2015,02/24/2008 ,04/10/2006,03/28/2005 [place] SARS-CoV-2 COVID-19, mRNA, LNP-S, preservative free 02/02/2022 Pneumococcal conjugate 20 va lent (Prevnar 20, PCV 20) 2mo and older 07/27/2024 Pneumococcal polysaccharide 23 valent (Pneumovax 23) 2yo and older 11/08/2018 RSV, bivalent, protein subun it RSVpreF, 0.5mL, Preservative Free (Arexvy) 50yo and older 09/18/2024 Td Tetanus diptheria (Tdvax) 7yo and older 05/17/1992 Tdap Tetanus diptheria acell ular pertussis (Boostrix; Adacel) 7yo and older 03/10/2025,05/11/2024,01/26/2007 Zoster recombinant (Shingrix ) 19yo and older 04/24/2024,02/21/2024 Surgical History Surgery Date Site/Laterality Comments HYSTERECTOMY 2000 BSO, endometriosis- Dr. Brown OTHER SURGICAL HISTORY 08/2003 MAMMOGRAM COLONOSCOPY 04/2001 COLONOSCOPY STOMA DX INCLUDING COLLJ SPEC SPX OTHER SURGICAL HISTORY LARYNGOSCOPY INDIRECT W/VOCAL CORD INJECTION; COMMENT: Polyp removed on June 23, 2019 ESOPHAGOGASTRODUODENOSCOPY Performed on July 04, [address] Brenner BREAST BIOPSY lt.breast bx-breast ca BREAST SURGERY lt lumpectomy w rad tx & chemo 10/2018 CERVICAL BIOPSY W/ LOOP ELEC TRODE EXCISION 1982 cervical cancer Medical History Medical History Date Comments Vitamin D deficiency 10/14/2018 Dysphagia Choking Difficulty swallowing Tobacco use Anxiety Breast cancer ([facility] V24, [facility] V28) 09/2018-lt. breast-invasive ductal carcinoma, S/P chemo and radiation tx COPD (chronic obstructive pu lmonary disease) ([facility] V24, [facility] V28) Abnormal CT of the chest 04/08/[address] of chest 04/01/2021, repeat 3 months, to tumor board. Dry mouth Abdominal bloating Change in bowel habits Cervical spondylosis without myelopathy Depressive disorder Irritable bowel syndrome Diverticulosis Hemorrhoids Constipation CHF (congestive heart failur e) ([facility] V24, [facility] V28) 02/09/2022 History of rectal bleeding 02/08/2006 negat domenica colonoscopy 12... Terminal ileum normal. No colon cancer screening indicated until 2010. History of tobacco abuse 12/04/2020 Dec 201 9 Ascites 09/10/2021 Gastroesophageal reflux dise ase without esophagitis 01/20/2024 Hypertriglyceridemia 03/08/2024 Abnormal echocardiogram 02/09/2022 most rec ent echo done in February 2022 , obtained by cardiology showed normal regional wall motion. EF 55 to 60%. E-A reversal consistent with mild diastolic relaxation abnormality. Otherwise normal Last Assessment & Plan: The patient has a history of possible abnormal echocardiogram with possible wall motion abnormalities at the apex of the heart though this was not well visualized. Moderate episode of recurren t major depressive disorder ([facility] V24, [facility] V28) 03/16/2019 Alcohol-induced acute pancre atitis without infection or necrosis 07/28/2024 Family History Medical History Relation Name Comments [...] for your loved ones. For example, childcare worker or elderly care for an older [...] 14 03/27/2025 1:34 PM EST Oxygen Saturation 94% 03/07/2025 9:05 AM EDT Inhaled Oxygen Concentration - - Weight 74.4 kg (164 lb) 03/27/2025 1:34 PM EST Height 160 cm (5' 3 ) 03/27/2025 1:34 PM EST Body Mass Index 29.05 03/27/2025 1:34 PM EST Plan of Treatment Upcoming Encounters Date Type Department Care Team (Late st Contact Info) Description 04/26/2025 9:45 AM EST Office Visit [facility] Hematology Oncology [address] [place] [phone] Sunil Mauro MD [address] [place] [phone] 05/02/2025 9:30 AM EST Office Visit Pulmonology - [place] [address] [facility] [address] [place] [phone] Swati Lehman MD [address] [place] [phone] 06/08/2025 9:00 AM EST Office Visit Adult Medicine [facility] - [address] [phone] Stacy Yen MD [address] [place] [address] 06/14/2025 2:45 PM EST Appointment Bone Density [address] [phone] Health Maintenance Due Date Last Done Comments Medicare Annual Wellness Visit 04/23/2022 Osteoporosis Screening (Bone Density Screening) 04/23/2022 Depression Screening 05/17/2024 05/11/2024 Falls Risk Assessment 08/28/2024 COVID-19 Vaccine ( season) 2025 05/21/2023, 02/02/2022, 03/15/2021, Additional history exists Social Influencers of Health Screening 05/11/2025 05/11/2024 Hypertension/CHF/CAD Annual BMP Blood Test 03/27/2026 03/27/2025, 07/27/2024, 07/23/2024, Additional history exists Breast Cancer Screening 06/27/2026 06/27/19, 06/14/2023, 06/03/2022, Additional history exists Cholesterol Screening (Lipid Panel) 03/27/2030 03/27/2025, 07/22/2024, 03/07/2024 Colorectal Cancer Screening: Colonoscopy 09/04/2031 09/03/2021 DTaP,Tdap,and Td Vaccines (5 - Td or Tdap) 03/10/2035 03/10/2025, 05/11/2024, 01/26/2007, Additional history exists Zoster Vaccines Completed 04/24/2024, 02/21/2024 Hepatitis C Screening Completed 07/27/2024, 022 Pneumococcal Vaccine: 50+ Years Completed 07/27/2024, 11/08/2018 RSV Immunization Adult Patients Completed 09/18/2024 Influenza Vaccine Completed 02/13/2025, , 01/26/2023, Additional history exists HIB Vaccines Aged Out No longer eligi ble based on patient's age to complete this topic HPV Vaccines Aged Out No longer eligi ble based on patient's age to complete this topic Hepatitis A Vaccines Discontinued Hepatitis B Vaccines Discontinued IPV Vaccines Aged Out No longer eligi ble based on patient's age to complete this topic MMR Vaccines Aged Out No longer eligi ble based on patient's age to complete this topic Meningococcal ACWY Vaccine Aged Out N o longer eligible based on patient's age to complete this topic Meningococcal B Vaccine Aged Out No l onger eligible based on patient's age to complete this topic RSV Immunization Patients Under 20 months Aged Out No longer eligible based on patient's age to complete this topic Varicella Vaccines Aged Out No longer eligible based on patient's age to complete this topic Procedures Procedure Name Priority Date/Time Associated Diagnosis Comments CORTISOL Routine 03/27/2025 2:17 PM EST Adrenal nodule (CMS/HCC V24) BASIC METABOLIC PANEL Routine 03/27/2025 2:17 PM EST NSTEMI (non-ST elevated myocardial infarction) (CMS/HCC V24, CMS/HCC V28) Palpitations LIPID PANEL WITH REFLEX TO DIRECT LDL Routine 03/27/2025 2:17 PM EST NSTEMI (non-ST elevated myocardial infarction) (CMS/HCC V24, CMS/HCC V28) Hypertriglyceridem ia ECG 12-LEAD Routine 03/07/2025 11:50 AM EDT NSTEMI (non-ST elevated myocardial infarction) (CMS/HCC V24, CMS/HCC V28) TRANSTHORACIC ECHOCARDIOGRAM (TTE) COMPLETE Routine 02/13/2025 9:44 AM EDT NSTEMI (non-ST elevated myocardial infarction) (CMS/HCC V24, CMS/HCC V28) Heart failure with mildly reduced ejection fraction (CMS/HCC V24, CMS/HCC V28) VAS US DUPLEX LOWER EXT ARTERIES BILAT WITH RENATO Routine 01/01/2025 8:05 AM EDT PAD (peripheral artery disease) (CMS/HCC V24) HEPATITIS C ANTIBODY Routine 07/27/2024 12:14 PM EDT Hepatic steatosis MG MAMMO DIGITAL SCREENING W ÁNGEL BILAT Routine 06/27/2024 9:08 AM EST Encounter for screening mammogram for breast cancer from Last 3 Months or Most Recently Relevant to Health Maintenance Results * (ABNORMAL) Lipid panel with reflex to direct LDL (03/27/2025 2:17 PM EST) Cholesterol 227(H) 0 - 200 mg/dL LAB CHEMISTRY METHOD 03/27/2025 6:39 PM EST [facility] Triglycerides 382(H) 0 - 150 mg/dL LAB CHEMISTRY METHOD 03/27/2025 6:39 PM EST [facility] HDL 62 >=40 mg/dL LAB CHEMISTRY METHOD 03/27/2025 6:39 PM [facility] LDL Calculated 89 0 - 100 mg/dL LAB CHEMISTRY METHOD 03/27/2025 6:39 PM [facility] Comment:Estimated LDL Calcul ated using equation: Total cholesterol - HDL cholesterol - (Triglycerides/5) VLDL Cholesterol [place] 76.4 mg/dL LAB CHEMISTRY METHOD 03/27/2025 6:39 PM [facility] Non HDL Chol. (LDL+VLDL) 165(H) <145 mg/dL LAB CHEMISTRY METHOD 03/27/2025 6:39 PM [facility] Chol/HDL Ratio 3.7 0.0 - 4.4 LAB CHEMISTRY METHOD 03/27/2025 6:39 PM [facility] Blood Venous blood specimen / Unknown Venipuncture / Unknown 03/27/2025 2:17 PM EST 03/27/2025 2:17 PM EST Violet Jackson ACCESS SERVICES ASSISTANT LAB BLOOD ORDERABLES F inal Result [facility] [address] [place] [address], * Cortisol (03/27/2025 2:17 PM EST) Cortisol 12.2 mcg/dL LAB CHEMISTRY METHOD 03/27/2025 6:59 PM EST [facility] Blood Venous blood specimen / Unknown Venipuncture / Unknown 03/27/2025 2:17 PM EST 03/27/2025 2:17 PM EST Narrative [facility] - 03/27/2025 6:59 PM EST CORTISOL REFERENCE RANGE 8 AM SPEC: 5.0-23.0 mcg/dL 4 PM SPEC: 3.0-16.0 mcg/dL 8 PM SPEC: <5.0 mcg/dL us Clement Nguyen MD LAB BLOOD ORDERABLES Final Resul t [facility] [address] [place] [address], * (ABNORMAL) Basic metabolic panel (03/27/2025 2:17 PM EST) Sodium 137 133 - 145 mmol/L LAB CHEMISTRY METHOD 03/27/2025 7:07 PM [facility] Potassium 4.3 3.5 - 5.5 mmol/L LAB CHEMISTRY METHOD 03/27/2025 7:07 PM [facility] Chloride 95(L) 96 - 110 mmol/L LAB CHEMISTRY METHOD 03/27/2025 7:07 PM [facility] CO2 36(H) 21 - 32 mmol/L LAB CHEMISTRY METHOD 03/27/2025 7:07 PM [facility] Anion Gap 6 3 - 11 LAB CHEMISTRY METHOD 03/27/2025 7:07 PM [facility] Glucose 77 70 - 100 mg/dL LAB CHEMISTRY METHOD 03/27/2025 7:07 PM [facility] BUN 14 5 - 25 mg/dL LAB CHEMISTRY METHOD 03/27/2025 7:07 PM [facility] Creatinine 0.67 0.50 - 1.10 mg/dL LAB CHEMISTRY METHOD 03/27/2025 7:07 PM [facility] eGFR 97 >=60 mL/min/1. 73m2 LAB CHEMISTRY METHOD 03/27/2025 7:07 PM [facility] Comment:Calculation based on the Chronic Kidney Disease Epidemiology Collaboration (CKD-EPI) equation refit without adjustment for race. BUN/Creatinine Ratio 20.9 LAB CHEMISTRY METHOD 03/27/2025 7:07 PM EST [facility] Calcium 8.8 8.5 - 10.5 mg/dL LAB CHEMISTRY METHOD 03/27/2025 7:07 PM EST [facility] Blood Venous blood specimen / Unknown Venipuncture / Unknown 03/27/2025 2:17 PM EST 03/27/2025 2:17 PM EST Violet Jackson ACCESS SERVICES ASSISTANT LAB BLOOD ORDERABLES F inal Result [facility] [address] [place] [address], * ECG 12 lead (03/07/2025 11:50 AM EDT) Ventricular Rate ECG 80 BPM GEMUSE Atrial Rate 80 BPM GEMUSE P-R Interval 154 ms GEMUSE QRS Duration 104 ms GEMUSE Q-T Interval 414 ms GEMUSE QTc 477 ms GEMUSE P Wave [place] 63 degrees GEMUSE R [place] 1 degrees GEMUSE T [place] 30 degrees GEMUSE ECG Interpretation Normal sinus rhythm Normal ECG Confirmed by MD Joe, Luis Antonio ([id number]) on 03/12/2025 9:35:51 AM GEMUSE 03/07/2025 9:10 AM EDT 03/12/2025 9:35 AM EDT Payton Jones ACCESS SERVICES ASSISTANT ECG ORDERABLES Edited Resul t - Final GEMUSE * (ABNORMAL) TRANSTHORACIC ECHOCARDIOGRAM (TTE) COMPLETE (02/13/2025 9:44 AM EDT) LV EDV (A2C) 98 mL CV PACS LV EDV (A4C) 112 mL CV PACS LV Diastolic Volume (BP) 105 46 - 106 mL CV PACS LV ESV (A2C) 30 mL CV PACS LV ESV (A4C) 48 mL CV PACS LV Systolic Volume (BP) 38 14 - 42 mL CV PACS IVSD 0.9 0.6 - 0.9 cm CV PACS LVIDD 4.5 3.8 - 5.2 cm CV PACS LVIDS 3.4 2.2 - 3.5 cm CV PACS LVOT Diameter 2.0 cm CV PACS LVOT Mean Scott 0.6 m/s CV PACS LVOT Mean Grad 2 mmHg CV PACS LVOT Peak VTI 21.2 cm CV PACS LVOT Peak Scott 0.9 m/s CV PACS LVOT Peak Gradient 3 mmHg CV PACS LVPWD 1.1(A) 0.6 - 0.9 cm CV PACS MV E' Tissue Velocity Lateral 7 cm/s CV PACS MV E' Tissue Velocity Septal 7 cm/s CV PACS Ejection Fraction (A2C) 69 % CV PACS Ejection Fraction (A4C) 58 % CV PACS Ejection Fraction (BP) 64 % CV PACS LVOT Area 3.1 cm2 CV PACS LVOT Stroke Volume 67 mL CV PACS Left Atrium Minor [place] 5.0 cm CV PACS Left Atrium Major [place] 5.3 cm CV PACS LA Area Sys (A2C) 20 cm2 CV PACS LA Area Sys (A4C) 18 cm2 CV PACS LA Volume (BP) 56 mL CV PACS RA Area 16.9 cm2 CV PACS RA 2D Volume 47 mL CV PACS AV Mean Gradient 5 mmHg CV PACS Ao VTI 31.2 cm CV PACS AV Peak Scott 1.5 m/s CV PACS AV Peak Gradient 9 mmHg CV PACS AV Area Continuity Equation 2.1 cm2 CV PACS AV Area Peak Velocity 1.9 cm2 CV PACS Aortic Sinus Valsalva 3.0 cm CV PACS Ascending Aorta 3.3 cm CV PACS IVC Proximal 1.0 cm CV PACS MV Deceleration Moody 3.7 m/s2 CV PACS E Wave Deceleration Time 196 119 - 242 ms CV PACS MV PHT 57 ms CV PACS MV Peak A Scott 0.87 m/s CV PACS MV Peak E Scott 0.72 m/s CV PACS MV Area PHT 3.9 cm2 CV PACS PV Acceleration Time 85 ms CV PACS PV Acceleration Time 85 ms CV PACS PV Peak Velocity 1.0 m/s CV PACS PV Peak Gradient 4 mmHg CV PACS RV Diastolic Basal Dimension 3.3 2.5 - 4.1 cm CV PACS TAPSE 29 mm CV PACS TR Peak Velocity 2.31 m/s CV PACS TR Peak Gradient 21 mmHg CV PACS LV ESV Index (A4C) 27 mL/m2 CV PACS LV EDV Index (A4C) 63 mL/m2 CV PACS E/E' Ratio Septal 10 CV PACS E/E' Ratio Averaged 10 CV PACS LVOT Stroke Index 38 mL/m2 CV PACS Relative Wall Thickness ratio 0.49 CV PACS LVOT:AV VTI Index 0.68 CV PACS FS 24 % CV PACS LV Mass 2D 153 g CV PACS Ascending Aorta Index 1.85 cm/m2 CV PACS LVOT flow 188 mL/s CV PACS RA 2D Volume Index 26 mL/m2 CV PACS LAUREN Index (VTI) 1.20 cm2/m2 CV PACS LAUREN Index (Pk Scott) 1.07 cm2/m2 CV PACS LVIDD Index 2.53 cm/m2 CV PACS LVIDS Index 1.91 cm/m2 CV PACS AV Velocity Ratio 0.60 CV PACS E/A Ratio 0.8 CV PACS E/E' Ratio Lateral 10 CV PACS LV Systolic Volume Index (BP) 21 mL/m2 CV PACS LV Diastolic Volume Index (BP) 59 mL/m2 CV PACS LA Volume Index (BP) 31 mL/m2 CV PACS LV Mass Index 2D 86 g/m2 CV PACS LV EDV Index (A2C) 55 mL/m2 CV PACS LV ESV Index (A2C) 17 mL/m2 CV PACS BSA 1.82 m2 CV PACS Right Ventricular Peak Systolic Pressure 24 mmHg CV PACS Est. RA Pressure 3 mmHg CV PACS Anatomical Region Laterality Modality Ultrasound Narrative 02/15/2025 3:09 PM EDT Left ventricle cavity size is normal. Left ventricular systolic function is in the normal range with an ejection fraction of 55-60%. No regional LV wall motion abnormalities noted. Left ventricle wall thickness is normal. Right ventricle cavity is normal. Right ventricular systolic function is normal. Atria are normal in size. No hemodynamically significant valve disease. See remainder of the report for additional findings. Left Ventricle Left ventricle cavity size is normal. Wall thickness is normal. Systolic function is normal with an ejection fraction of 55-60%. There are no regional LV wall motion abnormalities. There is age appropriate left ventricular diastolic function. Right Ventricle Right ventricle cavity appears normal. Systolic function is normal. Normal TAPSE (> 17 mm). Left Atrium Left atrium cavity size is normal. Right Atrium Right atrium cavity is normal. IVC/SVC RA pressures is estimated to be 3 mmHg (IVC diameter <21 mm and decreases >50% during inspiration). Mitral Valve The leaflets are mildly thickened. There is annular calcification. There is trace regurgitation. There is no evidence of mitral valve stenosis. Tricuspid Valve Tricuspid valve structure is normal. There is trace regurgitation. There is no evidence of tricuspid valve stenosis. Aortic Valve The aortic valve is trileaflet. There is no regurgitation or stenosis. Pulmonic Valve The pulmonic valve was not well visualized. No significant pulmonic valve regurgitation. No significant pulmonary valve stenosis noted. Ascending Aorta The Sinus of Valsalva is (3.0 cm). The ascending aorta is (3.3 cm). Pericardium There is an anterior fat pad. There is no pericardial effusion. Study Details Overall the study quality was adequate. 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 CLERK prox sys PSV 144 cm/s CV VAS LAB Left mid peroneal sys PSV 46 cm/s CV VAS LAB Left popliteal dist sys PSV 64 cm/s CV VAS LAB Left popliteal prox sys PSV 97 cm/s CV VAS LAB Left PT dist sys PSV 85 cm/s CV VAS LAB Left PT mid sys PSV 75 cm/s CV VAS LAB Left PT prox sys PSV 62 cm/s CV VAS LAB Left super femoral dist sys PSV 83 cm/s CV VAS LAB Left super femoral mid sys PSV 108 cm/s CV VAS LAB Left super femoral prox sys PSV 130 cm/s CV VAS LAB Right Dist External Iliac PSV 122 cm/s CV VAS LAB Right Prox External Iliac PSV 166 cm/s CV VAS LAB Right AT dist sys PSV 40 cm/s CV VAS LAB Right AT mid sys PSV 43 cm/s CV VAS LAB Right AT prox sys PSV 57 cm/s CV VAS LAB Right W[employer]ING [employer]VENTORY CLERK prox sys PSV 130 cm/s CV VAS LAB Right mid peroneal sys PSV 46 cm/s CV VAS LAB Right popliteal dist sys PSV 78 cm/s CV VAS LAB Right popliteal prox sys PSV 68 cm/s CV VAS LAB Right PT dist sys PSV 87 cm/s CV VAS LAB Right PT mid sys PSV 105 cm/s CV VAS LAB Right PT prox sys PSV 78 cm/s CV VAS LAB Right super femoral dist sys PSV 99 cm/s CV VAS LAB Right super femoral mid sys PSV 95 cm/s CV VAS LAB Right super femoral prox sys PSV 87 cm/s CV VAS LAB Right profunda sys PSV 95 cm/s CV VAS LAB Left profunda sys PSV 111 cm/s CV VAS LAB Right arm BP 93 mmHg CV [facility] LAB Left arm BP 112 mmHg CV [facility] LAB Right posterior tibial 103 mmHg CV VAS LAB Right Dorsalis Pedis 103 mmHg CV VAS LAB Right RENATO 0.92 CV VAS LAB Left posterior tibial 101 mmHg CV VAS LAB Left Dorsalis Pedis 99 mmHg CV VAS LAB Left RENATO 0.90 CV VAS LAB Anatomical Region Laterality Modality Vascular, Abdomen Ultrasound Narrative 01/02/2025 10:24 AM EDT Right: RENATO 0.92. Normal amplitude PVR waveform at the ankle. Normal amplitude digit PPG waveform. Triphasic waveforms throughout the arterial tree. No significant inflow arterial occlusive disease. No significant femoral-popliteal disease. Three-vessel runoff in the calf. Left: RENATO 0.92. Normal amplitude PVR waveform at the ankle. Normal amplitude digit PPG waveform. Triphasic waveforms throughout the arterial tree. No significant inflow arterial occlusive disease. No significant femoral-popliteal disease. Three-vessel runoff in the calf. Right RENATO Right BP= 93/61 Left RENATO Left BP= 112/60 Right Lower Arterial Duplex The distal external iliac artery has triphasic flow. The common femoral artery has triphasic flow. The profunda femoris artery has triphasic flow. The superficial femoral artery has triphasic flow. The popliteal artery has triphasic flow. The anterior tibial artery has triphasic flow. The posterior tibial artery has triphasic flow. The mid peroneal artery has triphasic flow. Left Lower Arterial Duplex The distal external iliac artery has triphasic flow. The common femoral artery has triphasic flow. The profunda femoris artery has triphasic flow. The superficial femoral artery has triphasic flow. The popliteal artery has triphasic flow. The anterior tibial artery has triphasic flow. The posterior tibial artery has triphasic flow. The mid peroneal artery has triphasic flow. Health Records Technology Teacher Details A hutchison scale, color and doppler analysis ultrasound was performed. During the study longitudinal views were obtained. Pulsed wave doppler was performed. us Olegario Barger DPM CV VASCULAR PROCEDURES Christine griffin Result * Hepatitis C antibody (07/27/2024 12:14 PM EDT) Pathologist [facility] Hepatitis C Antibody Negative Negative LAB CHEMISTRY METHOD 07/27/2024 3:39 PM EDT [facility] Blood Venous blood specimen / Unknown Venipuncture / Unknown 07/27/2024 12:14 PM EDT 07/27/2024 12:14 PM EDT Stacy Yen MD LAB BLOOD ORDERA BLES Final Result [facility] [address] [place] [address], [place] [phone] * MG Mammo Digital Screening w Ángel [...] is recommended in 1 year. Mammo Location: [facility], [address] [place] [address], [id number], . -------- FINAL REPORT -------- Dictated By: Nate Stewart Dictated Date: 06/27/2024 18:04 ET Assigned Physician: Nate Stewart Reviewed and Electronically Signed By: Nate Stewart Signed Date: 06/27/2024 18:10 ET Workstation ID: [id number] Transcribed By: Self Edit Transcribed Date: 06/27/2024 18:04 ET Narrative 06/27/2024 6:10 PM EST STUDY: Bilateral screening mammography with tomosynthesis and CAD History: Personal history of left breast lumpectomy for breast cancer in 2019. TECHNIQUE: Bilateral full-field digital screening mammography is obtained and read in conjunction with computer-aided detection. Tomosynthesis as well as 2-D C view imaging were obtained. COMPARISON: Comparison made to multiple prior, most recent June 14, 2023, and most remote August 03, 2016. RIGHT BREAST: No significant masses, suspicious calcifications or other abnormalities are seen. LEFT BREAST: Postlumpectomy changes. No significant masses, suspicious calcifications or other abnormalities are seen. Procedure Note Nate Stewart MD - 06/27/2024 STUDY: Bilateral screening mammography with tomosynthesis and CAD History: Personal history of left breast lumpectomy for breast cancer [id number]. TECHNIQUE: Bilateral full-field digital screening mammography is [...] is recommended in 1 year. Mammo Location: [facility], [address] [place] [address], [id number], . -------- FINAL REPORT -------- Dictated By: Nate Stewart Dictated Date: 06/27/2024 18:04 ET Assigned Physician: Nate Stewart Reviewed and Electronically Signed By: Nate Stewart Signed Date: 06/27/2024 18:10 ET Workstation ID: [id number] Transcribed By: Self Edit Transcribed Date: 06/27/2024 18:04 ET Stacy Yen MD IMG BI PROCEDURE S Final Result from Last 3 Months or Most Recently Relevant to Health Maintenance Insurance [facility] MEDICARE Member Subscriber Plan / Payer (Ef fective 2023-Present) Name:DO LUNA Relation to Subscriber:Self Name:Do Luna Payer ID:[id number] Group ID:[id number] Type:Not on file Address: [place] [address] [address] [id number] Care Teams Automatic Fabric Cutter Relationship Specialty Start Date End Date Stacy Yen MD [address] [place], [place] PCP - General Internal Medicine 12/17/21
--- OUTSIDE RECORDS SUMMARY | 2025-03-31 03:28 | XMS_ITS ---
Author Organization [facility] Address [address] [place] [address] Phone Care Team Providers Care Control Clerk Head Name Role Phone Stacy Yen MD Primary Care Pr ovider Active Problems Problem Noted Date Diagnosed Date [...] referral to Cardiac Rehabilitation; Future Adrenal nodule ([facility] V24) 07/28/2024 Assessment & Plan (07/28/2024 8:21 [...] Future NSTEMI (non-ST elevated myoc ardial infarction) ([facility] V24, [facility] V28) 07/27/2024 Assessment & Plan (03/07/2025 11:50 [...] care she is getting with gastroenterology at [facility]. She is referred to gastroenterology at [facility]. She would likely benefit from an [...] & Plan: The patient has an elevated Chatham scale, states that she snores and has [...] at bedtime. Peripheral neuropathy due to chemotherapy ([facility] V24) 03/16/2019 Assessment & Plan (08/30/2024 [...] abdomen with and without contrast 07/20/2024 at [facility], report scanned into media section, however I [...] seen on the MRI abdomen 07/20/2024 at [facility]. Patient states she has multiple medical issues, [...] for physical therapy History of substance abuse ([facility] V24, 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 Assessment & Plan (07/28/2024 8:21 AM EDT): She is following with [facility] and will continue on methadone 98mg daily (going down by 2mg ) every week Tobacco use disorder 03/24/2007 Irritable bowel syndrome 02/08/2006 Overview (04/04/2024): normal upper GI endoscopy 02.25.06. Epigastric abdominal pain. Current Treatment and Therapy Plans No current plan information found. Past Treatment and Therapy Plans No past plan information found. Lifetime Dose Tracking * Chemical Lifetime Dose Automatic Entry Manual Entr y Radiation (DLP) 108.96 mGy-cm 108.96 mGy-cm 0 mGy-cm CTDIvol 3.22 mGy 3.22 mGy 0 mGy Resolved Problems Problem Noted Date Diagnosed Date Resolved Date 1st MTP arthritis 08/30/2024 08/30/2024 Alcohol-induced acute pancre atitis without infection or necrosis 07/28/2024 08/30/2024 Assessment & Plan (07/28/2024 8:21 AM EDT): Strongly advised to remain off alcohol Will update lipase level. It was 220 at [facility] and her CT scan showed evidence of [...]
--- OUTSIDE RECORDS SUMMARY | 2025-03-31 03:28 | XMS_ITS ---
Author Organization [facility] Address [address] [place] [address] Care Team Providers Care Machine Gun Mechanic Name Role Phone Stacy Yen MD Primary Care Provider Unavailable Active Problems Problem Noted Date Diagnosed Date [...] & Plan: The patient has an elevated Berry scale, states that she snores and has [...] Lifetime Dose Automatic Entry Manual Entr y Air Kerma-mGy 133 mGy 0 mGy 133 mGy Dose Area Product(DAP)-mGy-cm2 10,281 mGy-cm2 0 mGy-cm 2 10,281 mGy-cm2
--- OUTSIDE RECORDS SUMMARY | 2025-03-31 03:28 | XMS_ITS | Clinical Summary ---
Author Organization [facility] Address [address] [place] [address] Care Team Providers Care Car Rental Manager Name Role Phone Stacy Yen MD [...] 89 10/27/2023 11:59 AM EDT Temperature 36.3 C (97.4 F) 10/27/2023 11:59 AM EDT Respiratory Rate 20 02/22/2019 11:34 AM EDT [...] (2 - Pfizer risk series) 02/23/2022 02/02/2022 Fall Risk Assessment 08/28/2024 Osteoporosis Screening (DEXA Scan) 08/28/2024 Influenza Vaccine (#1) 2025 3, 03/08/2018, 02/08/2017, Additional history exists RSV Adult > 60+ Yrs or (1 - 1-dose 75+ series) 08/28/2034 Hepatitis B Vaccines Aged Out No long er eligible based on patient's age to complete this topic RSV Ped < 20 months Aged Out No longe r eligible based on patient's age to complete this topic Care Teams Car Rental Manager Relationship Specialty Start Date End Date Stacy Yen MD [address] [place] [address] PCP - General 11/02/22
--- OUTSIDE RECORDS SUMMARY | 2025-03-31 03:28 | XMS_ITS | Data Portability ---
Author Organization [place] [facility] Address [address] [address] Care Team Providers Care Record Filing Clerk Name Role Phone DAVE PATEL Primary Care Provider [phone] Assessment Encounter Date Assessment Date Assessment LastModified by Organization Details LastModified Time 12/13/2024 12/13/2024 64-year-old female presents for reevaluation of hoarseness. Flexible laryngoscopy was obtained today. 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 I recommended voice therapy and continued efforts in tobacco cessation. She may benefit from voice therapy and a referral will be made. Recommended follow-up in [address] Amaro for reevaluation. All questions were answered. [email or web address] Not available 12/13/2024 10:26:55 Plan of Treatment Reminders Order Date Submit Date Provider Last Modified By Organization Details Last Modified Time Details Appointments Establish ed 15 2024 03:30P Villa Roper MD Not available Not available Not available Lab None recorded. Referral speech therapy referral 2024 025 ZHANG Jim, [address] [facility], [place], [address], 12/14/2024 13:29:41 Procedures None recorded. Surgeries None recorded. Imaging None recorded. Medication Orders None recorded. Patient TargetsNo targets recorded. Patient InstructionsNo instructions recorded. Reason for Referral Referring Physician: Jolie Dominguez, Otolaryngology, Encounter Date: 12/13/2024 Problems Name Problem SNOMED Code Status Onset Date Resolution Date Notes Provider Name and Address Organization Details Recorded Time Cough 75729513 Active 2018 Cough; Note: Date Diagnosed: 05/02/2019 3:15 PM (R05) Not Available [facility] 4 03:13:04 Dysphagia 52166852 Active 2018 Dysphagia, unspecifie d; Note: Date Diagnosed: 05/02/2019 3:15 PM (R13.10) Not Available [facility] 4 03:13:04 Dysphonia 11349482 Active 2018 Hoarseness ; Note: Date Diagnosed: 05/02/2019 3:15 PM (R49.0) Not Available [facility] 4 03:13:03 Gastroeso phageal reflux disease without esophagit is 997058172 Active 2019 Gastro-eso phageal reflux disease without esophagiti s; Note: Date Diagnosed: 06/29/2019 10:58 AM (K21.9) Not Available [facility] 4 03:13:03 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 Procedures Surgical History Date Name Laterality Status Provider Name and Address Organization Details Recorded Time 12/13/2024 FOL_DP completed JOLIE DOMINGUEZ PA-C [address] [place] [address], [id number], [facility] - [facility] 12/13/2024 10:17:45 Imaging Results None recorded. Procedure Notes None recorded. Medical Equipment None Reported. Medications Name Sig Start Date Stop Date Status Note LastModified by Organization Details LastModified Time celecoxib 200 mg capsule TAKE 1 CAPSULE BY MOUTH EVERY DAY active Not Available Not Available No t Available furosemid e 40 mg tablet TAKE 1/2 TABLET BY MOUTH DAILY active Not Available Not Available No t Available prednison e 10 mg tablet 06/29 completed Medicati on ID: [id number] P rescribe d By Name: LEONARD Estrada nd Name: predniso ne Send Method: E-Prescr ibed Sub s Allowed: subs OK Speci al Instruct ion: Take 3 tablets on days 1-3, 2 tablets on days 4-6, and 1 tablet on days 7-9 Medi cationGe nericNam e: predniso ne Not Available Not Available Not Available gabapenti n 600 mg tablet TAKE 2 TABLETS (1,200 MG TOTAL) BY MOUTH 3 TIMES A DAY active Not Available Not Available No t Available Stool Softener 100 mg capsule TAKE 1 CAPSULE BY MOUTH 1 TIME EACH DAY. active Not Available Not Available No t Available fluconazo le 150 mg tablet TAKE 1 TABLET BY MOUTH NOW. REPEAT IN 7 DAYS IF SYMPTOMS PERSIST active Not Available Not Available No t Available valacyclo vir 1 gram tablet TAKE 2 TABLETS (2,000 MG TOTAL) BY MOUTH TWICE A DAY active Not Available Not Available No t Available ondansetr on HCl 8 mg tablet 06/29 completed Medicati on ID: [id number] D uration Value: 10 Reason: () Brand Name: ondanset tj HCl Send Method: E-Prescr ibed Sub s Allowed: subs OK Speci al Instruct ion: take 1 tablet by mouth every 8 hours if needed for nausea M edicatio nGeneric Name: ondanset tj HCl Not Available Not Available Not Available prednison e 5 mg tablet TAKE 1 TABLET BY MOUTH EVERY DAY active Not Available Not Available No t Available spironola ctone 25 mg tablet TAKE 0.5 TABLETS BY MOUTH 1 TIME EACH DAY. active Not Available Not Available No t Available pantopraz ole 20 mg tablet,de layed release PLEASE SEE ATTACHED FOR DETAILED DIRECTIO NS active Not Available Not Available No t Available amitripty line 25 mg tablet TAKE 1 TABLET BY MOUTH EVERYDAY AT BEDTIME active Not Available Not Available No t Available dexametha sone 1 mg tablet TAKE 1 TABLET AT 11 PM AND HAVE LABS DRAWN AT 8 AM THE NEXT DAY active Not Available Not Available No t Available benzonata te 100 mg capsule 06/29 completed Medicati on ID: [id number] D uration Value: 10 Reason: () Brand Name: benzonat ate Send Method: E-Prescr ibed Sub s Allowed: subs OK Medic ationGen ericName : benzonat ate Not Available Not Available Not Available losartan 25 mg tablet TAKE 1 TABLET BY MOUTH 1 TIME EACH DAY. active Not Available Not Available No t Available diclofena c sodium 50 mg tablet,de layed release TAKE 1 TABLET BY MOUTH TWICE A DAY active Not Available Not Available No t Available zolpidem 5 mg tablet 2018 active Medicati on ID: [id number] D uration Value: 10 Brand Name: zolpidem Send Method: E-Prescr ibed Sub s Allowed: subs OK Medic ationGen ericName : zolpidem Not Available Not Available Not Available furosemid e 20 mg tablet 06/29 completed Medicati on ID: [id number] D uration Value: 30 Reason: () Brand Name: furosemi de Send Method: E-Prescr ibed Sub s Allowed: subs OK Medic ationGen ericName : furosemi de Not Available Not Available Not Available ibuprofen 600 mg tablet 2018 active Medicati on ID: [id number] D uration Value: 7 Brand Name: ibuprofe n Send Method: E-Prescr ibed Sub s Allowed: subs OK Medic ationGen ericName : ibuprofe n Not Available Not Available Not Available albuterol sulfate HFA 90 mcg/actua tion aerosol inhaler INHALE 2 PUFFS BY MOUTH EVERY 6 HOURS NEEDED FOR WHEEZE active Not Available Not Available No t Available amoxicill in 875 mg-potass ium clavulana te 125 mg tablet TAKE 1 TABLET BY MOUTH TWICE A DAY FOR 7 DAYS active Not Available Not Available No t Available Klor-Con M20 mEq tablet,ex tended release TAKE 2 TABLETS BY MOUTH DAILY FOR 7 DAYS. active Not Available Not Available No t Available duloxetin e 20 mg capsule,d elayed release 2018 active Medicati on ID: [id number] D uration Value: 30 Brand Name: duloxeti ne Send Method: E-Prescr ibed Sub s Allowed: subs OK Medic ationGen ericName : duloxeti ne Not Available Not Available Not Available duloxetin e 30 mg capsule,d elayed release TAKE 2 CAPSULES BY MOUTH EVERY DAY active Not Available Not Available No t Available buprenorp richi 12 mg-naloxo ne 3 mg sublingua l film 2018 active Medicati on ID: [id number] D uration Value: 14 Brand Name: buprenor phine-na loxone S end Method: E-Prescr ibed Sub s Allowed: subs OK Speci al Instruct ion: take 1 FILM under the tongue once daily Me dication GenericN estefania: buprenor phine-na loxone Not Available Not Available Not Available Breo Ellipta 100 mcg-25 mcg/dose powder for inhalatio n 2018 active Medicati on ID: [id number] D uration Value: 30 Brand Name: Breo Ellipta Send Method: E-Prescr ibed Sub s Allowed: subs OK Speci al Instruct ion: inhale 1 puff by mouth INTO THE LUNGS twice a day Medi cationGe nericNam e: Breo Ellipta Not Available Not Available Not Available Jardiance 10 mg tablet TAKE 1 TABLET BY MOUTH 1 TIME EACH DAY. active Not Available Not Available No t Available Trelegy Ellipta 100 mcg-62.5 mcg-25 mcg powder for inhalatio n TAKE 1 PUFF BY MOUTH EVERY DAY active Not Available Not Available No t Available Wegovy 1 mg/0.5 mL subcutane ous pen injector INJECT 1MG INTO THE SKIN ONCE A WEEK active Not Available Not Available No t Available Wegovy 0.25 mg/0.5 mL subcutane ous pen injector INJECT 0.25MG INTO THE SKIN ONE TIME PER WEEK active Not Available Not Available No t Available Wegovy 0.5 mg/0.5 mL subcutane ous pen injector INJECT 0.5 ML SUBCUTAN EOUSLY WEEKLY active Not Available Not Available No t Available Zepbound 2.5 mg/0.5 mL subcutane ous pen injector INJECT 0.5 ML (2.5 MG TOTAL) UNDER THE SKIN EVERY 7 DAYS active Not Available Not Available No t Available Vitals Date Recorded Body height Body mass index (BMI) Body weight Provider Name and Address Organization Details Last Updated DateTime 12/13/2024 160.02 cm 27.5 kg/m2 83944.82 g Valeri Amaya [place] - [facility] 12/13/2024 09:07:28 Social History None recorded. Functional Status None recorded. Mental Status None recorded. Family History Nothing Reported. Medical History No medical history recorded. Gynecological HistoryNo gynecological history recorded. Obstetrics History GPAL:G 0 P 0 0 0 0 Past Encounters Encounter ID Performer Location Encounter Start Date Encounter Closed Date Diagnosis/Indication Diagnosis SNOMED-CT Code Diagnosis ICD10 Code Diagnosis IMO Codes Diagnosis Note [id number] JOLIE DOMINGUEZ PA-C [facility] [address] [place] [address] 12/13/2024 08:57:12 12/13/2024 09:36:20 Disorder of vocal cord 87621072 J38.3 Health Concerns Section Related Observation LastModified by Organization Detai ls LastModified Time None Recorded Concern Status LastModified by Organization Details LastModified Time None Recorded Advance Directives Directive None Recorded Payers Insurance Date Sequence Insurance Name Policy Number Policy Ríos Covered Member ID Ríos Member ID Guarantor Name 12/13/2024 1 [place] [facility] Do P Hotte [id number] Do P Hotte 02/05/2025 1 [facility] - DOS ON OR AFTER 2022 - MEDICARE ADVANTAGE [place] (MEDICARE REPLACEMENT/AD VANTAGE - PPO) Do P Hotte [id number] Do P Hotte Notes Date Note Type Note Provider Name and Address Organization Details Recorded Time 12/13/2024 text/html ROS as noted in the HPI 64-year-old female presents for reevaluation of hoarseness. 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 Amaro. Biopsy was negative. She has been lost to follow-up over the last few years but continues to have intermittent hoarseness. She had swallow study as recommended which was normal and has not had much difficulty with swallowing. History of smoking and mostly quit but does admit to 1 to 2 cigarettes a month. LILI JONAS MD [address], [address], [facility] - [facility] 12/13/2024 16:23:49 OBGyn Episode No OBEpisode recorded.
--- OUTSIDE RECORDS SUMMARY | 2025-03-31 03:28 | XMS_ITS | Encounter Summary ---
Author Organization [facility] Address [address] [place] [address] Care Team Providers Care Clinical Safety Specialist Name Role Phone Stacy Yen MD Primary Care Pr ovider Encounter Details Date Type Department Care Team ([facility] st Contact Info) Description 02/15/2025 Results Follow-Up [facility] [address] [facility] [address] [place] [address] Violet Jackson NP [address] [place] [address] [place] [address] Social History Tobacco Use Types [...] for your loved ones. 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 [...] as of this encounter Progress Notes * Violet Jackson NP - 02/16/2025 9:47 AM EDT My apologies, dragon error. There were no concerning findings on her echocardiogram thank you documented in this encounter Plan of Treatment Upcoming Encounters Date Type Department Care Team (Late st Contact Info) Description 04/26/2025 9:45 AM EST Office Visit [facility] Hematology Oncology [address] [place] [address] Sunil Mauro MD [address] [place] [phone] 05/02/2025 9:30 AM EST Office Visit Pulmonology - [place] [address] [facility] [address] [place] [phone] Swati Lehman MD [address] [place] [address] 06/08/2025 9:00 AM EST Office Visit Adult Medicine [facility] - [address] [phone] Stacy Yen MD [address] [place] [address] 06/14/2025 2:45 PM EST Appointment Bone Density - [address] [phone] documented as of this encounter Visit Diagnoses Not on filedocumented in this encounter Additional Health Concerns Assessment Noted Time PHQ-9 Depression Total Score: 1 05/11/20 24 10:20 AM EST documented as of this encounter Care Teams Clinical Safety Specialist Relationship Specialty Start Date End Date Stacy Yen MD [address] [place], [place] PCP - General Internal Medicine 12/17/21 documented as of this encounter
[2025-03-31 03:41] LABS: Alanine Aminotransferase 17 U/L (0-31); Albumin Level 4.2 g/dL (3.5-5.0); Alkaline Phosphatase 91 U/L (39-117); Anion Gap 15 (12-20); Aspartate Amino Transferase 20 U/L (5-31); Blood Urea Nitrogen 13 mg/dL (9-16); Calcium 9.2 mg/dL (8.4-10.2); Carbon Dioxide 31 mmol/L (22-29); Chloride 101 mmol/L (96-108); Creatinine Clr Calc Pharmacy 77.6; Estimated Glomerular Filt Rate > 60; Potassium 3.6 mmol/L (3.3-5.1); Sodium 143 mmol/L (135-145); Total Protein 7.0 g/dL (6.5-8.0)
--- NOTE | 2025-03-31 04:05 | ED_ITS ---
HPI - General Adult General Chief complaint: Fall Stated complaint: fall with head strike Time Seen by Provider: 03/31/25 03:26 Source: patient Limitations: no limitations History of Present Illness ED Provider: Nicole Alvarado PA-C HPI narrative: 64-year-old female with a history of chronic lumbar pain secondary to degenerative disc disease, arthritis, opioid use disorder now on methadone, COPD on supplemental oxygen at baseline, fibromyalgia, obesity, hypertension, GERD who presents after fall at home. Patient states she woke up abruptly from sleep, after presumably rolling out of bed. The patient's struck her right side of her head on her end table. She sustained a laceration that was bleeding heavily. Associated headache at this time. Denies dizziness, nausea, vomiting, or use a blood thinner. Tetanus vaccine is up-to-date. Patient has no additional physical concerns or complaints at this time. Related Data Home Medications ?Medication ?Instructions ?Recorded ?Confirmed cholecalciferol (vitamin D3) 125 1 tab PO DAILY 07/19/24 mcg (5,000 unit) tablet (Vitamin D3) gabapentin 600 mg tablet 2 tab PO TID 08/21/21 fluticasone fur. 100 mcg-umeclid 1 puff inhalation NATALIO LY 07/21/22 07/19/24 62.5 mcg-vilant 25 mcg inhalat.powder (Trelegy Ellipta) multivitamin with minerals 1 tab PO DAILY 07/21/2210/08 duloxetine 30 mg capsule,delayed 30 mg PO BID 01/19/23 07/19/24 release (Cymbalta) pantoprazole 20 mg tablet,delayed 20 mg PO BID@0630,16 30 01/28/23 07/19/24 release furosemide 40 mg tablet 40 mg PO DAILY PRN Swelling 02/02/23 07/19/24 methadone 10 mg/mL oral concentrate 102 mg PO DAILY 07/20/24 docusate sodium 100 mg capsule 100 mg PO BID PRN Const ipation 07/19/24 07/19/24 (Stool Softener) Previous Rx's ?Medication ?Instructions ?Recorded albuterol sulfate 90 mcg/actuation 2 puff inhalation Q ID PRN 07/29/21 aerosol inhaler shortness of breath or wheez ing #8.5 grams walker #1 ea 07/20/22 Raised toilet seat #1 ea 07/30/22 sennosides 8.6 mg tablet (Senna 17.2 mg (2 x 8.6 mg) P O BEDTIME 02/08/23 Lax) PRN Constipation 30 days #60 tabs diclofenac sodium 50 mg 50 mg PO BID #60 tabs tablet,delayed release aspirin 81 mg tablet,delayed 81 mg PO DAILY #1 tab 11/08 release heparin (porcine) 25,000 unit/250 25,000 unit (250 mL) continuous IV 07/20/24 mL in 0.45 % sodium chloride IV infusion .Q0M #1 mL soln heparin (porcine) 5,000 unit/mL 3,000 unit (0.6 mL) IV PUSH 07/20/24 injection solution PROTOCOL BOLUS PRN 40 Unit/K g - Heparin Protocol #1 mL heparin (porcine) 5,000 unit/mL 6,000 unit (1.2 mL) IV PUSH 07/20/24 injection solution PROTOCOL BOLUS PRN 80 Unit/K g - Heparin Protocol #1 mL metoprolol tartrate 25 mg tablet 12.5 mg (1/2 x 25 mg) PO BID #1 tab 07/20/24 Allergies Allergy/AdvReac Type Severity Reaction Status Date / Time No Known Allergies (No Known Allergy Verified 03/31/25 03:13 Allergies*) Review of Systems 2 Review of Systems: Yes all other systems are reviewed and are negative Constitutional: Constitutional: Denies fatigue, Denies fever(s) and Reports headache(s) ENT: Denies dizziness, Reports headache(s) and Denies neck pain Cardiovascular: Cardiovascular: Denies chest pain, Denies syncope, Denies palpitations and Denies dyspnea Respiratory: Respiratory: Denies dyspnea Gastrointestinal: Gastrointestinal: Denies nausea and Denies vomiting Musculoskeletal: Musculoskeletal: Denies neck pain Neurologic: Denies dizziness, Denies syncope and Reports headache(s) Endocrine: Endocrine: Denies fatigue and Denies palpitations PMF Past Medical History Attestation statement: The following information was validated with the patient. Medical History Great toe pain Low back pain radiating down leg Screening examination for infectious disease Osteoarthritis of right knee DDD (degenerative disc disease), lumbar Anxiety Dysphagia Pulmonary nodules History of ascites Peripheral neuropathy Opioid use disorder Methadone maintenance therapy patient Arthritis IBS (irritable bowel syndrome) Cervical cancer Breast cancer COPD (chronic obstructive pulmonary disease) Vocal cord polyp Surgical History History of vocal cord polypectomy Hx of colonoscopy History of lumpectomy of left breast Hx of laparoscopy History of hemorrhoidectomy H/O total hysterectomy Family History Family History Father Diabetes Mother CAD (coronary artery disease) CHF (congestive heart failure) Sister Breast cancer Lupus (systemic lupus erythematosus) Social History Social History Household Members: Spouse Housing: House Are you a primary day care home provider to a significant other at home: No Do you presently have visiting nurse or other home services: Yes Alcohol intake: current Alcohol intake frequency: holidays/special occasions only Comment: aware of trip hazard Patient Tobacco Use Status: Former Tobacco user Tobacco use type: Cigarette Years Smoked: 50 Smoked in Last 30 Days: No Second Hand Smoke Exposure: Yes Use of substances other than those prescribed or required for medical reasons: No Advance Directives: Yes Advance Directives on File: Yes Advance Directives Date on File: 08/21/21 service: No Current occupational status: disabled Physical Exam ED Vital Signs: Vital Signs - 24 hr 03/31/25 03:09 03/31/25 04:11 03/31/25 05:50 Temperature 98.3 F Pulse Rate 93 89 71 Respiratory Rate 17 17 17 Blood Pressure 159/80 H 149/84 H 131/63 Pulse Oximetry 93 95 98 Oxygen Delivery Method Nasal Cannula Nasal Cannula Room Air Oxygen Flow Rate 4 BMI result Body Mass Index 30.1 Const Other: Alert, 2 cm linear superficial laceration scalp right temporal region, not bleeding Orientation/consciousness: patient oriented x3 Neck Other: No midline tenderness Resp Effort & Inspection: normal respiratory effort Cardio Other: Normal peripheral perfusion Skin Other: Warm dry no rash Neuro General: patient oriented x3, gait normal, no focal motor deficits and CN's II- XI intact bilaterally Psych Other: Cooperative Medications Administered Discontinued Medications Generic Name Dose Route Start Last Admin Trade Name Freq PRN Reason Stop Dose Admin Acetaminophen 975 mg 03/31/25 03:44 03/31/25 04:06 Acetaminophen 325 Mg Tablet PO 03/31/25 03:45 975 mg ONCE ONE Administration Procedures Laceration Laceration 1: Site: scalp Side (If applicable): right Size (cm): 2 Description: linear Depth: simple, single layer Local Anesthetic: lidocaine 1% and with epi Amount of anesthesia used (mL): 2 Pre-repair: irrigated extensively Skin layer closed with: sehrry Number of closing items:: 3 Technique: simple, interrupted and sherry Medical Decision Making Medical Decision Making MDM Narrative: 64-year-old female with a history of chronic lumbar pain secondary to degenerative disc disease, arthritis, opioid use disorder now on methadone, COPD on supplemental oxygen at baseline, fibromyalgia, obesity, hypertension, GERD who presents after fall at home. Patient states she woke up abruptly from sleep, after presumably rolling out of bed. The patient's struck her right side of her head on her end table. She sustained a laceration that was bleeding heavily. Associated headache at this time. Denies dizziness, nausea, vomiting, or use a blood thinner. Tetanus vaccine is up-to-date. Patient has no additional physical concerns or complaints at this time. Problem: Chronic pain History: Per patient I have considered the following differential diagnoses: Contusion, concussion, intracranial hemorrhage, skull fracture, laceration, abrasion, syncope Plan: Screening labs including EKG obtained from triage, I would not have done so, the patient rolled out of bed, this is not consistent with a ACS or syncope. The patient is adamant about having a CT scan, given the mechanism, I do not feel she requires this, however she is insistent, she does have head trauma with a headache, I will order the scan. I have absolutely no suspicion for intracranial hemorrhage, she is not actively vomiting she is not altered she has no neurologic deficits, she is not on a thinner. The laceration will require simple repair. I have independently reviewed the following tests: Labs: No leukocytosis, not anemic, no electrolyte abnormality, ethanol less than 10 EKG: Normal sinus rhythm, rate 87, no ischemic changes no ectopy QTC 464 CT brain:Findings: No intra-axial mass, midline shift, hydrocephalus, or acute hemorrhage. No significant atrophy-like change or white matter disease. There is no sinus or mastoid fluid. The orbits are within normal limits. No skull fracture. IMPRESSION: No acute intracranial findings. Differential Diagnosis Differential Diagnoses: The differential diagnosis associated with the presentation includes See [facility] Admission/Observation Consideration of admission/observation: Escalation of care including admission/observation considered Not applicable Lab Data [facility] Lab Attestation statement: I reviewed the patient's lab results. 03/31/25 03:18 03/31/25 03:18 Labs: Lab Results 03/31/25 Range/Units 03:18 WBC 6.7 (4.8-10.8) X10*3/uL RBC 4.05 L (4.20-5.50) X10*6/uL Hgb 13.7 (12.0-16.0) g/dl Hct 41.7 (37.0-47.0) % MCV 103.0 H (80.0-98.0) fL MCH 33.8 H (27.0-33.0) pg MCHC 32.9 (31.0-35.0) g/dl RDW 13.7 (11.0-16.0) % Plt Count 176 (160-400) X10*3/uL MPV 8.9 L (9.4-12.3) fL Immature Gran % (Auto) 0.6 H (0.0-0.4) % Neut % (Auto) 66.8 (45-73) % Lymph % (Auto) 22.2 (20-40) % [place] % (Auto) 7.3 (2-11) % Eos % (Auto) 2.2 (0-4) % Baso % (Auto) 0.9 (0-2) % Lymph # (Auto) 1.5 (1.2-4.9) X10*3/uL [place] # (Auto) 0.5 (0.1-1.2) X10*3/uL Eos # (Auto) 0.2 (0.0-0.4) X10*3/uL Baso # (Auto) 0.1 (0.0-0.2) X10*3/uL Abs Immat Gran (auto) 0.04 H (0.00-0.03) X10*3/uL Absolute Neuts (auto) 4.5 (2.0-8.3) x10*3/uL Absolute Nucleated RBC 0.000 (0.0-0.012) X10*3/uL Nucleated RBC % (auto) 0.0 (0.0-0.2) /100WBC Sodium 143 (135-145) mmol/L Potassium 3.6 (3.3-5.1) mmol/L Chloride 101 (96-108) mmol/L Carbon Dioxide 31 H (22-29) mmol/L Anion Gap 15 (12-20) BUN 13 (9-16) mg/dL Creatinine 0.71 (0.5-1.4) mg/dL Estim Creat Clear Calc 77.6 Estimated GFR > 60 Random Glucose 124 H (60-115) mg/dL Calcium 9.2 D (8.4-10.2) mg/dL Total Bilirubin 0.2 (0.0-1.0) mg/dL AST 20 (5-31) U/L ALT 17 (0-31) U/L Alkaline Phosphatase 91 (39-117) U/L Total Protein 7.0 (6.5-8.0) g/dL Albumin 4.2 (3.5-5.0) g/dL Ethyl Alcohol < 10 mg/dL Independent Interpretation I performed an independent interpretation of an: EKG Radiology Impression Discussion of test interpretation with radiology: I have reviewed the radiologist's reading. Discharge Plan Discharge Clinical Impression: Laceration of scalp Qualifiers: Encounter type: initial encounter Qualified Code(s): S01.01XA - Laceration without foreign body of scalp, initial encounter Contusion of scalp Qualifiers: Encounter type: initial encounter Qualified Code(s): S00.03XA - Contusion of scalp, initial encounter Patient Disposition: Home, Self-Care Instructions: Laceration (ED), Scalp Contusion in Adults (ED) Additional Instructions: You had no screening lab abnormalities, the CT scan of your brain was normal. You sustained a contusion with a an overlying laceration. See home care instructions. Three sherry were placed to repair of the wound. They can be removed in 7 days. Follow up with your primary care for staple removal. Prescriptions: No Action (DME) walker Misc See Rx Instructions .MEDSUPPLY Qty: 1 0RF Rx Instructions: Folding Front wheeled walker diclofenac sodium 50 mg tablet,delayed release (DR/EC) 50 mg PO BID Qty: 60 0RF gabapentin 600 mg tablet 2 tab PO TID cholecalciferol (vitamin D3) [Vitamin D3] 125 mcg (5,000 unit) tablet 1 tab PO DAILY Trelegy Ellipta 100-62.5-25 mcg blister with device 1 puff INHALATION DAILY multivitamin with minerals Tablet 1 tab PO DAILY albuterol sulfate 90 mcg/actuation HFA aerosol inhaler 2 puff inhalation QID PRN (Reason: shortness of breath or wheezing) Qty: 8.5 0RF docusate sodium [Stool Softener] 100 mg capsule 100 mg PO BID PRN (Reason: Constipation) heparin(porcine) in 0.45% NaCl 25,000 unit/250 mL Parenteral Solution 25,000 unit continuous IV infusion .Q0M Qty: 1 0RF heparin (porcine) 5,000 unit/mL Solution 6,000 unit IVPUSH PROTOCOL BOLUS PRN (Reason: 80 Unit/Kg - Heparin Protocol) Qty: 1 0RF heparin (porcine) 5,000 unit/mL Solution 3,000 unit IVPUSH PROTOCOL BOLUS PRN (Reason: 40 Unit/Kg - Heparin Protocol) Qty: 1 0RF aspirin 81 mg Tablet,Delayed Release (Dr/Ec) 81 mg PO DAILY Qty: 1 0RF metoprolol tartrate 25 mg tablet 12.5 mg PO BID Qty: 1 0RF duloxetine [Cymbalta] 30 mg Capsule,Delayed Release(Dr/Ec) 30 mg PO BID furosemide 40 mg tablet 40 mg PO DAILY PRN (Reason: Swelling) sennosides [Senna Lax] 8.6 mg Tablet 17.2 mg PO BEDTIME PRN (Reason: Constipation) 30 Days Qty: 60 0RF (DME) Raised toilet seat See Rx Instructions .ROUTE .MEDSUPPLY Qty: 1 0RF Rx Instructions: As directed pantoprazole 20 mg tablet,delayed release (DR/EC) 20 mg PO BID@0630,1630 methadone 10 mg/mL concentrate 102 mg PO DAILY Print Language: Danish
[2025-03-31 04:11] VITALS: BP 149/84; PULSE 89; RESP 17; O2SAT 95
[2025-03-31 05:50] VITALS: BP 131/63; PULSE 71; RESP 17; O2SAT 98
[2025-03-31] MEDS: Lidocaine HCl 1%/Epi 1:100,000 10 ML VIAL INFILTRATI (06:05)
[2025-03-31 06:59] VITALS: BP 147/73; PULSE 81; RESP 18; TEMP 36.8; O2SAT 98
== END 2025-03-31 07:01 | disposition home or self-care (01) ==
PROVIDERS: Physician Assistant Medical; Emergency Provider Emergency Medicine; PCP Pediatrics
DX: S01.01XA Laceration without foreign body of scalp, initial encounter (principal); S00.03XA Contusion of scalp, initial encounter; I10 Essential (primary) hypertension; J44.9 Chronic obstructive pulmonary disease, unspecified; F11.20 Opioid dependence, uncomplicated; Z99.81 Dependence on supplemental oxygen; W06.XXXA Fall from bed, initial encounter; Y93.9 Activity, unspecified; Y92.003 Bedroom of unspecified non-institutional (private) residence as the place of occurrence of the external cause; Y99.9 Unspecified external cause status
CPT/HCPCS: 12001; 36415; 70450; 80053; 80307; 85025; 93005; 99284; 99285; J2004

== ENCOUNTER → 2025-03-31 03:14 | Outpatient (BNV) | payer OTHER, SELFPAY | PROVIDERS: Emergency Provider Emergency Medicine; PCP Pediatrics; Visit Provider Internal Medicine Cardiovascular Disease | DX: Z04.3 Encounter for examination and observation following other accident (principal) | CPT/HCPCS: 93010 ==

== ENCOUNTER → 2025-03-31 03:43 | Outpatient (BNV) | payer OTHER, SELFPAY | PROVIDERS: Emergency Provider Emergency Medicine; PCP Pediatrics; Visit Provider Radiology Vascular & Interventional Radiology | DX: S09.90XA Unspecified injury of head, initial encounter (principal) | CPT/HCPCS: 70450 ==

== ENCOUNTER 2025-04-10 12:59 | Outpatient (AMB) | payer OTHER, SELFPAY ==
[2025-04-10 13:02] VITALS: BP 128/66; PULSE 90; O2SAT 97; BMI 29.9
--- NOTE | 2025-04-10 13:02 | AM.OFFWIN_ITS ---
Intake Vital Signs 04/10/25 13:02 Height 5 ft 3 in Weight 169 lb BMI 29.9 BP 128/66 Blood Pressure Location Rt brachial Position Sitting Pulse 90 Pulse Source Pulse Oximeter Pulse Oximetry (%) 97 Oxygen Delivery Method Room Air Intake Visit Reasons: EP sherry removal Intake Note: Patient presents for staple removal in her scalp - 3 sherry present. Patient c/o discomfort at site. Patient Tobacco Use Status: Former Tobacco user Allergies No Known Allergies (No Known Allergies*) Allergy (Verified 04/10/25 13:05) HPI HPI Comments History of Present Illness Details History - The patient is a 64-year-old individua l presenting with head injury and neck pain following a fall. - The patient fell out of bed 10 days ag o, hitting the head on a nightstand, resulting in a scalp laceration requiring sherry, which she had placed in the [facility] ED. Head CT was negative for acute issues but no neck imaging was done. - She denies fevers, pain or drainage of the wound on her head. - The patient reports severe neck pain r adiating to the back, exacerbated by palpation. - The patient has been using Tylenol for pain management and was advised to try a muscle relaxer for suspected muscle spasms. - The patient has a history of arthritis and is on multiple medications including Cymbalta and Diclofenac. - The patient is supposed to be on oxyge n therapy but was not using it during the visit, leading to low oxygen saturation initially. [facility] Medical History Great toe pain Low back pain radiating down leg Screening examination for infectious disease Osteoarthritis of right knee DDD (degenerative disc disease), lumbar Anxiety Dysphagia Pulmonary nodules History of ascites Peripheral neuropathy Opioid use disorder Methadone maintenance therapy patient Arthritis IBS (irritable bowel syndrome) Cervical cancer Breast cancer COPD (chronic obstructive pulmonary disease) Vocal cord polyp Surgical History History of vocal cord polypectomy Hx of colonoscopy History of lumpectomy of left breast Hx of laparoscopy History of hemorrhoidectomy H/O total hysterectomy Family History Father Diabetes Mother CAD (coronary artery disease) CHF (congestive heart failure) Sister Breast cancer Lupus (systemic lupus erythematosus) Social History Household Members: Spouse Housing: House Are you a primary campground caretaker to a significant other at home: No Do you presently have visiting nurse or other home services: Yes Alcohol intake: current Alcohol intake frequency: holidays/special occasions only Comment: aware of trip hazard Patient Tobacco Use Status: Former Tobacco user Tobacco use type: Cigarette Years Smoked: 50 Second Hand Smoke Exposure: Yes Advance Directives Date on File: 08/21/21 service: No Current occupational status: disabled Review of Systems Narrative Review of Systems - Neurological: Reports severe neck pain radiating to the back. Denies fever or oozing from the staple site. - Musculoskeletal: Reports generalized musculoskeletal pain and bruising from the fall. - Respiratory: Reports being on oxygen therapy at home but not during the visit, leading to low oxygen saturation. All systems reviewed and are unremarkable except as noted in HPI Physical Exam Exam Exam: Physical Exam General: cooperative, healthy appearing and comfortable, patient oriented x3 Head: [address], CDI, no drainage or erythema, normocephalic General nose exam: Normal external nose present Face and sinus: Yes normal facial exam Effort & Inspection: normal respiratory effort and able to speak in complete sentences Back/spine: CVA tenderness present bilaterally cervical, thoracic and lumbar spine normal to inspection cervical ROM normal, thoracic ROM normal, lumbar ROM normal no thoracic or lumbar spine tenderness TTP on cervical spine and paraspinous muscles cervical area into thoracic area, TTP trapezius bilaterally Extremities: moving extremities normally Neuro: A&O x3, gait normal Vital Signs: Last Vital Signs Pulse 107 H 04/10/25 13:02 BP 128/66 04/10/25 13:02 Pulse Ox 91 L 04/10/25 13:02 Oxygen Delivery Method Room Air 04/10/25 13:02 BMI result Body Mass Index 29.9 Assessment & Plan Assessment & Plan (1) Removal of sherry: Code(s): Z48.02 - Encounter for removal of sutures Plan: - Head Injury: Three sherry were removed, and Bacitracin ointment was applied to the scalp laceration to promote healing. (2) Neck pain, acute: Code(s): M54.2 - Cervicalgia Plan: - With TTP of cervical spine and no imaging done in the ED, an x-ray of the neck was recommended to rule out any structural damage. - A prescription for cyclobenzaprine was provided to manage muscle spasms. - Recommended continuing Diclofenac as needed for pain mgmt. - Follow up with PCP if neck pain continues. Plan Patient was informed and verbally consented to the use of an ambient scribe for clinic note documentation during this visit. Orders: Orders XR cervical spine 5V Today M54.2 - Cervicalgia Medications: New cyclobenzaprine 5 mg PO Q8H PRN 20 tabs 0RF Muscle Spasm Coding Level of Care Code New Pt Level 4 (46569) Diagnoses Removal of sherry Z48.02 Neck pain, acute M54.2
--- OUTSIDE RECORDS SUMMARY | 2025-04-10 16:43 | XMS_ITS | Clinical Summary ---
Author Organization [facility] Address [address] [place] [address] Care Team Providers Care Coal Picker Name Role Phone Stacy Yen MD Primary [...] & Plan: The patient has an elevated [place] scale, states that she snores and has [...] Used Date Smoking Tobacco: Former Cigarettes 1 6 1 06/29/2018 - 05/17/1974 Smokeless Tobacco: Never Tobacco Cessation:Counseling Given: Not Answered Alcohol Use Standard Drinks/Week Comments Yes 14 (1 standard drink = 0.6 oz pu re alcohol) [facility] Answer Date Recorded In the past 12 months has th e [employer], [employer], oil, or water [employer] threatened to shut off services in your [...] any time in the past 12 m [facility], were you homeless or living in a prison (including now)? No 07/23/2024 Comments Unknown Sex [...] this topic Insurance MEDICAID OUT OF STATE [facility] [place] [facility] [place] [id number] Advance Directives * Full Code (Latest Code Status on File) Date Activated Date Inactivated Comments 07/21/2024 4:04 PM Question Answer Comments Decision Thoroughly Discussed with: Patient Care Teams Coal Picker Relationship Specialty Start Date End Date Stacy Yen MD PCP - General Internal Medicine 07/23/24
--- OUTSIDE RECORDS SUMMARY | 2025-04-10 16:43 | XMS_ITS | Clinical Summary ---
Author Organization [facility] Address [address] [place] [address] Care Team Providers Care Advertising Job Titles Name Role Phone Stacy Yen MD Primary [...] age to complete this topic Care Teams Advertising Job Titles Relationship Specialty Start Date End Date Stacy Yen MD [address] [place] [address] PCP - General 11/02/22
--- OUTSIDE RECORDS SUMMARY | 2025-04-10 16:43 | XMS_ITS ---
Author Organization [facility] Address [address] [place] [id number] Care Team Providers Care Integrated Campaign Manager Name Role Phone Stacy Yen MD [...] & Plan: The patient has an elevated [place] scale, states that she snores and has [...] 10,281 mGy-cm2 0 mGy-cm 2 10,281 mGy-cm2 Fluoro Time 2.4 minutes 0 minutes 2.4 minutes
--- OUTSIDE RECORDS SUMMARY | 2025-04-10 16:43 | XMS_ITS | Data Portability ---
Author Organization [facility], [address] Address [address] [place] [address] Care Team Providers Care Bid Writer Name Role Phone [facility] Care Provider Assessment No assessment recorded. Plan of Treatment Reminders Order Date Submit Date Provider Last Modified By Organization Details Last Modified Time Details Appointments None recorded. Lab None recorded. Referral None recorded. Procedures None recorded. Surgeries None recorded. Imaging None recorded. Medication Orders doxycycline hyclate 100 mg capsule 2022 023 [facility] #[id number], [address] [place] [address], [address], 11:35:14 Patient TargetsNo targets recorded. Patient Instructions Encounter Date Encounter Id Patient Instructions Last Modified By Organization Details Last Modified Time 09/14/2022 [id number] tick bite: care instructions [email or web address] Not available 09/14/2022 11:35:11 Reason for Referral None Reported. Problems Name Problem SNOMED Code Status Onset Date Resolution Date Notes Provider Name and Address Organization Details Recorded Time Neuropathy 002477811 Active 2022 KALPANA samayoa, [place] - [facility] 3 10:59:36 Gastroesophage al reflux disease 645793253 Active 2022 KALPANA ROSS null, [place] - [facility] 3 11:01:20 Chronic obstructive pulmonary disease 57971506 Active 2022 KALPANA ROSS null, [place] - [facility] 3 11:01:27 Osteoarthritis 659612341 Active 2022 KALPANA samayoa, [place] - [facility] 3 11:01:37 Malignant neoplasm of breast 496791702 Active 2022 KALPANA samayoa PA - [facility] 3 11:05:19 Problem Notes None recorded. Procedures Surgical History Date Name Laterality Status Provider Name and Address Organization Details Recorded Time 023 Foreign Body Removal completed Reggie De Souza MD [address] [place] [address] [place], [address], [place] - [facility] 09/14/2022 11:36:15 cervical [...] weight Respiratory rate Body temperature Oxygen saturation Heart rate Systolic And Diastolic Provider Name and Address Organization Details Last Updated DateTime 3 160.02 cm 10.6 kg/m2 84815.5 4 g 16 /min 97 [degF] 95 % 80 /min 149/76 mm[Hg] KALPANA ROSS PA - [facility] 11:07:23 Social History Question Answer Notes LastModified by Organizat ion Details LastModified Time Tobacco Smoking Status Former Smoker KALPANA samayoa [place] - [facility] 09/14/2022 11:04:05 Have You Recently Traveled Abroad? No [email or web address] Information not available 09/14/2022 Sex: Unknown Functional Status Question Answer Note LastModified by Organizat ion Details LastModified Time Do you use any illicit or recreational drugs? No [email or web address] Information not available 09/14/2022 Do you or have you ever used any other forms of tobacco or nicotine? No Information not available 09/14/2022 What is your level of alcohol consumption? Occasional [email or web address] Information not available 09/14/2022 Mental Status None recorded. Family History Relationship Description Onset Age of this Age Resolved Age Notes LastModified by Organization Details LastModified Time Unspecified Relation Malignant neoplastic disease [email or web address] Not available 2022 11:02:25 Unspecified Relation Diabetes mellitus [email or web address] Not available 2022 11:02:33 Unspecified Relation Heart disease Not available 2022 11:02:39 Unspecified Relation Hypertensive disorder [email or web address] Not available 2022 11:02:48 Unspecified Relation Lupus erythematosu s [email or web address] Not available 2022 11:02:58 Medical History No medical history recorded. Gynecological HistoryNo gynecological history recorded. Obstetrics History GPAL:G 0 P 0 0 0 0 Past Encounters Encounter ID Performer Location Encounter Start Date Encounter Closed Date Diagnosis/Indication Diagnosis SNOMED-CT Code Diagnosis ICD10 Code Diagnosis IMO Codes Diagnosis Note [id number] [address] [place] [address] 08/18/2016 13:00:28 08/18/2016 15:06:44 [id number] [address] [place] [address] 03/18/2015 16:39:07 03/18/2015 17:54:15 [id number] [address] [place] [address] 07/12/2018 13:33:15 07/12/2018 14:06:55 [id number] [address] [place] [address] 11/17/2015 09:21:39 11/17/2015 11:52:22 [id number] [address] [place] [address] 05/12/2018 11:35:34 05/12/2018 12:23:00 [id number] Reggie De Souza MD [address] [place] [address] 09/14/2022 10:40:21 09/14/2022 11:39:21 Tick bite 02816825 W57.XXXA Localized eruption of skin 859664548 R21 mild redness at sitewatch for worsening Health Concerns Section Related Observation LastModified by Organization Detai ls LastModified Time None Recorded Concern Status LastModified by Organization Details LastModified Time None Recorded Advance Directives Directive None Recorded Payers Insurance Date Sequence Insurance Name Policy Number Policy Ríos Covered Member ID Ríos Member ID Guarantor Name 09/14/2022 1 [facility] [id number] Jaylan Hotte [id number] Do Hotte 09/14/2022 1 [place] [employer] Do P Hotte [id number] Do Hotte 09/14/2022 2 [place] Do Hotte [id number] Do Hotte 09/15/2022 1 [place] [employer] Od P Hotte [id number] Do Hotte 09/14/2022 1 [place] Do Hotte [id number] Do Hotte Notes Date Note Type Note Provider Name and Address Organization Details Recorded Time 09/14/2022 text/html Rash / Skin LesionReported by PatientHPIFor quality, patient reportsitchy. For location, patient reportsback. For duration, patient reports___ days. For alleviating factors, patient reportsnothing gives relief. For associated symptoms, patient reportsno feverandno fatigue. Reggie De Souza MD [address] [place], [address], [place] - [facility] 09/14/2022 11:36:39 OBGyn Episode No OBEpisode recorded.
--- OUTSIDE RECORDS SUMMARY | 2025-04-10 16:44 | XMS_ITS | Data Portability ---
Author Organization [place] - [facility], Allergy Address [address] [place] [address] Care Team Providers Care Button Tacker Name Role Phone DAVE PATEL Primary Care Provider Assessment Encounter Date Assessment Date Assessment LastModified [...] Amaro for reevaluation. All questions were answered. Not available 12/13/2024 10:26:55 Plan of Treatment Reminders Order Date Submit Date Provider Last Modified By Organization Details Last Modified Time Details Appointments Establish ed 15 2024 03:30P Villa Roper MD Not available Not available Not available Lab None recorded. Referral speech therapy referral 2024 025 ZHANG Jim, [address] [facility], [place], [address], 12/14/2024 13:29:41 Procedures None recorded. Surgeries None recorded. Imaging None recorded. Medication Orders None recorded. Patient TargetsNo targets recorded. Patient InstructionsNo instructions recorded. Reason for Referral Referring Physician: Jolie Dominguez, Otolaryngology, Encounter Date: 12/13/2024 Problems Name Problem SNOMED Code Status Onset Date Resolution Date Notes Provider Name and Address Organization Details Recorded Time Cough 00234218 Active 2018 Cough; Note: Date Diagnosed: 05/02/2019 3:15 PM (R05) Not Available [facility] 4 03:13:04 Dysphagia 92727505 Active 2018 Dysphagia, unspecifie d; Note: Date Diagnosed: 05/02/2019 3:15 PM (R13.10) Not Available [facility] 4 03:13:04 Dysphonia 74365130 Active 2018 Hoarseness ; Note: Date Diagnosed: 05/02/2019 3:15 PM (R49.0) Not Available [facility] 4 03:13:03 Gastroeso phageal reflux disease without esophagit is 424005172 Active 2019 Gastro-eso phageal reflux disease without esophagiti s; Note: Date Diagnosed: 06/29/2019 10:58 AM (K21.9) Not Available [facility] 4 03:13:03 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 Procedures Surgical History Date Name Laterality Status Provider Name and Address Organization Details Recorded Time 12/13/2024 FOL_DP completed JOLIE DOMINGUEZ PA-C [address] [place] [address], [address], [facility] - [facility] 12/13/2024 10:17:45 Imaging Results None recorded. Procedure [...] mg tablet 06/29 completed Medicati on ID: [id number] P rescribe d By Name: LEONARD Estrada [...] mg tablet 06/29 completed Medicati on ID: [id number] D uration Value: 10 Reason: () Brand [...] mg capsule 06/29 completed Medicati on ID: [id number] D uration Value: 10 Reason: () Brand [...] mg tablet 2018 active Medicati on ID: [id number] D uration Value: 10 Brand Name: zolpidem Send Method: E-Prescr ibed Sub s Allowed: subs OK Medic ationGen ericName : zolpidem Not Available Not Available Not Available furosemid e 20 mg tablet 06/29 completed Medicati on ID: [id number] D uration Value: 30 Reason: () Brand Name: furosemi de Send Method: E-Prescr ibed Sub s Allowed: subs OK Medic ationGen ericName : furosemi de Not Available Not Available Not Available ibuprofen 600 mg tablet 2018 active Medicati on ID: [id number] D uration Value: 7 Brand Name: ibuprofe [...] elayed release 2018 active Medicati on ID: [id number] D uration Value: 30 Brand Name: duloxeti [...] l film 2018 active Medicati on ID: [id number] D uration Value: 14 Brand Name: buprenor phine-na loxone S end Method: E-Prescr ibed Sub s Allowed: subs OK Speci al Instruct ion: take 1 FILM under the tongue once daily Me dication GenericN estefania: buprenor phine-na loxone Not Available Not Available Not Available Breo Ellipta 100 mcg-25 mcg/dose powder for inhalatio n 2018 active Medicati on ID: [id number] D uration Value: 30 Brand Name: Breo [...] Updated DateTime 12/13/2024 160.02 cm 27.5 kg/m2 42178.82 g Valeri Amaya [place] - [facility] 12/13/2024 09:07:28 Social History None recorded. Functional Status None recorded. Mental Status None recorded. Family History Nothing Reported. Medical History No medical history recorded. Gynecological HistoryNo gynecological history recorded. Obstetrics History GPAL:G 0 P 0 0 0 0 Past Encounters Encounter ID Performer Location Encounter Start Date Encounter Closed Date Diagnosis/Indication Diagnosis SNOMED-CT Code Diagnosis ICD10 Code Diagnosis IMO Codes Diagnosis Note [id number] JOLIE DOMINGUEZ PA-C [facility] [address] [place] [address] 12/13/2024 08:57:12 12/13/2024 09:36:20 Disorder of vocal cord 20945238 J38.3 Health Concerns Section Related Observation LastModified by Organization Detai ls LastModified Time None Recorded Concern Status LastModified by Organization Details LastModified Time None Recorded Advance Directives Directive None Recorded Payers Insurance Date Sequence Insurance Name Policy Number Policy Ríos Covered Member ID Ríos Member ID Guarantor Name 12/13/2024 1 [place] [facility] Do P Hotte [id number] Do P Hotte 02/05/2025 1 [facility] - DOS ON OR AFTER 2022 - MEDICARE [place]AGE [place]MEDICARE [place]PLACEMENT/AD VANTAGE - PPO) Do P Hotte [id number] Do P Hotte Notes Date Note Type [...] cigarettes a month. LILI JONAS MD [address], [address], [facility] - [facility] 12/13/2024 16:23:49 OBGyn Episode No OBEpisode recorded.
== END 2025-04-10 13:49 | disposition home or self-care (01) ==
PROVIDERS: PCP Pediatrics; Visit Provider Physician Assistant
DX: Z48.02 Encounter for removal of sutures (principal); M54.2 Cervicalgia

== ENCOUNTER 2025-04-10 12:59 | Outpatient (REF) | payer OTHER, SELFPAY ==
--- OUTSIDE RECORDS SUMMARY | 2025-04-06 09:00 | XMS_ITS | Encounter Summary ---
Author Organization [facility] Address [address] [place] [address] Care Team Providers Care Parts Specialist Name Role Phone Stacy Yen MD Primary Care Pr ovider Reason for Visit * Reason Comments 7 day ROCT * Cardiac Stress Testing (Routine) - Closed Specialty Diagnoses / Procedures Referred By Charity ruvalcaba Referred To Contact Cardiology Diagnoses Palpitations Procedures Cardiac event monitor [place] EXTERNAL PATIENT ACTIVATED ECG DOWNLOAD W RESULTS & INTERP <= 30 DAYS [place] EXTERNAL PAT AUTO ACTIVATED ECG INCLUDING TRANSMISSION UP TO 30 DAYS [place] EXTERNAL MOBILE CV TELEMETRY W ECG RECORDING <=30D PHYSCIAN REV & INTERP [place] EXTERNAL MOBILE CV TELEMETRY W ECG RECORDING TECH SUPPORT UP TO 30 DAYS [place] ECG UP TO 30 DAYS RECORDING Violet Jackson NP [address] [place] [address] Phone: tel: fax: Referral ID Status Reason Start Date Expiration Date Visits Re quested Visits Authorized [id number] Closed 03/07/2025 03/07/2026 1 1 Encounter Details Date Type Department Care Team (Late st Contact Info) Description 04/06/2025 9:00 AM EST Ancillary Procedure [facility] [address] [place] [address] Palpitations Social History Tobacco Use Types Packs/Day Years [...] care for your loved ones. For example, exceptional children teacher assistant or elderly care for an older adult? [...] Description 04/26/2025 9:45 AM EST Office Visit [facility] Hematology Oncology [address] [place] [address] Sunil Mauro MD [address] [place] [address] 05/02/2025 9:30 AM EST Office Visit Pulmonology [facility] [address] [facility] [address] [place] [id number] Swati Lehman MD [address] [place] [address] 06/08/2025 9:00 AM EST Office Visit Adult Medicine [address] [phone] Stacy Yen MD [address] [place] [address] 06/14/2025 2:45 PM EST Appointment [facility] [address] [phone] Pending Results Name Type Priority Associated Diagnoses Date /Time Cardiac event monitor Cardiac Services Routine Palpitations 04/09/2025 8:34 AM EST documented as of this encounter Visit Diagnoses Diagnosis Palpitations documented in this encounter Additional Health Concerns Assessment Noted Time PHQ-9 Depression Total Score: 1 05/11/20 10:20 AM EST documented as of this encounter Care Teams Parts Specialist Relationship Specialty Start Date End Date Stacy Yen MD [address] [place], [place] PCP - General Internal Medicine 12/17/21 documented as of this encounter
--- NOTE | ~2025-04-10 | XR_ITS ---
EXAMINATION: XR CERVICAL SPINE CLINICAL INFORMATION: M54.2 - Cervicalgia COMPARISON: None available. TECHNIQUE: 6 views of the cervical spine including swimmer's view were obtained. FINDINGS: Mild curvature of the lower cervical spine to the right. Bone alignment is otherwise normal. No fracture or dislocation. Multilevel degenerative disc disease and spondylosis greatest at C6-7. Bilateral multilevel facet arthritis. There is right-sided neuroforaminal narrowing at C4-5 C5-6 and C6-7 and left-sided neural foraminal narrowing at C3-4, and C7-T1 from bony osteophyte. Prevertebral soft tissues are normal. XR/XR cervical spine 5V IMPRESSION: Degenerative changes. Electronically signed by: Payton Matthew MD 04/10/2025 01:48 PM EST
--- OUTSIDE RECORDS SUMMARY | 2025-04-10 17:08 | XMS_ITS | Encounter Summary ---
Author Organization [facility] Address [address] [place] [address] Care Team Providers Care Windows Vmware Engineer Name Role Phone Stacy Yen MD Primary Care Pr ovider Reason for Visit * Reason Onset Date Comments Letter for School/Work 03/15/2025 Social Se curity letter Encounter Details Date Type Department Care Team ([facility] Contact Info) Description 03/15/2025 Telephone Adult Medicine [address] [phone] Stacy Yen MD [address] [place] [address] Social History Tobacco Use Types Packs/Day Years [...] needed for completion: KAILEY When completed: Will fern picker-call when completed: (home) documented in this encounter Plan of Treatment Upcoming Encounters Date Type Department Care Team (Late st Contact Info) Description 04/26/2025 9:45 AM EST Office Visit [facility] Hematology Oncology [address] [place] [phone] Sunil Mauro MD [address] [place] [phone] 05/02/2025 9:30 AM EST Office Visit Pulmonology - [place] 175 [facility] [address] [place] [phone] Swati Lehman MD [address] [place] [phone] 06/08/2025 9:00 AM EST Office Visit Adult Medicine [address] [phone] Stacy Yen MD [address] [place] [address] 06/14/2025 2:45 PM EST Appointment [facility] [address] [phone] documented as of this encounter Visit Diagnoses Not on filedocumented in this encounter Additional Health Concerns Assessment Noted Time PHQ-9 Depression Total Score: 1 05/11/20 24 10:20 AM EST documented as of this encounter Care Teams Windows Vmware Engineer Relationship Specialty Start Date End Date Stacy Yen MD [address] [place] [address] [facility] [place], [place] PCP - General Internal Medicine 12/17/21 documented as of this encounter
--- OUTSIDE RECORDS SUMMARY | 2025-04-10 17:08 | XMS_ITS | Encounter Summary ---
Author Organization [facility] Address [address] [place] [address] Care Team Providers Care Tool Lapper Hand Name Role Phone Stacy Yen MD Primary Care Pr ovider Encounter Details Date Type Department Care Team ([facility] st Contact Info) Description 02/15/2025 Results Follow-Up [facility] [address] [facility] [address] [place] [address] Violet Jackson NP [address] [place] [address] [place] [address] Social History Tobacco Use Types [...] for your loved ones. For example, child development assistant or elderly care for an older [...] Description 04/26/2025 9:45 AM EST Office Visit [facility] Hematology Oncology [address] [place] [address] Sunil Mauro MD [address] [place] [phone] 05/02/2025 9:30 AM EST Office Visit Pulmonology - [place] [address] [facility] [address] [place] [phone] Swati Lehman MD [address] [place] [address] 06/08/2025 9:00 AM EST Office Visit Adult Medicine [facility] - [address] [phone] Stacy Yen MD [address] [place] [address] 06/14/2025 2:45 PM EST Appointment [facility] - [address] [phone] documented as of this encounter Visit Diagnoses Not on filedocumented in this encounter Additional Health Concerns Assessment Noted Time PHQ-9 Depression Total Score: 1 05/11/20 24 10:20 AM EST documented as of this encounter Care Teams Tool Lapper Hand Relationship Specialty Start Date End Date Stacy Yen MD [address] [place], [place] PCP - General Internal Medicine 12/17/21 documented as of this encounter
--- OUTSIDE RECORDS SUMMARY | 2025-04-10 17:08 | XMS_ITS | Clinical Summary ---
Author Organization [facility] Address [address] [place] [address] Phone Care Team Providers Care Metal Furniture Assembler Name Role Phone Stacy Yen MD Primary [...] mg tabletIndicatio ns:Peripheral neuropathy due to chemotherapy ([facility] V24) TAKE 2 TABLETS (1,200 MG TOTAL) BY MOUTH 3 TIMES A DAY 90 tablet 02/29/20 25 Active amitriptyline (ELAVIL) 25 mg tabletIndicatio ns:Peripheral neuropathy due to chemotherapy ([facility] V24),Anxiety and depression,Prim liya insomnia [...] mg tabletIndicatio ns:Peripheral neuropathy due to chemotherapy ([facility] V24),Anxiety and depression,Prim liya insomnia TAKE 1 TABLET BY MOUTH EVERYDAY AT BEDTIME 90 tablet 1 09/26/19 25 025 Discontinued tirzepatide, weight loss, (Zepbound) 2.5 mg/0.5 mL injection INJECT 0.5 ML (2.5 MG TOTAL) UNDER THE SKIN EVERY 7 DAYS 10/07/19 25 025 Discontinued amoxicillin-cla vulanate (AUGMENTIN) 875-125 mg per tablet Take 1 tablet by mouth 2 (two) times a day. 025 Discontinued amitriptyline (ELAVIL) 25 mg tabletIndicatio ns:Peripheral neuropathy due to chemotherapy ([facility] V24),Anxiety and depression,Prim liya insomnia TAKE 1 TABLET BY MOUTH EVERYDAY AT BEDTIME 90 tablet 03/14/20 25 025 Discontinued valACYclovir (Valtrex) 1 gram tabletIndicatio ns:Recurrent cold sores Take 2 tablets (2,000 mg total) by mouth 2 (two) times a day for 1 day. 12 tablet 1 03/27/20 25 025 Active Problems Problem Noted Date Diagnosed Date [...] referral to Cardiac Rehabilitation; Future Adrenal nodule (CMS/HCC V24) 07/28/2024 Assessment & Plan (07/28/2024 8:21 [...] Future NSTEMI (non-ST elevated myoc ardial infarction) (CMS/HCC V24, CMS/HCC V28) 07/27/2024 Assessment & [...] care she is getting with gastroenterology at [facility]. She is referred to gastroenterology at [facility]. She would likely benefit from an ERCP [...] left breast in female, estrogen receptor negative ([facility] V24, [facility] V28) 01/13/2024 Assessment & Plan (08/30/2024 2:45 [...] & Plan: The patient has an elevated [place] scale, states that she snores and has daytime somnolence. In base of this I have ordered sleep study. Stage 1 mild COPD by GOLD cl assification ([facility]/HCC V24, [facility]/HCC V28) 09/10/2021 Overview (04/04/2024): Last Assessment & [...] at bedtime. Peripheral neuropathy due to chemotherapy ([facility]/ CC V24) 03/16/2019 Assessment & [...] abdomen with and without contrast 07/20/2024 at [facility] [place], report scanned into media [...] seen on the MRI abdomen 07/20/2024 at [facility] [place]. Patient states she has [...] for physical therapy History of substance abuse ([facility] V24, [facility] V28) 07/14/2018 Overview (04/04/2024): Developed [...] Problem Noted Date Diagnosed Date Resolved Date MTP arthritis 08/30/2024 08/30/2024 Alcohol-induced acute pancre atitis without infection or necrosis 07/28/2024 08/30/2024 Assessment & Plan (07/28/2024 8:21 AM EDT): Strongly advised to remain off alcohol Will update lipase level. It was 220 at [facility] and her CT scan showed evidence [...] episode of recurren t major depressive disorder ([facility] V24, CMS/[facility] V28) 03/16/2019 08/30/2024 Invasive ductal carcinoma of breast, female, left (CMS/HCC V24, CMS/HCC V28) 09/08/2018 08/31/19 25 Overview (04/04/2024): Diagnosed 09/2018 on chemo and radiation Encounters Date Type Department Care Team Description 04/06/2025 9:00 AM EST Ancillary Procedure [facility] [address] [facility] [address] [place] [address] Palpitations 04/05/2025 Telephone Adult Medicine [facility] - [address] [phone] Stacy Yen MD 03/28/2025 Results Follow-Up [facility] [address] [facility] [address] [place] [address] Violet Jackson NP 03/28/2025 Results Follow-Up Endocrinology [address] [phone] Flor Bethea [place] 03/27/2025 2:20 PM EST Lab Draw [address] NSTEMI (non-ST elevated myocardial infarction) ([facility] V24, [facility] V28); Hypertriglyceridemia; Palpitations; Adrenal nodule ([facility]/HCC V24) 03/27/2025 1:30 PM EST Office Visit Adult [address] [phone] Isadora Carmona PA Malignant neoplasm of upper-inner quadrant of left breast in female, estrogen receptor negative ([facility] V24, [facility] V28) (Primary Dx); Peripheral neuropathy due to chemotherapy ([facility] V24); NSTEMI (non-ST elevated myocardial infarction) ([facility] V24, [facility] V28); Heart failure with mildly reduced ejection fraction ([facility] V24, [facility] V28); Stage 1 mild COPD by GOLD classification ([facility] V24, [facility] V28); Anxiety and depression; Primary insomnia; Chronic constipation; Gastroesophageal reflux disease without esophagitis; Recurrent cold sores; Overweight (BMI 25.0-29.9) 03/15/2025 Telephone Adult [address] [phone] Stacy Yen MD 03/08/2025 Telephone [facility] [address] [facility] [address] [place] [phone] Luis Antonio Diaz MD 03/07/2025 9:10 AM EDT Office Visit [facility] [address] [facility] [address] [place] [phone] Violet Jackson NP NSTEMI (non-ST elevated myocardial infarction) ([facility] V24, [facility] V28) (Primary Dx); Palpitations; Hypertriglyceridemia; Heart failure with mildly reduced ejection fraction ([facility] V24, [facility] V28) 03/07/2025 Telephone Adult [address] [phone] Stacy Yen MD 03/05/2025 Telephone Adult Medicine [address] [phone] Shakila Vázquez MA 02/15/2025 Results Follow-Up [facility] [address] [facility] [address] [place] [address] Violet Jackson NP 02/13/2025 9:00 AM EDT Ancillary Procedure [facility] [address] [place] [address] NSTEMI (non-ST elevated myocardial infarction) (CMS/HCC V24, CMS/HCC V28); Heart failure with mildly reduced ejection fraction (CMS/HCC V24, CMS/HCC V28) 01/16/2025 11:30 AM EDT Consult Neurosurgery [facility] [address] [facility] [address] [place] [phone] Valeri Nesbitt PA Lumbar radiculopathy (Primary Dx); Lumbosacral radiculopathy; Neck pain, chronic from Last 3 Months Immunizations Immunization Administration [...] (Afluria) 3 years and older 01/06/2024,12/25/2021,01/10/2021,01/14,02/08/2017,02/20/2015,02/24/2008 ,04/10/2006,03/28/2005 Pfizer SARS-CoV-2 COVID-19, mRNA, LNP-S, preservative free 02/02/2022 [...] Difficulty swallowing Tobacco use Anxiety Breast cancer ([facility] V24, [facility] V28) 09/2018-lt. breast-invasive ductal carcinoma, S/P chemo and radiation tx COPD (chronic obstructive pu lmonary disease) ([facility] V24, CMS/[facility] V28) Abnormal CT of the chest 04/08/[address] of chest 04/01/2021, repeat 3 months, to tumor board. Dry mouth Abdominal bloating Change in bowel habits Cervical spondylosis without myelopathy Depressive disorder Irritable bowel syndrome Diverticulosis Hemorrhoids Constipation CHF (congestive heart failur e) ([facility] V24, [facility] V28) 02/09/2022 History of rectal bleeding 02/08/2006 negat domenica colonoscopy 05.02.01. Terminal ileum normal. No colon cancer screening [...] depressive disorder (CMS/HCC V24, CMS/HCC V28) 03/16/2019 Alcohol-induced acute pancre atitis without [...] care for your loved ones. For example, home child care provider or elderly care for an older adult? [...] Description 04/26/2025 9:45 AM EST Office Visit [facility] Hematology Oncology [address] [place] [address] Sunil Mauro MD [address] [place] [address] 05/02/2025 9:30 AM EST Office Visit Pulmonology - [place] [address] [facility] [address] [place] [phone] Swati Lehman MD [address] [place] [address] 06/08/2025 9:00 AM EST Office [facility] [address] [phone] Stacy Yen MD [address] [place] [address] 06/14/2025 2:45 PM EST Appointment [facility] - [address] [phone] Health Maintenance Due Date Last Done Comments [...] Routine 03/27/2025 2:17 PM EST Adrenal nodule ([facility]/HCC V24) BASIC METABOLIC PANEL Routine 03/27/2025 2:17 [...] reduced ejection fraction (CMS/HCC V24, CMS/HCC V28) HEPATITIS C ANTIBODY Routine 07/27/2024 12:14 PM [...] mg/dL LAB CHEMISTRY METHOD 03/27/2025 6:39 PM [facility] Triglycerides 382(H) 0 - 150 mg/dL LAB CHEMISTRY METHOD 03/27/2025 6:39 PM [facility] HDL 62 >=40 mg/dL LAB CHEMISTRY METHOD 03/27/2025 6:39 PM [facility] LDL Calculated 89 0 - 100 mg/dL LAB CHEMISTRY METHOD 03/27/2025 6:39 PM [facility] Comment:Estimated LDL Calcul ated using equation: Total cholesterol - HDL cholesterol - (Triglycerides/5) VLDL Cholesterol [place] 76.4 mg/dL LAB CHEMISTRY METHOD 03/27/2025 6:39 PM [facility] Non HDL Chol. (LDL+VLDL) 165(H) <145 mg/dL LAB CHEMISTRY METHOD 03/27/2025 6:39 PM [facility] Chol/HDL Ratio 3.7 0.0 - 4.4 LAB CHEMISTRY METHOD 03/27/2025 6:39 PM EST [facility] Blood Venous blood specimen / Unknown Venipuncture / Unknown 03/27/2025 2:17 PM EST 03/27/2025 2:17 PM EST Violet Jackson NP LAB BLOOD ORDERABLES F inal Result Performing Organization Address [facility]/ZIP Co de Phone Number [facility] [address] [place] [address], * Cortisol (03/27/2025 2:17 PM EST) Cortisol 12.2 mcg/dL LAB CHEMISTRY METHOD 03/27/2025 6:59 PM EST [facility] Blood Venous blood specimen / Unknown Venipuncture / Unknown 03/27/2025 2:17 PM EST 03/27/2025 2:17 PM EST Narrative [facility] - 03/27/2025 6:59 PM EST CORTISOL REFERENCE RANGE 8 AM SPEC: 5.0-23.0 mcg/dL 4 PM SPEC: 3.0-16.0 mcg/dL 8 PM SPEC: <5.0 mcg/dL Clement Nguyen MD LAB BLOOD ORDERABLES Final Resul t Performing Organization Address [facility] Co de Phone Number [facility] [address] [place] [address], * (ABNORMAL) Basic metabolic panel (03/27/2025 2:17 PM EST) Sodium 137 133 - 145 mmol/L LAB CHEMISTRY METHOD 03/27/2025 7:07 PM EST [facility] Potassium 4.3 3.5 - 5.5 mmol/L LAB CHEMISTRY METHOD 03/27/2025 7:07 PM EST [facility] Chloride 95(L) 96 - 110 mmol/L LAB CHEMISTRY METHOD 03/27/2025 7:07 PM EST [facility] CO2 36(H) 21 - 32 mmol/L LAB CHEMISTRY METHOD 03/27/2025 7:07 PM [facility] Anion Gap 6 3 - 11 LAB CHEMISTRY METHOD 03/27/2025 7:07 PM [facility] Glucose 77 70 - 100 mg/dL LAB CHEMISTRY METHOD 03/27/2025 7:07 PM [facility] BUN 14 5 - 25 mg/dL LAB CHEMISTRY METHOD 03/27/2025 7:07 PM [facility] Creatinine 0.67 0.50 - 1.10 mg/dL LAB CHEMISTRY METHOD 03/27/2025 7:07 PM [facility] eGFR 97 >=60 mL/min/1. 73m2 LAB CHEMISTRY METHOD 03/27/2025 7:07 PM [facility] Comment:Calculation based on the Chronic Kidney Disease Epidemiology Collaboration (CKD-EPI) equation refit without adjustment for race. BUN/Creatinine Ratio 20.9 LAB CHEMISTRY METHOD 03/27/2025 7:07 PM [facility] Calcium 8.8 8.5 - 10.5 mg/dL LAB CHEMISTRY METHOD 03/27/2025 7:07 PM [facility] Blood Venous blood specimen / Unknown Venipuncture / Unknown 03/27/2025 2:17 PM EST 03/27/2025 2:17 PM EST us Violet Jackson RETAIL ZONE SPECIALIST LAB BLOOD ORDERABLES F inal Result [facility] [address] [place] [address], * ECG 12 lead (03/07/2025 11:50 AM EDT) Ventricular Rate ECG 80 BPM GEMUSE Atrial Rate 80 BPM GEMUSE P-R Interval 154 ms GEMUSE QRS Duration 104 ms GEMUSE Q-T Interval 414 ms GEMUSE QTc 477 ms GEMUSE P Wave [place] 63 degrees GEMUSE R [place] 1 degrees GEMUSE T [place] 30 degrees GEMUSE ECG Interpretation Normal sinus rhythm Normal ECG Confirmed by MD Joe, Luis Antonio ([id number]) on 03/12/2025 9:35:51 AM GEMUSE 03/07/2025 9:10 AM EDT 03/12/2025 9:35 AM EDT us Payton Jones RETAIL ZONE SPECIALIST ECG ORDERABLES Edited Resul t - Final [...] 67 mL CV PACS Left Atrium Minor [place] 5.0 cm CV PACS Left Atrium Major [place] 5.3 cm CV PACS LA Area Sys [...] Proximal 1.0 cm CV PACS MV Deceleration Walsh 3.7 m/s2 CV PACS E Wave Deceleration [...] CV ECHO PROCEDURES Fin al Result * Hepatitis C antibody (07/27/2024 12:14 PM EDT) Hepatitis C Antibody Negative Negative LAB CHEMISTRY METHOD 07/27/2024 3:39 PM EDT [facility] Blood Venous blood specimen / Unknown Venipuncture / Unknown 07/27/2024 12:14 PM EDT 07/27/2024 12:14 PM EDT Stacy Yen MD LAB BLOOD ORDERA BLES Final Result [facility] [address] [place] [address], [place] [phone] * MG Mammo Digital Screening w Ángel [...] is recommended in 1 year. Mammo Location: [facility], [address] [place] [address], [address], . -------- FINAL REPORT -------- Dictated By: Ntae Stewart Dictated Date: 06/27/2024 18:04 ET Assigned Physician: Nate Stewart Reviewed and Electronically Signed By: Nate Stewart Signed Date: 06/27/2024 18:10 ET Workstation ID: [id number] Transcribed By: Self Edit Transcribed Date: 06/27/2024 [...] of left breast lumpectomy for breast cancer [id number]. TECHNIQUE: Bilateral full-field digital screening mammography is [...] is recommended in 1 year. Mammo Location: [facility], [address] [place] [address], [address], . -------- FINAL REPORT -------- Dictated By: Nate Stewart Dictated Date: 06/27/2024 18:04 ET Assigned Physician: Nate Stewart Reviewed and Electronically Signed By: Nate Stewart Signed Date: 06/27/2024 18:10 ET Workstation ID: [id number] Transcribed By: Self Edit Transcribed Date: 06/27/2024 18:04 ET Stacy Yen MD IMG BI PROCEDURE S Final Result from Last 3 Months or Most Recently Relevant to Health Maintenance Insurance [facility] MEDICARE Member Subscriber Plan / Payer (Ef fective 2023-Present) Name:DO LUNA Relation to Subscriber:Self Name:Do Luna Payer ID:[id number] Group ID:[id number] Type:Not on file Address: [place] [address] [address] [address] Care Teams Metal Furniture Assembler Relationship Specialty Start Date End Date Stacy Yen MD [address] [facility], [place] PCP - General Internal Medicine 12/17/21
--- OUTSIDE RECORDS SUMMARY | 2025-04-10 17:08 | XMS_ITS ---
Author Organization [facility] Address [address] [place] [address] Phone Care Team Providers Care Road Roller Engineer Name Role Phone Stacy Yen MD [...] referral to Cardiac Rehabilitation; Future Adrenal nodule ([facility] V24) 07/28/2024 Assessment & Plan (07/28/2024 8:21 [...] Future NSTEMI (non-ST elevated myoc ardial infarction) ([facility] V24, [facility] V28) 07/27/2024 Assessment & Plan (03/07/2025 11:50 [...] care she is getting with gastroenterology at [facility]. She is referred to gastroenterology at [facility]. She would likely benefit from an [...] & Plan: The patient has an elevated [place] scale, states that she snores and has [...] at bedtime. Peripheral neuropathy due to chemotherapy ([facility]/ [facility] V24) 03/16/2019 Assessment & Plan (08/30/2024 [...] abdomen with and [place] contrast [place] [facility] [place] [...] seen on the MRI abdomen [place]2024 [place] [facility] [place] Patient [...] for physical therapy History of substance abuse ([facility] V24, [facility] V28) 07/14/2018 Overview (04/04/2024): Developed in addiction [...] update lipase level. It was 220 at [facility] and her CT scan showed evidence [...]
--- OUTSIDE RECORDS SUMMARY | 2025-04-10 17:08 | XMS_ITS | Encounter Summary ---
Author Organization [facility] Address [address] [place] [address] Care Team Providers Care Professor Of Sport Management Name Role Phone Stacy Yen MD Primary Care Pr ovider Reason for Visit * Reason Onset Date Comments Hospital Follow-up 04/05/2025 Encounter Details Date Type Department Care Team ([facility] st Contact Info) Description 04/05/2025 Telephone Adult Medicine [address] [phone] Stacy Yen MD [address] [place] [address] Social History Tobacco Use Types Packs/Day Years [...] for your loved ones. For example, child welfare social worker or elderly care for an older [...] as of this encounter Progress Notes * Jenn Gamez RN - 04/05/2025 11:21 AM EST Called pt and advised her to go to an C or back to the ER to have the sherry removed next week. She is in agreement with this plan. * Jacqueline Clement - 04/05/2025 10:51 AM EST Hospital/ER follow up appointment needed Hospital patient was treated at: [facility] Was this only an ER visit or was the patient admitted to the hospital? ER Visit only Date of visit if ER visit only: 03/31/2025 Reason/diagnosis for visit or stay: fell out of bed, need stitches removed from head When was the patient told to follow up? week Due 04/06 Was visit or stay related to an injury? If yes, what was the date of injury (DOI)? No If yes, was the injury due to: Not 3rd alliance party related documented in this encounter Plan of Treatment Upcoming Encounters Date Type Department Care Team (Late st Contact Info) Description 04/26/2025 9:45 AM EST Office Visit [facility] Hematology Oncology [address] [place] [phone] Sunil Mauro MD [address] [place] [phone] 05/02/2025 9:30 AM EST Office Visit Pulmonology - [place] 175 [facility] [address] [place] [phone] Swati Lehman MD [address] [place] [phone] 06/08/2025 9:00 AM EST Office Visit Adult Medicine [facility] - [address] [phone] Stacy Yen MD [address] [place] [phone] 06/14/2025 2:45 PM EST Appointment [facility] - [address] [phone] documented as of this encounter Visit Diagnoses Not on filedocumented in this encounter Additional Health Concerns Assessment Noted Time PHQ-9 Depression Total Score: 1 05/11/20 24 10:20 AM EST documented as of this encounter Care Teams Professor Of Sport Management Relationship Specialty Start Date End Date Stacy Yen MD [address] [place], [place] PCP - General Internal Medicine 12/17/21 documented as of this encounter
--- OUTSIDE RECORDS SUMMARY | 2025-04-10 17:08 | XMS_ITS | Encounter Summary ---
Author Organization [facility] Address [address] [place] [address] Care Team Providers Care Dress Designer Name Role Phone Stacy Yen MD Primary Care Pr ovider Encounter Details Date Type Department Care Team ([facility] Contact Info) Description 03/28/2025 Results Follow-[facility] - [address] [phone] Flor Bethea [place] Social History Tobacco Use [...] for your loved ones. For example, children's entertainer or elderly care for an older adult? [...] Description 04/26/2025 9:45 AM EST Office Visit [facility] Hematology Oncology [address] [place] [phone] Sunil Mauro MD [address] [place] [phone] 05/02/2025 9:30 AM EST Office Visit Pulmonology [facility] 175 [facility] [address] [place] [phone] Swati Lehman MD [address] [place] [phone] 06/08/2025 9:00 AM EST Office Visit Adult Medicine [address] [phone] Stacy Yen MD [address] [place] [phone] 06/14/2025 2:45 PM EST Appointment [facility] - [address] [phone] documented as of this encounter Visit Diagnoses Not on filedocumented in this encounter Additional Health Concerns Assessment Noted Time PHQ-9 Depression Total Score: 1 05/11/20 24 10:20 AM EST documented as of this encounter Care Teams Dress Designer Relationship Specialty Start Date End Date Stacy Yen MD [address] [facility] [place], [place] PCP - General Internal Medicine 12/17/21 documented as of this encounter
== END 2025-04-10 13:00 | disposition home or self-care (01) ==
LOC: HO.HMGCX 12:59
PROVIDERS: PCP Pediatrics; Visit Provider Physician Assistant
DX: Z48.02 Encounter for removal of sutures (principal); M54.2 Cervicalgia
CPT/HCPCS: 72050; 99202

== ENCOUNTER → 2025-04-10 13:21 | Outpatient (BNV) | payer OTHER, SELFPAY | PROVIDERS: PCP Pediatrics; Visit Provider Radiology Diagnostic Radiology | DX: M50.323 Other cervical disc degeneration at C6-C7 level (principal) | CPT/HCPCS: 72050 ==